=== PATIENT | female | born 1975 | race Caucasian/White ===

== ENCOUNTER 2024-03-14 10:39 | Outpatient (OUT) | payer OTHER, SELFPAY ==
--- NOTE | 2024-03-14 10:52 | XR_ITS ---
The [address] [address] Patient Name: GERTRUDE WATERS MRN: [id number] date: 1975 Sex: F Assigned Patient Location: [facility] Current Patient Location: Accession/Order Number: [id number] Exam Date: 03/14/2024 11:06 Report Date: 03/15/2024 06:16 At the request of: MARIS WELLS Procedure: XR foot RT 2V PROCEDURE: XR foot RT 2V HISTORY: Right Foot Pain ; lateral foot pain and swelling after kicking a door COMPARISON: None. FINDINGS: BONES:Nondisplaced transverse fracture through base of 5th metatarsal; no appreciable intra-articular extension. SOFT TISSUES:No visible soft tissue swelling. EFFUSION:None visible. OTHER: Negative. XR/XR foot RT 2V IMPRESSION: 1. Nondisplaced, acute base of 5th metatarsal fracture. Electronically authenticated by: RASHID MILLER Date: 03/15/2024 06:16
== END 2024-03-14 10:40 | disposition home or self-care (01) ==
LOC: RAD 10:45
PROVIDERS: PCP Family Medicine; Visit Provider Family Medicine
DX: M79.671 Pain in right foot (principal); S92.354A Nondisplaced fracture of fifth metatarsal bone, right foot, initial encounter for closed fracture
CPT/HCPCS: 73620

== ENCOUNTER 2024-07-21 15:45 | Emergency (ER) | payer SELFPAY ==
[2024-07-21 16:02] VITALS: BP 117/76; PULSE 75; TEMP 36.9; O2SAT 98; BMI 22.0
--- OUTSIDE RECORDS SUMMARY | 2024-07-21 16:08 | XMS_ITS | CCD ---
Author Organization [facility] Inform ion Partnership [facility] Care Team Providers Care [facility] Dining Room Attendant Name Role Phone Gareth Justin Santos Attending MARIS Tolbert Primary Care Unavailable MARIS OLIVAS Consulting Unavailable Maris Olivas Primary Care Physician Wolfgang MC Attending Unavailable Wolfgang MC Attending Unavailable PRISCILLA, DR POLLOCK Primary Care Unavailable JACOB, DR DOM Bishop Admitting Unavailable JACOB, DR DOM Bishop Attending Unavailable JACOB, DR DOM Bishop Consulting Unavailable MELODIE ORTIZ Consulting Unavailable PRISCILLA, DR POLLOCK Admitting Unavailable PRISCILLA, DR POLLOCK Attending Unavailable PRISCILLA, DR POLLOCK Primary Care Unavailable PRISCILLA, DR POLLOCK Consulting Unavailable PRISCILLA, DR POLLOCK Admitting Unavailable PRISCILLA, DR POLLOCK Attending Unavailable PRISCILLA, DR POLLOCK Primary Care Unavailable PRISCILLA, DR POLLOCK Primary Care Unavailable CANDELARIO, DR INDIRA Santos Admitting Unavailsabino PALOMINO, DR INDIRA Santos Attending Unavailabl valentine PALOMINO, DR INDIRA Santos Consulting UnavailPatel Givens Attending Patel Wright Admitting UnavailMaris Fernandez Primary Care Unavailable Allergies Allergy Classification Reported Allergen(s) Allergy Type Date of Onset Reaction(s) Facility Opioid Agonists (1 source) Codeine; Translations: [codeine] Drug Allergy [facility] Repository Sulfonamides (antibiotic) (1 source) Sulfonamides (Antibiotic); Translations: [sulfa drugs] Drug Allergy [facility] Repository (3 sources) Codeine; Translations: [codeine] Drug Allergy Weal (disorder) [facility] (3 sources) Contrast media; Translations: [Contrast Dye] Drug allergy Dyspnea (finding), Weal (disorder) [facility] (3 sources) Sulfonamides (Antibiotic); Translations: [sulfa drugs] Drug allergy Eruption of skin (disorder) General Surgery [facility] [place] (1 source) Codeine Drug Allergy 3 [facility] Repository (1 source) Sulfonamides (Antibiotic) Drug allergy (disorder) 3 [facility] Repository (1 source) Codeine Drug Allergy 1 [facility] Repository (1 source) Sulfonamides (Antibiotic) Drug allergy (disorder) 1 [facility] Repository Medications Current Medications Medication Drug Class(es) Dates Sig (Normalized) Sig (Original) aspirin 81 mg delayed release oral tablet (2 sources) Platelet Aggregation Inhibitor, Nonsteroidal Anti-inflammatory Drug Start: 06-19-2022 take 1 tablet by mouth once daily aspirin 81 mg Oral EC Tab 81 mg = 1 tab(s), Oral, Daily, Refills(s) 0 Start Date: 06/19/22 Status: Ordered carvedilol 3.125 mg oral tablet (2 sources) alpha-Adrenergic Petrona, beta-Adrenergic Petrona Start: 05-18-2022 take 1 tablet by mouth twice daily carvedilol 3.125 mg Tab 3.125 mg = 1 tab(s), Oral, BID, Refills(s) 0 Start Date: 05/18/22 Status: Ordered 24 hr desvenlafaxine succinate 100 mg extended release oral tablet (2 sources) Serotonin and Norepinephrine Reuptake Inhibitor Start: 03-08-2020 take 1 tablet by mouth once daily Pristiq 100 mg Tab-ER 100 mg = 1 tab(s), Oral, Daily Start Date: 03/08/20 Status: Ordered 24 hr mirabegron 25 mg extended release oral tablet (2 sources) beta3-Adrenergic Agonist Start: 05-18-2022 take 1 tablet by mouth once daily Myrbetriq 25 mg oral tablet, extended release 25 mg = 1 tab(s), Oral, Daily, Refills(s) 0 Start Date: 05/18/22 Status: Ordered valACYclovir 500 mg oral tablet (2 sources) Herpesvirus Nucleoside Analog DNA Polymerase Inhibitor, Herpes Simplex Virus Nucleoside Analog DNA Polymerase Inhibitor, Herpes Zoster Virus Nucleoside Analog DNA Polymerase Inhibitor Start: 03-15-2020 take 1 tablet by mouth once daily Valtrex 500 mg Tab 500 mg = 1 tab(s), Oral, Daily, Refills(s) 0 Start Date: 03/15/20 Status: Ordered Problems Active Problems Problem Classification Problem Date Documented Date Episodic/Chronic Anxiety disorders (3 sources) Anxiety; Translations: [Anxiety disorder, unspecified] Onset: 08-19-2021 03-08-2020 Chronic Cardiac dysrhythmias (4 sources) Paroxysmal atrial fibrillation; Translations: [Atrial premature depolarization] Onset: 08-19-2021 03-08-2020 Chronic E Codes: Struck by; against (1 source) Striking against or struck by other objects, initial encounter; Translations: [STRIKING AGNST/STRUCK OTH OBJ INIT] Onset: 08-03-2022 Episodic Immunizations and screening for infectious disease (1 source) Encounter for immunization; Translations: [ENCOUNTER FOR IMMUNIZATION] Onset: 08-03-2022 Episodic Mood disorders (1 source) Major depressive disorder, single episode, unspecified; Translations: [MARCY DEPRESS D/O SINGLE EPIS UNS] Onset: 08-19-2021 Chronic Neoplasms of unspecified nature or uncertain behavior (4 sources) Neoplasm of uncertain behavior of skin; Translations: [Neoplasm of uncertain behavior of skin] Onset: 06-19-2022 Episodic Open wounds of extremities (4 sources) Puncture wound with foreign body of right ring finger without damage to nail, initial encounter; Translations: [Puncture wound with foreign body of right index finger without damage to nail, initial encounter] Onset: 07-30-2022 Episodic Other aftercare (1 source) senior care (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 aspirin; Translations: [BARK SKINNER CURRENT USE OF ASPIRIN] Onset: 08-03-2022 Episodic Other aftercare (1 source) Other detention (current) drug therapy; Translations: [OTH NURSING HOME CURRENT DRUG THERAPY] Onset: 08-03-2022 Episodic Other and unspecified benign neoplasm (2 sources) Benign neoplasm of face 03-15-2020 Episodic Other diseases of bladder and urethra (2 sources) Overactive bladder 03-08-2020 Chronic Spondylosis; intervertebral disc disorders; other back problems (2 sources) Cervical radiculopathy 03-08-2020 Episodic Substance-related disorders (2 sources) History of drug abuse 03-08-2020 Chronic Unclassified (2 sources) Decreased body mass index 06-19-2022 Past or Other Problems Problem Classification Problem Date Documented Da te Episodic/Chronic Cardiac dysrhythmias (4 sources) Palpitations; Translations: [PALPITATIONS] Onset: 08-19-2021 Episodic Results Test Name Value Interpretation Reference Range Facility Facesheeton 06-23-2022 Facesheet [id number] D:127 Normal [facility] Physician Referralon 022 Physician Referral [id number] D:127 Normal [facility] CARDIAC DOM ADMITon 022 CK [Catalytic activity/Vol] 73 U/L Normal 30-135 [facility] Comment on above: Performed By: #### C MADM, CMP #### [facility] [address] [place] [address] Dr. Akil Aleman CK.MB [Mass/Vol] 0.61 ng/mL Normal <=2.37 [facility] Comment on above: Performed By: #### C MADM, CMP #### [facility] [address] [place] [address] Dr. Akil Aleman HSTROP 7.1 pg/mL Normal 4.0-35.5 [facility] Comment on above: Result Comment: CUT- OFF POINTS HAVE BEEN ESTABLISHED BASED ON THE FOURTH UNIVERSAL DEFINITIONS OF MYOCARDIAL INFARCTION. THE UPPER REFERENCE LIMIT (URL) OF TROPONIN, DEFINED THE 99TH PERCENTILE OF cTnI DISTRIBUTION IN A REFERENCE POPULATION, HAS BEEN CONFIRMED THE DECISION THRESHOLD FOR [place] DIAGNOSIS. Performed By: #### C MADM, CMP #### [facility] [address] [place] [address] Dr. Akil Aleman HUNTER 22.0 ng/mL Normal <=61.5 [facility] Comment on above: Performed By: #### C MADM, CMP #### [facility] [address] [place] [address] Dr. Akil Aleman CBC AUTO DIFFon 08-16-2021 BASO # 0.0 103/ul Normal 0.0-0.1 [facility] Comment on above: Performed By: #### C BC #### [facility] [address] [place] [address] Dr. Akil Aleman Basophils/100 WBC (Bld) 0.5 % Normal 0.2-2.0 [facility] Comment on above: Performed By: #### C BC #### [facility] [address] [place] [address] Dr. Akil Aleman EO # 0.2 103/ul Normal 0.0-0.7 [facility] Comment on above: Performed By: #### C BC #### [facility] [address] [place] [address] Dr. Akil Aleman Eosinophils/100 WBC (Bld) 2.8 % Normal 0.9-7.0 [facility] Comment on above: Performed By: #### C BC #### [facility] [address] [place] [address] Dr. Akil Aleman Erythrocyte distribution width (RBC) [Ratio] 12.6 % Normal 11.0-15.0 [facility] Comment on above: Performed By: #### C BC #### [facility] [address] [place] [address] Dr. Akil Aleman Hematocrit (Bld) [Volume fraction] 42.5 % Normal 36.0-48.0 [facility] Comment on above: Performed By: #### C BC #### [facility] [address] [place] [address] Dr. Akil Aleman Hemoglobin (Bld) [Mass/Vol] 14.8 g/dL Normal 12.0-16.0 [facility] Comment on above: Performed By: #### C BC #### [facility] [address] [place] [address] Dr. Akil Aleman IG # 0.02 10e3/ul Normal 0.00-0.03 [facility] Comment on above: Performed By: #### C BC #### [facility] [address] [place] [address] Dr. Akil Aleman IG % 0.3 % Normal 0.0-0.5 [facility] Comment on above: Performed By: #### C BC #### [facility] [address] [place] [address] Dr. Akil Aleman LYMPH # 2.0 103/ul Normal 1.2-3.8 [facility] Comment on above: Performed By: #### C BC #### [facility] [address] [place] [address] Dr. Akil Aleman Lymphocytes/100 WBC (Bld) 25.4 % Normal 20.5-60.0 [facility] Comment on above: Performed By: #### C BC #### [facility] [address] [place] [address] Dr. Akil Aleman MANUAL DIFF REQ NO Normal [facility] Comment on above: Performed By: #### C BC #### [facility] [address] [place] [address] Dr. Akil Aleman MCH (RBC) [Entitic mass] 36.5 pg Critically high 26.7-34.0 [facility] Comment on above: Performed By: #### C BC #### [facility] [address] [place] [address] Dr. Akil Aleman MCHC (RBC) [Mass/Vol] 34.8 g/dL Normal 29.9-35.2 [facility] Comment on above: Performed By: #### C BC #### [facility] [address] [place] [address] Dr. Akil Aleman MCV (RBC) [Entitic vol] 104.9 fL Critically high 81.0-99.0 [facility] Comment on above: Performed By: #### C BC #### [facility] [address] [place] [address] Dr. Akil Aleman MONO # 0.7 103/ul Normal 0.3-0.8 [facility] Comment on above: Performed By: #### C BC #### [facility] [address] [place] [address] Dr. Akil Aleman Monocytes/100 WBC (Bld) 8.9 % Normal 1.7-12.0 [facility] Comment on above: Performed By: #### C BC #### [facility] [address] [place] [address] Dr. Akil Aleman NEUT # 5.0 103/ul Normal 1.4-6.5 [facility] Comment on above: Performed By: #### C BC #### [facility] [address] [address] [address] Akil Aleman Neutrophils/100 WBC (Bld) 62.1 % Normal 43.0-75.0 [facility] Comment on above: Performed By: #### C BC #### [facility] [address] [address] [address] Akil Aleman Platelet mean volume (Bld) [Entitic vol] 12.1 fL Normal 9.5-13.5 [facility] Comment on above: Performed By: #### C BC #### [facility] [address] [address] [address] Akil Aleman PLT 187 103/ul Normal 150-450 [facility] Comment on above: Performed By: #### C BC #### [facility] [address] [address] [address] Akil Aleman RBC 4.05 106/ul Critically low 4.20-5.40 [facility] Comment on above: Performed By: #### C BC #### [facility] [address] [address] [address] Akil Aleman WBC 8.0 103/ul Normal 4.0-11.0 [facility] Comment on above: Performed By: #### C BC #### [facility] [address] [address] [address] Akil Aleman PROF 14(COMP METB)on 022 Albumin [Mass/Vol] 3.8 g/dL Normal 3.5-5.0 [facility] Comment on above: Performed By: #### C KIERRAM, CMP #### [facility] [address] [address] [address] Akil Aleman Albumin/Globulin [Mass ratio] 1.1 {ratio} Normal [facility] Comment on above: Performed By: #### C KIERRAM, CMP #### [facility] [address] [address] [address] Akil Aleman ALP [Catalytic activity/Vol] 132 U/L Critically high 38-126 [facility] Comment on above: Performed By: #### C MADM, CMP #### [facility] [address] [address] [address] Akil Aleman ALT [Catalytic activity/Vol] 19 U/L Normal 9-52 [facility] Comment on above: Performed By: #### C MADM, CMP #### [facility] [address] [address] [address] Akil Aleman Anion gap [Moles/Vol] 16.1 mmol/L Normal [facility] Comment on above: Performed By: #### C MADM, CMP #### [facility] [address] [address] [address] Akil Aleman AST [Catalytic activity/Vol] 13 U/L Critically low 14-36 [facility] Comment on above: Performed By: #### C MADM, CMP #### [facility] [address] [address] [address] Akil Aleman Bilirubin [Mass/Vol] 0.5 mg/dL Normal 0.2-1.3 [facility] Comment on above: Performed By: #### C MADM, CMP #### [facility] [address] [address] [address] Akil Aleman Calcium [Mass/Vol] 9.2 mg/dL Normal 8.4-10.2 [facility] Comment on above: Performed By: #### C KIERRAM, CMP #### [facility] [address] [address] [address] Akil Aleman Chloride [Moles/Vol] 101 mmol/L Normal 98-107 [facility] Comment on above: Performed By: #### C MADM, CMP #### [facility] [address] [address] [address] Akil Aleman CO2 [Moles/Vol] 25.5 mmol/L Normal 22.0-30.0 [facility] Comment on above: Performed By: #### C MADM, CMP #### [facility] [address] [address] [address] Akil Aleman Creatinine [Mass/Vol] 0.70 mg/dL Normal 0.52-1.04 [facility] Comment on above: Performed By: #### C MADM, CMP #### [facility] [address] [place] [address] Dr. Akil Aleman EGFR-AF GUAMANIAN >60 Normal >=60 [facility] Comment on above: Performed By: #### C MADM, CMP #### [facility] [address] [address] [address] Akil Aleman EGFR-NON AF GUAMANIAN >60 Normal >=60 [facility] Comment on above: Performed By: #### C MADM, CMP #### [facility] [address] [address] [address] Akil Aleman Globulin (S) [Mass/Vol] 3.5 g/dL Normal [facility] Comment on above: Performed By: #### C MADM, CMP #### [facility] [address] [place] [address] Dr. Akil Aleman Glucose [Mass/Vol] 88 mg/dL Normal 74-106 [facility] Comment on above: Performed By: #### C MADM, CMP #### [facility] [address] [place] [address] Dr. Akil Aleman Potassium [Moles/Vol] 3.6 mmol/L Normal 3.4-5.0 [facility] Comment on above: Performed By: #### C MADM, CMP #### [facility] [address] [place] [address] Dr. Akil Aleman Protein [Mass/Vol] 7.3 g/dL Normal 6.1-8.2 [facility] Comment on above: Performed By: #### C MADM, CMP #### [facility] [address] [place] [address] Dr. Akil Aleman Sodium [Moles/Vol] 139 mmol/L Normal 137-145 [facility] Comment on above: Performed By: #### C MADM, CMP #### [facility] [address] [place] [address] Dr. Akil Aleman Urea nitrogen [Mass/Vol] 11.0 mg/dL Normal 7.0-17.0 [facility] Comment on above: Performed By: #### C SANDI, CMP #### [facility] [address] [place], [place] [address] Dr. Akil Aleman Urea nitrogen/Creatinin e [Mass ratio] 15.7 mg/mg Normal [facility] Comment on above: Performed By: #### C SANDI, CMP #### [facility] [address] [place], [place] [address] Dr. Akil Aleman XR CHEST 1 Von 08-16-2021 XR CHEST 1 V EXAM: XR CHEST 1 V HISTORY: CHEST PAIN, UNSPECIFIED COMPARISON: None available. TECHNIQUE: Single AP view of the chest is obtained. FINDINGS: The cardiac mediastinal silhouette is nonenlarged. Pulmonary vascular markings are within normal limits. There is no focal airspace consolidation. The costophrenic angles are clear. No pneumothorax. The osseous structures are normally intact. IMPRESSION: Normal single view chest x-ray. Electronically authenticated by: MELODIE ORTIZ Date: 2021-08-16 02:38 Normal [facility] ED Clinical Summaryon 2020 ED Clinical Summary [address] [address] ED Clinical Summary Person Information Name: Martha Puckett [facility] Age: 45 Years : 1975 Sex: Female PCP: Maris Olivas MD Marital Status: Phone: Race: White Ethnicity: Not or Language: Samoan Visit Reason: Seizure; Seizure - febrile Acuity: 3 Enc Type: Emergency Med Service: Emergency Medicine Arrival: 11/02/2020 19:11:24 Discharge: 11/02/2020 22:24:00 LOS: 000 03:13 Checkin: 11/02/2020 19:11:24 Checkout: 11/02/2020 22:24:00 Dispo Type: Home or Self Care Address: [address] [place] [address] Provider Notes: Diagnosis: 1:First time seizure; 2:Anxiety disorder Problems No Problems Documented Smoking Status: Smoking Status 4 or less cigarettes(less than 1/4 pack)/day in last 30 days Functional Status: Sensory Deficits: History of Falls: Mobility Assistance Prior to Admission: ADLs: Current Level of Assistance for Self-Care/Mobility: Cognitive Status: Allergies codeine (Hives) sulfa drugs (Rash) Laboratory or Other Results This Visit (last charted value for your 11/02/2020 visit) Hematology 11/02/2020 8:34 PM WBC: 10.5 x10 RBC: 3.94 x10 Neutro Auto: 78.5 % -- Normal range between ( 47.2 and 70.8 ) Lymph Auto: 13.7 % -- Normal range between ( 27.2 and 40.8 ) [place] Auto: 5.5 % -- Normal range between ( 3.7 and 11.9 ) Eos Auto: 1.3 % -- Normal range between ( 0.0 and 5.4 ) Basophil Auto: 1.0 % -- Normal range between ( 0.0 and 1.5 ) Baso Absolute: 0.1 x10 MCV: 102.2 fL -- Normal range between ( 80.0 and 100.0 ) MCHC: 33.8 % -- Normal range between ( 31.0 and 37.0 ) Lymph Absolute: 1.4 x10 Hct: 40.2 % -- Normal range between ( 36.0 and 46.0 ) [place] Absolute: 0.6 x10 MCH: 34.5 pg -- Normal range between ( 27.0 and 35.0 ) Neutro Absolute: 8.3 x10 Hgb: 13.6 g/dL -- Normal range between ( 12.0 and 16.0 ) Mean Platelet Volume: 9.4 fL -- Normal range between ( 6.7 and 10.6 ) Platelet: 225 x10 Eos Absolute: 0.1 x10 RDW: 15.5 % -- Normal range between ( 11.6 and 14.8 ) Coagulation 11/02/2020 8:34 PM PT: 11.7 seconds -- Normal range between ( 9.4 and 12.1 ) INR: 1.1 ratio PTT: 21.7 seconds -- Normal range between ( 20.2 and 27.0 ) Urinalysis 11/02/2020 8:34 PM UA Color: Yellow UA Urobilinogen: 0.2 mg/dL UA Bili: Negative UA Ketones: Negative mg/dL UA Leukocyte Esterase: Negative UA Nitrite: Negative UA Glucose: Negative mg/dL UA Bacteria: Present /HPF UA Protein: 30 mg/dL UA Blood: Negative UA Spec Grav: 1.017 -- Normal range between ( 1.003 and 1.035 ) UA pH: 6.0 UA Clarity: Clear UA Source: Clean Catch UA Mucus: Present /LPF UA Hyline Cast Qual: 3-5 /LPF UA WBC Quant: 4 /HPF -- Normal range between ( 0 and 5 ) UA RBC Quant: 5 /HPF -- Normal range between ( 0 and 5 ) UA Squepi Cells Quant: 7 /HPF -- Normal range between ( 0 and 29 ) Chemistry 11/02/2020 8:34 PM Creatinine Lvl: 0.80 mg/dL -- Normal range between ( 0.44 and 1.03 ) BUN: 13 mg/dL -- Normal range between ( 8 and 26 ) Glucose Lvl: 107 mg/dL -- Normal range between ( 70 and 99 ) Potassium Lvl: 3.8 mmol/L -- Normal range between ( 3.4 and 4.8 ) AST: 16 IU/L -- Normal range between ( 15 and 41 ) ALT: 18 IU/L -- Normal range between ( 14 and 54 ) Troponin-I: <0.03 ng/mL -- Normal range between ( 0.00 and 0.03 ) Sodium Lvl: 140 mmol/L -- Normal range between ( 133 and 142 ) Calcium Lvl: 9.0 mg/dL -- Normal range between ( 8.5 and 10.3 ) Albumin Lvl: 3.9 g/dL -- Normal range between ( 3.2 and 4.9 ) Total Protein: 6.8 g/dL -- Normal range between ( 6.5 and 8.1 ) Bili Total: 0.2 mg/dL -- Normal range between ( 0.3 and 1.2 ) Alk Phos: 64 IU/L -- Normal range between ( 32 and 91 ) Myoglobin: 319.0 ng/dL -- Normal range between ( 14.3 and 65.8 ) Chloride: 105 mmol/L -- Normal range between ( 98 and 110 ) CO2: 25 mmol/L -- Normal range between ( 22 and 32 ) Anion Gap: 14 -- Normal range between ( 7 and 17 ) TSH: 3.23 mcIU/mL -- Normal range between ( 0.45 and 5.33 ) eGFR Non-AA: >60 mL/min/1.73m? eGFR AA: >60 mL/min/1.73m? BUN Crea Ratio: 16.2 -- Normal range between ( 10.0 and 20.0 ) Urine Preg: Negative AG Ratio: 1.3 -- Normal range between ( 1.1 and 2.2 ) Ur Creatinine Tox Scrn: 186.8 mg/dL Toxicology 11/02/2020 8:34 PM Ur PCP Scrn: Negative ng/mL Ur Opiate Scrn: Negative ng/mL Ur Methadone Scn: Negative ng/mL Ur Cannab Scrn: Positive ng/mL Ur Amph Scrn: Negative ng/mL Ur Benzodia Scrn: Negative ng/mL Ur Lulu Scrn: Positive ng/mL Ur Cocaine Scrn: Negative ng/mL Ur Oxy Screen: Negative ng/mL Ethanol, Plasma: <10 mg/dL Computed Tomography 11/02/2020 9:[address] Brain w/o Contrast: CT Brain w/o Contrast Diagnostic Radiology 11/02/2020 8:07 PM XR Chest 1 View: XR Chest 1 View Measurements: Height: Weight: 59.9 kg (more content not included)... Normal [facility] .UA Microscp Aon 11-02-2020 UA Bacteria Present Abnormal Absent [facility] Comment on above: Performed By: #### C [id number] #### [place] [address] UA Hyline Cast Qual 3-5 Normal Negative [facility] Comment on above: Performed By: #### C [id number] #### [place] [address] UA Mucus Present Abnormal Absent [facility] Comment on above: Performed By: #### C [id number] #### [place] [address] UA RBC Quant 5 /HPF Normal 0-5 [facility] Comment on above: Performed By: #### C [id number] #### [place] [address] UA Squepi Cells Quant 7 /HPF Normal 0-29 [facility] Comment on above: Performed By: #### C [id number] #### [address] [address] UA WBC Quant 4 /HPF Normal 0-5 [facility] Comment on above: Performed By: #### C [id number] #### [address] [address] .eGFRon 11-02-2020 eGFR AA >60 Normal >=60 [facility] Comment on above: Order Comment: Order added by Discern rule Result Comment: See comment. Performed By: #### E GFR #### [place] [address] eGFR Non-AA >60 Normal >=60 [facility] Comment on above: Order Comment: Order added by Discern rule Result Comment: Stag es of Chronic Kidney Disease GFR Stage 3a Mild to moderate loss of kidney function 59 to 45 Stage 3b Moderate to severe loss of kidney function 44 to 33 Stage 4 Severe loss of kidney function 29 to 15 Stage 5 Kidney failure Less than 15 GFR calculated using the CKD-EPI Creatinine Equation (2009): eGFR = 141 X min(SCr/?, 1)? X max(SCr /?, 1)-1.209 X 0.993Age X 1.018 [if female] X 1.159 [if Black] Abbreviations/Units: eGFR (estimated glomerular filtration rate) = mL/min/1.73 m2 SCr (standardized serum creatinine) = mg/dL ? = 0.7 (females) or 0.9 (males) ? = -0.329 (females) or -0.411 (males) min = indicates the minimum of SCr/? or 1 max = indicates the maximum of SCr/? or 1 age = years Performed By: #### E GFR #### [address] [address] CBC w/ Diffon 11-02-2020 Erythrocyte distribution width (RBC) [Ratio] 15.5 % High 11.6-14.8 [facility] [facility] Comment on above: Performed By: #### C BC #### [address] [address] Hematocrit (Bld) [Volume fraction] 40.2 % Normal 36.0-46.0 [facility] Comment on above: Performed By: #### C BC #### [address] [address] Hemoglobin (Bld) [Mass/Vol] 13.6 g/dL Normal 12.0-16.0 [facility] Comment on above: Performed By: #### C BC #### [address] [address] MCH (RBC) [Entitic mass] 34.5 pg Normal 27.0-35.0 [facility] Comment on above: Performed By: #### C BC #### [address] [address] MCHC 33.8 % Normal 31.0-37.0 [facility] Comment on above: Performed By: #### C BC #### [address] [address] MCV (RBC) [Entitic vol] 102.2 fL High 80.0-100.0 [facility] Comment on above: Performed By: #### C BC #### [address] [address] Platelet 225 x10*3/mcL Normal 150-350 [facility] Comment on above: Performed By: #### C BC #### [address] [address] Platelet mean volume (Bld) [Entitic vol] 9.4 fL Normal 6.7-10.6 [facility] Comment on above: Performed By: #### C BC #### [address] [address] RBC 3.94 x10*6/mcL Normal 3.80-5.20 [facility] Comment on above: Performed By: #### C BC #### [address] [address] WBC 10.5 x10*3/mcL Normal 4.5-11.0 [facility] Comment on above: Performed By: #### C BC #### [address] [address] CMPon 11-02-2020 Creatinine [Mass/Vol] 0.80 mg/dL Normal 0.44-1.03 [facility] Comment on above: Performed By: #### C OMP #### [address] [address] Urea nitrogen [Mass/Vol] 13 mg/dL Normal 8-26 [facility] Comment on above: Performed By: #### C OMP #### [address] [address] Urea nitrogen/Creatinin e [Mass ratio] 16.2 mg/mg Normal 10.0-20.0 [facility] Comment on above: Performed By: #### C OMP #### [address] [address] Albumin [Mass/Vol] 3.9 g/dL Normal 3.2-4.9 [facility] Comment on above: Performed By: #### C OMP #### [address] [address] Albumin/Globulin [Mass ratio] 1.3 {ratio} Normal 1.1-2.2 [facility] Comment on above: Performed By: #### C OMP #### [address] [address] Alk Phos 64 IU/L Normal 32-91 [facility] Comment on above: Performed By: #### C OMP #### [address] [address] ALT [Catalytic activity/Vol] 18 U/L Normal 14-54 [facility] Comment on above: Performed By: #### C OMP #### [address] [address] AST [Catalytic activity/Vol] 16 U/L Normal 15-41 [facility] Comment on above: Performed By: #### C OMP #### [address] [place] [address] Bili Total 0.2 mg/dL Low 0.3-1.2 [facility] Comment on above: Performed By: #### C OMP #### [address] [place] [address] Protein [Mass/Vol] 6.8 g/dL Normal 6.5-8.1 [facility] Comment on above: Performed By: #### C OMP #### [address] [place] [address] Anion gap [Moles/Vol] 14 mmol/L Normal 7-17 [facility] Comment on above: Performed By: #### C OMP #### [address] [address] Calcium [Mass/Vol] 9.0 mg/dL Normal 8.5-10.3 [facility] Comment on above: Performed By: #### C OMP #### [address] [place] [address] Chloride [Moles/Vol] 105 mmol/L Normal 98-110 [facility] Comment on above: Performed By: #### C OMP #### [address] [place] [address] CO2 [Moles/Vol] 25 mmol/L Normal 22-32 [facility] Comment on above: Performed By: #### C OMP #### [address] [place] [address] Glucose [Mass/Vol] 107 mg/dL High 70-99 [facility] Comment on above: Performed By: #### C OMP #### [address] [place] [address] Potassium [Moles/Vol] 3.8 mmol/L Normal 3.4-4.8 [facility] Comment on above: Performed By: #### C OMP #### [address] [place] [address] Sodium [Moles/Vol] 140 mmol/L Normal 133-142 [facility] Comment on above: Performed By: #### C OMP #### [address] [address] [address] Brain w/o Contraston 10-17 CT Brain w/o Contrast EXAM: CT Brain w/o Contrast COMPARISON: None available. CLINICAL INFORMATION: Seizure. TECHNIQUE: Axial noncontrast images were obtained through the brain and reconstructed using brain and bone algorithms. Dose reduction techniques were achieved by using automated exposure control and/or adjustment of mA and/or kV according to patient size and/or use of iterative reconstruction technique. FINDINGS: BRAIN: No intracranial hemorrhage. No extra-axial collection. No mass or mass effect. No midline shift. Funk-white matter differentiation is preserved. CSF: Ventricles and sulci appropriate for age. Basal cisterns are patent. ORBITS: Visualized orbital structures are unremarkable. SINUSES AND MASTOID AIR CELLS: Paranasal sinuses are clear. Mastoid air cells are clear. BONES: No acute osseous abnormality. SOFT TISSUES: Unremarkable. IMPRESSION: 1. No acute intracranial abnormality. 2. If this is a first-time seizure consider further evaluation with follow-up nonemergent MRI. Radiation Dose Estimate: CTDI(mGy):0.841779 / / / kVp:120.019890 / mAs:0.136788 / / / DLP(mGy-cm):4.183000Zdu y Part: Head CTDI(mGy):40.130549 / / / kVp:120.404957 / mAs:164.626449 / / / DLP(mGy-cm):605.470010N hailey Part: Head Final Dictated by: Sebastián Castañeda MD Dictated DT/TM: 11.02.2020 9:41 pm Signed by: Sebastián Castañeda MD Signed (Electronic Signature): 11.02.2020 9:43 pm (If Report Is Signed, Electronically Signed in Other Vendor System) Normal [facility] Diff Autoon 11-02-2020 Baso Absolute 0.1 x10*3/mcL Normal 0.0-0.2 [facility] Comment on above: Performed By: #### P TINR #### [address] [address] Basophils/100 WBC (Bld) 1.0 % Normal 0.0-1.5 [facility] Comment on above: Performed By: #### P TINR #### [address] [address] Eos Absolute 0.1 x10*3/mcL Normal 0.0-0.4 [facility] Comment on above: Performed By: #### P TINR #### [address] [address] Eosinophils/100 WBC (Bld) 1.3 % Normal 0.0-5.4 [facility] Comment on above: Performed By: #### P TINR #### [address] [address] Lymph Absolute 1.4 x10*3/mcL Normal 1.0-4.8 [facility] Comment on above: Performed By: #### P TINR #### [address] [address] Lymphocytes/100 WBC (Bld) 13.7 % Low 27.2-40.8 [facility] Comment on above: Performed By: #### P TINR #### [address] [address] [place] Absolute 0.6 x10*3/mcL Normal 0.1-1.1 [facility] Comment on above: Performed By: #### P TINR #### [address] [address] Monocytes/100 WBC (Bld) 5.5 % Normal 3.7-11.9 [facility] Comment on above: Performed By: #### P TINR #### [address] [address] Neutro Absolute 8.3 x10*3/mcL High 1.8-7.7 [facility] Comment on above: Performed By: #### P TINR #### [address] [address] Neutro Auto 78.5 % High 47.2-70.8 [facility] Comment on above: Performed By: #### P TINR #### [facility] [address] [place] [address] ED Note-Physicianon 11-03-19 ED Note-Physician Chief Complaint Patient coming from [facility] for new onset seizure like activity. 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 last use 12 days ago. History of Present Illness Patient presents the emergency department from [facility] for concern of new onset seizure. 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 The last time he used benzos was 12 days ago when he reported to the center. Today just prior to coming she said that she had right eye flashing light and soon after that she had tonic-clonic seizure estimated to have lasted about a minute witnessed by the nursing staff at the center. She has never had any seizures before and therefore this is the first seizure episode in her life. She denies alcohol use previously. She denies any recent trauma. She denies any symptoms to suggest infectious process. She denies any substance ingestion. She denies any associated headache or any other visual disturbance except the one that occurred prior to the seizure. She denies neck pain no meningismus she denies any fevers. She denies any associated cough or congestion no chest pain or shortness of breath and no cardiorespiratory symptoms. She denies nausea or vomiting or diarrhea or abdominal pain or any other GI or symptoms. During the seizure episode she did not sustain any injury. Clinically she looks well in no distress with an otherwise normal exam. Patient said that she is not immunocompromise as far as she can tell she does not believe she has HIV or any other immunocompromised state. Review of Systems As reviewed in the HPI. All other systems reviewed are negative or normal. Physical Exam CONSTITUTIONAL: [no apparent distress, well appearing] SKIN: [warm, dry, no jaundice, hives or petechiae] EYES: [pupils are equally round, extraocular movements intact without nystagmus, clear conjunctiva, non-icteric sclera] HENT: [normocephalic, atraumatic, moist mucus membranes, oropharynx clear without exudates] NECK: [Nontender and supple with no nuchal rigidity, no lymphadenopathy, full range of motion] PULMONARY: [clear to auscultation without wheezes, rhonchi, or rales, normal excursion, no accessory muscle use and no stridor] CARDIOVASCULAR: [regular rate, rhythm, normal S1 and S2. No appreciated murmurs. Strong radial pulses with intact distal perfusion] GASTROINTESTINAL: [soft, non-tender, non-distended, no palpable masses, no rebound or guarding] GENITOURINARY: [No costovertebral angle tenderness to palpation] LYMPHATICS: [no edema in lower extremities, no lymphadenopathy] MUSCULOSKELETAL: [Extremities are nontender to palpation and have no gross deformity, no edema, redness, or swelling] NEUROLOGIC: [alert and oriented x 3, GCS 15, normal mentation and speech. Moves all extremities x 4 without motor or sensory deficit . PSYCHIATRIC: [normal mood and affect, thought process is clear and linear] Vitals & Measurements HR: 87 (Peripheral) RR: 18 BP: 123/69 SpO2: 98% WT: 59.9 kg (Dosing) Additional Vitals No qualifying data available. Procedure No qualifying data available. ASA Documentation Medical Decision Making Patient presented to the emergency department with first time seizure. Her physical exam is normal and CBC is normal PT/INR is normal electrolytes are normal. Drug screen is negative for drugs except barbiturates and marijuana. Chest x-ray and CT scan of the brain is normal. MRI is advised and I recommended that they follow-up with her treating doctor in the recovery center and if needed the MRI can be organized. At this time she feels well here in the emergency department she has been asymptomatic. And she can be discharged to follow-up as an outpatient. I did recommend that she follow-up with neurologist Dr. Salgado. Patient's utilization review nurse is by the bedside who will take care of her and report to us if there are any issues. Patient is clinically stable for discharge at this time. This being the first decision no clinical indication to start her on antiepileptics. Assessment/Plan 1. First time seizure Ordered: Discharge Patient 2. Anxiety disorder Ordered: Discharge Patient Orders: EKG Refresh vitals and sections below: Problem List/Past Medical History Ongoing No qualifying data Historical No qualifying data Medications Inpatient NS Bolus, 1000 mL, IV Bolus, Once Toradol, 30 mg= 1 mL, IV Push, Once Home No active home medications Allergies codeine (Hives) sulfa drugs (Rash) Social History Tobacco 4 or less cigarettes(less than 1/4 pack)/day in last 30 days Use:. Lab Results Automated Hematology LATEST RESULTS WBC 11/02/20 20:34 10.5 RBC 11/02/20 20:34 3.94 Hgb 11/02/20 20:34 13.6 Hct 11/02/20 20:34 40.2 MCV 11/02/20 20:34 102.2 High MCH 11/02/20 20:34 34.5 MCHC 11/02/20 20:34 33.8 RDW 11/02/20 20:34 15.5 High Platelet 11/02/20 20:34 225 Me (more content not included)... Normal [facility] Ethanolon 11-02-2020 Ethanol, Plasma <10 Normal <=9 [facility] Comment on above: Result Comment: To c onvert mg/dL to g/dL, divide result by 1,000. Legal limit of intoxication is 80 mg/dL (0.08 g/dL). Performed By: #### P TINR #### [address] [address] Myoglobinon 11-02-2020 Myoglobin 319.0 ng/dL High 14.3-65.8 [facility] Comment on above: Performed By: #### M YO #### [address] [address] PTon 11-02-2020 INR Coag (PPP) [Relative time] 1.1 {INR} Normal <=3.5 [facility] Comment on above: Result Comment: INR has no normal range. INR Therapeutic range is: 2.0-3.0 (AF, CVA, TIAs, DVT prophylaxis, acute DVT) 2.5-3.5 ([facility] heart valves, recurrent thrombosis/emboli) Performed By: #### P TINR #### [address] [address] PT Coag (PPP) [Time] 11.7 s Normal 9.4-12.1 [facility] Comment on above: Performed By: #### P TINR #### [address] [address] PTTon 11-02-2020 aPTT Coag (Bld) [Time] 21.7 s Normal 20.2-27.0 [facility] Comment on above: Performed By: #### P TT #### [address] [address] TSHon 11-02-2020 TSH Qn 3.23 m[IU]/L Normal 0.45-5.33 [facility] Comment on above: Result Comment: Refe rence Ranges for individuals from to 18 years of age were obtained from The [employer] Handbook (20 ed) published by [facility]. Reference Ranges for Females: Females, 1st Trimester 0.05 ? 3.7 uIU/mL Females, 2nd Trimester 0.31 ? 4.35 uIU/mL Females, 3rd Trimester 0.41 ? 5.18 uIU/mL Performed By: #### P TINR #### [place] [id number] Troponin-Ion 11-02-2020 Troponin I.cardiac [Mass/Vol] ng/mL Normal 0.00-0.03 [facility] Comment on above: Result Comment: An i ncreased Troponin-I value, in the absence of myocardial ischemia, may indicate other etiologies of cardiac damage. Performed By: #### T ROP #### [address] [address] UA w Culture if Indon 2020 Color (U) Yellow Normal [facility] Comment on above: Performed By: #### U CI #### [address] [address] Glucose (U) [Mass/Vol] Negative Normal Negative [facility] Comment on above: Performed By: #### U CI #### [address] [address] Ketones Ql (U) Negative Normal Negative [facility] Comment on above: Performed By: #### U CI #### [address] [place] [address] UA Blood Negative Normal Negative [facility] Comment on above: Performed By: #### U CI #### [address] [place] [address] UA Clarity Clear Normal [facility] Comment on above: Performed By: #### U CI #### [address] [place] [address] UA Leukocyte Esterase Negative Normal Negative [facility] Comment on above: Performed By: #### U CI #### [address] [place] [address] UA Nitrite Negative Normal Negative [facility] Comment on above: Performed By: #### U CI #### [address] [place] [address] UA pH 6.0 Normal 4.5 - 7.8 [facility] Comment on above: Performed By: #### U CI #### [address] [address] UA Protein 30 mg/dL Abnormal Negative [facility] Comment on above: Performed By: #### U CI #### [address] [address] UA Source Clean Catch Normal [facility] Comment on above: Performed By: #### U CI #### [address] [address] UA Spec Grav 1.017 Normal 1.003-1.035 [facility] Comment on above: Performed By: #### U CI #### [address] [place] [address] UA Urobilinogen 0.2 mg/dL Normal 0.2 - 1.0 [facility] Comment on above: Performed By: #### U CI #### [address] [address] Urobilinogen (U) [Mass/Vol] Negative Normal Negative [facility] Comment on above: Performed By: #### U CI #### [address] [address] UDS Compon 11-02-2020 Creatinine [Mass/Vol] 186.8 mg/dL Normal [facility] Comment on above: Performed By: #### C [id number] #### [address] [address] Ur Amph Scrn Negative Normal NEG = <1000 [facility] Comment on above: Performed By: #### C [id number] #### [address] [address] Ur Lulu Scrn Positive Abnormal NEG = <200 [facility] Comment on above: Result Comment: This unconfirmed positive screening result is to be used for medical treatment purposes only. Unconfirmed screening results must not be used for non-medical purposes. (e.g. employment testing, legal testing). Performed By: #### C [id number] #### [address] [address] Ur Benzodia Scrn Negative Normal NEG = <200 [facility] Comment on above: Performed By: #### C [id number] #### [address] [address] Ur Cannab Scrn Positive Abnormal NEG = <50 [facility] Comment on above: Result Comment: This unconfirmed positive screening result is to be used for medical treatment purposes only. Unconfirmed screening results must not be used for non-medical purposes. (e.g. employment testing, legal testing). Performed By: #### C [id number] #### [address] [address] Ur Cocaine Scrn Negative Normal NEG = <300 [facility] Comment on above: Performed By: #### C [id number] #### [address] [address] Ur Methadone Scn Negative Normal NEG = <300 [facility] Comment on above: Performed By: #### C [id number] #### [address] [address] Ur Opiate Scrn Negative Normal NEG = <300 [facility] Comment on above: Performed By: #### C [id number] #### [address] [address] Ur Oxy Screen Negative Normal NEG = <100 [facility] Comment on above: Performed By: #### C [id number] #### [address] [address] Ur Oxy Scrn Qnt 0 ng/mL Normal <=99 [facility] Comment on above: Performed By: #### C [id number] #### [address] [address] Ur PCP Scrn Negative Normal NEG = <25 [facility] Comment on above: Performed By: #### C [id number] #### [address] [address] UA pH 6.0 Normal 4.5 - 7.8 [facility] Comment on above: Performed By: #### C [id number] #### [address] [address] UA Spec Grav 1.017 Normal 1.003-1.035 [facility] Comment on above: Performed By: #### C [id number] #### [address] [address] XR Chest 1 Viewon 11-02-2020 XR Chest 1 View EXAM: XR Chest 1 Vie w HISTORY: Seizure COMPARISON: None. TECHNIQUE: Single portable AP upright view of the chest is submitted for review. FINDINGS: The heart size is normal. No dense focal consolidation, pneumothorax or pleural effusion is seen. The visualized osseous structures appear unremarkable. IMPRESSION: No radiographic evidence for acute cardiopulmonary disease. Final Dictated by: aCt Lagunas MD Dictated DT/TM: 11/02/2020 8:28 pm Signed by: Cat Lagunas MD Signed (Electronic Signature): 11/02/2020 8:29 pm (If Report Is Signed, Electronically Signed in Other Vendor System) Normal [facility] Vital Signs Date Time Vital Sign Value Performing Clinician Lynn buckner 06-19-2022 14:50-0500 Blood Pressure Location [facility] N[facility] [place] 06-19-2022 14:50-0500 Diastolic blood pressure 66 mm[Hg] [facility] [place] 06-19-2022 14:50-0500 Heart rate 76 /min [facility] [place] 06-19-2022 14:50-0500 Respiratory rate 16 /min [facility] [place] 06-19-2022 14:50-0500 Systolic blood pressure 108 mm[Hg] [facility] N[facility] [place] Encounters Encounter Date Encounter Type Care Provider Facility Start: 05-19-2024 ambulatory Patel Cortez acility:[facility] Start: 07-30-2022 End: 07-30-[address] MARIS OLIVAS Facility:[facility] Start: 07-15-2022 End: 07-16-2022 ambulatory Wolfgang R NILL Facility: [place] Start: 07-15-2022 End: 07-15-2022 Patient encounter procedure Wolfgang R NILL [facility] N[facility] [place] Start: 06-19-2022 End: 06-20-2022 ambulatory Wolfgang R NILL Facility: [facility] Start: 06-19-2022 End: 06-19-2022 Patient encounter procedure Wolfgang R NILL [facility] N[facility] [place] Start: 08-22-2021 End: 08-22-[address] MARIS OLIVAS Facility:[facility] Start: 08-19-2021 End: 08-20-[address] MARIS OLIVAS Facility:[facility] Start: 08-16-2021 End: 08-16-[address] MARIS OLIVAS Facility:[facility] Start: 11-02-2020 End: 11-03-2020 Emergency department patient visit Justin Servin Facility:[facility] Procedures Date Procedure Procedure Detail Performing Clinician section Wolfgang Bennett section Wolfgang Bennett Comment on above: x 3 Cholecystectomy [facility] Excision of lesion of tongue [facility] Laser assisted in si tu keratomileusis [facility] Tonsillectomy [facility] Immunizations Immunization Date Immunization Notes Care Provider Fa cility NEGATED: Highlighted row has not occurred!06-19-2022 influenza virus vaccine, unspecified formulation [facility] Payers Date Payer Category Payer Self-pay 1975 Unknown [id number] [id number] 1975 Unknown [id number] 2.16.8 [id number] 1973 Unknown [id number] 2.16.8 [id number] 1973 Unknown [id number] 2.16.84 [id number] 1973 Unknown [id number] 2.16.84 [id number] 1973 Unknown [id number] 2.16.84 [id number] 1973 Unknown [id number] 2.16.84 [id number] 1959 Unknown [id number] 1961 Unknown [id number] Unknown [id number] 2.16.8 [id number] Social History Date Type Detail Facility Start: 06-19-2022 Tobacco smoking status Heavy t obacco smoker (finding) [facility] [place] Tobacco smoking status Never [facility] [place] Sex Assigned At Female [facility] Functional Status Date Assessment Result Facility 06-19-2022 Functional Status N/A [facility] Clinical Note 06-19-2022 Note Date & Type Note Facility 06-19-2022 Note Chief Complaint consultation for nevus HPI Staff 47 year old female presents on consultation from Dr. Olivas for nevus x 3. Reports nevus to left neck, left shoulder and left flank. All have been present for many years. She believes all have darkened over time. Denies change in size. Reports neck nevus has been becoming more raised. History of Present Illness 47 yo female referred by Dr Olivas for changing/irritated lesions left neck; gradually enlarge and changed pigmentation over last year; rub on clothing and seatbelt; no bleeding or ulceration; no personal or fmhx of skin cancers; on baby asa daily. Review of Systems PHQ Score Initial Depression Screen Score: 0 ROS - Provider Constitutional: no fever, no sweats, no weight loss. Eyes: no glasses, no blurred vision, no visual loss. ENMT: no dentures, no hoarseness, no swallowing difficulties, no hearing loss, no ear infection(s), no nose bleeds. Cardiovascular: normal blood pressure, no chest pain, regular heartbeat, no heart murmur. Respiratory: no shortness of breath, no cough, no asthma, no wheezing. Gastrointestinal: no nausea, no vomiting, no diarrhea, no constipation, no blood in stool, no change in bowel habits, no abdominal pain, no hepatitis. Genitourinary: no kidney stones, no urine infection, no dysuria. Musculoskeletal: no pain, no weakness. Skin: no changing moles, no rash, no skin lumps. Neurologic: no seizures, no epilepsy, no headache. Psychiatric: no emotional or psychiatric problem. Heme/Lymph: no bleeding problems, no anemia, no blood clots, no transfusions. Allergy/Immunologic: no swollen lymph nodes/glands, no IV drug abuse. Other: Additional ROS info: Except as noted in the above Review of Systems and in the History of Present Illness, all other systems have been reviewed and are negative or noncontributory. Physical Exam Vitals & Measurements HR: 76(Peripheral) RR: 16 BP: 108/66 HT: 64 in HT: 162.6 cm WT: 47.9 kg WT: 105.38 lb BMI: 18.12 HEENT: normal conjunctiva, sclera clear, no scleral icterus, EOM intact, PERRLA, oral mucosa moist without lesions. Neck: trachea midline, no mass, symmetric, no thyromegaly or nodules, no adenopathy Respiratory: lungs CTA, respirations non labored. Cardiovascular: regular rate and rhythm, no murmur, no pedal edema or varicosities. Gastrointestinal: soft, non distended, no tenderness, no masses, no palpable hernias, diastasis recti no, no hepatosplenomegaly; normal bs Lymphatic: no cervical adenopathy, no axillary adenopathy, no inguinal adenopathy. Musculoskeletal: normal gait, digits and nails without infection, nodes, cyanosis, clubbing. Skin: no rashes, left neck with 3 mm and 4 mm raised, pigmented lesions, no ulceration or bleeding no ulcers, no subcutaneous nodules, induration. Psychiatric/Neuro: oriented to time, place, person, judgement normal, affect appropriate for age, insight intact, no focal deficits. Tests: review of old records completed, Discussed surgical options, risks, and possible complications with patient. Assessment/Plan 1. 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 Medications aspirin 81 mg Oral EC Tab, 81 mg= 1 tab(s), Oral, Daily carvedilol 3.125 mg Tab, 3.125 mg= 1 tab(s), Oral, BID Myrbetriq 25 mg oral tablet, extended release, 25 mg= 1 tab(s), Oral, Daily Pristiq 100 mg Tab-ER, 100 mg= 1 tab(s), Oral, Daily Valtrex 500 mg Tab, 500 mg= 1 tab(s), Oral, Daily Allergies Contrast Dye (SOB - Shortness of breath, Hives) codeine (Hives) sulfa drugs (Rash) Social History Alcohol - Denies Alcohol Use, 03/15/2020 Substance Abuse - Denies Substance Abuse, 03/15/2020 Tobacco 10 or more cigarettes (1/2 pack or more)/day in last 30 days Tobacco Use:. Never Smokeless Tobacco Use:. Cigarettes, 0.5 per day. Yes, 06/19/2022 Family History Asthma: Mother. Cardiac arrhythmia: Mother and Father. Depression: Mother. Diabetes mellitus type 2: Mother. Hodgkin's disease: Father. Hypertension: Father. Hypothyroidism: Mother. Stroke: Father. Immunizations Vaccine Date Status Comments influenza virus vaccine, inactivated - Not Given Patient Refuses [facility] Comment on above: Result Comment: Elec tronically Signed By: JESUSITA POLANCO, Wolfgang Bishop\.br\Date and Time Signed: 06/19/22 15:29 EST Evaluation + Plan note Note Date & Type Note Facility Evaluation + Plan note Future Appointments Appointment Date:07/15/2022 03:00:00 PM Scheduled Provider:Wolfgang MC MD Location:[facility] Appointment Type: Procedure 30 [facility] course Narrative Note Date & Type Note Facility Hospital course Narrative No data available for this section General [facility] Discharge instructions Note Date & Type Note Facility Hospital Discharge instructions No data available for this section General Surgery [facility] note Note Date & Type Note Facility Progress note No data available for this section General Surgery [facility] Summary Purpose Family History No Family History Records FoundNo Family History Records FoundNo Family History Records FoundNo Family History Records Found Advance Directives No Advanced Directives Records FoundNo Advanced Directives Records FoundNo Advanced Directives Records FoundNo Advanced Directives Records Found Additional Source Comments INFORMATION SOURCE (unrecogn ized section and content) DATE CREATED AUTHOR 11/06/2020 [facility] DATE CREATED AUTHOR AUTHOR'S ORGANIZ ATION 07/16/2022 [facility] DATE CREATED AUTHOR AUTHOR'S ORGANIZ ATION 08/03/2022 [facility] DATE CREATED AUTHOR AUTHOR'S ORGANIZ ATION 06/30/2024 [facility] Patient Care team informatio n (unrecognized section and content) Personnel Name: Maris Olivas MD Address: Address: [address] [place] [address] Personnel Name: Maris Olivas MD Address: Address: [address] [place] [address] FOR RECORDS PERTAINING TO PATIENTS WHO ARE OR HAVE BEEN ENROLLED IN A CHEMICAL DEPENDENCY/SUBSTANCEABUSE PROGRAM, SOME INFORMATION MAY BE OMITTED. This clinical summary was aggregated from multiple sources. Caution should be exercised in using it in the provision of clinical care. This summary normalizes information from multiple sources, and as a consequence, information in this document may materially change the coding, format and clinical context of patient data. In addition, data may be omitted in some cases. CLINICAL DECISIONS SHOULD BE BASED ON THE PRIMARY CLINICAL RECORDS. [facility] [employer] provides no warranty or guarantee of the accuracy or completeness of information in this document.
[2024-07-21 16:36] LABS: Bilirubin Urine NEGATIVE (NEGATIVE); Blood Urine SMALL (NEGATIVE); Clarity Urine CLEAR (CLEAR); Color Urine LT. YELLOW (YELLOW); Glucose Urine UA NEGATIVE (NEGATIVE); Ketones Urine NEGATIVE (NEGATIVE); Leukocyte Esterase Urine NEGATIVE (NEGATIVE); Nitrite Urine NEGATIVE (NEGATIVE); Protein Urine NEGATIVE (NEG/TRACE); Specific Gravity Urine <=1.005 (1.005-1.025); Urobilinogen Urine 0.2 EU/dL (0.2-1.0)
[2024-07-21 16:51] LABS: Bacteria Urine TRACE #/HPF (NONE SEEN); Cast Seen? NONE SEEN #/LPF (NONE SEEN); Crystals Seen? None Seen #/HPF (None Seen); Mucus Urine NONE SEEN (NONE SEEN); Squamous Epithelial Cell Urine RARE #/LPF (NONE/RARE); WBC Urine NONE SEEN #/HPF (NONE SEEN)
== END 2024-07-21 18:09 | disposition left against medical advice (07) ==
PROVIDERS: Emergency Provider Emergency Medicine; PCP Family Medicine
DX: Z53.21 Procedure and treatment not carried out due to patient leaving prior to being seen by health care provider (principal)
CPT/HCPCS: 80053; 81001

== ENCOUNTER 2024-07-22 14:02 | Emergency (ER) | payer SELFPAY | END 2024-07-22 15:25 | disposition left against medical advice (07) | PROVIDERS: Emergency Provider Emergency Medicine; PCP Family Medicine | DX: Z53.21 Procedure and treatment not carried out due to patient leaving prior to being seen by health care provider (principal) ==

== ENCOUNTER 2024-10-03 22:24 | Emergency (ER) | payer BC, SELFPAY ==
[2024-10-03] VITALS (10 sets, daily range): BP systolic 98–143; BP diastolic 71–102; PULSE 78–109; TEMP 36.7; O2SAT 95–99; BMI 22.3
--- OUTSIDE RECORDS SUMMARY | 2024-10-03 22:28 | XMS_ITS | CCD ---
Author Organization [facility] Providers Care Conduit Installer Name Role Phone Justin Servin Attending Unavailable MARIS OLIVAS Primary Care Unavailable MARIS OLIVAS Consulting Unavailable Maris Olivas Primary Care Physician PRISCILLA, DR POLLOCK Primary Care Unavailable JACOB, [...] Admitting Unavailsabino PALOMINO, DR INDIRA Santos Attending Unavailsabino PALOMINO, DR INDIRA Santos Consulting UnavailPatel Givens Attending UnavailPatel Mccormick Admitting UnavailMaris Fernandez Primary Care Unavailable Justin Schulte Attending Unavailable KITTY Dunne Admitting UnavailKITTY Yeung Attending Unavailab KITTY Proctor Referring Unavailab Sancho Baeza Consulting Unavailable DO Sancho LINTON Consulting Unavailable Sancho LINTON Consulting Justin Quintero Attending Unavailable Allergies Allergy Classification Reported Allergen(s) Allergy Type Date of Onset Reaction(s) Facility Opioid Agonists (1 source) Codeine; Translations: [codeine] Drug Allergy [facility] Repository Sulfonamides (antibiotic) (1 source) Sulfonamides (Antibiotic); Translations: [sulfa drugs] Drug Allergy [facility] Repository (6 sources) Codeine; Translations: [codeine] Drug Allergy Weal (disorder) General Surgery [place] (6 sources) Contrast media; Translations: [Contrast Dye] Drug allergy Dyspnea (finding), Weal (disorder) General Surgery [place] (6 sources) Sulfonamides (Antibiotic); Translations: [sulfa drugs] Drug allergy Eruption of skin (disorder) General Surgery [place] (1 source) Codeine Drug Allergy 3 [facility] Repository (1 source) Sulfonamides (Antibiotic) Drug allergy (disorder) 3 [facility] Repository (1 source) Codeine Drug Allergy 1 [facility] Repository (1 source) Sulfonamides (Antibiotic) Drug allergy (disorder) 1 [facility] Repository Medications Current Medications Medication Drug Class(es) Dates Sig (Normalized) Sig (Original) aspirin 81 mg delayed release oral tablet (4 sources) Platelet Aggregation Inhibitor, Nonsteroidal Anti-inflammatory Drug Start: 06-19-2022 take 1 tablet by mouth once daily aspirin 81 mg Oral EC Tab 81 mg = 1 tab(s), Oral, Daily, Refills(s) 0 Start Date: 06/19/22 Status: Ordered carvedilol 3.125 mg oral tablet (4 sources) alpha-Adrenergic Petrona, beta-Adrenergic [place]a Start: 05-18-2022 take 1 tablet by mouth twice daily carvedilol 3.125 mg Tab 3.125 mg = 1 tab(s), Oral, BID, Refills(s) 0 Start Date: 05/18/22 Status: Ordered Start: 05-18-2022 take 1 tablet by [facility] twice daily carvedilol 3.125 mg Tab 3.125 mg = 1 tab(s), Oral, BID, Refills(s) 0 Start Date: 05/18/22 Status: Ordered 24 hr desvenlafaxine succinate 100 mg extended release oral tablet (4 sources) Serotonin and Norepinephrine Reuptake Inhibitor Start: 03-08-2020 take 1 tablet by mouth once daily Pristiq 100 mg Tab-ER 100 mg = 1 tab(s), Oral, Daily Start Date: 03/08/20 Status: Ordered 24 hr mirabegron 25 mg extended release oral tablet (4 sources) beta3-Adrenergic Agonist Start: 05-18-2022 take 1 tablet by mouth once daily Myrbetriq 25 mg oral tablet, extended release 25 mg = 1 tab(s), Oral, Daily, Refills(s) 0 Start Date: 05/18/22 Status: Ordered naproxen 500 mg oral tablet (2 sources) Nonsteroidal Anti-inflammatory Drug Start: 07-22-2024 End: 08-01-2024 take 1 tablet by mouth twice daily naproxen 500 mg Tab 500 mg = 1 tab(s), Oral, BID, X 10 day(s), # 20 tab(s), Refills(s) 0, Pharmacy: [facility]/pharmacy #[id number], 172, cm, 07/22/24 15:53:00 EST, Height/Length Dosing, 55.8, kg, 07/22/24 15:53:00 EST, Weight Dosing Start Date: 07/22/24 Stop Date: 08/01/24 Status: Ordered valACYclovir 500 mg oral tablet (4 sources) Herpesvirus Nucleoside Analog DNA Polymerase Inhibitor, Herpes Simplex Virus Nucleoside Analog DNA Polymerase Inhibitor, Herpes Zoster Virus Nucleoside Analog DNA Polymerase Inhibitor Start: 03-15-2020 take 1 tablet by mouth once daily Valtrex 500 mg Tab 500 mg = 1 tab(s), Oral, Daily, Refills(s) 0 Start Date: 03/15/20 Status: Ordered Problems Active Problems Problem Classification Problem Date Documented Date Episodic/Chronic Abdominal pain (1 source) Abdominal pain; Translations: [Unspecified abdominal pain] Onset: 07-22-2024 Episodic Anxiety disorders (5 sources) Anxiety; Translations: [Anxiety disorder, unspecified] Onset: 08-19-2021 03-08-2020 Chronic Cardiac dysrhythmias (6 sources) Paroxysmal atrial fibrillation; Translations: [Atrial premature depolarization] Onset: 08-19-2021 03-08-2020 Chronic E Codes: Struck by; against (1 source) Striking against or struck by other objects, initial encounter; Translations: [STRIKING AGNST/STRUCK OTH OBJ INIT] Onset: 08-03-2022 Episodic Immunizations and screening for infectious disease (1 source) Encounter for immunization; Translations: [ENCOUNTER FOR IMMUNIZATION] Onset: 08-03-2022 Episodic Menopausal disorders (1 source) Postmenopausal bleeding; Translations: [Postmenopausal bleeding] Onset: 07-22-2024 Chronic Mood disorders (1 source) Major depressive disorder, single episode, unspecified; Translations: [MARCY DEPRESS D/O SINGLE EPIS UNS] Onset: 08-19-2021 Chronic Neoplasms of unspecified nature or uncertain behavior (6 sources) Neoplasm of uncertain behavior of skin; Translations: [Neoplasm of uncertain behavior of skin] Onset: 06-19-2022 Episodic Open wounds of extremities (4 sources) Puncture wound with foreign body of right ring finger without damage to nail, initial encounter; Translations: [Puncture wound with foreign body of right index finger without damage to nail, initial encounter] Onset: 07-30-2022 Episodic Other aftercare (1 source) 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 control servicer (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 aspirin; Translations: [SENIOR LIVING CURRENT USE OF ASPIRIN] Onset: 08-03-2022 Episodic Other aftercare (1 source) Other bed bug exterminator (current) drug therapy; Translations: [OTH LINE UP MACHINE OPERATOR CURRENT DRUG THERAPY] Onset: 08-03-2022 Episodic Other and unspecified benign neoplasm (4 sources) Benign neoplasm of face 03-15-2020 Episodic Other diseases of bladder and urethra (4 sources) Overactive bladder 03-08-2020 Chronic Spondylosis; intervertebral disc disorders; other back problems (5 sources) Cervical radiculopathy; Translations: [Backache] Onset: 07-22-2024 03-08-2020 Episodic Substance-related disorders (4 sources) History of drug abuse 03-08-2020 Chronic Unclassified (4 sources) Decreased body mass index 06-19-2022 Past or Other Problems Problem Classification Problem Date Documented Da te Episodic/Chronic Cardiac dysrhythmias (4 sources) Palpitations; Translations: [PALPITATIONS] Onset: 08-19-2021 Episodic Results Test Name Value Interpretation Reference Range Facility US Pelvis Non-OB Completeon 07-27-2024 Pelvis Non-OB Complete Exam Date/Time: 07/27/2024 17:36 EST Reason for Exam: N95.0 M54.9 R10.9 Report IMPRESSION: NEGATIVE ULTRASOUND OF THE PELVIS. CLINICAL HISTORY: N95.0 M54.9 R10.9. Postmenopausal bleeding COMPARISON: CT abdomen pelvis 07/22/2024 COMMENT: Transabdominal and transvaginal images were obtained. The uterus measurements and an estimated volume are: Uterus Length: 8.4 cm Uterus Width: 3.9 cm Uterus Height: 3.3 cm Uterus Volume: 57.3 cm3 Endometrium Thickness: 0.6 cm Normal appearance of the uterus. The right ovary measurements and an estimated volume are: Right Ovary Length: 2.1 cm Right Ovary Width: 1.6 cm Right Ovary Height: 0.9 cm Right Ovary Volume: 1.5 cm3 The left ovary measurements and an estimated volume are: Left Ovary Length: 1.7 cm The left ovary is suboptimally visualized but demonstrates no overt abnormality. Normal appearance of the right ovary. Blood flow is identified to both ovaries. No adnexal mass or free fluid within the pelvis. Ordering Provider: Sebastián Dunne FINAL REPORT Dictated: 07/27/2024 5:54 pm Blaise Alcantara DO Signed (Electronic Signature): 07/27/2024 5:54 pm Signed by: Blaise Alcantara DO Transcribed by: SONY Technologist: PILO Technical Comments Transabdominal Ultrasound Performed Technical Comments Transvaginal Ultrasound Performed Normal [facility] US Transvaginal Non-OBon US Transvaginal Non-OB Exam Date/Time: 07/27/2024 17:30 EST Reason for Exam: N95.0 M54.9 R10.9 Report Please see ultrasound pelvis non-OB complete. Ordering Provider: Sebastián Dunne FINAL REPORT Dictated: 07/27/2024 5:54 pm Blaise Alcantara DO Signed (Electronic Signature): 07/27/2024 5:54 pm Signed by: Blaise Alcantara DO Transcribed by: SONY Technologist: PILO Normal [facility] ED Note-Physicianon 07-24-19 ED Note-Physician ED Note-Physician Basic Information Time Seen: Sebastián Dunne PA-C 07/22/2024 15:55 Chief Complaint back pain and abd. vaginal bleeding. no period in 3 years. started spotting but now heavy. 1 pad every two hours History of Present Illness Patient is a 49-year-old female who presents today for evaluation of her abnormal vaginal bleeding with associated abdominal and back pain. Patient states that she had menopause about 3 years ago and has not had any period since. About 1 to 2 weeks ago she started to have some mild spotting but did not think much of it and all of a sudden over the last 24 to 48 hours she started to have heavier flow where she is going through 1 pad every 2-3 hours. She denies any fevers, bodies, chills. She denies any nausea, vomiting, diarrhea. She does have associated abdominal and back pain with it. Denies any unintentional weight loss or loss of appetite. Review of Systems No other aggravating or relieving factors no other associated symptoms no other prior treatments or complaints. Family: Reviewed and noncontributory Social: lives at home Review of systems negative unless otherwise specified in the HPI. Physical Exam Vitals & Measurements T: 36.8 ???C(Oral) HR: 71(Monitored) RR: 17 BP: 120/76 SpO2: 98% HT: 172 cm WT: 55.8 kg BMI: 18.86 General: The patient appears well and in no apparent distress. Patient is resting comfortably on cart. Skin: Warm, dry, no pallor noted. Head: Normocephalic, atraumatic Neck: No JVD Eye: PERRLA, EOMI ENT: Moist mucus membranes Cardiovascular: Regular rate and rhythm. Normal peripheral perfusion Respiratory: CTA bilaterally. No respiratory distress no accessory muscle use no obvious audible wheezing Chest Wall: no deformity Musculoskeletal: normal ROM, no deformity, no swelling GI: Soft no obvious distention. No rebound or rigidity. No guarding. Diffuse mild to moderate lower abdominal tenderness. Neurological: A&O moves all extremities equal strength and symmetry Psychiatric: Cooperative and appropriate Medical Decision Making Patient is a 49-year-old female presents today for evaluation of her abnormal vaginal bleeding with associated abdominal and back pain. She has had menopause 3 years ago and has not had a period since. About 1 to 2 weeks ago she had mild spotting but is progressed to heavy flow soaking about 1 pad every 2-3 hours over the last 24 to 48 hours. Denies any other systemic signs or symptoms. On exam the patient is afebrile nontoxic-appearing. She does have diffuse mild to moderate lower abdominal tenderness. The remainder of the abdomen is soft and nontender with no evidence of guarding or distention. Labs are WNL including hemoglobin and hematocrit. UA negative for UTI. CT of the abdomen and pelvis interpreted by radiology is negative for any acute intra-abdominal process. Patient was given a dose of IM Toradol with improvement of her pain. I discussed with the patient I am unsure of the exact etiology of her postmenopausal vaginal bleeding at this time. We will further investigate with an outpatient pelvic ultrasound which I provided her an order form for and she will be discharged home with close follow-up with Dr. Linton her FUNCTIONAL TESTER TYPEWRITERS. We discussed if she has new or worsening symptoms she should promptly return to the ED for reevaluation. Return to ED precautions were reviewed with the patient at length. Assessment/Plan Abdominal pain (R10.9: Unspecified abdominal pain) Back pain (M54.9: Dorsalgia, unspecified) Postmenopausal vaginal bleeding (N95.0: Postmenopausal bleeding) Orders: ketorolac, 30 mg = 1 mL, Injection, IntraMuscular, Once, Stop date 07/22/24 17:26:00 EST, STAT, Start date 07/22/24 17:26:00 EST, 07/22/24 17:26:00 EST naproxen, 500 mg = 1 tab(s), Oral, BID, X 10 day(s), # 20 tab(s), Refills(s) 0, Pharmacy: [facility]/pharmacy #[id number], 172, cm, 07/22/24 15:53:00 EST, Height/Length Dosing, 55.8, kg, 07/22/24 15:53:00 EST, Weight Dosing Basic Metabolic Panel CBC w/ Auto Diff CT Abdomen/Pelvis w/o Contrast eGFR Extra Blue Tube Extra SST Tube Hepatic Function Panel Lipase Level UA with Cult Rflx Medications Administered Given ketorolac 30 mg/mL Inj 1 mL, 30 mg, IntraMuscular Disposition Plan Patient Discharge Condition Stable, improved Discharge Disposition Home Discharge Prescription List Prescriptions naproxen 500 mg Tab, 500 mg= 1 tab(s), Oral, BID Follow-up With When Contact Information Sancho LINTON In 3 days 07/25/[address] [place] [address]- Business (1) Additional Instructions: Maris Olivas In 3 days [address] [facility] [place] [address]- Business (1) Additional Instructions: Patient Education Menorrhagia Attestation Patient seen and evaluated by the physician syrup mixer assistant. Attending physician was present in the emergency department and supervised care. This visit was performed by both the physician a (more content not included)... Normal [facility] Comment on above: Result Comment: Elec tronically Signed By: Sebastián Dunne PA-C\.br\Date and Time Signed: 07/22/24 20:51 EST\.br\Electronically Co-Signed By: Justin Schulte DO\.br\Date and Time Co-Signed: 07/24/24 08:[address] Abdomen/Pelvis w/o Contra ston 07-23-2024 CT Abdomen/Pelvis w/o Contrast Exam Date/Time: 07/22/2024 16:22 EST Reason for Exam: ABDOMINAL PAIN, ACUTE, NONLOCALIZED;Other (please specify) Report IMPRESSION: No acute process in the unenhanced abdomen/pelvis. HISTORY: Vaginal bleeding. History of C-sections and cholecystectomy. TECHNIQUE: Non-IV contrast imaging of the abdomen and pelvis was performed. Unenhanced imaging is limited for the evaluation of some intra-abdominal and pelvic pathology. Unless otherwise stated, incidental findings in this report do not require further routine follow-up imaging. All CT scans at this facility use dose modulation, iterative reconstruction, and/or weight based dosing when appropriate to reduce radiation dose to as low as reasonably achievable. COMPARISON: None. RESULT: Liver: Unremarkable. Biliary: Cholecystectomy. No abnormal bile duct dilation. Pancreas: Unremarkable. Spleen: No splenomegaly. Adrenals: No mass. Kidneys and urinary tract: No urinary tract calculus or hydronephrosis. No suspicious lesions in the unenhanced kidneys. Bladder decompressed. GI Tract: No bowel dilation. Appendix unremarkable. No evidence for diverticulitis. Lymph Nodes: No lymphadenopathy. Mesentery/peritoneum/ retroperitoneum: No ascites or mass. Vasculature: Mild arterial atherosclerotic disease without aneurysm. Pelvis: No significant free fluid. Uterus grossly unremarkable but not well evaluated on this study. Incidental tampon. Bones/Soft Tissues: No acute osseous findings. Lower thorax: Unremarkable. Report Ordering Provider: Sebastián Dunne FINAL REPORT Dictated: 07/23/2024 8:49 am Derik Pack MD Signed (Electronic Signature): 07/23/2024 8:49 am Signed by: Derik Pack MD Transcribed by: SONY Technologist: AYAZ Technical Comments Rectal Contrast Given? No Oral contrast amount in ml's: [address] [facility] BMPon 07-22-2024 Anion gap [Moles/Vol] 10 mmol/L Normal 6-16 [facility] Comment on above: Performed By: #### 2 [id number] #### [facility] [address] [place] [address] Calcium [Mass/Vol] 9.6 mg/dL Normal 8.9-11.1 [facility] Comment on above: Performed By: #### 2 [id number] #### [facility] [address] [place] [address] Chloride [Moles/Vol] 105 mmol/L Normal 101-111 [facility] Comment on above: Performed By: #### 2 [id number] #### [facility] [address] [place] [address] CO2 [Moles/Vol] 28 mmol/L Normal 21-31 [facility] Comment on above: Performed By: #### 2 [id number] #### [facility] [address] [place] [address] Creatinine [Mass/Vol] 0.8 mg/dL Normal 0.5-1.3 [facility] Comment on above: Performed By: #### 2 [id number] #### [facility] [address] [place] [address] Glucose [Mass/Vol] 92 mg/dL Normal 55-199 [facility] Comment on above: Performed By: #### 2 [id number] #### [facility] [address] [place] [address] Potassium [Moles/Vol] 3.9 mmol/L Normal 3.5-5.3 [facility] Comment on above: Performed By: #### 2 [id number] #### [facility] [address] [place] [address] Sodium [Moles/Vol] 139 mmol/L Normal 135-145 [facility] Comment on above: Performed By: #### 2 [id number] #### [facility] [address] [place] [address] Urea nitrogen [Mass/Vol] 8 mg/dL Normal 5-21 [facility] Comment on above: Performed By: #### 2 [id number] #### [facility] [address] [place] [address] Urea nitrogen/Creatinine [Mass ratio] 10 No Units Normal 10-20 [facility] Comment on above: Performed By: #### 2 [id number] #### [facility] [address] [place] [address] CBC w/ Auto Diffon 5 Basophils/100 WBC (Bld) 1.1 % Normal 0.0-2.0 [facility] Comment on above: Performed By: #### 2 [id number] #### [facility] [address] [place] [address] Basophils/Leukocytes Auto (Bld) [Pure # fraction] 0.1 E9/L Normal 0.0-0.2 [facility] Comment on above: Performed By: #### 2 [id number] #### [facility] [address] [place] [address] Eosinophils (Bld) [#/Vol] 0.1 E9/L Normal 0.0-0.5 [facility] Comment on above: Performed By: #### 2 [id number] #### [facility] [address] [place] [address] Eosinophils/100 WBC (Bld) 1.7 % Normal 0.0-8.0 [facility] Comment on above: Performed By: #### 2 [id number] #### [facility] [address] [place] [address] Erythrocyte distribution width (RBC) [Ratio] 13.7 % Normal 10.9-14.2 [facility] Comment on above: Performed By: #### 2 [id number] #### [facility] [address] [place] [address] Hematocrit (Bld) [Volume fraction] 45.3 % Normal 34.0-46.0 [facility] Comment on above: Performed By: #### 2 [id number] #### [facility] [address] [place] [address] Hemoglobin (Bld) [Mass/Vol] 15.4 g/dL Normal 12.0-16.0 [facility] Comment on above: Performed By: #### 2 [id number] #### [facility] [address] [place] [address] Lymphocytes (Bld) [#/Vol] 2.2 E9/L Normal 1.0-4.0 [facility] Comment on above: Performed By: #### 2 [id number] #### [facility] [address] [place] [address] Lymphocytes/100 WBC (Bld) 38.2 % Normal 14.0-50.0 [facility] Comment on above: Performed By: #### 2 [id number] #### [facility] [address] [place] [address] MCH (RBC) [Entitic mass] 34.7 pg High 27.0-34.0 [facility] Comment on above: Performed By: #### 2 [id number] #### [facility] [address] [place] [address] MCHC (RBC) [Mass/Vol] 34.0 g/dL Normal 31.4-36.0 [facility] Comment on above: Performed By: #### 2 [id number] #### [facility] [address] [place] [address] MCV (RBC) [Entitic vol] 101.9 fL High 80.0-100.0 [facility] Comment on above: Performed By: #### 2 [id number] #### [facility] [address] [place] [address] Monocytes (Bld) [#/Vol] 0.6 E9/L Normal 0.2-1.0 [facility] Comment on above: Performed By: #### 2 [id number] #### [facility] [address] [place] [address] Neutrophils (Bld) [#/Vol] 2.8 E9/L Normal 2.0-7.5 [facility] Comment on above: Performed By: #### 2 [id number] #### [facility] [address] [place] [address] Neutrophils/100 WBC (Bld) 48.9 % Normal 36.0-75.0 [facility] Comment on above: Performed By: #### 2 [id number] #### [facility] [address] [place] [address] Platelet mean volume (Bld) [Entitic vol] 8.9 fL Normal 6.4-10.8 [facility] Comment on above: Performed By: #### 2 [id number] #### [facility] [address] [place] [address] Platelets (Bld) [#/Vol] 307.0 E9/L Normal 150.0-500.0 [facility] Comment on above: Performed By: #### 2 [id number] #### [facility] [address] [place] [address] RBC (Bld) [#/Vol] 4.4 E12/L Normal 4.3-5.9 [facility] Comment on above: Performed By: #### 2 [id number] #### [facility] [address] [place] [address] WBC corrected for nucl RBC Auto (Bld) [#/Vol] 5.8 E9/L Normal 4.0-11.0 [facility] Comment on above: Performed By: #### 2 [id number] #### [facility] [address] [place] [address] CHEMISTRYOrdered By: SYSTEM SYSTEM on 07-22-2024 Albumin [Mass/Vol] 4.7 g/dL Normal 3.3 - 5.0 gm/dL Rem[facility] Chem Albumin/Globulin [Mass ratio] 1.7 {ratio} Normal 1.1 - 2.2 [facility] ALP [Catalytic activity/Vol] 89 [iU]/d Normal 21 - 98 Int._Unit/L [facility] Chem ALT No additional P-5'-P [Catalytic activity/Vol] 11 [iU]/d Normal 6 - 46 Int._Unit/L [facility] Anion gap [Moles/Vol] 10 mmol/L Normal 6 - 16 mEq/L R emisol Chem AST [Catalytic activity/Vol] 15 [iU]/d Normal 5 - 43 Int._Unit/L [facility] Bilirubin [Mass/Vol] 0.6 mg/dL Normal 0.0 - 1 .1 mg/dL [facility] Bilirubin.direct [Mass/Vol] 0.1 mg/dL Normal 0.0 - 0.4 mg/dL [facility] Bilirubin.indirect [Mass or moles/Vol] 0.5 mg/dL Normal 0.1 - 0.9 mg/dL [facility] Calcium [Mass/Vol] 9.6 mg/dL Normal 8.9 - 11. 1 mg/dL [facility] Chloride [Moles/Vol] 105 mmol/L Normal 101 - 1 11 mmol/L [facility] CO2 [Moles/Vol] 28 mmol/L Normal 21 - 31 mmol/L [facility] Creatinine [Mass/Vol] 0.8 mg/dL Normal 0.5 - 1.3 mg/dL [facility] eGFR 89 mL/min/1.73 m2 Normal >=59mL/min /1. 73 m2 [facility] Globulin (S) [Mass/Vol] 2.8 g/dL Normal 1.4 - 4.0 gm/dL [facility] Glucose [Mass/Vol] 92 mg/dL Normal 55 - 199 mg/dL [facility] Lipase [Catalytic activity/Vol] 22 U/L Normal 13 - 58 unit/L [facility] Potassium [Moles/Vol] 3.9 mmol/L Normal 3.5 - 5.3 mmol/L [facility] Protein [Mass/Vol] 7.5 g/dL Normal 6.0 - 7.8 gm/dL [facility] Sodium [Moles/Vol] 139 mmol/L Normal 135 - 145 mmol/L [facility] Urea nitrogen [Mass/Vol] 8 mg/dL Normal 5 - 21 mg/dL [facility] Urea nitrogen/Creatinine [Mass ratio] 10 mg/mg Normal 10 - 20 [facility] ED Clinical Summaryon 2024 ED Clinical Summary ED Clinical Summary [address] [address] ED Clinical Summary Person Information Name: MARTHA WATERS [facility] Age: 49 Years : 1975 Sex: Female Language: Spanish PCP: Maris Olivas MD Marital Status: Visit Id: Visit Reason: Back pain; Abdominal pain; Vaginal bleeding postmenopausal; ABN VAGINAL BLEEDING, BACK PAIN, ABD PAIN Speciality: Acuity: 3 Enc Type: Emergency Med Service: Emergency Arrival: 07/22/2024 15:40:19 Discharge: 07/22/2024 20:14:09 LOS: 000 04:34 Checkin: 07/22/2024 15:40:19 Checkout: 07/22/2024 20:14:09 Dispo Type: Home (Routine DC) EVENTS: Event Name Event Status Request Date/Time Start Date/Time Complete Date/Time Arrive Complete 07/22/2024 15:40:19 07/22/2024 15:40:19 07/22/2024 15:40:19 Document Home Meds Request 07/22/2024 15:40:19 Triage Complete 07/22/2024 15:40:19 07/22/2024 15:53:23 07/22/2024 15:53:23 Bed Assign Complete 07/22/2024 15:46:43 07/22/2024 15:46:43 07/22/2024 15:46:43 Dr Exam Complete 07/22/2024 15:46:43 07/22/2024 15:55:50 07/22/2024 15:55:50 RN Exam Complete 07/22/2024 15:46:43 07/22/2024 17:11:08 07/22/2024 17:11:08 Registration Complete 07/22/2024 15:55:50 07/22/2024 16:00:15 07/22/2024 16:00:15 Dr Exam Complete 07/22/2024 15:56:15 07/22/2024 15:56:15 07/22/2024 15:56:15 Reg Complete Request 07/22/2024 16:00:15 Reg Bed Request Complete 07/22/2024 16:00:15 07/22/2024 16:00:15 07/22/2024 16:00:15 CT Complete 07/22/2024 16:10:16 07/22/2024 16:13:28 07/22/2024 16:22:06 Pending Labs Complete 07/22/2024 16:10:16 07/22/2024 16:53:00 Lab Complete 07/22/2024 16:10:16 07/22/2024 16:53:00 Pending Labs Complete 07/22/2024 16:26:28 07/22/2024 16:26:28 07/22/2024 16:53:00 Lab Complete 07/22/2024 16:26:28 07/22/2024 16:26:28 07/22/2024 16:53:00 Meds Admin Complete 07/22/2024 17:26:37 07/22/2024 18:15:49 Pending Labs Complete 07/22/2024 17:36:22 07/22/2024 17:36:22 07/22/2024 17:36:23 Discharge Complete 07/22/2024 19:57:34 07/22/2024 20:14:13 07/22/2024 20:14:13 Transfer Complete 07/22/2024 20:14:13 07/22/2024 20:14:13 07/22/2024 20:14:13 ADDRESS: [address] [place] [phone] PHYS DOC NOTES: MEDICAL INFORMATION: Prescriptions Given: New Medications [id number], [address] [place], [place] [id number], [phone] naproxen (naproxen 500 mg Tab) 1 Tablets By Mouth 2 times a day for 10 Days. Refills: 0. Medications to Continue with No Changes Other Medications aspirin (aspirin 81 mg Oral EC Tab) 1 Tablets By Mouth every day. carvedilol (carvedilol 3.125 mg Tab) 1 Tablets By Mouth 2 times a day. desvenlafaxine (Pristiq 100 mg Tab-ER) 1 Tablets By Mouth every day. mirabegron (Myrbetriq 25 mg oral tablet, extended release) 1 Tablets By Mouth every day. valacyclovir (Valtrex 500 mg Tab) 1 Tablets By Mouth every day. PATIENT EDUCATION INFORMATION: Instructions: Menorrhagia Follow up: With: Address: When: Sancho [facility], [address] [place] [address] [place] [address] Business (1) In 3 days 07/25/2024 With: Address: When: Maris Olivas [address] [place] [id number] Business (1) In 3 days DIAGNOSIS: Abdominal pain; Back pain; Postmenopausal vaginal bleeding Normal [facility] ED Patient Summaryon 025 ED Patient Summary ED Patient Summary [address] [address] Patient Discharge Instructions Person Information Name: MARTHA WATERS Age: 49 Years Arrival Date: 07/22/2024 15:40:19 Discharge Diagnosis: Abdominal pain; Back pain; Postmenopausal vaginal bleeding Primary Care Physician: Maris Olivas MD Provider Information Primary Provider: Justin Schulte DO Advanced Certified Professional Controller:Sebastián Dunne PA-C. The exam and treatment you received in the Emergency Department were for an urgent problem and are not intended as complete care. It is important that you follow up with a doctor, nurse practitioner, or physician???s syrup mixer assistant for ongoing care. If your symptoms become worse or you do not improve as expected and you are unable to reach your usual health care provider, you should return to the Emergency Department. We are available 24 hours a day. MARTHA WATERS has been given the following list of patient education materials, prescriptions and follow-up instructions: Follow-up Instructions: With: Address: When: Sancho [address] [place] [address] [facility] (1) In 3 days 07/25/2024 With: Address: When: Maris Olivas [address] [place] [id number] Business (1) In 3 days In the event that this physician does not participate in your insurance network, please consult with your insurance company to find a nearby participating provider. Patient Education Materials: Menorrhagia A MESSAGE TO ALL PATIENTS REGARDING OPIOIDS PRESCRIPTION OPIOIDS: WHAT YOU NEED TO KNOW Prescription opioids can be used to help relieve uvwrkixl-qe-jsecoy pain and are often prescribed following a surgery or injury, or for certain health conditions. These medications can be an important part of the treatment but also come with serious risks. It is important to work with your healthcare provider to make sure you are getting the safest, most effective care. WHAT ARE THE RISKS AND SIDE EFFECTS OF OPIOID USE? Prescription opioids carry serious risks of addiction and overdose, especially with prolonged use. An opioid overdose, often marked by slowed breathing, can cause sudden . The use of prescription opioids can have a number of side effects as well, even when taken as directed: ??? Tolerance???meaning you might need to take more of the medication for the same pain relief ??? Physical dependence???meaning you have symptoms of withdrawal when a medication is stopped ??? Increased sensitivity to pain ??? Constipation ??? Nausea, vomiting, and dry mouth ??? Sleepiness and dizziness ??? Confusion ??? Depression ??? Low levels of testosterone that can result in lower sex drive, energy, and strength ??? Itching and sweating RISKS ARE GREATER WITH: ??? History of drug misuse, substance use disorder, or overdose ??? Mental health conditions (such as depression or anxiety) ??? Sleep apnea ??? Older age (65 years and older) ??? Avoid alcohol while taking prescription opioids. Also, unless specifically advised by your health care provider, medications to avoid include: ??? Benzodiazepines (such as Xanax or Valium) ??? Muscle relaxants (such as Soma or Flexeril) ??? Hypnotics (such as Ambien or Lunesta) ??? Other prescription opioids KNOW YOUR OPTIONS Talk to your health care provider about ways to manage your pain that don???t involve prescription opioids. Some of these options may actually work better and have fewer risks and side effects. Options may include: ??? Pain relievers such as acetaminophen, ibuprofen, and naproxen ??? Some medication that are also used for depression or seizures ??? Physical therapy and exercise ??? Cognitive behavioral therapy, a psychological, goal-directed approach, in which patients learn how to modify physical, behavioral, and emotional triggers of pain and stress. IF YOU ARE PRESCRIBED OPIOIDS FOR PAIN: ??? Never take opioids in greater amounts or more often than prescribed. ??? Follow up with your primary health care provider. o Work together to create a plan on how to manage your pain. o Talk about ways to help manage your pain that don???t involve prescription opioids. o Talk about any and all concerns and side effects. ??? Help prevent misuse and abuse o Never sell or share prescription opioids. o Never use another person???s prescription opioids. ??? Store prescription opioids in a secure place and out of reach of others (this may include visitors, children, friends, and family). ??? Safely dispose of unused prescription opioids: Find your community drug take-back program or your pharmacy mail-back program, or flush them down the toilet, following guidance from the Food and Drug Administration (www.fda.gov/Drugs/Re sourcesForYou). ??? (more content not included)... Normal [facility] Extra Blueon 07-22-2024 Tube Collected Plasma Yes Invalid Interpretation Code [facility] Comment on above: Performed By: #### 1 [id number] #### [facility] [address] [place] [address] HEMATOLOGYOrdered By: SYSTEM SYSTEM on 07-22-2024 Basophils/100 WBC (Bld) 1.1 % Normal 0.0 - 2.0 % Remisol Heme Basophils/Leukocytes Auto (Bld) [Pure # fraction] 0.1 E9/L Normal 0.0 - 0.2 E9/L Remisol Heme Eosinophils (Bld) [#/Vol] 0.1 E9/L Normal 0.0 - 0.5 E9/L Rem[facility]e Eosinophils/100 WBC (Bld) 1.7 % Normal 0.0 - 8.0 % Remisol Heme Erythrocyte distribution width (RBC) [Ratio] 13.7 % Normal 10.9 - 14.2 % Remisol Heme Hematocrit (Bld) [Volume fraction] 45.3 % Normal 34.0 - 46.0 % Rem[facility]e Hemoglobin (Bld) [Mass/Vol] 15.4 g/dL Normal 12.0 - 16.0 gm/dL [facility]e Lymphocytes (Bld) [#/Vol] 2.2 E9/L Normal 1.0 - 4.0 E9/L [facility]e Lymphocytes/100 WBC (Bld) 38.2 % Normal 14.0 - 50.0 % Remisol Heme MCH (RBC) [Entitic mass] 34.7 pg High 27.0 - 34.0 pg Remisol Heme MCHC (RBC) [Mass/Vol] 34.0 g/dL Normal 31.4 - 36.0 gm/dL [facility] MCV (RBC) [Entitic vol] 101.9 fL High 80.0 - 100.0 fL [facility]e Monocytes (Bld) [#/Vol] 0.6 E9/L Normal 0.2 - 1.0 E9/L Remisol Heme Monocytes/100 WBC (Bld) 10.1 % Normal 4.0 - 14.0 % Remisol Heme Neutrophils (Bld) [#/Vol] 2.8 E9/L Normal 2.0 - 7.5 E9/L [facility]e Neutrophils/100 WBC (Bld) 48.9 % Normal 36.0 - 75.0 % [facility] Platelet mean volume (Bld) [Entitic vol] 8.9 fL Normal 6.4 - 10.8 fL [facility] Platelets (Bld) [#/Vol] 307.0 E9/L Normal 150.0 - 500.0 E9/L [facility] RBC (Bld) [#/Vol] 4.4 E12/L Normal 4.3 - 5.9 E12/L [facility] WBC corrected for nucl RBC Auto (Bld) [#/Vol] 5.8 E9/L Normal 4.0 - 11.0 E9/L [facility] Hep Func Panelon 07-22-2024 Albumin [Mass/Vol] 4.7 g/dL Normal 3.3-5.0 [facility] Comment on above: Performed By: #### 2 [id number] #### [facility] [address] [place] [address] Albumin/Globulin (S) [Mass conc ratio] 1.7 Normal 1.1-2.2 [facility] Comment on above: Performed By: #### 2 [id number] #### [facility] [address] [place] [address] ALP [Catalytic activity/Vol] 89 Int._Unit/L Normal 21-98 [facility] Comment on above: Performed By: #### 2 [id number] #### [facility] [address] [place] [address] ALT No additional P-5'-P [Catalytic activity/Vol] 11 Int._Unit/L Normal 6-46 [facility] Comment on above: Performed By: #### 2 [id number] #### [facility] [address] [place] [address] AST [Catalytic activity/Vol] 15 Int._Unit/L Normal 5-43 [facility] Comment on above: Performed By: #### 2 [id number] #### [facility] [address] [place] [address] Bilirubin [Mass/Vol] 0.6 mg/dL Normal 0.0-1.1 [facility] Comment on above: Performed By: #### 2 [id number] #### [facility] [address] [place] [address] Bilirubin.direct [Mass/Vol] 0.1 mg/dL Normal 0.0-0.4 [facility] Comment on above: Performed By: #### 2 [id number] #### [facility] [address] [place] [address] Bilirubin.indirect [Mass or moles/Vol] 0.5 mg/dL Normal 0.1-0.9 [facility] Comment on above: Performed By: #### 2 [id number] #### [facility] [address] [place] [address] Globulin (S) [Mass/Vol] 2.8 g/dL Normal 1.4-4.0 [facility] Comment on above: Performed By: #### 2 [id number] #### [facility] [address] [place] [address] Protein [Mass/Vol] 7.5 g/dL Normal 6.0-7.8 [facility] Comment on above: Performed By: #### 2 [id number] #### [facility] [address] [place] [address] Lipase Levelon 07-22-2024 Lipase [Catalytic activity/Vol] 22 U/L Normal 13-58 [facility] Comment on above: Performed By: #### 2 [id number] #### [facility] [address] [place] [address] UA with Cult Rflxon 07-22-19 25 Bilirubin Ql (U) Negative Normal Negative [facility] Comment on above: Performed By: #### 4 [id number] #### [facility] [address] [place] [address] Clarity (U) Clear Normal Clear [facility] Comment on above: Performed By: #### 4 [id number] #### [facility] [address] [place] [address] Color (U) Yellow Normal Yellow [facility] Comment on above: Result Comment: Micr oscopic readings are only performed on those samples that meet specific criteria set forth by [facility]. Performed By: #### 4 [id number] #### [facility] [address] [place] [address] Epithelial cells.squamous Auto (Urine sed) [#/Area] 5-[address] [facility] Comment on above: Performed By: #### 4 [id number] #### [facility] [address] [place] [address] Glucose Ql (U) Negative Normal Negative [facility] Comment on above: Performed By: #### 4 [id number] #### [facility] [address] [place] [address] Hemoglobin Auto test strip (U) [Mass/Vol] 1+ mg/dL Abnormal Negative [facility] Comment on above: Performed By: #### 4 [id number] #### [facility] [address] [place] [address] Ketones Auto test strip Ql (U) Negative Normal Negative [facility] Comment on above: Performed By: #### 4 [id number] #### [facility] [address] [place] [address] Leukocyte esterase Auto test strip Ql (U) Negative Normal Negative [facility] Comment on above: Performed By: #### 4 [id number] #### [facility] [address] [place] [address] Mucus Auto Ql (U) 1+ CD:[id number] Abnormal Negative [facility] Comment on above: Performed By: #### 4 [id number] #### [facility] [address] [place] [address] Nitrite Auto test strip Ql (U) Negative Normal Negative [facility] Comment on above: Performed By: #### 4 [id number] #### [facility] [address] [place] [address] pH (U) 6.0 [pH] Invalid Interpretation Code 5.0-9.0 [facility] Comment on above: Performed By: #### 4 [id number] #### [facility] [address] [place] [address] Protein Ql (U) Trace Abnormal Negative [facility] Comment on above: Performed By: #### 4 [id number] #### [facility] [address] [place] [address] RBC Ql (U) 0-3 Normal 0-3 [facility] Comment on above: Performed By: #### 4 [id number] #### [facility] [address] [place] [address] Specific gravity (U) [Rel density] 1.024 Invalid Interpretation Code 1.005-1.030 [facility] Comment on above: Performed By: #### 4 [id number] #### [facility] [address] [place] [address] Urobilinogen (U) [Mass/Vol] 2 mg/dL Abnormal Negative [facility] Comment on above: Performed By: #### 4 [id number] #### [facility] [address] [place] [address] WBC Auto (Urine sed) [#/Area] 0-5 Normal 0-5 [facility] Comment on above: Performed By: #### 4 [id number] #### [facility] [address] [place] [address] Type of Urine collection method Clean Catch Normal [facility] Comment on above: Performed By: #### 4 [id number] #### [facility] [address] [place] [address] URINALYSISOrdered By: SYSTEM SYSTEM on 07-22-2024 Bilirubin Ql (U) Negative Normal Negativemg/dL [facility] UA Auto SS Clarity (U) Clear (07/22/24 4:23 PM) Normal Clear [facility] UA Auto SS Color (U) Yellow 1 (07/22/24 4:23 PM) Normal Yellow [facility] UA Auto SS Comment on above: Interpretive Data: M icroscopic readings are only performed on those samples that meet specific criteria set forth by [facility]. Epithelial cells.squamous Auto (Urine sed) [#/Area] 5-8 graded/HPF Invalid Interpretation Code [facility] UA Auto SS Glucose Ql (U) Negative Normal Negativemg/dL [facility] UA Auto SS Hemoglobin Auto test strip (U) [Mass/Vol] 1+ mg/dL Invalid Interpretation Code Negativemg/dL [facility] UA Auto SS Ketones Auto test strip Ql (U) Negative Normal Negativemg/dL [facility] UA Auto SS Leukocyte esterase Auto test strip Ql (U) Negative Normal NegativeLeu/u L [facility] UA Auto SS Mucus Auto Ql (U) 1+ graded/LPF Invalid Interpretation Code Negativegrade d/LPF [facility] UA Auto SS Nitrite Auto test strip Ql (U) Negative Normal Negativemg/dL [facility] UA Auto SS pH (U) 6.0 *NA* (07/22/24 4:23 PM) Invalid Interpretation Code 5.0 - 9.0 [facility] UA Auto SS Protein Ql (U) Trace mg/dL Invalid Interpretation Code Negativemg/dL [facility] UA Auto SS RBC Ql (U) 0-3 graded/HPF Normal 0-3graded/HPF [facility] UA Auto SS Specific gravity (U) [Rel density] 1.024 *NA* (07/22/24 4:23 PM) Invalid Interpretation Code 1.005 - 1.030 [facility] UA Auto SS Urobilinogen (U) [Mass/Vol] 2 mg/dL Invalid Interpretation Code Negativemg/dL [facility] UA Auto SS WBC Auto (Urine sed) [#/Area] 0-5 graded/HPF Normal 0-5graded/HPF [facility] UA Auto SS URINALYSISOrdered By: Sebastián Dunne on 07-22-2024 UA Spec Desc Clean Catch (07/22/24 4:23 PM) Normal [facility] UA Auto SS eGFRon 07-22-2024 eGFR 89 mL/min/1.73 m2 Normal >=59 [facility] Comment on above: Performed By: #### 1 [id number] #### [facility] [address] [place] [address] CARDIAC DOM ADMITon 022 CK [Catalytic activity/Vol] 73 U/L Normal 30-[address] [facility] Comment on above: Performed By: #### C SANDI, CMP #### [facility] [address] [place] [address] Dr. Akil Aleman CK.MB [Mass/Vol] 0.61 ng/mL Normal <=2.37 [facility] Comment on above: Performed By: #### C SANDI, CMP #### [facility] [address] [place] [address] Dr. Akil Aleman HSTROP 7.1 pg/mL Normal 4.0-35.[address] [facility] Comment on above: Result Comment: CUT- OFF POINTS HAVE BEEN ESTABLISHED BASED ON THE FOURTH UNIVERSAL DEFINITIONS OF MYOCARDIAL INFARCTION. THE UPPER REFERENCE LIMIT (URL) OF TROPONIN, DEFINED THE 99TH PERCENTILE OF cTnI DISTRIBUTION IN A REFERENCE POPULATION, HAS BEEN CONFIRMED THE DECISION THRESHOLD FOR NE DIAGNOSIS. Performed By: #### C SANDI, CMP #### [facility] [address] [place] [address] Dr. Akil Aleman HUNTER 22.0 ng/mL Normal <=61.5 [facility] Comment on above: Performed By: #### C SANDI, CMP #### [facility] [address] [place] [address] Dr. Akil Aleman CBC AUTO DIFFon 08-16-2021 BASO # 0.0 103/ul Normal 0.0-0.[address] [facility] Comment on above: Performed By: #### C BC #### [facility] [address] [address] [address] Akil Aleman Basophils/100 WBC (Bld) 0.5 % Normal 0.2-2.[address] [facility] Comment on above: Performed By: #### C BC #### [facility] [address] [address] [address] Akil Aleman EO # 0.2 103/ul Normal 0.0-0.7 [facility] Comment on above: Performed By: #### C BC #### [facility] [address] [place] [address] Dr. Akil Aleman Eosinophils/100 WBC (Bld) 2.8 % Normal 0.9-7.[address] [facility] Comment on above: Performed By: #### C BC #### [facility] [address] [place] [address] Dr. Akil Aleman Erythrocyte distribution width (RBC) [Ratio] 12.6 % Normal 11.0-15.[address] [facility] Comment on above: Performed By: #### C BC #### [facility] [address] [place] [address] Dr. Akil Aleman Hematocrit (Bld) [Volume fraction] 42.5 % Normal 36.0-48.[address] [facility] Comment on above: Performed By: #### C BC #### [facility] [address] [place] [address] Dr. Akil Aleman Hemoglobin (Bld) [Mass/Vol] 14.8 g/dL Normal 12.0-16.[address] [facility] Comment on above: Performed By: #### C BC #### [facility] [address] [place] [address] Dr. Akil Aleman IG # 0.02 10e3/ul Normal 0.00-0.03 [facility] Comment on above: Performed By: #### C BC #### [facility] [address] [place] [address] Dr. Akil Aleman IG % 0.3 % Normal 0.0-0.5 [facility] Comment on above: Performed By: #### C BC #### [facility] [address] [address] [address] Akil Aleman LYMPH # 2.0 103/ul Normal 1.2-3.[address] [facility] Comment on above: Performed By: #### C BC #### [facility] [address] [place] [address] Dr. Akil Aleman Lymphocytes/100 WBC (Bld) 25.4 % Normal 20.5-60.[address] [facility] Comment on above: Performed By: #### C BC #### [facility] [address] [place] [address] Dr. Akil Aleman MANUAL DIFF REQ NO Normal [facility] Comment on above: Performed By: #### C BC #### [facility] [address] [place] [address] Dr. Akil Aleman MCH (RBC) [Entitic mass] 36.5 pg Critically high 26.7-34.[address] [facility] Comment on above: Performed By: #### C BC #### [facility] [address] [place] [address] Dr. Akil Aleman MCHC (RBC) [Mass/Vol] 34.8 g/dL Normal 29.9-35.[address] [facility] Comment on above: Performed By: #### C BC #### [facility] [address] [place] [address] Dr. Akil Aleman MCV (RBC) [Entitic vol] 104.9 fL Critically high 81.0-99.[address] [facility] Comment on above: Performed By: #### C BC #### [facility] [address] [place] [address] Dr. Akil Aleman MONO # 0.7 103/ul Normal 0.3-0.8 [facility] Comment on above: Performed By: #### C BC #### [facility] [address] [place] [address] Dr. Akil Aleman Monocytes/100 WBC (Bld) 8.9 % Normal 1.7-12.[address] [facility] Comment on above: Performed By: #### C BC #### [facility] [address] [address] [address] Akil Aleman NEUT # 5.0 103/ul Normal 1.4-6.[address] [facility] Comment on above: Performed By: #### C BC #### [facility] [address] [address] [address] Akil Aleman Neutrophils/100 WBC (Bld) 62.1 % Normal 43.0-75.[address] [facility] Comment on above: Performed By: #### C BC #### [facility] [address] [address] [address] Akil Aleman Platelet mean volume (Bld) [Entitic vol] 12.1 fL Normal 9.5-13.[address] [facility] Comment on above: Performed By: #### C BC #### [facility] [address] [place] [address] Dr. Akil Aleman PLT 187 103/ul Normal 150-[address] [facility] Comment on above: Performed By: #### C BC #### [facility] [address] [place] [address] Dr. Akil Aleman RBC 4.05 106/ul Critically low 4.20-5.40 [facility] Comment on above: Performed By: #### C BC #### [facility] [address] [place] [address] Dr. Akil Aleman WBC 8.0 103/ul Normal 4.0-11.[address] [facility] Comment on above: Performed By: #### C BC #### [facility] [address] [place] [address] Dr. Akil Aleman PROF 14(COMP METB)on 022 Albumin [Mass/Vol] 3.8 g/dL Normal 3.5-5.0 [facility] Comment on above: Performed By: #### C SANDI, CMP #### [facility] [address] [place] [address] Dr. Akil Aleman Albumin/Globulin [Mass ratio] 1.1 {ratio} Normal [facility] Comment on above: Performed By: #### C MADM, CMP #### [facility] [address] [address] [address] Aikl Aleman ALP [Catalytic activity/Vol] 132 U/L Critically high 38-[address] [facility] Comment on above: Performed By: #### C MADM, CMP #### [facility] [address] [address] [address] Akil Aleman ALT [Catalytic activity/Vol] 19 U/L Normal 9-[address] [facility] Comment on above: Performed By: #### C MADM, CMP #### [facility] [address] [address] [address] Akil Aleman Anion gap [Moles/Vol] 16.1 mmol/L Normal [facility] Comment on above: Performed By: #### C KIERRAM, CMP #### [facility] [address] [address] [address] Akil Aleman AST [Catalytic activity/Vol] 13 U/L Critically low 14-[address] [facility] Comment on above: Performed By: #### C KIERRAM, CMP #### [facility] [address] [address] [address] Akil Aleman Bilirubin [Mass/Vol] 0.5 mg/dL Normal 0.2-1.[address] [facility] Comment on above: Performed By: #### C KIERRAM, CMP #### [facility] [address] [address] [address] Akil Aleman Calcium [Mass/Vol] 9.2 mg/dL Normal 8.4-10.2 [facility] Comment on above: Performed By: #### C KIERRAM, CMP #### [facility] [address] [address] [address] Akil Aleman Chloride [Moles/Vol] 101 mmol/L Normal 98-[address] [facility] Comment on above: Performed By: #### C KIERRAM, CMP #### [facility] [address] [address] [address] Akil Aleman CO2 [Moles/Vol] 25.5 mmol/L Normal 22.0-30.0 [facility] Comment on above: Performed By: #### C MADM, CMP #### [facility] [address] [address] [address] Akil Aleman Creatinine [Mass/Vol] 0.70 mg/dL Normal 0.52-1.[address] [facility] Comment on above: Performed By: #### C MADM, CMP #### [facility] [address] [address] [address] Akil Aleman EGFR-AF GIBRALTARIAN >60 Normal >=60 [facility] Comment on above: Performed By: #### C MADM, CMP #### [facility] [address] [address] [address] Akil Aleman EGFR-NON AF GIBRALTARIAN >60 Normal >=[address] [facility] Comment on above: Performed By: #### C MADM, CMP #### [facility] [address] [address] [address] Akil Aleman Globulin (S) [Mass/Vol] 3.5 g/dL Normal [facility] Comment on above: Performed By: #### C MADM, CMP #### [facility] [address] [address] [address] Akil Aleman Glucose [Mass/Vol] 88 mg/dL Normal 74-106 [facility] Comment on above: Performed By: #### C MADM, CMP #### [facility] [address] [address] [address] Akil Aleman Potassium [Moles/Vol] 3.6 mmol/L Normal 3.4-5.[address] [facility] Comment on above: Performed By: #### C MADM, CMP #### [facility] [address] [address] [address] Akil Aleman Protein [Mass/Vol] 7.3 g/dL Normal 6.1-8.[address] [facility] Comment on above: Performed By: #### C MADM, CMP #### [facility] [address] [address] [address] Akil Aleman Sodium [Moles/Vol] 139 mmol/L Normal 137-[address] [facility] Comment on above: Performed By: #### C MADM, CMP #### [facility] [address] [place], [place] [address] Dr. Akil Aleman Urea nitrogen [Mass/Vol] 11.0 mg/dL Normal 7.0-17.[address] [facility] Comment on above: Performed By: #### C KIERRAM, CMP #### [facility] [address] [place], [place] [address] Dr. Akil Aleman Urea nitrogen/Creatinine [Mass ratio] 15.7 mg/mg Normal [facility] Comment on above: Performed By: #### C KIERRAM, CMP #### [facility] [address] [place], [place] [address] Dr. Akil Aleman XR CHEST 1 Von [...] by: MELODIE ORTIZ Date: 2021-08-16 02:38 Normal [facility] ED Clinical Summaryon 2020 ED Clinical Summary [address] [address] ED Clinical Summary Person Information Name: Martha Waters [facility] Age: 45 Years : 1975 Sex: Female PCP: Maris Olivas MD Marital Status: Phone: Race: White Ethnicity: Not or Language: Spanish Visit Reason: Seizure; Seizure - febrile Acuity: 3 Enc Type: Emergency Med Service: Emergency Medicine Arrival: 11/02/2020 19:11:24 Discharge: 11/02/2020 22:24:00 LOS: 000 03:13 Checkin: 11/02/2020 19:11:24 Checkout: 11/02/2020 22:24:00 Dispo Type: Home or Self Care Address: [address] [place] [address] Provider Notes: Diagnosis: 1:First time seizure; 2:Anxiety [...] range between ( 27.2 and 40.8 ) Posey Auto: 5.5 % -- Normal range between [...] range between ( 36.0 and 46.0 ) Posey Absolute: 0.6 x10 MCH: 34.5 pg -- [...] 59.9 kg (more content not included)... Normal [facility] .UA Microscp Aon 11-02-2020 UA Bacteria Present Abnormal Absent [facility] Comment on above: Performed By: #### C [id number] #### [place] [address] UA Hyline Cast Qual 3-5 Normal Negative [facility] Comment on above: Performed By: #### C [id number] #### [place] [address] UA Mucus Present Abnormal Absent [facility] Comment on above: Performed By: #### C [id number] #### [place] [address] UA RBC Quant 5 /HPF Normal 0-5 [facility] Comment on above: Performed By: #### C [id number] #### [address] [address] UA Squepi Cells Quant 7 /HPF Normal 0-29 [facility] Comment on above: Performed By: #### C D:[id number] #### [address] [address] UA WBC Quant 4 /HPF Normal 0-5 [facility] Comment on above: Performed By: #### C [id number] #### [address] [address] .eGFRon 11-02-2020 eGFR AA >60 Normal >=60 [facility] Comment on above: Order Comment: Order added by Discern rule Result Comment: See comment. Performed By: #### E GFR #### [address] [address] eGFR Non-AA >60 Normal >=60 [facility] Comment on above: Order Comment: Order [...] years Performed By: #### E GFR #### [address] [address] CBC w/ Diffon 11-02-2020 Erythrocyte distribution width (RBC) [Ratio] 15.5 % High 11.6-14.8 [facility] Comment on above: Performed By: #### C BC #### [place] [id number] Hematocrit (Bld) [Volume fraction] 40.2 % Normal 36.0-46.0 [facility] Comment on above: Performed By: #### C BC #### [place] [id number] Hemoglobin (Bld) [Mass/Vol] 13.6 g/dL Normal 12.0-16.0 [facility] Comment on above: Performed By: #### C BC #### [place] [id number] MCH (RBC) [Entitic mass] 34.5 pg Normal 27.0-35.0 [facility] Comment on above: Performed By: #### C BC #### [place] [id number] MCHC 33.8 % Normal 31.0-37.0 [facility] Comment on above: Performed By: #### C BC #### [place] [id number] MCV (RBC) [Entitic vol] 102.2 fL High 80.0-100.0 [facility] Comment on above: Performed By: #### C BC #### [place] [id number] Platelet 225 x10*3/mcL Normal 150-350 [facility] Comment on above: Performed By: #### C BC #### [address] [address] Platelet mean volume (Bld) [Entitic vol] 9.4 fL Normal 6.7-10.6 [facility] Comment on above: Performed By: #### C BC #### [place] [id number] RBC 3.94 x10*6/mcL Normal 3.80-5.20 [facility] Comment on above: Performed By: #### C BC #### [address] [address] WBC 10.5 x10*3/mcL Normal 4.5-11.0 [facility] Comment on above: Performed By: #### C BC #### [address] [address] CMPon 11-02-2020 Creatinine [Mass/Vol] 0.80 mg/dL Normal 0.44-1.03 [facility] Comment on above: Performed By: #### C OMP #### [address] [address] Urea nitrogen [Mass/Vol] 13 mg/dL Normal 8-26 [facility] Comment on above: Performed By: #### C OMP #### [address] [address] Urea nitrogen/Creatinine [Mass ratio] 16.2 mg/mg Normal 10.0-20.0 [facility] Comment on above: Performed By: #### C OMP #### [address] [address] Albumin [Mass/Vol] 3.9 g/dL Normal 3.2-4.9 [facility] Comment on above: Performed By: #### C OMP #### [address] [address] Albumin/Globulin [Mass ratio] 1.3 {ratio} Normal 1.1-2.2 [facility] Comment on above: Performed By: #### C OMP #### [address] [address] Alk Phos 64 IU/L Normal 32-91 [facility] Comment on above: Performed By: #### C OMP #### [address] [address] ALT [Catalytic activity/Vol] 18 U/L Normal 14-54 [facility] Comment on above: Performed By: #### C OMP #### [address] [address] AST [Catalytic activity/Vol] 16 U/L Normal 15-41 [facility] Comment on above: Performed By: #### C OMP #### [address] [address] Bili Total 0.2 mg/dL Low 0.3-1.2 [facility] Comment on above: Performed By: #### C OMP #### [address] [address] Protein [Mass/Vol] 6.8 g/dL Normal 6.5-8.1 [facility] Comment on above: Performed By: #### C OMP #### [address] [address] Anion gap [Moles/Vol] 14 mmol/L Normal 7-17 [facility] Comment on above: Performed By: #### C OMP #### [address] [address] Calcium [Mass/Vol] 9.0 mg/dL Normal 8.5-10.3 [facility] Comment on above: Performed By: #### C OMP #### [address] [address] Chloride [Moles/Vol] 105 mmol/L Normal 98-110 [facility] Comment on above: Performed By: #### C OMP #### [address] [address] CO2 [Moles/Vol] 25 mmol/L Normal 22-32 [facility] Comment on above: Performed By: #### C OMP #### [address] [address] Glucose [Mass/Vol] 107 mg/dL High 70-99 [facility] Comment on above: Performed By: #### C OMP #### [address] [address] Potassium [Moles/Vol] 3.8 mmol/L Normal 3.4-4.8 [facility] Comment on above: Performed By: #### C OMP #### [facility] [address] [place] [address] Sodium [Moles/Vol] 140 mmol/L Normal 133-142 [facility] Comment on above: Performed By: #### C OMP #### [facility] [address] [place] [address] CT Brain w/o Contraston 10-17 CT Brain [...] with follow-up nonemergent MRI. Radiation Dose Estimate: CTDI(mGy):0.737056 / / / kVp:120.963739 / mAs:0.449779 / / / DLP(mGy-cm):4.638496A hailey Part: Head CTDI(mGy):40.317629 / / / kVp:120.935031 / mAs:164.422530 / / / DLP(mGy-cm):605.83505 5Body Part: Head Final Dictated by: Sebastián Castañeda MD Dictated DT/TM: 11.02.2020 9:41 pm Signed by: Sebastián Castañeda MD Signed (Electronic Signature): 11.02.2020 9:43 pm (If Report Is Signed, Electronically Signed in Other Vendor System) Normal [facility] Diff Autoon 11-02-2020 Baso Absolute 0.1 x10*3/mcL Normal 0.0-0.2 [facility] Comment on above: Performed By: #### P TINR #### [address] [address] Basophils/100 WBC (Bld) 1.0 % Normal 0.0-1.5 [facility] Comment on above: Performed By: #### P TINR #### [address] [address] Eos Absolute 0.1 x10*3/mcL Normal 0.0-0.4 [facility] Comment on above: Performed By: #### P TINR #### [address] [address] Eosinophils/100 WBC (Bld) 1.3 % Normal 0.0-5.4 [facility] Comment on above: Performed By: #### P TINR #### [address] [address] Lymph Absolute 1.4 x10*3/mcL Normal 1.0-4.8 [facility] Comment on above: Performed By: #### P TINR #### [address] [address] Lymphocytes/100 WBC (Bld) 13.7 % Low 27.2-40.8 [facility] Comment on above: Performed By: #### P TINR #### [address] [address] Posey Absolute 0.6 x10*3/mcL Normal 0.1-1.1 [facility] Comment on above: Performed By: #### P TINR #### [address] [address] Monocytes/100 WBC (Bld) 5.5 % Normal 3.7-11.9 [facility] Comment on above: Performed By: #### P TINR #### [address] [address] Neutro Absolute 8.3 x10*3/mcL High 1.8-7.7 [facility] Comment on above: Performed By: #### P TINR #### [facility] [address] [place] [address] Neutro Auto 78.5 % High 47.2-70.8 [facility] Comment on above: Performed By: #### P TINR #### [facility] [address] [place] [address] ED Note-Physicianon 11-03-19 ED Note-Physician Chief Complaint Patient coming from [facility] for new onset seizure like activity. 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 last use 12 days ago. History of Present Illness Patient presents the emergency department from [facility] for concern of new onset seizure. 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 [...] she follow-up with neurologist Dr. Salgado. 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 Normal [facility] Ethanolon 11-02-2020 Ethanol, Plasma <10 Normal <=9 [facility] Comment on above: Result Comment: To c onvert mg/dL to g/dL, divide result by 1,000. Legal limit of intoxication is 80 mg/dL (0.08 g/dL). Performed By: #### P TINR #### [address] [address] Myoglobinon 11-02-2020 Myoglobin 319.0 ng/dL High 14.3-65.8 [facility] Comment on above: Performed By: #### M YO #### [address] [address] PTon 11-02-2020 INR Coag (PPP) [Relative time] 1.1 {INR} Normal <=3.5 [facility] Comment on above: Result Comment: INR has no normal range. INR Therapeutic range is: 2.0-3.0 (AF, CVA, TIAs, DVT prophylaxis, acute DVT) 2.5-3.5 ([facility] heart valves, recurrent thrombosis/emboli) Performed By: #### P TINR #### [address] [address] PT Coag (PPP) [Time] 11.7 s Normal 9.4-12.1 [facility] Comment on above: Performed By: #### P TINR #### [address] [address] PTTon 11-02-2020 aPTT Coag (Bld) [Time] 21.7 s Normal 20.2-27.0 [facility] Comment on above: Performed By: #### P TT #### [address] [address] TSHon 11-02-2020 TSH Qn 3.23 m[IU]/L Normal 0.45-5.33 [facility] Comment on above: Result Comment: Refe rence Ranges for individuals from to 18 years of age were obtained from The [employer] Handbook (20 ed) published by [facility]. Reference Ranges for Females: Females, 1st Trimester 0.05 ? 3.7 uIU/mL Females, 2nd Trimester 0.31 ? 4.35 uIU/mL Females, 3rd Trimester 0.41 ? 5.18 uIU/mL Performed By: #### P TINR #### [address] [address] Troponin-Ion 11-02-2020 Troponin I.cardiac [Mass/Vol] ng/mL Normal 0.00-0.03 [facility] Comment on above: Result Comment: An i ncreased Troponin-I value, in the absence of myocardial ischemia, may indicate other etiologies of cardiac damage. Performed By: #### T ROP #### [address] [address] UA w Culture if Indon 2020 Color (U) Yellow Normal [facility] Comment on above: Performed By: #### U CI #### [address] [address] Glucose (U) [Mass/Vol] Negative Normal Negative [facility] Comment on above: Performed By: #### U CI #### [address] [address] Ketones Ql (U) Negative Normal Negative [facility] Comment on above: Performed By: #### U CI #### [address] [place] [address] UA Blood Negative Normal Negative [facility] Comment on above: Performed By: #### U CI #### [facility] [address] [place] [address], [place] [address] UA Clarity Clear Normal [facility] Comment on above: Performed By: #### U CI #### [address] [place] [address] UA Leukocyte Esterase Negative Normal Negative [facility] Comment on above: Performed By: #### U CI #### [address] [address] UA Nitrite Negative Normal Negative [facility] Comment on above: Performed By: #### U CI #### [address] [address] UA pH 6.0 Normal 4.5 - 7.8 [facility] Comment on above: Performed By: #### U CI #### [address] [address] UA Protein 30 mg/dL Abnormal Negative [facility] Comment on above: Performed By: #### U CI #### [address] [address] UA Source Clean Catch Normal [facility] Comment on above: Performed By: #### U CI #### [address] [place] [address] UA Spec Grav 1.017 Normal 1.003-1.035 [facility] Comment on above: Performed By: #### U CI #### [address] [address] UA Urobilinogen 0.2 mg/dL Normal 0.2 - 1.0 [facility] Comment on above: Performed By: #### U CI #### [address] [address] Urobilinogen (U) [Mass/Vol] Negative Normal Negative [facility] Comment on above: Performed By: #### U CI #### [address] [address] UDS Compon 11-02-2020 Creatinine [Mass/Vol] 186.8 mg/dL Normal Bl [facility] Comment on above: Performed By: #### C D:[id number] #### [address] [address] Ur Amph Scrn Negative Normal NEG = <1000 [facility] Comment on above: Performed By: #### C [id number] #### [address] [address] Ur Lulu Scrn Positive Abnormal NEG = <200 [facility] Comment on above: Result Comment: This unconfirmed positive screening result is to be used for medical treatment purposes only. Unconfirmed screening results must not be used for non-medical purposes. (e.g. employment testing, legal testing). Performed By: #### C D:[id number] #### [address] [address] Ur Benzodia Scrn Negative Normal NEG = <200 [facility] Comment on above: Performed By: #### C D:[id number] #### [address] [address] Ur Cannab Scrn Positive Abnormal NEG = <50 [facility] Comment on above: Result Comment: This unconfirmed positive screening result is to be used for medical treatment purposes only. Unconfirmed screening results must not be used for non-medical purposes. (e.g. employment testing, legal testing). Performed By: #### C D:[id number] #### [address] [address] Ur Cocaine Scrn Negative Normal NEG = <300 [facility] Comment on above: Performed By: #### C D:[id number] #### [address] [address] Ur Methadone Scn Negative Normal NEG = <300 [facility] Comment on above: Performed By: #### C D:[id number] #### [address] [address] Ur Opiate Scrn Negative Normal NEG = <300 [facility] Comment on above: Performed By: #### C D:[id number] #### [address] [address] Ur Oxy Screen Negative Normal NEG = <100 [facility] Comment on above: Performed By: #### C [id number] #### [address] [address] Ur Oxy Scrn Qnt 0 ng/mL Normal <=99 [facility] Comment on above: Performed By: #### C D:[id number] #### [address] [address] Ur PCP Scrn Negative Normal NEG = <25 [facility] Comment on above: Performed By: #### C D:[id number] #### [address] [address] UA pH 6.0 Normal 4.5 - 7.8 [facility] Comment on above: Performed By: #### C [id number] #### [address] [address] UA Spec Grav 1.017 Normal 1.003-1.035 [facility] Comment on above: Performed By: #### C D:[id number] #### [address] [address] XR Chest 1 Viewon 11-02-2020 XR Chest [...] for acute cardiopulmonary disease. Final Dictated by: Cat Lagunas MD Dictated DT/TM: 11/02/2020 8:28 pm Signed by: Cat Lagunas MD Signed (Electronic Signature): 11/02/2020 8:29 pm (If Report Is Signed, Electronically Signed in Other Vendor System) Normal [facility] Vital Signs Date Time Vital Sign Value Performing Clinician Lynn buckner 07-22-2024 19:46-0500 Diastolic blood pressure 76 mm[Hg] Justin Rosse [facility] 07-22-2024 19:46-0500 Heart rate 71 /min Justin Eris [facility] 07-22-2024 19:46-0500 Mean blood pressure 91 mm[Hg] Justin Eris [facility] 07-22-2024 19:46-0500 Respiratory rate 17 /min Justin Eris [facility] 07-22-2024 19:46-0500 SaO2% (BldA) [Mass fraction] 98 % Justin Eris [facility] 07-22-2024 19:46-0500 Systolic blood pressure 120 mm[Hg] Justin Eris [facility] 07-22-2024 17:15-0500 Diastolic blood pressure 46 mm[Hg] Justin Eris [facility] 07-22-2024 17:15-0500 Heart rate 67 /min Justin Eris [facility] 07-22-2024 17:15-0500 Mean blood pressure 69 mm[Hg] Justin Eris [facility] 07-22-2024 17:15-0500 Respiratory rate 16 /min Justin Eris [facility] 07-22-2024 17:15-0500 SaO2% (BldA) [Mass fraction] 100 % Justin Eris [facility] 07-22-2024 17:15-0500 Systolic blood pressure 114 mm[Hg] Justin Schulte [facility] 07-22-2024 15:47-0500 Body temperature 98.24 [degF] Justin Schulte [facility] 07-22-2024 15:47-0500 Diastolic blood pressure 92 mm[Hg] Justin Schulte [facility] 07-22-2024 15:47-0500 Heart rate 90 /min Justin Schulte [facility] 07-22-2024 15:47-0500 Respiratory rate 18 /min Justin Schulte [facility] 07-22-2024 15:47-0500 SaO2% (BldA) [Mass fraction] 100 % Justin Schulte [facility] 07-22-2024 15:47-0500 Systolic blood pressure 132 mm[Hg] Justin Schulte [facility] 06-19-2022 14:50-0500 Blood Pressure Location Wolfgang R[facility] [place] 06-19-2022 14:50-0500 Diastolic blood pressure 66 mm[Hg] Wolfgang RENEEL [facility] [place] 06-19-2022 14:50-0500 Heart rate 76 /min Wolfgang RENE[facility] [place] 06-19-2022 14:50-0500 Respiratory rate 16 /min Wolfgang RENE[facility] [place] 06-19-2022 14:50-0500 Systolic blood pressure 108 mm[Hg] Wolfgang RENE[facility] [place] Encounters Encounter Date Encounter Type Care Provider Facility Start: 07-27-2024 End: 07-27-2024 ambulatory KITTY Dunne Facility:[facility] Start: 07-27-2024 End: 07-27-2024 Patient encounter procedure Sebastián Dunne [facility] Start: 07-22-2024 End: 07-22-2024 Emergency department patient visit Justin Schulte [facility] Start: 05-19-2024 ambulatory Patel Cortez acility:[facility] Start: 07-30-2022 End: 07-30-[address] MARIS OLIVAS Facility:[facility] Start: 07-15-2022 End: 07-15-2022 Patient encounter procedure [facility] Start: 06-19-2022 End: 06-19-2022 Patient encounter procedure Wolfgang [facility] Start: 08-22-2021 End: 08-22-[address] MARIS OLIVAS Facility:[facility] Start: 08-19-2021 End: 08-20-[address] MARIS OLIVAS Facility:[facility] Start: 08-16-2021 End: 08-16-[address] MARIS OLIVAS Facility:[facility] Start: 11-02-2020 End: 11-03-2020 Emergency department patient visit Justin Servin Facility:[facility] Procedures Date Procedure Procedure Detail Performing Clinician section Wolfgang NIL L section Wolfgang NIL L Comment on above: x 3 Cholecystectomy Wolfgang RENEEL Excision of lesion of tongue [facility] Laser assisted in si tu keratomileusis Wolfgang RENEEL Tonsillectomy Wolfgang RENEEL Immunizations Immunization Date Immunization Notes Care Provider Fa ciliruth NEGATED: Highlighted row has not occurred!06-19-2022 influenza virus vaccine, unspecified formulation Wolfgang MC [facility] Payers Date Payer Category Payer Self-pay 1975 Unknown [id number] [id number]. [id number] 1975 Unknown [id number] 2.16.84 [id number] 1975 Unknown [id number] 2.16.84 [id number] 1975 Unknown [id number] 2.16.84 [id number] 1975 Unknown [id number] 2.16.84 [id number] 1975 Unknown [id number] 2.16.8 [id number] 1975 Unknown [id number] 2.16.8 [id number] 1975 Unknown [id number] 2.16.8 [id number] 1961 Unknown [id number] 1961 Unknown [id number] Unknown [id number] 2.16.8 [id number] Social History Date Type Detail Facility Start: 06-19-2022 Tobacco smoking status Heavy t obacco smoker (finding) [facility] Tobacco smoking status Never [facility] [place] Sex Assigned At Female [facility] Tobacco Current vaping o r e-cigarette use Smokeless Tobacco Use:. Vaping [facility] Tobacco smoking status No Smokin g Status Entered [facility] Functional Status Date Assessment Result Facility 07-22-2024 Functional Status N/A [facility] 06-19-2022 Functional Status N/A [facility] Discharge instructions 07-22-2024 Note Date & Type Note Facility 07-22-2024 Hospital Discharg e instructions Patient Education 07/22/2024 20:14:14 Menorrhagia Menorrhagia Menorrhagia is a form of abnormal uterine bleeding in which menstrual periods are heavy or last longer than normal. With menorrhagia, the periods may cause enough blood loss and cramping that a woman becomes unable to take part in her usual activities. What are the causes? Common causes of this condition include: Polyps or fibroids. These are noncancerous growths in the uterus. An imbalance of the hormones estrogen and progesterone. Anovulation, which occurs when one of the ovaries does not release an egg during one or more months. A problem with the thyroid gland (hypothyroidism). Side effects of having an intrauterine device (IUD). Side effects of some medicines, such as NSAIDs or blood thinners. A bleeding disorder that stops the blood from clotting normally. In some cases, the cause of this condition is not known. What increases the risk? You are more likely to develop this condition if you have cancer of the uterus. What are the signs or symptoms? Symptoms of this condition include: Routinely having to change your pad or tampon every 1 2 hours because it is soaked. Needing to use pads and tampons at the same time because of heavy bleeding. Needing to wake up to change your pads or tampons during the night. Passing blood clots larger than 1 inch (2.5 cm) in size. Having bleeding that lasts for more than 7 days. Having symptoms of low iron levels (anemia), such as tiredness (fatigue) or shortness of breath. How is this diagnosed? This condition may be diagnosed based on: A physical exam. Your symptoms and menstrual history. Tests, such as: ?Blood tests to check if you are or if you have hormonal changes, a bleeding or thyroid disorder, anemia, or other problems. ?Pap test to check for cancerous changes, infections, or inflammation. ?Endometrial biopsy. This test involves removing a tissue sample from the lining of the uterus (endometrium) to be examined under a microscope. ?Pelvic ultrasound. This test uses sound waves to create images of your uterus, ovaries, and vagina. The images can show if you have fibroids or other growths. ?Hysteroscopy. For this test, a thin, flexible tube with a light on the end (hysteroscope) is used to look inside your uterus. How is this treated? Treatment may not be needed for this condition. If it is needed, the best treatment for you will depend on: Whether you need to prevent . Your desire to have children in the future. The cause and severity of your bleeding. Your personal preference. Medicine Medicines are the first step in treatment. You may be treated with: Hormonal control methods. These treatments reduce bleeding during your menstrual period. They include: ? control pills. ?Skin patch. ?Vaginal ring. ?Shots (injections) that you get every 3 months. ?Hormonal IUD. ?Implants that go under the skin. Medicines that thicken the blood and slow bleeding. Medicines that reduce swelling, such as ibuprofen. Medicines that contain an artificial (synthetic) hormone called progestin. Medicines that make the ovaries stop working for a short time. Iron supplements to treat anemia. Surgery If medicines do not work, surgery may be done. Surgical options may include: Dilation and curettage (D&C). In this procedure, your health care provider opens the lowest part of the uterus (cervix) and then scrapes or suctions tissue from the endometrium. This reduces menstrual bleeding. Operative hysteroscopy. In this procedure, a hysteroscope is used to view your uterus and help remove polyps that may be causing heavy periods. Endometrial ablation. This is when various techniques are used to permanently destroy your entire endometrium. After endometrial ablation, most women have little or no menstrual flow. This procedure reduces your ability to become . Endometrial resection. In this procedure, an electrosurgical wire loop is used to remove the endometrium. This procedure reduces your ability to become . Hysterectomy. This is surgical removal of your uterus. This is a permanent procedure that stops menstrual periods. is not possible after a hysterectomy. Follow these instructions at home: Medicines Take yhvb-bvo-gqtinho and prescription medicines only as told by your health care provider. This includes iron pills. Do not change or switch medicines without asking your health care provider. Do not take aspirin or medicines that contain aspirin 1 week before or during your menstrual period. Aspirin may make bleeding worse. Managing constipation Your iron pills may cause constipation. If you are taking prescription iron supplements, you may need to take these actions to prevent or treat constipation: Drink enough fluid to keep your urine pale yellow. Take ddrj-dgf-fxictwq or prescription medicines. Eat foods that are high in fiber, such as beans, whole grains, and fresh fruits and vegetables. Limit foods that are high in fat and processed sugars, such as fried or sweet foods. General instructions If you need to change your sanitary pad or tampon more than once every 2 hours, limit your activity until the bleeding stops. Eat well-balanced meals, including foods that are high in iron. Foods that have a lot of iron include leafy green vegetables, meat, liver, eggs, and whole-grain breads and cereals. Do not try to lose weight until the abnormal bleeding has stopped and your blood iron level is back to normal. If you need to lose weight, work with your health care provider to lose weight safely. Keep all follow-up visits. This is important. Contact a health care provider if: You soak through a pad or tampon every 1 or 2 hours, and this happens every time you have a period. You need to use pads and tampons at the same time because you are bleeding so much. You have nausea, vomiting, diarrhea, or other problems related to medicines you are taking. Get help right away if: You soak through more than a pad or tampon in 1 hour. You pass clots bigger than 1 inch (2.5 cm) wide. You feel short of breath. You feel like your heart is beating too fast. You feel dizzy or you faint. You feel very weak or tired. Summary Menorrhagia is a form of abnormal uterine bleeding in which menstrual periods are heavy or last longer than normal. Treatment may not be needed for this condition. If it is needed, it may include medicines or procedures. Take xlzz-upd-lfennrd and prescription medicines only as told by your health care provider. This includes iron pills. Get help right away if you have heavy bleeding that soaks through more than a pad or tampon in 1 hour, you pass large clots, or you feel dizzy, short of breath, or very weak or tired. This information is not intended to replace advice given to you by your health care provider. Make sure you discuss any questions you have with your health care provider. Document Revised: 03/18/2021 Document Reviewed: 03/18/2021 [employer] Patient Education 2023 [employer]. Follow Up Care 07/22/2024 15:41:50 With:Sancho LINTON Address: [address] , [place] [address]- Business (1) When:07/25/2024 19:57:29 With:Maris Olivas Address: [address] [place] [address] [place] [place] [address]- Business (1) When:Within 3 Day(s) [facility] Clinical Note 07-22-2024 Note Date & Type Note Facility 07-22-2024 Note ED Patient Education Note Obstetrics and Gynecology Menorrhagia Menorrhagia is a form of abnormal uterine bleeding in which menstrual periods are heavy or last longer than normal. With menorrhagia, the periods may cause enough blood loss and cramping that a woman becomes unable to take part in her usual activities. What are the causes? Common causes of this condition include: ??? Polyps or fibroids. These are noncancerous growths in the uterus. ??? An imbalance of the hormones estrogen and progesterone. ??? Anovulation, which occurs when one of the ovaries does not release an egg during one or more months. ??? A problem with the thyroid gland (hypothyroidism). ??? Side effects of having an intrauterine device (IUD). ??? Side effects of some medicines, such as NSAIDs or blood thinners. ??? A bleeding disorder that stops the blood from clotting normally. In some cases, the cause of this condition is not known. What increases the risk? You are more likely to develop this condition if you have cancer of the uterus. What are the signs or symptoms? Symptoms of this condition include: ??? Routinely having to change your pad or tampon every 1?2 hours because it is soaked. ??? Needing to use pads and tampons at the same time because of heavy bleeding. ??? Needing to wake up to change your pads or tampons during the night. ??? Passing blood clots larger than 1 inch (2.5 cm) in size. ??? Having bleeding that lasts for more than 7 days. ??? Having symptoms of low iron levels (anemia), such as tiredness (fatigue) or shortness of breath. How is this diagnosed? This condition may be diagnosed based on: ??? A physical exam. ??? Your symptoms and menstrual history. ??? Tests, such as: ? Blood tests to check if you are or if you have hormonal changes, a bleeding or thyroid disorder, anemia, or other problems. ? Pap test to check for cancerous changes, infections, or inflammation. ? Endometrial biopsy. This test involves removing a tissue sample from the lining of the uterus (endometrium) to be examined under a microscope. ? Pelvic ultrasound. This test uses sound waves to create images of your uterus, ovaries, and vagina. The images can show if you have fibroids or other growths. ? Hysteroscopy. For this test, a thin, flexible tube with a light on the end (hysteroscope) is used to look inside your uterus. How is this treated? Treatment may not be needed for this condition. If it is needed, the best treatment for you will depend on: ??? Whether you need to prevent . ??? Your desire to have children in the future. ??? The cause and severity of your bleeding. ??? Your personal preference. Medicine Medicines are the first step in treatment. You may be treated with: ??? Hormonal control methods. These treatments reduce bleeding during your menstrual period. They include: ? control pills. ? Skin patch. ? Vaginal ring. ? Shots (injections) that you get every 3 months. ? Hormonal IUD. ? Implants that go under the skin. ??? Medicines that thicken the blood and slow bleeding. ??? Medicines that reduce swelling, such as ibuprofen. ??? Medicines that contain an artificial (synthetic) hormone called progestin. ??? Medicines that make the ovaries stop working for a short time. ??? Iron supplements to treat anemia. Surgery If medicines do not work, surgery may be done. Surgical options may include: ??? Dilation and curettage (D&C). In this procedure, your health care provider opens the lowest part of the uterus (cervix) and then scrapes or suctions tissue from the endometrium. This reduces menstrual bleeding. ??? Operative hysteroscopy. In this procedure, a hysteroscope is used to view your uterus and help remove polyps that may be causing heavy periods. ??? Endometrial ablation. This is when various techniques are used to permanently destroy your entire endometrium. After endometrial ablation, most women have little or no menstrual flow. This procedure reduces your ability to become . ??? Endometrial resection. In this procedure, an electrosurgical wire loop is used to remove the endometrium. This procedure reduces your ability to become . ??? Hysterectomy. This is surgical removal of your uterus. This is a permanent procedure that stops menstrual periods. is not possible after a hysterectomy. Follow these instructions at home: Medicines ??? Take qece-dqq-knqgfxz and prescription medicines only as told by your health care provider. This includes iron pills. ??? Do not change or switch medicines without asking your health care provider. ??? Do not take aspirin or medicines that contain aspirin 1 week before or during your menstrual period. Aspirin may make bleeding worse. Managing constipation Your iron pills may cause constipation. If you are taking prescription iron supplements, you may need to take these actions (more content not included)... [facility] Evaluation + Plan note Note Date & Type Note Facility Evaluation + Plan note Future Appointments Appointment Date:07/15/2022 03:00:00 PM Scheduled Provider:Wolfgang MC MD Location:[facility] Appointment Type: Procedure 30 General Surgery [facility] course Narrative Note Date & Type Note Facility Hospital course Narrative No data available for this section General [facility] Discharge instructions Note Date & Type Note Facility Hospital Discharge instructions No data available for this section General Surgery [facility] note Note Date & Type Note Facility Progress note No data available for this section General Surgery [place] Summary Purpose Family History No Family History Records FoundNo Family History Records FoundNo Family History Records Found No data available for this section No data available for this section No Family History Records FoundNo Family History [...] section and content) DATE CREATED AUTHOR 11/06/2020 [facility] DATE CREATED AUTHOR AUTHOR'S ORGANIZ ATION 08/03/2022 [facility] DATE CREATED AUTHOR AUTHOR'S ORGANIZ ATION 06/30/2024 [facility] DATE CREATED AUTHOR AUTHOR'S ORGANIZ ATION 07/29/2024 [facility] DATE CREATED AUTHOR AUTHOR'S ORGANIZ ATION 08/06/2024 [facility] Patient Care team informatio n (unrecognized section and content) Personnel Name: Maris Olivas MD Address: Address: [address] [place] [address] Personnel Name: Maris Olivas MD Address: Address: [address] [place] [address] Personnel Name: Maris Olivas MD Address: Address: [address] [place] [address] Personnel Name: Maris Olivas MD Address: Address: [address] [place] [address] FOR RECORDS PERTAINING TO PATIENTS WHO ARE [...] BE BASED ON THE PRIMARY CLINICAL RECORDS. [facility]. provides no warranty or guarantee of the accuracy or completeness of information in this document.
--- NOTE | 2024-10-03 22:30 | ECG_ITS ---
[facility] Test Date: 2024-10-03 Pat Name: GERTRUDE WATERS Department: Room: - Gender: Female [employer]ner: : 1975 Requested By: [id number] Order Number: [id number] Reading MD: TONIA SAUCEDA M.D. Measurements Intervals [place] Rate: 89 P: 64 FL: 134 QRS: 75 QRSD: 80 T: -73 QT: 344 QTc: 391 Interpretive Statements 1100 Sinus rhythm [address] depression 4364 Twave abnormality, possible anterolateral ischemia 4664 Twave abnormality, possible inferior ischemia 9150 abnormal ECG Compared to ECG 08/16/2021 01:35:58 No significant changes Electronically Signed On 10-04-2024 19:08:28 EDT by TONIA SAUCEDA M.D.
--- NOTE | 2024-10-03 22:31 | ED.GENADUL1 ---
HPI HPI - General Adult General Chief complaint: Anxiety Stated complaint: rapid heartrate Time Seen by Provider: 10/03/24 22:24 History of Present Illness HPI narrative: 49-year-old female presents to the emergency department for anxiety. She states that she took 6 Vicodin pills over the course of the day and then was worried she might have overdosed and thought she might . Her heart was racing and she was brought here by paramedics. She was not trying to hurt herself and the Vicodin are not prescribed for her. No trauma or fever or vomiting. Related Data Home Medications ?Medication ?Instructions ?Recorded ?Confirmed desvenlafaxine succinate 100 mg mg PO 10/03/24 tablet,extended release 24 hr metoprolol tartrate 25 mg tablet mg 10/03/24 quetiapine 200 mg tablet mg 10/03/24 valacyclovir 500 mg tablet mg 10/03/24 Allergies Allergy/AdvReac Type Severity Reaction Status Date / Time codeine AdvReac Mild Hives Verified 10/03/24 22:32 Iodinated Contrast Media AdvReac Mild Hives Verified 10/03/24 22:32 Sulfa (Sulfonamide AdvReac Mild Hives Verified 10/03/24 22:32 Antibiotics) Opioid HPI Opioid Management Most Recent Opioid Data: No Data to Display Review of Systems ROS Narrative A ten point review of systems is negative except as noted above. PFSH PFSH Social History Little interest or pleasure in doing things: not at all Feeling down, depressed, or hopeless: not at all Exam Narrative Exam Narrative: Nurses note and vital signs reviewed and patient is not hypoxic. General: The patient appears well and in no apparent distress. Patient is resting comfortably on cart. Skin: Warm, dry, no pallor noted. There is no rash noted. Head: Normocephalic, atraumatic Eye: Normal conjunctiva, no drainage Ears, Nose, Mouth, and Throat: oral mucosa is moist. Nares patent. Cardiovascular: Regular Rate and Rhythm, tachycardic Respiratory: Patient is in no distress, no accessory muscle use, lungs are clear to auscultation, no wheezing, rales or rhonchi Back: non-tender GI: Soft and nontender Musculoskeletal: The patient has no evidence of calf tenderness, no pitting edema, symmetrical pulses noted bilaterally Neurological: A&O x4, normal speech Psychiatric: Cooperative, tearful Constitutional Vital Signs, click to edit/add: Last Vital Signs Temp 98.0 F 10/03/24 22:25 Pulse 109 H 10/03/24 22:30 Resp 18 10/03/24 22:25 BP 143/84 H 10/03/24 22:30 Pulse Ox 98 10/03/24 22:35 O2 Del Method Room Air 10/03/24 22:35 Course Vital Signs Vital signs: Vital Signs Temperature 98.0 F 10/03/24 22:25 Pulse Rate 93 H 10/03/24 22:25 Respiratory Rate 18 10/03/24 22:25 Blood Pressure 143/102 H 10/03/24 22:25 Pulse Oximetry 99 10/03/24 22:25 Oxygen Delivery Method Room Air 10/03/24 22:25 Temperature 98.0 F 10/03/24 22:25 Pulse Rate 109 H 10/03/24 22:30 Respiratory Rate 18 10/03/24 22:25 Blood Pressure 143/84 H 10/03/24 22:30 Pulse Oximetry 98 10/03/24 22:35 Oxygen Delivery Method Room Air 10/03/24 22:35 Medical Decision Making MDM Narrative Medical decision making narrative: Her heart rate has come down without intervention and she is feeling much better. She does not want to use narcotics any longer and is going to talk to her PCP about going to pain management. Treatment diagnosis and follow-up were discussed with the patient. Differential Diagnosis Differential Diagnosis: Anxiety, panic attack ECG Data Attestation: I personally reviewed and interpreted this ECG as follows: (EKG on my interpretation shows sinus rhythm with a rate of 89) Discharge Plan Discharge Chief Complaint: Anxiety Clinical Impression: Acute anxiety Patient Disposition: Home, Self-Care Time of Disposition Decision: 23:12 Condition: Good Mode of Transportation: Private Vehicle Prescriptions / Home Meds: No Action quetiapine 200 mg tablet valacyclovir 500 mg tablet metoprolol tartrate 25 mg tablet desvenlafaxine succinate 100 mg tablet extended release 24 hr PO Print Language: Ukrainian Instructions: Anxiety (ED) Referrals: Camilo Olivas MD [Primary Care Provider] - 1 week
== END 2024-10-03 23:27 | disposition home or self-care (01) ==
PROVIDERS: Emergency Provider Emergency Medicine; PCP Family Medicine
DX: F41.9 Anxiety disorder, unspecified (principal)
CPT/HCPCS: 93005; 99283

== ENCOUNTER 2024-10-18 07:39 | Outpatient (OUT) | payer BC, SELFPAY ==
--- OUTSIDE RECORDS SUMMARY | 2024-10-18 07:41 | XMS_ITS | CCD ---
Author Organization [facility] Providers Care Finishing Department Supervisor Name Role Phone Justin Servin Attending Unavailable [...] Unavailable CANDELARIO, DR INDIRA Santos Admitting Unavailsabino PAOLMINO, DR INDIRA Santos Attending Unavailsabino PALOMINO, DR [...] (1 source) Codeine; Translations: [codeine] Drug Allergy [facility] Sulfonamides (antibiotic) (1 source) Sulfonamides (Antibiotic); Translations: [sulfa drugs] Drug Allergy [facility] (6 sources) Codeine; Translations: [codeine] Drug Allergy Weal (disorder) General Surgery [facility] (6 sources) Contrast media; Translations: [Contrast Dye] Drug allergy Dyspnea (finding), Weal (disorder) General Surgery [facility] (6 sources) Sulfonamides (Antibiotic); Translations: [sulfa drugs] Drug allergy Eruption of skin (disorder) General Surgery [facility]red (1 source) Codeine Drug Allergy 3 [facility] (1 source) Sulfonamides (Antibiotic) Drug allergy (disorder) 3 [facility] (1 source) Codeine Drug Allergy 1 [facility] (1 source) Sulfonamides (Antibiotic) Drug allergy (disorder) 1 [facility] Medications Current Medications Medication Drug Class(es) [...] Ordered Start: 05-18-[address] [facility] twice daily carvedilol 3.125 mg Tab [...] day(s), # 20 tab(s), Refills(s) 0, Pharmacy: [facility]/pharmacy #[id number], 172, cm, 07/22/24 15:53:00 EST, Height/Length [...] 07-30-2022 Episodic Other aftercare (1 source) senior living (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 aspirin; Translations: [ALF CURRENT USE OF ASPIRIN] Onset: 08-03-2022 Episodic Other aftercare (1 source) Other correction (current) drug therapy; Translations: [OTH ALF CURRENT DRUG THERAPY] Onset: 08-03-2022 Episodic Other [...] Performed Technical Comments Transvaginal Ultrasound Performed Normal [facility] US Transvaginal Non-OBon US Transvaginal Non-OB Exam Date/Time: 07/27/2024 17:30 EST Reason for Exam: N95.0 M54.9 R10.9 Report Please see ultrasound pelvis non-OB complete. Ordering Provider: Sebastián Dunne FINAL REPORT Dictated: 07/27/2024 5:54 pm Blaise Alcantara DO Signed (Electronic Signature): 07/27/2024 5:54 pm Signed by: Blaise Alcantara DO Transcribed by: SONY Technologist: PILO Normal 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 We discussed if she has new or [...] day(s), # 20 tab(s), Refills(s) 0, Pharmacy: [facility]/pharmacy #[id number], 172, cm, 07/22/24 15:53:00 EST, Height/Length [...] Information Sancho LINTON In 3 days 07/25/[address] [place] [address]- Business (1) Additional Instructions: Maris Olivas In 3 days [address] [place] [address] [place] [address]- Business (1) Additional Instructions: Patient Education Menorrhagia Attestation Patient seen and evaluated by the physician commercial loan assistant. Attending physician was present in the emergency department and supervised care. This visit was performed by both the physician a (more content not included)... Normal [facility] Comment on above: Result Comment: Elec [...] Oral contrast amount in ml's: [address] [facility] BMPon 07-22-2024 Anion gap [Moles/Vol] 10 mmol/L Normal 6-16 [facility] Comment on above: Performed By: #### 2 [id number] #### [facility] [address] [place] [address] Calcium [Mass/Vol] 9.6 mg/dL Normal 8.9-11.[address] [facility] Comment on above: Performed By: #### 2 [id number] #### [facility] [address] [place] [address] Chloride [Moles/Vol] 105 mmol/L Normal 101-111 [facility] Comment on above: Performed By: #### 2 [id number] #### [facility] [address] [place] [address] CO2 [Moles/Vol] 28 mmol/L Normal 21-31 [facility] Comment on above: Performed By: #### 2 [id number] #### [facility] [address] [place] [address] Creatinine [Mass/Vol] 0.8 mg/dL Normal 0.5-1.3 [facility] Comment on above: Performed By: #### 2 [id number] #### [facility] [address] [place] [address] Glucose [Mass/Vol] 92 mg/dL Normal 55-[address] [facility] Comment on above: Performed By: #### 2 [id number] #### [facility] [address] [place] [address] Potassium [Moles/Vol] 3.9 mmol/L Normal 3.5-5.3 [facility] Comment on above: Performed By: #### 2 [id number] #### [facility] [address] [place] [address] Sodium [Moles/Vol] 139 mmol/L Normal 135-[address] [facility] Comment on above: Performed By: #### 2 [id number] #### [facility] [address] [place] [address] Urea nitrogen [Mass/Vol] 8 mg/dL Normal 5-[address] [facility] Comment on above: Performed By: #### 2 [id number] #### [facility] [address] [place] [address] Urea nitrogen/Creatinine [Mass ratio] 10 No Units Normal 10-[address] [facility] Comment on above: Performed By: #### 2 [id number] #### [facility] [address] [place] [address] CBC w/ Auto Diffon 5 Basophils/100 WBC (Bld) 1.1 % Normal 0.0-2.[address] [facility] Comment on above: Performed By: #### 2 [id number] #### [facility] [address] [place] [address] Basophils/Leukocytes Auto (Bld) [Pure # fraction] 0.1 E9/L Normal 0.0-0.[address] [facility] Comment on above: Performed By: #### 2 [id number] #### [facility] [address] [place] [address] Eosinophils (Bld) [#/Vol] 0.1 E9/L Normal 0.0-0.[address] [facility] Comment on above: Performed By: #### 2 [id number] #### [facility] [address] [place] [address] Eosinophils/100 WBC (Bld) 1.7 % Normal 0.0-8.[address] [facility] Comment on above: Performed By: #### 2 768809 #### [facility] [address] [place] [address] Erythrocyte distribution width (RBC) [Ratio] 13.7 % Normal 10.9-14.[address] [facility] Comment on above: Performed By: #### 2 [id number] #### [facility] [address] [place] [address] Hematocrit (Bld) [Volume fraction] 45.3 % Normal 34.0-46.[address] [facility] Comment on above: Performed By: #### 2 [id number] #### [facility] [address] [place] [address] Hemoglobin (Bld) [Mass/Vol] 15.4 g/dL Normal 12.0-16.[address] [facility] Comment on above: Performed By: #### 2 [id number] #### [facility] [address] [place] [address] Lymphocytes (Bld) [#/Vol] 2.2 E9/L Normal 1.0-4.[address] [facility] Comment on above: Performed By: #### 2 465061 #### [facility] [address] [place] [address] Lymphocytes/100 WBC (Bld) 38.2 % Normal 14.0-50.[address] [facility] Comment on above: Performed By: #### 2 [id number] #### [facility] [address] [place] [address] MCH (RBC) [Entitic mass] 34.7 pg High 27.0-34.[address] [facility] Comment on above: Performed By: #### 2 [id number] #### [facility] [address] [place] [address] MCHC (RBC) [Mass/Vol] 34.0 g/dL Normal 31.4-36.0 [facility] Comment on above: Performed By: #### 2 401453 #### [facility] [address] [place] [address] MCV (RBC) [Entitic vol] 101.9 fL High 80.0-100.[address] [facility] Comment on above: Performed By: #### 2 334225 #### [facility] [address] [place] [address] Monocytes (Bld) [#/Vol] 0.6 E9/L Normal 0.2-1.[address] [facility] Comment on above: Performed By: #### 2 369010 #### [facility] [address] [place] [address] Neutrophils (Bld) [#/Vol] 2.8 E9/L Normal 2.0-7.[address] [facility] Comment on above: Performed By: #### 2 419307 #### [facility] [address] [place] [address] Neutrophils/100 WBC (Bld) 48.9 % Normal 36.0-75.[address] [facility] Comment on above: Performed By: #### 2 976049 #### [facility] [address] [place] [address] Platelet mean volume (Bld) [Entitic vol] 8.9 fL Normal 6.4-10.[address] [facility] Comment on above: Performed By: #### 2 573468 #### [facility] [address] [place] [address] Platelets (Bld) [#/Vol] 307.0 E9/L Normal 150.0-500.[address] [facility] Comment on above: Performed By: #### 2 874134 #### [facility] [address] [place] [address] RBC (Bld) [#/Vol] 4.4 E12/L Normal 4.3-5.[address] [facility] Comment on above: Performed By: #### 2 245940 #### [facility] [address] [place] [address] WBC corrected for nucl RBC Auto (Bld) [#/Vol] 5.8 E9/L Normal 4.0-11.[address] [facility] Comment on above: Performed By: #### 2 325198 #### [facility] [address] [place] [address] CHEMISTRYOrdered By: SYSTEM SYSTEM on 07-22-2024 Albumin [...] 2024 ED Clinical Summary ED Clinical Summary [address] [address] ED Clinical Summary Person Information Name: MARTHA WATERS [facility] Age: 49 Years : 1975 Sex: Female Language: Kittitian PCP: Maris Olivas MD Marital Status: Visit [...] 07/22/2024 20:14:13 07/22/2024 20:14:13 07/22/2024 20:14:13 ADDRESS: [address] [place] [id number] PHYS DOC NOTES: MEDICAL INFORMATION: Prescriptions Given: New Medications [id number], [address] [place], [place] [id number], [phone] naproxen (naproxen 500 mg Tab) 1 Tablets [...] Menorrhagia Follow up: With: Address: When: [facility], [address] [place] [address] [place] [address] Business (1) In 3 days 07/25/2024 With: Address: When: Maris Olivas [address] [place] [address] Business (1) In 3 days DIAGNOSIS: Abdominal pain; Back pain; Postmenopausal vaginal bleeding Normal [facility] ED Patient Summaryon 025 ED Patient Summary ED Patient Summary [address] [address] Patient Discharge Instructions Person Information Name: MARTHA WATERS Age: 49 Years Arrival Date: 07/22/2024 15:40:19 Discharge Diagnosis: Abdominal pain; Back pain; Postmenopausal vaginal bleeding Primary Care Physician: Maris Olivas MD Provider Information Primary Provider: Justin Schulte DO [employer] Clerk:Sebastián Dunne PA-C. The exam and treatment you received in the Emergency Department were for an urgent problem and are not intended as complete care. It is important that you follow up with a doctor, nurse practitioner, or physician???s commercial loan assistant for ongoing care. If your symptoms become worse or you do not improve as expected and you are unable to reach your usual health care provider, you should return to the Emergency Department. We are available 24 hours a day. MARTHA WATERS has been given the following list of patient education materials, prescriptions and follow-up instructions: Follow-up Instructions: With: Address: When: Sancho [address] [place] [address] [facility] (1) In 3 days 07/25/2024 With: Address: When: Maris Olivas [address] [place] [address] Business (1) In 3 days In the event that this physician does not participate in your insurance network, please consult with your insurance company to find a nearby participating provider. Patient Education Materials: Menorrhagia A MESSAGE TO ALL PATIENTS REGARDING OPIOIDS PRESCRIPTION OPIOIDS: WHAT YOU NEED TO KNOW Prescription opioids can be used to help relieve emcgpjlq-lb-duumob pain and are often prescribed following a [...] sourcesForYou). ??? (more content not included)... Normal [facility] Extra Blueon 07-22-2024 Tube Collected Plasma Yes Invalid Interpretation Code [facility] Comment on above: Performed By: #### 1 [id number] #### [facility] [address] [place] [address] HEMATOLOGYOrdered By: SYSTEM SYSTEM on 07-22-2024 Basophils/100 [...] 07-22-2024 Albumin [Mass/Vol] 4.7 g/dL Normal 3.3-5.[address] [facility] Comment on above: Performed By: #### 2 [id number] #### [facility] [address] [place] [address] Albumin/Globulin (S) [Mass conc ratio] 1.7 Normal 1.1-2.[address] [facility] Comment on above: Performed By: #### 2 [id number] #### [facility] [address] [place] [address] ALP [Catalytic activity/Vol] 89 Int._Unit/L Normal 21-[address] [facility] Comment on above: Performed By: #### 2 147119 #### [facility] [address] [place] [address] ALT No additional P-5'-P [Catalytic activity/Vol] 11 Int._Unit/L Normal 6-[address] [facility] Comment on above: Performed By: #### 2 [id number] #### [facility] [address] [place] [address] AST [Catalytic activity/Vol] 15 Int._Unit/L Normal 5-[address] [facility] Comment on above: Performed By: #### 2 [id number] #### [facility] [address] [place] [address] Bilirubin [Mass/Vol] 0.6 mg/dL Normal 0.0-1.1 [facility] Comment on above: Performed By: #### 2 906341 #### [facility] [address] [place] [address] Bilirubin.direct [Mass/Vol] 0.1 mg/dL Normal 0.0-0.[address] [facility] Comment on above: Performed By: #### 2 749103 #### [facility] [address] [place] [address] Bilirubin.indirect [Mass or moles/Vol] 0.5 mg/dL Normal 0.1-0.[address] [facility] Comment on above: Performed By: #### 2 [id number] #### [facility] [address] [place] [address] Globulin (S) [Mass/Vol] 2.8 g/dL Normal 1.4-4.[address] [facility] Comment on above: Performed By: #### 2 [id number] #### [facility] [address] [place] [address] Protein [Mass/Vol] 7.5 g/dL Normal 6.0-7.[address] [facility] Comment on above: Performed By: #### 2 325703 #### [facility] [address] [place] [address] Lipase Levelon 07-22-2024 Lipase [Catalytic activity/Vol] 22 U/L Normal 13-[address] [facility] Comment on above: Performed By: #### 2 765666 #### [facility] [address] [place] [address] UA with Cult Rflxon 07-22-19 25 Bilirubin Ql (U) Negative Normal Negative [facility] Comment on above: Performed By: #### 4 [id number] #### [facility] [address] [place] [address] Clarity (U) Clear Normal Clear [facility] Comment on above: Performed By: #### 4 [id number] #### [facility] [address] [place] [address] Color (U) Yellow Normal Yellow [facility] Comment on above: Result Comment: Micr oscopic readings are only performed on those samples that meet specific criteria set forth by [facility]. Performed By: #### 4 [id number] #### [facility] [address] [place] [address] Epithelial cells.squamous Auto (Urine sed) [#/Area] 5-8 Invalid Interpretation Code [facility] Comment on above: Performed By: #### 4 [id number] #### [facility] [address] [place] [address] Glucose Ql (U) Negative Normal Negative [facility] Comment on above: Performed By: #### 4 [id number] #### [facility] [address] [place] [address] Hemoglobin Auto test strip (U) [Mass/Vol] 1+ mg/dL Abnormal Negative [facility] Comment on above: Performed By: #### 4 [id number] #### [facility] [address] [place] [address] Ketones Auto test strip Ql (U) Negative Normal Negative [facility] Comment on above: Performed By: #### 4 [id number] #### [facility] [address] [place] [address] Leukocyte esterase Auto test strip Ql (U) Negative Normal Negative [facility] Comment on above: Performed By: #### 4 [id number] #### [facility] [address] [place] [address] Mucus Auto Ql (U) 1+ [id number] Abnormal Negative [facility] Comment on above: Performed By: #### 4 [id number] #### [facility] [address] [place] [address] Nitrite Auto test strip Ql (U) Negative Normal Negative [facility] Comment on above: Performed By: #### 4 [id number] #### [facility] [address] [place] [address] pH (U) 6.0 [pH] Invalid Interpretation Code 5.0-9.[address] [facility] Comment on above: Performed By: #### 4 [id number] #### [facility] [address] [place] [address] Protein Ql (U) Trace Abnormal Negative [facility] Comment on above: Performed By: #### 4 [id number] #### [facility] [address] [place] [address] RBC Ql (U) 0-3 Normal 0-[address] [facility] Comment on above: Performed By: #### 4 [id number] #### [facility] [address] [place] [address] Specific gravity (U) [Rel density] 1.024 Invalid Interpretation Code 1.005-1.[address] [facility] Comment on above: Performed By: #### 4 [id number] #### [facility] [address] [place] [address] Urobilinogen (U) [Mass/Vol] 2 mg/dL Abnormal Negative [facility] Comment on above: Performed By: #### 4 [id number] #### [facility] [address] [place] [address] WBC Auto (Urine sed) [#/Area] 0-5 Normal 0-[address] [facility] Comment on above: Performed By: #### 4 [id number] #### [facility] [address] [place] [address] Type of Urine collection method Clean Catch Normal [facility] Comment on above: Performed By: #### 4 [id number] #### [facility] [address] [place] [address] URINALYSISOrdered By: SYSTEM SYSTEM on 07-22-2024 Bilirubin Ql (U) Negative Normal Negativemg/dL [facility] UA Auto SS Clarity (U) Clear (07/22/24 4:23 PM) Normal Clear [facility] UA Auto SS Color (U) Yellow 1 (07/22/24 4:23 PM) Normal Yellow [facility] UA Auto SS Comment on above: Interpretive Data: M icroscopic readings are only performed on those samples that meet specific criteria set forth by [facility]. Epithelial cells.squamous Auto (Urine sed) [...] [Mass/Vol] 2 mg/dL Invalid Interpretation Code Negativemg/dL [facility] UA Auto SS WBC Auto (Urine sed) [#/Area] 0-5 graded/HPF Normal 0-5graded/HPF [facility] UA Auto SS URINALYSISOrdered By: Sebastián Dunne on 07-22-2024 UA Spec Desc Clean Catch (07/22/24 4:23 PM) Normal [facility] UA Auto SS eGFRon 07-22-2024 eGFR 89 mL/min/1.73 m2 Normal >=[address] [facility] Comment on above: Performed By: #### 1 [id number] #### [facility] [address] [place] [address] CARDIAC DOM ADMITon 022 CK [Catalytic activity/Vol] 73 U/L Normal 30-135 [facility] Comment on above: Performed By: #### C SANDI, CMP #### [facility] [address] [place] [address] Dr. Akil Aleman CK.MB [Mass/Vol] 0.61 ng/mL Normal <=2.37 [facility] Comment on above: Performed By: #### C SANDI, CMP #### [facility] [address] [place] [address] Dr. Akil Aleman HSTROP 7.1 pg/mL Normal 4.0-35.5 [facility] Comment on above: Result Comment: CUT- OFF POINTS HAVE BEEN ESTABLISHED BASED ON THE FOURTH UNIVERSAL DEFINITIONS OF MYOCARDIAL INFARCTION. THE UPPER REFERENCE LIMIT (URL) OF TROPONIN, DEFINED THE 99TH PERCENTILE OF cTnI DISTRIBUTION IN A REFERENCE POPULATION, HAS BEEN CONFIRMED THE DECISION THRESHOLD FOR AL DIAGNOSIS. Performed By: #### C SANDI, CMP #### [facility] [address] [place] [address] Dr. Akil Aleman HUNTER 22.0 ng/mL Normal <=61.5 [facility] Comment on above: Performed By: #### C SANDI, CMP #### [facility] [address] [place] [address] Dr. Akil Aleman CBC AUTO DIFFon 08-16-2021 BASO # 0.0 103/ul Normal 0.0-0.1 [facility] Comment on above: Performed By: #### C BC #### [facility] [address] [address] [address] Akil Aleman Basophils/100 WBC (Bld) 0.5 % Normal 0.2-2.0 [facility] Comment on above: Performed By: #### C BC #### [facility] [address] [address] [address] Akil Aleman EO # 0.2 103/ul Normal 0.0-0.7 [facility] Comment on above: Performed By: #### C BC #### [facility] [address] [place] [address] Dr. Akil Aleman Eosinophils/100 WBC (Bld) 2.8 % Normal 0.9-7.0 [facility] Comment on above: Performed By: #### C BC #### [facility] [address] [place] [address] Dr. Akil Aleman Erythrocyte distribution width (RBC) [Ratio] 12.6 % Normal 11.0-15.0 [facility] Comment on above: Performed By: #### C BC #### [facility] [address] [place] [address] Dr. Akil Aleman Hematocrit (Bld) [Volume fraction] 42.5 % Normal 36.0-48.0 [facility] Comment on above: Performed By: #### C BC #### [facility] [address] [place] [address] Dr. Akil Aleman Hemoglobin (Bld) [Mass/Vol] 14.8 g/dL Normal 12.0-16.0 [facility] Comment on above: Performed By: #### C BC #### [facility] [address] [place] [address] Dr. Akil Aleman IG # 0.02 10e3/ul Normal 0.00-0.03 [facility] Comment on above: Performed By: #### C BC #### [facility] [address] [place] [address] Dr. Akil Aleman IG % 0.3 % Normal 0.0-0.5 [facility] Comment on above: Performed By: #### C BC #### [facility] [address] [address] [address] Akil Aleman LYMPH # 2.0 103/ul Normal 1.2-3.8 [facility] Comment on above: Performed By: #### C BC #### [facility] [address] [place] [address] Dr. Akil Aleman Lymphocytes/100 WBC (Bld) 25.4 % Normal 20.5-60.0 [facility] Comment on above: Performed By: #### C BC #### [facility] [address] [place] [address] Dr. Akil Aleman MANUAL DIFF REQ NO Normal [facility] Comment on above: Performed By: #### C BC #### [facility] [address] [place] [address] Dr. Akil Aleman MCH (RBC) [Entitic mass] 36.5 pg Critically high 26.7-34.0 [facility] Comment on above: Performed By: #### C BC #### [facility] [address] [place] [address] Dr. Akil Aleman MCHC (RBC) [Mass/Vol] 34.8 g/dL Normal 29.9-35.2 [facility] Comment on above: Performed By: #### C BC #### [facility] [address] [place] [address] Dr. Akil Aleman MCV (RBC) [Entitic vol] 104.9 fL Critically high 81.0-99.0 [facility] Comment on above: Performed By: #### C BC #### [facility] [address] [place] [address] Dr. Akil Aleman MONO # 0.7 103/ul Normal 0.3-0.8 [facility] Comment on above: Performed By: #### C BC #### [facility] [address] [place] [address] Dr. Akil Aleman Monocytes/100 WBC (Bld) 8.9 % Normal 1.7-12.0 [facility] Comment on above: Performed By: #### C BC #### [facility] [address] [address] [address] Akil Aleman NEUT # 5.0 103/ul Normal 1.4-6.5 [facility] Comment on above: Performed By: #### C BC #### [facility] [address] [address] [address] Akil Aleman Neutrophils/100 WBC (Bld) 62.1 % Normal 43.0-75.0 [facility] Comment on above: Performed By: #### C BC #### [facility] [address] [address] [address] Akil Aleman Platelet mean volume (Bld) [Entitic vol] 12.1 fL Normal 9.5-13.5 [facility] Comment on above: Performed By: #### C BC #### [facility] [address] [place] [address] Dr. Akil Aleman PLT 187 103/ul Normal 150-450 [facility] Comment on above: Performed By: #### C BC #### [facility] [address] [place] [address] Dr. Akil Aleman RBC 4.05 106/ul Critically low 4.20-5.40 [facility] Comment on above: Performed By: #### C BC #### [facility] [address] [place] [address] Dr. Akil Aleman WBC 8.0 103/ul Normal 4.0-11.0 [facility] Comment on above: Performed By: #### C BC #### [facility] [address] [place] [address] Dr. Akil Aleman PROF 14(COMP METB)on 022 Albumin [Mass/Vol] 3.8 g/dL Normal 3.5-5.0 [facility] Comment on above: Performed By: #### C SANDI, CMP #### [facility] [address] [place] [address] Dr. Akil Aleman Albumin/Globulin [Mass ratio] 1.1 {ratio} Normal [facility] Comment on above: Performed By: #### C MADM, CMP #### [facility] [address] [address] [address] Akil Aleman ALP [Catalytic activity/Vol] 132 U/L Critically high 38-126 [facility] Comment on above: Performed By: #### C MADM, CMP #### [facility] [address] [address] [address] Akil Aleman ALT [Catalytic activity/Vol] 19 U/L Normal 9-52 [facility] Comment on above: Performed By: #### C MADM, CMP #### [facility] [address] [address] [address] Akil Aleman Anion gap [Moles/Vol] 16.1 mmol/L Normal [facility] Comment on above: Performed By: #### C KIERRAM, CMP #### [facility] [address] [address] [address] Akil Aleman AST [Catalytic activity/Vol] 13 U/L Critically low 14-36 [facility] Comment on above: Performed By: #### C KIERRAM, CMP #### [facility] [address] [address] [address] Akil Aleman Bilirubin [Mass/Vol] 0.5 mg/dL Normal 0.2-1.3 [facility] Comment on above: Performed By: #### C KIERRAM, CMP #### [facility] [address] [address] [address] Akil Aleman Calcium [Mass/Vol] 9.2 mg/dL Normal 8.4-10.2 [facility] Comment on above: Performed By: #### C KIERRAM, CMP #### [facility] [address] [address] [address] Akil Aleman Chloride [Moles/Vol] 101 mmol/L Normal 98-107 [facility] Comment on above: Performed By: #### C KIERRAM, CMP #### [facility] [address] [address] [address] Akil Aleman CO2 [Moles/Vol] 25.5 mmol/L Normal 22.0-30.0 [facility] Comment on above: Performed By: #### C MADM, CMP #### [facility] [address] [address] [address] Akil Aleman Creatinine [Mass/Vol] 0.70 mg/dL Normal 0.52-1.04 [facility] Comment on above: Performed By: #### C MADM, CMP #### [facility] [address] [address] [address] Akil Aleman EGFR-AF CITIZEN OF [place] >60 Normal >=60 [facility] Comment on above: Performed By: #### C MADM, CMP #### [facility] [address] [address] [address] Akil Aleman EGFR-NON AF CITIZEN OF [place] >60 Normal >=60 [facility] Comment on above: Performed By: #### C MADM, CMP #### [facility] [address] [address] [address] Akil lAeman Globulin (S) [Mass/Vol] 3.5 g/dL Normal [facility] Comment on above: Performed By: #### C MADM, CMP #### [facility] [address] [address] [address] Akil Aleman Glucose [Mass/Vol] 88 mg/dL Normal 74-106 [facility] Comment on above: Performed By: #### C MADM, CMP #### [facility] [address] [address] [address] Akil Aleman Potassium [Moles/Vol] 3.6 mmol/L Normal 3.4-5.0 [facility] Comment on above: Performed By: #### C MADM, CMP #### [facility] [address] [address] [address] Akil Aleman Protein [Mass/Vol] 7.3 g/dL Normal 6.1-8.2 [facility] Comment on above: Performed By: #### C MADM, CMP #### [facility] [address] [address] [address] Akil Aleman Sodium [Moles/Vol] 139 mmol/L Normal 137-145 [facility] Comment on above: Performed By: #### C MADM, CMP #### [facility] [address] [place], [place] [address] Dr. Akil Aleman Urea nitrogen [Mass/Vol] 11.0 mg/dL Normal 7.0-17.0 [facility] Comment on above: Performed By: #### C KIERRAM, CMP #### [facility] [address] [place], [place] [address] Dr. Akil Aleman Urea nitrogen/Creatinine [Mass ratio] 15.7 mg/mg Normal [facility] Comment on above: Performed By: #### C KIERRAM, CMP #### [facility] [address] [place], [place] [address] Dr. Akil Aleman XR CHEST 1 Von [...] MELODIE ORTIZ Date: 2021-08-16 02:38 Normal [facility] ED Clinical Summaryon 2020 ED Clinical Summary [address] [address] ED Clinical Summary Person Information Name: Martha Waters [facility] Age: 45 Years : 1975 Sex: Female PCP: Maris Olivas MD Marital Status: Phone: Race: White Ethnicity: Not or Language: Kitt[place] Visit Reason: Seizure; Seizure - febrile Acuity: 3 Enc Type: Emergency Med Service: Emergency Medicine Arrival: 11/02/2020 19:11:24 Discharge: 11/02/2020 22:24:00 LOS: 000 03:13 Checkin: 11/02/2020 19:11:24 Checkout: 11/02/2020 22:24:00 Dispo Type: Home or Self Care Address: [address] [place] [id number] Provider Notes: Diagnosis: 1:First time seizure; 2:Anxiety [...] range between ( 27.2 and 40.8 ) [place] Auto: 5.5 % -- Normal range between [...] range between ( 36.0 and 46.0 ) [place] Absolute: 0.6 x10 MCH: 34.5 pg -- [...] 59.9 kg (more content not included)... Normal [facility] .UA Microscp Aon 11-02-2020 UA Bacteria Present Abnormal Absent [facility] Comment on above: Performed By: #### C [id number] #### [place] [address] UA Hyline Cast Qual 3-5 Normal Negative [facility] Comment on above: Performed By: #### C [id number] #### [place] [address] UA Mucus Present Abnormal Absent [facility] Comment on above: Performed By: #### C [id number] #### [place] [address] UA RBC Quant 5 /HPF Normal 0-5 [facility] Comment on above: Performed By: #### C [id number] #### [address] [address] UA Squepi Cells Quant 7 /HPF Normal 0-29 [facility] Comment on above: Performed By: #### C [id number] #### [address] [address] UA WBC Quant 4 /HPF Normal 0-5 [facility] Comment on above: Performed By: #### C [id number] #### [address] [address] .eGFRon 11-02-2020 eGFR AA >60 Normal >=60 [facility] Comment on above: Order Comment: Order added by Discern rule Result Comment: See comment. Performed By: #### E GFR #### [address] [address] eGFR Non-AA >60 Normal >=60 [facility] Comment on above: Order Comment: Order added [...] years Performed By: #### E GFR #### [address] [address] CBC w/ Diffon 11-02-2020 Erythrocyte distribution width (RBC) [Ratio] 15.5 % High 11.6-14.8 [facility] Comment on above: Performed By: #### C BC #### [place] [id number] Hematocrit (Bld) [Volume fraction] 40.2 % Normal 36.0-46.0 [facility] Comment on above: Performed By: #### C BC #### [place] [id number] Hemoglobin (Bld) [Mass/Vol] 13.6 g/dL Normal 12.0-16.0 [facility] Comment on above: Performed By: #### C BC #### [place] [id number] MCH (RBC) [Entitic mass] 34.5 pg Normal 27.0-35.0 [facility] Comment on above: Performed By: #### C BC #### [place] [id number] MCHC 33.8 % Normal 31.0-37.0 [facility] Comment on above: Performed By: #### C BC #### [place] [id number] MCV (RBC) [Entitic vol] 102.2 fL High 80.0-100.0 [facility] Comment on above: Performed By: #### C BC #### [place] [id number] Platelet 225 x10*3/mcL Normal 150-350 [facility] Comment on above: Performed By: #### C BC #### [address] [address] Platelet mean volume (Bld) [Entitic vol] 9.4 fL Normal 6.7-10.6 [facility] Comment on above: Performed By: #### C BC #### [place] [id number] RBC 3.94 x10*6/mcL Normal 3.80-5.20 [facility] Comment on above: Performed By: #### C BC #### [address] [address] WBC 10.5 x10*3/mcL Normal 4.5-11.0 [facility] Comment on above: Performed By: #### C BC #### [address] [address] CMPon 11-02-2020 Creatinine [Mass/Vol] 0.80 mg/dL Normal 0.44-1.03 [facility] Comment on above: Performed By: #### C OMP #### [address] [address] Urea nitrogen [Mass/Vol] 13 mg/dL Normal 8-26 [facility] Comment on above: Performed By: #### C OMP #### [address] [address] Urea nitrogen/Creatinine [Mass ratio] 16.2 mg/mg Normal 10.0-20.0 [facility] Comment on above: Performed By: #### C OMP #### [address] [address] Albumin [Mass/Vol] 3.9 g/dL Normal 3.2-4.9 [facility] Comment on above: Performed By: #### C OMP #### [address] [address] Albumin/Globulin [Mass ratio] 1.3 {ratio} Normal 1.1-2.2 [facility] Comment on above: Performed By: #### C OMP #### [address] [address] Alk Phos 64 IU/L Normal 32-91 [facility] Comment on above: Performed By: #### C OMP #### [address] [address] ALT [Catalytic activity/Vol] 18 U/L Normal 14-54 [facility] Comment on above: Performed By: #### C OMP #### [address] [address] AST [Catalytic activity/Vol] 16 U/L Normal 15-41 [facility] Comment on above: Performed By: #### C OMP #### [address] [address] Bili Total 0.2 mg/dL Low 0.3-1.2 [facility] Comment on above: Performed By: #### C OMP #### [address] [address] Protein [Mass/Vol] 6.8 g/dL Normal 6.5-8.1 [facility] Comment on above: Performed By: #### C OMP #### [address] [address] Anion gap [Moles/Vol] 14 mmol/L Normal 7-17 [facility] Comment on above: Performed By: #### C OMP #### [address] [address] Calcium [Mass/Vol] 9.0 mg/dL Normal 8.5-10.3 [facility] Comment on above: Performed By: #### C OMP #### [address] [address] Chloride [Moles/Vol] 105 mmol/L Normal 98-110 [facility] Comment on above: Performed By: #### C OMP #### [address] [address] CO2 [Moles/Vol] 25 mmol/L Normal 22-32 [facility] Comment on above: Performed By: #### C OMP #### [address] [address] Glucose [Mass/Vol] 107 mg/dL High 70-99 [facility] Comment on above: Performed By: #### C OMP #### [address] [address] Potassium [Moles/Vol] 3.8 mmol/L Normal 3.4-4.8 [facility] Comment on above: Performed By: #### C OMP #### [facility] [address] [place] [address] Sodium [Moles/Vol] 140 mmol/L Normal 133-142 [facility] Comment on above: Performed By: #### C OMP #### [facility] [address] [place] [address] CT Brain w/o Contraston 10-17 CT Brain [...] with follow-up nonemergent MRI. Radiation Dose Estimate: CTDI(mGy):0.291678 / / / kVp:120.828293 / mAs:0.793187 / / / DLP(mGy-cm):4.642156S hailey Part: Head CTDI(mGy):40.935733 / / / kVp:120.906115 / mAs:164.050891 / / / DLP(mGy-cm):605.81442 5Body Part: Head Final Dictated by: Sebastián Castañeda MD Dictated DT/TM: 11.02.2020 9:41 pm Signed by: Sebastián Castañeda MD Signed (Electronic Signature): 11.02.2020 9:43 pm (If Report Is Signed, Electronically Signed in Other Vendor System) Normal [facility] Diff Autoon 11-02-2020 Baso Absolute 0.1 x10*3/mcL Normal 0.0-0.[address] [facility] Comment on above: Performed By: #### P TINR #### [address] [address] Basophils/100 WBC (Bld) 1.0 % Normal 0.0-1.5 [facility] Comment on above: Performed By: #### P TINR #### [address] [address] Eos Absolute 0.1 x10*3/mcL Normal 0.0-0.4 [facility] Comment on above: Performed By: #### P TINR #### [address] [address] Eosinophils/100 WBC (Bld) 1.3 % Normal 0.0-5.4 [facility] Comment on above: Performed By: #### P TINR #### [address] [address] Lymph Absolute 1.4 x10*3/mcL Normal 1.0-4.8 [facility] Comment on above: Performed By: #### P TINR #### [address] [address] Lymphocytes/100 WBC (Bld) 13.7 % Low 27.2-40.8 [facility] Comment on above: Performed By: #### P TINR #### [address] [address] [place] Absolute 0.6 x10*3/mcL Normal 0.1-1.[address] [facility] Comment on above: Performed By: #### P TINR #### [address] [address] Monocytes/100 WBC (Bld) 5.5 % Normal 3.7-11.9 [facility] Comment on above: Performed By: #### P TINR #### [address] [address] Neutro Absolute 8.3 x10*3/mcL High 1.8-7.7 [facility] Comment on above: Performed By: #### P TINR #### [facility] [address] [place] [address] Neutro Auto 78.5 % High 47.2-70.8 [facility] Comment on above: Performed By: #### P TINR #### [facility] [address] [place] [address] ED Note-Physicianon 11-03-19 ED Note-Physician Chief Complaint Patient coming from [facility] for new onset seizure like activity. 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 last use 12 days ago. History of Present Illness Patient presents the emergency department from [facility] for concern of new onset seizure. Patient [...] she follow-up with neurologist Dr. Salgado. 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 Normal [facility] Ethanolon 11-02-2020 Ethanol, Plasma <10 Normal <=9 [facility] Comment on above: Result Comment: To c onvert mg/dL to g/dL, divide result by 1,000. Legal limit of intoxication is 80 mg/dL (0.08 g/dL). Performed By: #### P TINR #### [address] [address] Myoglobinon 11-02-2020 Myoglobin 319.0 ng/dL High 14.3-65.8 [facility] Comment on above: Performed By: #### M YO #### [address] [address] PTon 11-02-2020 INR Coag (PPP) [Relative time] 1.1 {INR} Normal <=3.5 [facility] Comment on above: Result Comment: INR has no normal range. INR Therapeutic range is: 2.0-3.0 (AF, CVA, TIAs, DVT prophylaxis, acute DVT) 2.5-3.5 ([facility] heart valves, recurrent thrombosis/emboli) Performed By: #### P TINR #### [address] [address] PT Coag (PPP) [Time] 11.7 s Normal 9.4-12.1 [facility] Comment on above: Performed By: #### P TINR #### [address] [address] PTTon 11-02-2020 aPTT Coag (Bld) [Time] 21.7 s Normal 20.2-27.0 [facility] Comment on above: Performed By: #### P TT #### [address] [address] TSHon 11-02-2020 TSH Qn 3.23 m[IU]/L Normal 0.45-5.33 [facility] Comment on above: Result Comment: Refe rence Ranges for individuals from to 18 years of age were obtained from The [employer] Handbook (20 ed) published by [facility]. Reference Ranges for Females: Females, 1st Trimester 0.05 ? 3.7 uIU/mL Females, 2nd Trimester 0.31 ? 4.35 uIU/mL Females, 3rd Trimester 0.41 ? 5.18 uIU/mL Performed By: #### P TINR #### [address] [address] Troponin-Ion 11-02-2020 Troponin I.cardiac [Mass/Vol] ng/mL Normal 0.00-0.03 [facility] Comment on above: Result Comment: An i ncreased Troponin-I value, in the absence of myocardial ischemia, may indicate other etiologies of cardiac damage. Performed By: #### T ROP #### [address] [address] UA w Culture if Indon 2020 Color (U) Yellow Normal [facility] Comment on above: Performed By: #### U CI #### [address] [address] Glucose (U) [Mass/Vol] Negative Normal Negative [facility] Comment on above: Performed By: #### U CI #### [address] [address] Ketones Ql (U) Negative Normal Negative [facility] Comment on above: Performed By: #### U CI #### [address] [place] [address] UA Blood Negative Normal Negative [facility] Comment on above: Performed By: #### U CI #### [facility] [address] [place] [address], [place] [address] UA Clarity Clear Normal [facility] Comment on above: Performed By: #### U CI #### [address] [place] [address] UA Leukocyte Esterase Negative Normal Negative [facility] Comment on above: Performed By: #### U CI #### [address] [address] UA Nitrite Negative Normal Negative [facility] Comment on above: Performed By: #### U CI #### [address] [address] UA pH 6.0 Normal 4.5 - 7.8 [facility] Comment on above: Performed By: #### U CI #### [address] [address] UA Protein 30 mg/dL Abnormal Negative [facility] Comment on above: Performed By: #### U CI #### [address] [address] UA Source Clean Catch Normal [facility] Comment on above: Performed By: #### U CI #### [address] [place] [address] UA Spec Grav 1.017 Normal 1.003-1.035 [facility] Comment on above: Performed By: #### U CI #### [address] [address] UA Urobilinogen 0.2 mg/dL Normal 0.2 - 1.0 [facility] Comment on above: Performed By: #### U CI #### [address] [address] Urobilinogen (U) [Mass/Vol] Negative Normal Negative [facility] Comment on above: Performed By: #### U CI #### [address] [address] UDS Compon 11-02-2020 Creatinine [Mass/Vol] 186.8 mg/dL Normal Bl [facility] Comment on above: Performed By: #### C [id number] #### [address] [address] Ur Amph Scrn Negative Normal NEG = <1000 [facility] Comment on above: Performed By: #### C [id number] #### [address] [address] Ur Lulu Scrn Positive Abnormal NEG = <200 [facility] Comment on above: Result Comment: This unconfirmed positive screening result is to be used for medical treatment purposes only. Unconfirmed screening results must not be used for non-medical purposes. (e.g. employment testing, legal testing). Performed By: #### C [id number] #### [address] [address] Ur Benzodia Scrn Negative Normal NEG = <[address] [facility] Comment on above: Performed By: #### C [id number] #### [address] [address] Ur Cannab Scrn Positive Abnormal NEG = <50 [facility] Comment on above: Result Comment: This unconfirmed positive screening result is to be used for medical treatment purposes only. Unconfirmed screening results must not be used for non-medical purposes. (e.g. employment testing, legal testing). Performed By: #### C [id number] #### [address] [address] Ur Cocaine Scrn Negative Normal NEG = <300 [facility] Comment on above: Performed By: #### C [id number] #### [address] [address] Ur Methadone Scn Negative Normal NEG = <[address] [facility] Comment on above: Performed By: #### C [id number] #### [address] [address] Ur Opiate Scrn Negative Normal NEG = <300 [facility] Comment on above: Performed By: #### C [id number] #### [address] [address] Ur Oxy Screen Negative Normal NEG = <100 [facility] Comment on above: Performed By: #### C [id number] #### [address] [address] Ur Oxy Scrn Qnt 0 ng/mL Normal <=99 [facility] Comment on above: Performed By: #### C [id number] #### [address] [address] Ur PCP Scrn Negative Normal NEG = <25 [facility] Comment on above: Performed By: #### C [id number] #### [address] [address] UA pH 6.0 Normal 4.5 - 7.8 [facility] Comment on above: Performed By: #### C [id number] #### [address] [address] UA Spec Grav 1.017 Normal 1.003-1.035 [facility] Comment on above: Performed By: #### C [id number] #### [address] [address] XR Chest 1 Viewon 11-02-2020 XR Chest [...] Electronically Signed in Other Vendor System) Normal [facility] Vital Signs Date Time Vital Sign Value Performing Clinician Lynn buckner 07-22-2024 19:46-0500 Diastolic blood pressure 76 mm[Hg] Justin Rosse [facility] 07-22-2024 19:46-0500 Heart rate 71 /min Justin Eris [facility] 07-22-2024 19:46-0500 Mean blood pressure 91 mm[Hg] Justin Eris [facility] 07-22-2024 19:46-0500 Respiratory rate 17 /min Justin Eris [facility] 07-22-2024 19:46-0500 SaO2% (BldA) [Mass fraction] 98 % Justin Eris [facility] 07-22-2024 19:46-0500 Systolic blood pressure 120 mm[Hg] Justin Eris [facility] 07-22-2024 17:15-0500 Diastolic blood pressure 46 mm[Hg] Justin Eris [facility] 07-22-2024 17:15-0500 Heart rate 67 /min Justin Eris [facility] 07-22-2024 17:15-0500 Mean blood pressure 69 mm[Hg] Justin Eris [facility] 07-22-2024 17:15-0500 Respiratory rate 16 /min Justin Eris [facility] 07-22-2024 17:15-0500 SaO2% (BldA) [Mass fraction] 100 % Justin Eris [facility] 07-22-2024 17:15-0500 Systolic blood pressure 114 mm[Hg] Justin Schulte [facility] 07-22-2024 15:47-0500 Body temperature 98.24 [degF] Justin Schulte [facility] 07-22-2024 15:47-0500 Diastolic blood pressure 92 mm[Hg] Justin Schulte [facility] 07-22-2024 15:47-0500 Heart rate 90 /min Justin Schulte [facility] 07-22-2024 15:47-0500 Respiratory rate 18 /min Justin Schulte [facility] 07-22-2024 15:47-0500 SaO2% (BldA) [Mass fraction] 100 % Justin Schulte [facility] 07-22-2024 15:47-0500 Systolic blood pressure 132 mm[Hg] Justin Schulte [facility] 06-19-2022 14:50-0500 Blood Pressure Location [facility] 06-19-2022 14:50-0500 Diastolic blood pressure 66 mm[Hg] [facility] 06-19-2022 14:50-0500 Heart rate 76 /min [facility] 06-19-2022 14:50-0500 Respiratory rate 16 /min [facility] 06-19-2022 14:50-0500 Systolic blood pressure 108 mm[Hg] [facility] Encounters Encounter Date Encounter Type Care Provider Facility Start: 07-27-2024 End: 07-27-2024 ambulatory KITTY Dunne Facility:[facility] Start: 07-27-2024 End: 07-27-2024 Patient encounter procedure Sebastián Dunne [facility] Start: 07-22-2024 End: 07-22-2024 Emergency department patient visit Justin Schulte [facility] Start: 05-19-2024 ambulatory Patel Cortez acility:[facility] Start: 07-30-2022 End: 07-30-[address] MARIS [...] 11-03-2020 Emergency department patient visit Justin Servin Facility:[facility] Procedures Date Procedure Procedure Detail Performing Clinician [...] virus vaccine, unspecified formulation [facility] Payers Date Payer Category Payer Self-pay 1975 Unknown [id number] [id number] 1975 Unknown [id number] 2.16.84 [id number] 1975 Unknown [id number] 2.16.84 [id number] 1975 Unknown [id number] 2.16.84 [id number] 1975 Unknown [id number] 2.16.84 [id number] 1975 Unknown [id number] 2.16.8 [id number] 1975 Unknown [id number] 2.16.8 [id number] 1975 Unknown [id number] 2.16.8 [id number] 1961 Unknown [id number] 1961 Unknown [id number] Unknown [id number] 2.16.8 [id number] Social History Date Type Detail Facility Start: 06-19-2022 Tobacco smoking status Heavy t obacco smoker (finding) [facility] Tobacco smoking status Never [facility] Sex Assigned At Female [facility] Tobacco Current vaping o r e-cigarette use Smokeless Tobacco Use:. Vaping [facility] Tobacco smoking status No Smokin g Status Entered [facility] Functional Status Date Assessment Result Facility 07-22-2024 Functional Status N/A [facility] 06-19-2022 Functional Status N/A [facility] Discharge instructions 07-22-2024 Note Date & Type [...] Follow these instructions at home: Medicines Take iuzc-jtu-hpgerbv and prescription medicines only as told by [...] to keep your urine pale yellow. Take alhw-smd-xfwbguq or prescription medicines. Eat foods that are [...] it may include medicines or procedures. Take vtzt-nil-dqjjtip and prescription medicines only as told by [...] provider. Document Revised: 03/18/2021 Document Reviewed: 03/18/2021 [employer] Patient Education 2023 [employer]. Follow Up Care 07/22/2024 15:41:50 With:Sancho LINTON Address: [address] , [place] [address]- Business (1) When:07/25/2024 19:57:29 With:Maris Olivas Address: [address] [place] [address] [place] [address]- Business (1) When:Within 3 Day(s) [facility] Clinical Note 07-22-2024 Note Date & [...] these instructions at home: Medicines ??? Take mnju-qgz-kmplzqd and prescription medicines only as told by [...] take these actions (more content not included)... [facility] Evaluation + Plan note Note Date & Type Note Facility Evaluation + Plan note Future Appointments Appointment Date:07/15/2022 03:00:00 PM Scheduled Provider:Wolfgang MC MD Location:[facility] Appointment Type: Procedure 30 General Surgery [facility] Hospital course Narrative Note Date & Type Note Facility Hospital course Narrative No data available for this section General [facility] Discharge instructions Note Date & Type Note Facility Hospital Discharge instructions No data available for this section General [facility] Progress note Note Date & Type Note Facility Progress note No data available for this section General Surgery [facility] Summary Purpose Family History No Family History [...] section and content) DATE CREATED AUTHOR 11/06/2020 [facility] DATE CREATED AUTHOR AUTHOR'S ORGANIZ ATION 08/03/2022 [facility] DATE CREATED AUTHOR AUTHOR'S ORGANIZ ATION 06/30/2024 [facility] DATE CREATED AUTHOR AUTHOR'S ORGANIZ ATION 07/29/2024 [facility] DATE CREATED AUTHOR AUTHOR'S ORGANIZ ATION 08/06/2024 [facility] Patient Care team informatio n (unrecognized section and content) Personnel Name: Maris Olivas MD Address: Address: [address] [place] [address] Personnel Name: Maris Olivas MD Address: Address: [address] [place] [address] Personnel Name: Maris Olivas MD Address: Address: [address] [place] [address] Personnel Name: Maris Olivas MD Address: Address: [address] [place] [address] FOR RECORDS PERTAINING TO PATIENTS WHO ARE [...] BE BASED ON THE PRIMARY CLINICAL RECORDS. [facility]. provides no warranty or guarantee of the accuracy or completeness of information in this document.
--- NOTE | 2024-10-18 07:50 | NM_ITS ---
Patient Name: GERTRUDE WATERS MR#: [id number] : 1975 Exam Date: 10/18/2024 Ordering Doctor: DR Camilo Olivas . RADIOLOGY REPORT PROCEDURE: NM HUNTER PERF SPECT REST STR COMPARISON: None. INDICATIONS: ABNORMAL EKG, PALPITATIONS TECHNIQUE: Exam Description: Rest/Stress one day protocol gated SPECT Rest Imagin.8 mCi Tc-99m Cardiolite IV on 10/18/2024 Stress Imaging 29.8 mCi Tc-99m Cardiolite IV on 10/18/2024 Exercise Protocol: Joseph Heart Rate (bpm): Rest: 85 Max: 146 PMHR: 86 Blood Pressure: Rest: 106/80 Max: 124/82 Exercise Time: Minutes: 5 Seconds: 48 Stage Reached: Stage: 2 Mets 7.0 Symptoms: Rest and peak stress ECG findings were pending and the exercise portion of the study was pending per attending physician [facility] . For more details please see separate cardiac stress test report. FINDINGS: QUALITY OF STUDY: Good PERFUSION DEFECT: None LOCATION: SIZE: SEVERITY: TYPE: WALL MOTION: Normal LV SIZE: 42 mL. TID / TCD: 0.7 LVEF: Calculated EF 80%. SUMMARY: Normal Myocardial perfusion imaging study CONCLUSION: Normal myocardial perfusion images without ischemia or infarction Normal LVEF 80% No TID, TID 0.7 EKG stress test is reported seperately Dictated by: Ben Taylor MD on 10/19/2024 at 14:20 Approved by: Ben Taylor MD on 10/19/2024 at 14:23
--- NOTE | 2024-10-18 09:55 | PC.NURSE ---
Nursing Note Cardiac Stress Test Reviewed: Medication, allergies and patient history reviewed. Stress Test: [ x] Patient tolerated stress test well. [ ] Patient unable to tolerate walking on treadmill. Switched to Lexiscan stress test. [ x] No chest pain noted per patient [ ] Chest pain that resolved prior to leaving stress lab. [x ] No dyspnea noted. [ ] Dyspnea that resolved prior to leaving stress lab. [x ] Patient left stress lab asymptomatic and hemodynamically stable. [ ] Patient taken to the Emergency Room due to non-resolving symptoms following stress test. [ x] Patient achieved target heart rate. [ ] Patient unable to achieve target heart rate. [ ] Aminophylline administered as reversal agent to Lexiscan (Regadenoson). [ ] Nitro administered. Nursing Comments:
--- NOTE | 2024-10-18 16:20 | PM.STRESS ---
Stress Test Stress Test Allergies Allergy/AdvReac Type Severity Reaction Status Date / Time codeine AdvReac Mild Hives Verified 10/03/24 22:32 Iodinated Contrast Media AdvReac Mild Hives Verified 10/03/24 22:32 Sulfa (Sulfonamide AdvReac Mild Hives Verified 10/03/24 22:32 Antibiotics) Requesting physician: Camilo Olivas Procedure: This was a Treadmill stress test with myocardial perfusion imaging performed at the [facility] on 10/18/2024. Intravenous line was secured. The patient was attached to electrocardiographic monitoring. Baseline vital signs and ECG were obtained. The patient exercised on the treadmill according to the Joseph protocol. Exercise time was 5 minutes and 48 seconds. The patient reached stage II of the Joseph protocol and achieved 7 METS. The test was stopped due to reaching target heart rate. Cardiolite was administered at peak exercise. The patient then went on to obtain myocardial perfusion imaging. Resting heart rate was 85 bpm and peak heart rate was 146 bpm representing 86% of maximum predicted heart rate. Resting blood pressure was 106/80 and peak blood pressure was 124/82. General Information: Reason for Stress Test: Chest pain, palpitations, abnormal ECG. Cardiac History and Risk Factors: Hypertension. Resting 12 - Lead Electrocardiogram: Rhythm, nonspecific ST segment abnormalities in the inferior lateral leads. Stress Test: Protocol: Joseph protocol. Exercise Capacity: Average. Blood Pressure Response: Normal resting blood pressure, appropriate blood pressure response to exercise. Rhythm: Sinus rhythm throughout the test. ST - Response: [address] segment depression seen in leads II, III, aVF, V4, V5, V6. Patient Response: No symptoms. Interpretation: 1. Positive treadmill exercise stress test for ischemic ECG changes. 2. Osorio treadmill score of +1 is associated with intermediate risk for long-term cardiac events. 3. Myocardial perfusion images will be reported separately.
== END 2024-10-18 07:40 | disposition home or self-care (01) ==
LOC: NM 07:39
PROVIDERS: PCP Family Medicine; Visit Provider Family Medicine
DX: R00.2 Palpitations (principal); R94.31 Abnormal electrocardiogram [ECG] [EKG]
CPT/HCPCS: 78452; 93017; A9500

== ENCOUNTER 2024-10-25 09:57 | Outpatient (OUT) | payer BC, SELFPAY ==
[2024-10-25 10:12] LABS: Basophils Percent Auto 0.8 % (0.2-2.0); Eosinophils Absolute Auto 0.3 10^3/uL (0.0-0.7); Eosinophils Percent Auto 5.4 % (0.9-7.0); Hematocrit 42.6 % (36.0-48.0); Hemoglobin 14.4 g/dL (12.0-16.0); Immature Granulocytes Abs Auto 0.01 10^3/uL (0.00-0.03); Immature Granulocytes Pct Auto 0.2 % (0.0-0.5); Lymphocytes Absolute Auto 1.9 10^3/uL (1.2-3.8); Lymphocytes Percent Auto 40.2 % (20.5-60.0); Mean Corpuscular HGB Conc 33.8 g/dL (29.9-35.2); Mean Corpuscular Hemoglobin 33.6 pg (26.7-34.0); Mean Corpuscular Volume 99.3 fL (81.0-99.0); Mean Platelet Volume 10.3 fL (9.5-13.5); Monocytes Absolute Auto 0.5 10^3/uL (0.3-0.8); Monocytes Percent Auto 10.9 % (1.7-12.0); Neutrophils Percent Auto 42.5 % (43.0-75.0); Platelet Count 263 10^3/uL (150-450); Red Blood Count 4.29 10^6/uL (4.20-5.40); White Blood Count 4.8 10^3/uL (4.0-11.0)
[2024-10-25 10:47] LABS: Alanine Aminotransferase 17 U/L (14-59); Albumin Globulin Ratio 1.2; Albumin Level 4.1 g/dL (3.4-5.0); Alkaline Phosphatase 110 U/L (46-116); Anion Gap 10.4; Aspartate Amino Transferase 15 U/L (15-37); BUN Creatinine Ratio 8.5; Bilirubin Total 0.3 mg/dL (0.2-1.0); Calcium 9.3 mg/dL (8.5-10.1); Carbon Dioxide 32.6 mmol/L (21.0-32.0); Chloride 102 mmol/L (98-107); Estimated GFR (African America >60 (>=60 mL/min/1.73m^2); Estimated GFR (Non-African Ame >60 (>=60 mL/min/1.73m^2); Globulin 3.3 g/dL; Glucose 74 mg/dL (74-106); Sodium 141 mmol/L (136-145); Thyroid Stimulating Hormone 3.763 uIU/mL (0.358-3.740); Total Protein 7.4 g/dL (6.4-8.2)
[2024-10-25 11:09] LABS: Free T4 0.72 ng/dL (0.76-1.46)
== END 2024-10-25 09:58 | disposition home or self-care (01) ==
LOC: LAB 09:59
PROVIDERS: PCP Family Medicine; Visit Provider Internal Medicine Interventional Cardiology
DX: R00.2 Palpitations (principal)
CPT/HCPCS: 36415; 80053; 84439; 84443; 85025

== ENCOUNTER 2025-01-11 13:54 | Outpatient (OUT) | payer BC, SELFPAY ==
--- OUTSIDE RECORDS SUMMARY | 2020-11-14 04:52 | XMS_ITS | Continuity of Care Document ---
Author Organization [facility] Address [address] [place] [address] Phone Care Team Providers Care [employer] Name Role Phone Cortés CONNIE Derik Unavailable Unavailable Allergies, Adverse Reactions, Alerts Substance Reaction Status Criticality Sulfa (Sulfonamide Antibiotics) Acne Active No Information codeine Nausea Active No Information Medications Medication Instructions Dosage Effective Dates (start - stop) Status Comments propranolol ER 60 mg capsule,24 hr,extended release take 1 capsule by oral route every day 60 MG - Active Aspirin Childrens 81 mg chewable tablet chew 1 tablet by oral route every day 81 MG - Active amoxicillin 250 mg capsule take 1 capsule by oral route every 8 hours 250 MG - Active Depakote 125 mg tablet,delayed release take 2 tablet by oral route 2 times every day 250 MG - Active hydroxyzine pamoate 25 mg capsule take 1 capsule by oral route 4 times every day 25 MG - Active carvedilol 3.125 mg tablet take 1 tablet by oral route 2 times every day with food 3.125 MG - Active buspirone 5 mg tablet take 1 tablet by oral route 2 times every day 5 MG - Active gabapentin 100 mg capsule take 1 capsule by oral route 3 times every day 100 MG - Active propranolol ER 60 mg capsule,24 hr,extended release take 1 capsule by oral route every day 60 MG - Active buspirone 5 mg tablet take 1 tablet by oral route 2 times every day 5 MG - Active ibuprofen 600 mg tablet take 1 tablet by oral route 3 times every day with food 600 MG - Active trazodone 50 mg tablet take 1 tablet by oral route every day at bedtime 50 MG - Active citalopram 10 mg/5 mL oral solution take 10 milliliter by oral route every day 20 MG - Active Gelnique 10 % (100 mg/gram) transdermal gel packet apply 1 sachet by topical route every day to dry intact skin on abdomen, upper arms/shoulders or thighs rotatingapplication sites - Active valacyclovir 1 gram tablet take 1 tablet by oral route every 12 hours 1000 MG - Active melatonin 3 mg capsule - Active Coreg 3.125 mg tablet take 1 tablet by oral route 2 times every day with food 3.125 MG - Active Aspirin Childrens 81 mg chewable tablet chew 2 tablet by oral route 2 times every day 162 MG - Active Procedures Procedure Date Nutrit Couns For Control Of [place] Dis Oct Comp Oral Eval New/estab Patient 2020 Panoramic Film Bitewings [employer] Films Advance Directives Directive Yes / No Effective Date File Name No Information Encounters Encounter Description Practice Location Reason(s) For Visit Diagnoses Date Provider Providers Copied on Encounter [facility], [address] [place] [address], [id number], tel:[phone] Dental Clinic No Information Moo More. [address], [place], [facility], [place]. tel:[phone] [facility], [address] [place] [address], [id number], tel:[phone] Dental Clinic DN (chief complaint) Encounter for screening for dental disorders Moo More. [address] [place] [address], [id number], . tel:[phone] Family History Family Member Type Diagnosis Age At Onset No Information Payers Payer name Insurance type Covered constitution party ID Authorrobina izaguirre(s) D Guardian 17 [id number] Social History Type Description Quantity Date Captured Comments Sex Female Smoking Status No Information Sexual Orientation Straight or heterosexual Gender Identity Female Chief Complaint And Reason For Visit No Information Reason For Referral Reason For Referral No Information History Of Present Illness Encounter Date Complaint History Of Prese nt Illness DN DN Functional Status Date Functional Assessmen t No Information Instructions Date Instruction Additional Infor mation No Information Assessments Type Assessment Date No Information Patient Care Teams Name Effective Dates (start - stop) Status Members No Information
--- OUTSIDE RECORDS SUMMARY | 2024-10-19 13:21 | XMS_ITS ---
Author Organization [facility] in [place] Address [address] [place] [address] Care Team Providers Care Rn Integrated Name Role Phone David Olivas Primary Care Provider [phone] REASON FOR VISIT stress test Encounters Encounter Location Date Provider Diagnosis [facility] [address] [place] [address] 10/19/2024 David Olivas Plan Of Treatment No Information Progress Notes * Martha WATERS HDOB:1974 (49 yo F)Acc No.[id number]:10/19/2024 Patient: Martha HUDDLESTON :1975 A ge:49 Y S ex:Female Address:[address] [place] [address], [phone] * true * Date: Generated for Jess osuna/Scott/eTransmitting on: 0 01/11/2025 01:58 PM EDT
--- OUTSIDE RECORDS SUMMARY | 2024-10-22 12:16 | XMS_ITS ---
Author Organization [facility] in [place] Address [address] [place] [address] Care Team Providers Care Petrography Teacher Name Role Phone David Olivas Primary Care Provider REASON FOR VISIT stress test- duplicate Encounters Encounter Location Date Provider Diagnosis [facility] [address] [place] [address] 10/22/2024 David Olivas Plan Of Treatment No Information Progress Notes * Martha WATERS HDOB:1974 (49 yo F)Acc No.[id number]:10/22/2024 Patient: Martha HUDDLESTON :1975 A ge:49 Y S ex:Female Address:[address] [place] [address], [phone] * true * Date: Generated for Jess osuna/Scott/eTransmitting on: 0 01/11/2025 01:58 PM EDT
--- OUTSIDE RECORDS SUMMARY | 2024-10-25 08:48 | XMS_ITS ---
Author Organization [facility] [place] Address [address] [place] [address] Care Team Providers Care Frame Stripper Name Role Phone David Olivas Primary Care Provider REASON FOR VISIT lab results Vital Signs Height 64 in 10/25/2024 Encounters Encounter Location Date Provider Diagnosis [facility] [address] [place] [address] 10/25/2024 David Olivas Palpitations R00.2 Assessments Encounter Date Diagnosis (ICD Code) Assessment Notes Treatment Notes Treatment Clinical Notes Section Notes 10/25/2024 Palpitations (ICD-10 - R00.2) Plan Of Treatment Pending Test Test Name Order Date THYROID PANEL (T4/TSH/FREE T3) Progress Notes * Martha WATERS HDOB:1974 (49 yo F)Acc No.[id number]:10/25/2024 Patient: Martha HUDDLESTON :1975 A ge:49 Y S ex:Female Address:[address] [place] [address], [phone] Subjective: * Chief Complaints: * L ab results * Medical History: * Surgical History: * Hospitalization/Major Diagno stic Procedure: * Medications: Objective: * Vitals: H t: 64 in, Ht-cm: 162.56 cm. * Physical Examination: Assessment: * Assessment: 1. P alpitations - R00.2 (Primary) Plan: * Treatment: * Procedure Codes: * true * Date: Generated for Jess osuna/Scott/Azucena on: 0 01/11/2025 01:58 PM EDT
--- OUTSIDE RECORDS SUMMARY | 2025-01-11 13:58 | XMS_ITS | Clinical Summary ---
Author Organization Intrinsity s tem Address [id number] [address] [place] [address] Care Team Providers Care Mash Filter Operator Name Role Phone Derik Rowan MD Primary Care Provider [phone] Allergies Active Allergy Reactions Criticality Noted Date Comments Codeine 09/17/2019 Sulfa (Sulfonamide Antibiotics) 07/2019 Medications naproxen (NAPROSYN) 500 mg tablet Take 1 tablet (500 mg total) by mouth 2 (two) times a day with meals. 30 tablet 09/17/2019 Active Social History Tobacco Use Types Packs/Day Years Used Date Smoking Tobacco: Every Day Cigarettes Smokeless Tobacco: Never Alcohol Use Standard Drinks/Week Comments Not Currently 0 (1 standard drink = 0.6 oz pur e alcohol) Childcare Answer Date Recorded Childcare Unknown 12/28/2018 Employment Answer Date Recorded Employment Unknown 12/28/2018 Purpose - Life Answer Date Recorded Purpose and direction in life Unknown Comments No Sex and Gender Information Value Date Recorded Sex Assigned at Not on file Legal Sex Female 11:48 AM EDT Gender Identity Not on file Sexual Orientation Not on file Last Filed Vital Signs Vital Sign Reading Time Taken Comments Blood Pressure 128/80 09/17/2019 1:31 PM EST Pulse 59 09/17/2019 1:31 PM EST Temperature 37.1 C (98.7 F) 09/17/2019 1:31 PM EST Respiratory Rate 18 09/17/2019 1:31 PM EST Oxygen Saturation 98% 09/17/2019 1:31 PM EST Inhaled Oxygen Concentration - - Weight 49.9 kg (110 lb) 09/17/2019 1:31 PM EST Height 162.6 cm (5' 4 ) 09/17/2019 1:31 PM EST Body Mass Index 18.88 09/17/2019 1:31 PM EST Plan of Treatment Not on file Medical Devices Not on file Insurance [employer] Care Teams Mash Filter Operator Relationship Specialty Start Date End Date Derik Rowan MD [address] [facility] [address] [place] [address] PCP - General Internal Medicine 09/17/19
--- OUTSIDE RECORDS SUMMARY | 2025-01-11 13:58 | XMS_ITS | Clinical Summary ---
Author Organization [facility] Address [address] [place] [address] Care Team Providers Care Industrial Rehabilitation Consultant Name Role Phone Unavailable Primary Care Provider Unavailabl e Social History Tobacco Use Types Packs/Day Years Used Date Smoking Tobacco: Never Assessed Comments Unknown Sex and Gender Information Value Date Recorded Sex Assigned at Not on file Legal Sex Female 7:09 PM EDT Gender Identity Not on file Sexual Orientation Not on file Plan of Treatment Not on file
--- OUTSIDE RECORDS SUMMARY | 2025-01-11 13:58 | XMS_ITS | Referral Summary ---
Author Organization [facility] Address [address] [place] [address] Care Team Providers Care Hypoid Gear Generator Name Role Phone Camilo Olivas MD Primary Care Provider [phone] Encounters Date Type Department Care Team Description 12/07/2024 Orders Only [facility] [address] [place] [address] ProviderKiran MD 10/26/2024 Telephone [facility] [address] [facility] [place] [address] Myla Stanley MA 10/25/2024 9:00 AM EDT Office Visit [facility] [address] [place] [address] Ministerio Moore MD Abnormal EKG (Primary Dx); Palpitations from Last 3 Months Allergies Active Allergy Reactions Criticality Noted Date Comments Codeine Hives 09/17/2019 Dye Other 10/25/2024 Sulfa (Sulfonamide Antibiotics) Other 07/2019 Medications metoprolol succinate XL (Toprol-XL) 50 mg 24 hr tablet Take 1 tablet by mouth in the morning. 10/06/2024 Active desvenlafaxine (Pristiq) 100 mg 24 hr tablet Take 100 mg by mouth in the morning. Active solifenacin (VESIcare) 10 mg tablet Take 1 tablet by mouth in the morning. 10/11/2024 Active valACYclovir (Valtrex) 500 mg tablet Take 500 mg by mouth in the morning. Active QUEtiapine (SEROquel) 200 mg tablet Take 200 mg by mouth at bedtime. 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 10/25/2024 Overactive bladder 10/25/2024 Paroxysmal A-fib 10/25/2024 Social History Tobacco Use Types Packs/Day Years Used Date Smoking Tobacco: Former Cigarettes Smokeless Tobacco: Current Tobacco Cessation:Ready to Q uit: Not Asked; Counseling Given: Not Answered Comments:VAPES Comments Unknown Sex and Gender Information Value Date Recorded Sex Assigned at Not on file Legal Sex Female 10:38 PM EDT Gender Identity Not on file Sexual Orientation Not on file Last Filed Vital Signs Vital Sign Reading Time Taken Comments Blood Pressure 118/76 10/25/2024 9:20 AM EDT Pulse 70 10/25/2024 9:20 AM EDT Temperature - - Respiratory Rate - - Oxygen Saturation 98% 10/25/2024 9:20 AM EDT Inhaled Oxygen Concentration - - Weight 60.3 kg (133 lb) 10/25/2024 9:20 AM EDT Height 162.6 cm (5' 4 ) 10/25/2024 9:20 AM EDT Body Mass Index 22.83 10/25/2024 9:20 AM EDT Plan of Treatment Upcoming Encounters Date Type Department Care Team (Late st Contact Info) Description 01/18/2025 1:15 PM EDT Office Visit [facility] [address] [place] [address] Ministerio Moore MD [address] [place] [address] [facility] [place] [address] Procedures Procedure Name Priority Date/Time Associated Diagnosis Comments CARDIAC EVENT MONITOR Routine 10/25/2024 3:45 PM EDT from Last 3 Months Results * Cardiac event monitor (10/25/2024 3:45 PM EDT) Anatomical Region Laterality Modality Other us Historical Provider [facility] JESSI ELLIS Final Result from Last 3 Months Insurance [facility] Care Teams Hypoid Gear Generator Relationship Specialty Start Date End Date Camilo Olivas MD [address] [facility] [address] [address] PCP - General 10/23/24
--- OUTSIDE RECORDS SUMMARY | 2025-01-11 13:58 | XMS_ITS | Clinical Summary ---
Author Organization [facility] Address [address] [place] [address] Care Team Providers Care Motor Carrier Inspector Name Role Phone Camilo Olivas MD Primary Care Provider [phone] Allergies Active Allergy Reactions Criticality Noted Date [...] 10/25/2024 Overactive bladder 10/25/2024 Paroxysmal A-fib 10/25/2024 Encounters Date Type Department Care Team Description 12/07/2024 Orders Only [facility] [address] [place] [address] ProviderKiran MD 10/26/2024 Telephone [facility] [address] [place] [address] Myla Stanley MA 10/25/2024 9:00 AM EDT Office Visit [facility] [address] [place] [address] Ministerio Moore MD Abnormal EKG (Primary Dx); Palpitations from Last 3 Months Family History Medical History Relation Name Comments Atrial fibrillation Father Stroke Father Heart attack Paternal Grandfather Relation Name Status Comments Father Paternal Grandfather Social History Tobacco Use Types Packs/Day Years [...] Description 01/18/2025 1:15 PM EDT Office Visit [facility] [address] [place] [address] Ministerio Moore MD [address] [facility] [place] [address] [facility] [place] [address] Health Maintenance Due Date Last Done Comments CT Colonography 1975 Colonoscopy 1975 Colorectal Cancer Screening 1975 FIT-DNA 1975 FIT 1975 FOBT 1975 Sigmoidoscopy 1975 Depression Screening 1985 Hepatitis B Vaccines (1 of 3 - 19+ 3-dose series) 1992 Pap Smear 1994 Adult Tetanus 1995 Cervical Cancer Screening 2003 HPV/Cotest 2003 Mammogram 2013 Zoster Vaccines (1 of 2) 2023 COVID-19 Vaccine (1 - 2023-2 5 season) 2024 Influenza Vaccine (Season Ended) 2025 04/11/20 18 HIB Vaccines Aged Out No longer eligi ble based on patient's age to complete this topic HPV Vaccines Aged Out No longer eligi ble based on patient's age to complete this topic IPV Vaccines Aged Out No longer eligi ble based on patient's age to complete this topic Meningococcal B Vaccine Aged Out No l onger eligible based on patient's age to complete this topic Meningococcal Vaccine Aged Out No pat dagmar eligible based on patient's age to complete this topic Pneumococcal Vaccine: Pediat rics (0 to 5 Years) and At-Risk Patients (6 to 64 Years) Aged Out No longer eligi ble based on patient's age to complete this topic Rotavirus Vaccines Aged Out No longer eligible based on patient's age to complete this topic Procedures Procedure Name Priority Date/Time Associated Diagnosis Comments CARDIAC EVENT MONITOR Routine 10/25/2024 3:45 PM EDT from Last 3 Months Results * Cardiac event monitor (10/25/2024 3:45 PM EDT) Anatomical Region Laterality Modality Other Historical Provider [facility] CARDI[facility] JESSI ELLIS Final Result from Last 3 Months Insurance [facility] Care Teams Motor Carrier Inspector Relationship Specialty Start Date End Date Camilo Olivas MD [address] [facility] [place] [address] PCP - General 10/23/24
--- OUTSIDE RECORDS SUMMARY | 2025-01-11 13:58 | XMS_ITS | Patient Health Record ---
Author Organization [facility] in [place] Address [address] [place] [address] Care Team Providers Care Risk Compliance Analyst Name Role Phone David Wells Primary Care Provider Neville Noonan Unavailable [phone] Idania Woodardberly Unavailable [phone] Allergies Allergen (clinical drug ingredient) Drug/Non Drug Allergy documented on EMR Reaction Allergy Type Onset Date Status contrast dye (uncoded) Unknown Allergy Active codeine Codeine Unknown Drug Allergy Active Substance with sulfonamide structure and antibacterial mechanism of action (substance) Sulfa Antibiotics Unknown Drug Allergy Active Results Component Value Reference Range Notes ECG 12 lead Reviewed date:10/05/2024 09:02:01 AM Interpretation: Performing Lab: Notes/Report: Source Facility: [place] [address] Electrocardiograph Report Signed Patient: MARTHA WATERS MR#: [id number] : 1975 Acct:[id number] Age/Sex: 49 / F ADM Date: 10/03/24 Loc: ER Attending Dr: Ordering Physician: Jesse Clements M.D. 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 Measurements Intervals [place] Rate: 89 P: 64 ND: 134 QRS: 75 QRSD: 80 T: -73 QT: 344 QTc: 391 Interpretive Statements 1100 Sinus rhythm [address] depression 4364 Twave abnormality, possible anterolateral ischemia 4664 Twave abnormality, possible inferior ischemia 9150 abnormal ECG Compared to ECG 08/16/2021 01:35:58 No significant changes Electronically Signed On 10-04-2024 19:08:28 EDT by TONIA CRUZ M.D. Dictated By: TONIA CRUZ Signed By: 10/04/241907 DD/ 31 TD/TT: Mid Level Clinician: [place] [address] Electrocardiograph Report Signed Patient: REMY WATERS MR#: [id number] : 1975 Acct:[id number] Age/Sex: 49 / F ADM Date: 10/03/24 Loc: ER Attending Dr: Ordering Physician: Jesse Clements M.D. 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 Measurements Intervals [place] Rate: 89 P: 64 ND: 134 QRS: 75 QRSD: 80 T: -73 QT: 344 QTc: 391 Interpretive Statements 1100 Sinus rhythm [address] depression 4364 Twave abnormali ty, possible anterolateral ischemia 4664 Twave abnormali ty, possible inferior ischemia 9150 abnormal ECG Compared to ECG 07/20 01:35:58 No significant changes Electronically Devorah d On 10-04-2024 19:08:28 EDT by TONIA CRUZ M.D. Dictated By: TONIA CRUZ Signed By: 10/04/241907 DD/ 31 TD/TT: Mid Level Clinician: CBC AUTO DIFF Reviewed date:10/25/2024 12:48:29 PM Interpretation: Performing Lab: Notes/Report: [facility] , White Blood Count 4.8 4.0-11.0 10 3/uL Red Blood Count 4.29 4.20-5.40 10 6/uL Hemoglobin 14.4 12.0-16.0 g/dL Hematocrit 42.6 36.0-48.0 % Mean Corpuscular Volume 99.3 81.0-99.0 fL Mean Corpuscular Hemoglobin 33.6 26.7-34.0 pg Mean Corpuscular HGB Conc 33.8 29.9-35.2 g/dL Red Cell Distribution Width 13.0 11.0-15.0 % Platelet Count 263 150-450 10 3/uL Mean Platelet Volume 10.3 9.5-13.5 fL Neutrophils Percent Auto 42.5 43.0-75.0 % Lymphocytes Percent Auto 40.2 20.5-60.0 % Monocytes Percent Auto 10.9 1.7-12.0 % Eosinophils Percent Auto 5.4 0.9-7.0 % Basophils Percent Auto 0.8 0.2-2.0 % Immature Granulocytes Pct Auto 0.2 0.0-0.5 % Neutrophils Absolute Auto 2.0 1.4-6.5 10 3/uL Lymphocytes Absolute Auto 1.9 1.2-3.8 10 3/uL Monocytes Absolute Auto 0.5 0.3-0.8 10 3/uL Eosinophils Absolute Auto 0.3 0.0-0.7 10 3/uL Basophils Absolute Auto 0.0 0.0-0.1 10 3/uL Immature Granulocytes Abs Auto 0.01 0.00-0.03 10 3/uL Performing Lab: see note ML - [facility] LB NM mona perf SPECT rest str Reviewed date:10/19/2024 05:21:58 PM Interpretation: Performing Lab: Notes/Report: Source Facility: [facility] [place] [address] [place] [address] Nuclear Medicine Report Signed Patient: MARTHA WATERS MR#: [id number] : 1975 Acct:[id number] Age/Sex: 49 / F ADM Date: 10/18/24 Loc: NM Attending Dr: Maris Wells M.D. Ordering Physician: Maris Wells M.D. Date of Service: 10/18/24 Procedure(s): NM mona perf SPECT rest str Accession Number(s): [id number] cc: Maris Wells M.D. Patient Name: MARTHA WATERS MR#: [id number] : 1975 Exam Date: 10/18/2024 Ordering Doctor: DR Maris Wells . RADIOLOGY REPORT PROCEDURE: NM MONA PERF SPECT REST STR COMPARISON: None. INDICATIONS: ABNORMAL EKG, PALPITATIONS TECHNIQUE: Exam Description: Rest/Stress one day protocol gated SPECT Rest Imagin.8 mCi Tc-99m Cardiolite IV on 10/18/2024 Stress Imaging 29.8 mCi Tc-99m Cardiolite IV on 10/18/2024 Exercise Protocol: Joseph Heart Rate (bpm): Rest: 85 Max: 146 PMHR: 86 Blood Pressure: Rest: 106/80 Max: 124/82 Exercise Time: Minutes: 5 Seconds: 48 Stage Reached: Stage: 2 Mets 7.0 Symptoms: Rest and peak stress ECG findings were pending and the exercise portion of the study was pending per attending physician [facility] . For more details please see separate cardiac stress test report. FINDINGS: QUALITY OF STUDY: Good PERFUSION DEFECT: None LOCATION: SIZE: SEVERITY: TYPE: WALL MOTION: Normal LV SIZE: 42 mL. TID / TCD: 0.7 LVEF: Calculated EF 80%. SUMMARY: Normal Myocardial perfusion imaging study CONCLUSION: Normal myocardial perfusion images without ischemia or infarction Normal LVEF 80% No TID, TID 0.7 EKG stress test is reported seperately Dictated by: Ben Taylor MD on 10/19/2024 at 14:20 Approved by: Ben Taylor MD on 10/19/2024 at 14:23 Dictated By: Ben Taylor M.D. Signed By: 10/19/24 1424 DD/ 1423 TD/TT: Mid Level Clinician: [place] [address] Nuclear Medicine Report Signed Patient: REMY WATERS MR#: [id number] : 1975 Acct:[id number] Age/Sex: 49 / F ADM Date: 10/18/24 Loc: NM Attending Dr: Nelson Wells M.D. Ordering Physician: Maris Wells M.D. Date of Service: 10/18/24 Procedure(s): NM mona perf SPECT rest str Accession Number(s): [id number] cc: Maris Wells M.D. Patient Name: MARTHA WATERS MR#: [id number] : 1975 Exam Date: 10/18/2024 Ordering Doctor: DR Maris Wells . RADIOLOGY REPORT PROCEDURE: NM MONA PE RF SPECT REST STR COMPARISON: None. INDICATIONS: ABNORMA L EKG, PALPITATIONS TECHNIQUE: Exam Description: Rest/Stress one day protocol gated SPECT Rest Imagin.8 mC i Tc-99m Cardiolite IV on 10/18/2024 Stress Imaging 29.8 mCi Tc-99m Cardiolite IV on 10/18/2024 Exercise Protocol: Joseph Heart Rate (bpm): Re st: 85 Max: 146 PMHR: 86 Blood Pressure: Rest : 106/80 Max: 124/82 Exercise Time: Minut es: 5 Seconds: 48 Stage Reached: Stage : 2 Mets 7.0 Symptoms: Rest and peak stress ECG findings were pending and the exercise portion of the study was pending pe r attending physician [facility] . For more details please see separate cardiac str ess test report. FINDINGS: QUALITY OF STUDY: Good PERFUSION DEFECT: None LOCATION: SIZE: SEVERITY: TYPE: WALL MOTION: Normal LV SIZE: 42 mL. TID / TCD: 0.7 LVEF: Calculated EF 80%. SUMMARY: Normal Myoc ardial perfusion imaging study CONCLUSION: Normal myocardial pe rfusion images without ischemia or infarction Normal LVEF 80% No TID, TID 0.7 EKG stress test is r eported seperately Dictated by: Ben coker MD on 10/19/2024 at 14:20 Approved by: Ben coker MD on 10/19/2024 at 14:23 Dictated By: Ben Taylor M.D. Signed By: 10/19/24 1424 DD/ 1423 TD/TT: Mid Level Clinician: [facility] RANDOM W or MICROSCOPIC Reviewed date:07/23/2024 05:36:12 PM Interpretation: Performing Lab: Notes/Report: [facility] , Color Urine LT. YELLOW YELLOW Clarity Urine CLEAR CLEAR Specific [place] Urine <=1.005 1.005-1.025 pH Urine 6.0 5.0-9.0 Protein Urine NEGATIVE NEG/TRACE mg/dL Glucose Urine UA NEGATIVE NEGATIVE mg/dL Bilirubin Urine NEGATIVE NEGATIVE Ketones Urine NEGATIVE NEGATIVE mg/dL Blood Urine SMALL NEGATIVE Nitrite Urine NEGATIVE NEGATIVE Urobilinogen Urine 0.2 0.2-1.0 EU/dL Leukocyte Esterase Urine NEGATIVE NEGATIVE WBC Urine NONE SEEN NONE SEEN #/HPF RBC Urine 2-5 0-2 #/HPF Bacteria Urine TRACE NONE SEEN #/HPF Mucus Urine NONE SEEN NONE SEEN Squamous Epithelial Cell Urine RARE NONE/RARE #/LPF Crystals Seen? None Seen None Seen #/HPF Cast Seen? NONE SEEN NONE SEEN #/LPF Performing Lab: see note ML - [facility] LB XR FOOT RT 2V Reviewed date:03/15/2024 09:21:25 AM Interpretation: Performing Lab: Notes/Report: Source Facility: [place] [address] XRay Report Signed Patient: MARTHA WATERS MR#: [id number] : 1975 Acct:[id number] Age/Sex: 48 / F ADM Date: 03/14/24 Loc: RAD Attending Dr: Maris Wells M.D. Ordering Physician: Maris Wells M.D. Date of Service: 03/14/24 Procedure(s): XR foot RT 2V Accession Number(s): [id number] cc: Maris Wells M.D. [place] [address] Patient Name: MARTHA WATERS MRN: [id number] date: 1975 Sex: F Assigned Patient Location: [facility] Current Patient Location: Accession/Order Number: [id number] Exam Date: 03/14/2024 11:06 Report Date: 03/15/2024 06:16 At the request of: MARIS WELLS Procedure: XR foot RT 2V PROCEDURE: XR foot RT 2V HISTORY: Right Foot Pain ; lateral foot pain and swelling after kicking a door COMPARISON: None. FINDINGS: BONES:Nondisplaced transverse fracture through base of 5th metatarsal; no appreciable intra-articular extension. SOFT TISSUES:No visible soft tissue swelling. EFFUSION:None visible. OTHER: Negative. XR/XR foot RT 2V IMPRESSION: 1. Nondisplaced, acute base of 5th metatarsal fracture. Electronically authenticated by: MATTHEW BAUTISTA Date: 03/15/2024 06:16 Dictated By: Matthew Bautista M.D. Signed By: 03/15/24617 DD/ 5 TD/TT: Mid Level Clinician: [place] [address] XRay Report Signed Patient: REMY WATERS MR#: [id number] : 1975 Acct:[id number] Age/Sex: 48 / F ADM Date: 03/14/24 Loc: [facility] Attending Dr: Nelson Wells M.D. Ordering Physician: Maris Wells M.D. Date of Service: 03/14/24 Procedure(s): XR foot RT 2V Accession Number(s): [id number] cc: Maris Wells M.D. [place] [address] Patient Name: MARTHA WATERS MRN: [id number] date: 1975 Sex: F Assigned Patient Loc ation: RAD Current Patient Location: Accession/Order Numb er: [id number] Exam Date: 03/14/2024 11:06 Report Date: 03/15/2024 06:16 At the request of: MARIS WELLS Procedure: XR foot RT 2V PROCEDURE: XR foot RT 2V HISTORY: Right Foot Pain ; lateral foot pain and swelling after kicking a door COMPARISON: None. FINDINGS: BONES:Nondisplaced transverse fracture through base of 5th metatarsal; no appreciable intra-ar ticular extension. SOFT TISSUES:No visi ble soft tissue swelling. EFFUSION:None visible. OTHER: Negative. X R/XR foot RT 2V IMPRESSION: 1. Nondisplaced, acu te base of 5th metatarsal fracture. Electronically authenticated by: MATTHEW BAUTISTA Date: 03/15/2024 06:16 Dictated By: Matthew Bautista M.D. Signed By: 03/15/24617 DD/ 5 TD/TT: Mid Level Clinician: TSH Reviewed date:10/25/2024 12:48:29 PM Interpretation: Performing Lab: Notes/Report: [facility] , Thyroid Stimulating Hormone 3.763 0.358-3.740 uIU/mL Performing Lab: see note - [facility] PROF 14(COMP METB) Reviewed date:10/25/2024 12:48:29 PM Interpretation: Performing Lab: Notes/Report: [facility] , Sodium 141 136-145 mmol/L Potassium 4.0 3.5-5.1 mmol/L Chloride 102 98-107 mmol/L Carbon Dioxide 32.6 21.0-32.0 mmol/L Anion Gap 10.4 Glucose 74 74-106 mg/dL Blood Urea Nitrogen 7.0 7.0-18.0 mg/dL Creatinine 0.82 0.55-1.02 mg/dL Estimated GFR ( Jada >60 >=60 mL/min/1.73m 2 Estimated GFR (Non- Hope >60 >=60 mL/min/1.73m 2 BUN Creatinine Ratio 8.5 Calcium 9.3 8.5-10.1 mg/dL Bilirubin Total 0.3 0.2-1.0 mg/dL Aspartate Amino Transferase 15 15-37 U/L Alanine Aminotransferase 17 14-59 U/L Alkaline Phosphatase 110 46-116 U/L Total Protein 7.4 6.4-8.2 g/dL Albumin Level 4.1 3.4-5.0 g/dL Globulin 3.3 Albumin Globulin Ratio 1.2 Performing Lab: see note ML - [facility] LB FREE T4 Reviewed date:10/25/2024 12:48:29 PM Interpretation: Performing Lab: Notes/Report: [facility] , Free T4 0.72 0.76-1.46 ng/dL Performing Lab: see note ML - [facility] LB Reason For Referral Diagnosis 1 Foot pain, right (M7 9.671) Referral Organization [facility] Referring Provider First Name David Referring Provider Last Name Brendon [facility] Referred Provider Neville Noonan Referred Provider Specialty Podiatry Referral Priority Routine Diagnosis 1 Abnormal stress ECG (R94.39) Referral Organization [facility] Referring Provider First Name David Referring Provider Last Name Brendon [facility]erring [facility] Referred Provider Tonia Cruz Referred Provider Specialty Cardiology Referral Priority Routine Medications Medication SIG (Take, Route, Frequency, Duration) Notes Start Date End Date Status Metoprolol Succinate ER 50 MG TAKE 1 TABLET BY MOUTH EVERY DAY FOR 30 DAYS for 90 days Active guanFACINE HCl ER 1 MG 1 tablet Orally q day 10/11 Active valACYclovir HCl 500 MG TAKE 1 TABLET BY MOUTH EVERY DAY for 90 Active Desvenlafaxine Succinate ER 100 MG TAKE 1 TABLET BY MOUTH EVERY DAY for 90 Active Solifenacin Succinate 10 MG TAKE 1 TABLE T BY MOUTH EVERY DAY FOR 30 DAYS for 90 Active SEROquel 200 MG 1 Orally bid for 30 days Active Metoprolol Tartrate 25 mg TAKE 1 TABLET BY MOUTH TWICE A DAY for 30 Active Social History Tobacco Use: Social History Observation Description Date Details (start date - stop date) Current Smoker 07/19/1987 - NA Tobacco Use/Smoking Question Answer Notes Patient is a current smoker When did you start smoking? 07/19/1987 How often do you smoke cigarettes? every day Alcohol Screen (Audit-C) Question Answer Notes Did you have a drink containing alcohol in the p ast year? No Points 0 Interpretation Negative AUDIT-C (Standard) Question Answer Notes Did you have a drink containing alcohol in the p ast year? No Points 0 Interpretation Negative Problems Problem Type SNOMED Code ICD Code Onset Dates Problem Status W/U Status Risk Notes Problem 30800517 Palpitations (R00.2) Active confirmed Problem Insomnia (885541982) Insomnia (G47.00) Active confirmed Problem Abnormal ECG (435229086) Abnormal ECG (R94.31) Active confirmed Problem Foot pain, right (M79.671) Active confirmed Vital Signs Heart Rate 83 /min 03/21/2024 Temperature 97.8 degrees Fahrenheit 03/21/2024 Oximetry 99 % 03/21/2024 Blood pressure diastolic 80 mm Hg 10/11/2024 Height 64 in 10/25/2024 Blood pressure systolic 128 mm Hg 10/11/2024 Weight 129 lbs 10/11/2024 BMI 22.14 kg/m2 10/11/2024 Encounters Encounter Location Date Provider Diagnosis [facility] [address] [place] [address] 10/19/2024 David Kaurjeaneth [facility] [address] [place] [address] 10/22/2024 David jeaneth [facility] [address] [place] [address] 10/25/2024 David Wells Palpitations R00.2 [facility] [address] [place] [place] [address] 03/16/2024 David Brendon [facility] [address] [place] [address] 04/04/2024 David Hoy Insomnia G47.00 [facility] [address] [place] [address] 05/10/2024 David Hoy Insomnia G47.00 [facility] [address] [place] [address] 10/05/2024 David Vincenty [facility] [address] [place] [address] 10/11/2024 David Wells [facility] [address] [place] [address] 10/18/2024 David Wells Abnormal stress ECG R94.39 [facility] [address] [place] [address] 03/15/2024 David Kaury Foot pain, right M79.671 [facility] [address] [place] [address] 03/15/2024 David Wells [facility] [address] [place] [address] [place] [address] 03/21/2024 Neville Noonan Displaced fracture of fifth metatarsal bone, right foot, initial encounter for closed fracture S92.351A [facility] [address] [place] [address] 10/11/2024 David Hoy Abnormal ECG R94.31 and Palpitations R00.2 [facility] [address] [place] [address] 03/14/2024 David Hoy Foot pain, right M79.671 ; Insomnia G47.00 and Palpitations R00.2 [facility] [address] [place] [address] 03/30/2024 David Hoy Insomnia G47.00 and Palpitations R00.[address] [address] 10/06/2024 David Hoy Palpitations R00.2 and Abnormal ECG R94.31 Assessments Encounter Date Diagnosis (ICD Code) Assessment Notes Treatment Notes Treatment Clinical Notes Section Notes 03/14/2024 Foot pain, right (ICD-10 - M79.671) 03/14/2024 Insomnia (ICD-10 - G47.00) 03/21/2024 Displaced fracture of fifth metatarsal bone, right foot, initial encounter for closed fracture (ICD-10 - S92.351A) Patient referred by her primary care physician Dr. Wells Patient seen and evaluated. Patient education provided. Patient sustained fifth metatarsal base fracture approximately 3 weeks ago. She has been walking on her heel with some pain. I recommended a cam boot which was fitted and dispensed today. Follow-up in 3 to 4 weeks with repeat weightbearing x-rays. No surgery indicated 03/30/2024 Insomnia (ICD-10 - G47.00) 03/30/2024 Palpitations (ICD-10 - R00.2) 10/06/2024 Palpitations (ICD-10 - R00.2) 10/06/2024 Abnormal ECG (ICD-10 - R94.31) 10/11/2024 Abnormal ECG (ICD-10 - R94.31) 03/15/2024 Foot pain, right (ICD-10 - M79.671) 04/04/2024 Insomnia (ICD-10 - G47.00) 05/10/2024 Insomnia (ICD-10 - G47.00) 10/18/2024 Abnormal stress ECG (ICD-10 - R94.39) 10/25/2024 Palpitations (ICD-10 - R00.2) 10/11/2024 Palpitations (ICD-10 - R00.2) 03/14/2024 Palpitations (ICD-10 - R00.2) Plan Of Treatment Pending Test Test Name Order Date CMP (COMPLETE METABOLIC PANEL) 4 HEMOGLOBIN A1C (GLYCO) 03/30/2024 IRON, TOTAL 03/30/2024 LIPID PANEL (CHOL/TRIG/HDL/LDL) 03/30/20 CBC WITH DIFF 03/30/2024 FECAL OCCULT BLOOD 09/29/2023 Insulin Level 03/30/2024 Treadmill Stress Test with Nuclear Imagi ng 10/06/2024 CBC AUTO DIFF 09/29/2023 GLYCOHEMOGLOBIN A1C 09/29/2023 LIPID PROFILE 09/29/2023 PROF 14(COMP METB) 09/29/2023 THYROID PROFILE WITH TSH 09/29/2023 THYROID PANEL (T4/TSH/FREE T3) THYROID PANEL (T4/TSH/FREE T3) 4 Holter Monitor - 3 days up to 14 days Insurance Providers Payer Name Payer Address Payer Phone Subscriber Number Group Number Insured Name Patient Relationship to Insured Coverage Start Date Coverage End Date DARIAN RAZA [address] [place] [address] [id number] Martha Waters Self - patient is the insured Medical (General) History Medical History History ICD Code Anxiety F41.9 Atrial fibrillation I48.91 Bipolar depression F31.9 Cervical radiculopathy M54.12 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
--- OUTSIDE RECORDS SUMMARY | 2025-01-11 13:58 | XMS_ITS | Encounter Summary ---
Author Organization [facility] Address [address] [place] [address] Care Team Providers Care Director Compensation Name Role Phone Unavailable Primary Care Provider Unavailabl e Encounter Details Date Type Department Care Team (Late st Contact Info) Description 07/28/2024 Abstract [facility] [address] [place] [id number] Sancho Linton, [address] [place] [address] Social History Tobacco Use Types Packs/Day Years Used Date Smoking Tobacco: Never Assessed Comments Unknown Sex and Gender Information Value Date Recorded Sex Assigned at Not on file Legal Sex Female 7:09 PM EDT Gender Identity Not on file Sexual Orientation Not on file documented as of this encounter Plan of Treatment Not on file documented as of this encounter Visit Diagnoses Not on filedocumented in this encounter
--- NOTE | 2025-01-11 14:00 | CA_ITS ---
Patient Name Site Name GERTRUDE WATERS [facility] Account No Medical Record Number Age Sex Date Time [id number] [facility]:[id number] F 01/11/2025 14:04 At the Request Of MARIE SHAH ECHOCARDIOGRAM REPORT PROCEDURE: CA ECHO DOPPLER COMPLETE INDICATIONS: Palpitations, smoker COMPARISON: None. DESCRIPTION: COMPLETE ECHOCARDIOGRAM Real-time transthoracic echocardiography with 2D, M-mode, spectral and color flow Doppler performed. QUALITY: Technical quality was good. LEFT VENTRICLE: Normal chamber size. Normal left ventricular wall thickness. Normal left ventricular systolic function without wall motion abnormalities, calculated left ventricular ejection fraction is 66%. LV EF: Normal left ventricular ejection fraction, (>55%). DIASTOLIC: Normal diastolic function. ATRIAL SEPTUM: Appears intact LEFT ATRIUM: Normal chamber size. RIGHT ATRIUM: Normal chamber size. RIGHT VENTRICLE: Normal chamber size. Normal right ventricular systolic function. TRICUSPID VALVE: Normal mobility and thickness. No stenosis with trace regurgitation. No evidence of pulmonary hypertension.RVSP 22 mmHg MITRAL VALVE: Normal mobility and thickness. No evidence of mitral valve stenosis. There is no mitral annular calcification. Trivial mitral regurgitation. AORTIC VALVE: Normal trileaflet appearance. No visible sclerosis. Normal leaflet mobility. No evidence of aortic valve stenosis. No aortic regurgitation. AORTIC ROOT: Normal diameter and appearance. Ascending aorta is normal in size PULMONIC VALVE: Normal thickness and mobility. No stenosis. Trivial regurgitation. PERICARDIUM: No evidence of pericardial effusion. IVC: Collapes with inspirations. IVC is normal in size. PLEURA: CONCLUSION: Normal left ventricle systolic function without wall motion abnormalities, ejection fraction 66% Normal left ventricular diastolic function Normal right ventricular size and systolic function Normal right-sided pressure, RVSP 22 mmHg Trivial mitral regurgitation and trivial tricuspid regurgitation Adult Echocardiography Procedure Report Left Ventricle LVEDD (3.7 - 5.6 cm): 4.08 cm LVESD (2.2 - 4.0 cm): 3.17 cm LVIVS thickness (0.6 - 1.2 cm): 0.69 cm LVPW thickness (0.5 - 1.0 cm): 0.59 cm e': 0.13 m/s E - e': 4.61 LVOT Max Gradient: 2.37 mm[Hg] LVOT Area (cm2): 0.77 m/s Peak Velocity (LVOT): 0.77 m/s Mean Velocity (LVOT): LVOT Diameter 2.06 cm Left Ventricular Ejection Fraction: 65.60 % Left Atrium LA Volume Index (2D A2C): 22.00 ml/m2 Left Atrium Systolic Dimension: 2.63 cm Mitral Valve MV E to A Ratio: 1.29 MV Max Gradient: MV Mean Gradient: Mitral Valve A-Wave Peak Velocity: 0.46 m/s Mitral Valve E-Wave Peak Velocity: 0.59 m/s Cardiovascular Orifice Area: Right Ventricle RV Internal Diastolic Dimension: Aorta AO Root Diam: 3.13 cm Ascending Ao Diam: 2.74 cm Aortic Valve AoV Area (Peak Adrian): 2.56 cm2, 2.56 cm2 AoV Area (VTI): Deceleration Norton: Pressure Half-Time: Peak Velocity(Antegrade Flow): 1.00 m/s Peak Gradient(Antegrade Flow): 4.02 mm[Hg] Mean Velocity(Antegrade Flow): Mean Gradient(Antegrade Flow): Velocity Time Integral: Tricuspid Valve Peak Velocity (Regurgitant Flow): 2.17 m/s Peak Velocity: Pulmonic Valve Mean Gradient: Mean Velocity: Peak Velocity: Peak Gradient: 1.34 mm[Hg], 1.67 mm[Hg] Right Atrium Right Atrium Systolic Pressure: 29.39 ml, 29.39 ml Dictated by: Ben Taylor MD on 01/11/2025 at 19:29 Approved by: Ben Taylor MD on 01/11/2025 at 19:34
--- OUTSIDE RECORDS SUMMARY | 2025-01-11 17:04 | XMS_ITS | CCD ---
Author Organization [facility] Inform ion Partnership [facility] Care Team Providers Care Video Presentation Operator Name Role Phone Justin Servin Attending Unavailable [...] DR INDIRA Santos Consulting UnavailPatel Givens Attending Unavailab Patel Boone Admitting Unavailab Maris Soliz Primary Care Unavailable Justin Schulte Attending Unavailable KITTY Dunen Admitting UnavailKITTY Yeung Attending UnavailKITTY Yeung Referring UnavailSancho Justin Consulting Unavailable DO Sancho LINTON Consulting Unavailable Sancho LINTON Consulting Justin Quintero Attending Unavailable MINISTERIO MOORE Attending Unavailable Allergies Allergy Classification Reported Allergen(s) Allergy Type Date of Onset Reaction(s) Facility Opioid Agonists (1 source) Codeine; Translations: [codeine] Drug Allergy [facility] Repository Sulfonamides (antibiotic) (1 source) Sulfonamides (Antibiotic); Translations: [sulfa drugs] Drug Allergy [facility] Repository (7 sources) Codeine; Translations: [codeine] Drug Allergy 0 Weal (disorder) General Surgery [place] (6 sources) Contrast media; Translations: [Contrast Dye] Drug allergy Dyspnea (finding), Weal (disorder) General Surgery [place] (6 sources) Sulfonamides (Antibiotic); Translations: [sulfa drugs] Drug allergy Eruption of skin (disorder) General Surgery [place] (1 source) Codeine Drug Allergy 3 [facility] Repository (1 source) Sulfonamides (Antibiotic) Drug allergy (disorder) 3 [facility] Repository (1 source) Codeine Drug Allergy 1 [facility] Repository (2 sources) Sulfonamides (Antibiotic); Translations: [SULFA (SULFONAMIDE ANTIBIOTICS)] Drug allergy (disorder) 0 [facility] Repository (1 source) Contrast media; Translations: [DYE] Propensity to adverse reactions to drug (disorder) 5 [facility] Repository Medications Current Medications Medication Drug Class(es) [...] Ordered Start: 05-18-2022 take 1 tablet by bonita th twice daily carvedilol 3.125 mg Tab 3.125 [...] day(s), # 20 tab(s), Refills(s) 0, Pharmacy: [facility]/pharmacy #[id number], 172, cm, 07/22/24 15:53:00 EST, [...] 0 Start Date: 03/15/20 Status: Ordered Problems Problem Classification Problem Date Documented Date Episodic/Chronic Abdominal pain (1 source) Abdominal pain; Translations: [Unspecified abdominal pain] Onset: 07-22-2024 Episodic Anxiety disorders (5 sources) Anxiety; Translations: [Anxiety disorder, unspecified] Onset: 08-19-2021 03-08-2020 Chronic Cardiac dysrhythmias (6 sources) Paroxysmal atrial fibrillation; Translations: [Atrial premature depolarization] Onset: 08-19-2021 03-08-2020 Chronic Cardiac dysrhythmias (6 sources) Palpitations; Translations: [PALPITATIONS] Onset: 08-19-2021 Episodic E Codes: Struck by; against (1 source) [...] Onset: 07-30-2022 Episodic Other aftercare (1 source) penitentiary (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 aspirin; Translations: [CHESTNUT TANNER CURRENT USE OF ASPIRIN] Onset: 08-03-2022 Episodic Other aftercare (1 source) Other longterm (current) drug therapy; Translations: [OTH CHESTNUT TANNER CURRENT DRUG THERAPY] Onset: 08-03-2022 Episodic Other and unspecified benign neoplasm (4 sources) Benign neoplasm of face 03-15-2020 Episodic Other diseases of bladder and urethra (4 sources) Overactive bladder 03-08-2020 Chronic Other screening for suspected conditions (not mental disorders or infectious disease) (2 sources) Abnormal electrocardiogram [ECG] [EKG]; Translations: [Abnormal electrocardiogram (ECG) (EKG)] Onset: 10-25-2024 Episodic Spondylosis; intervertebral disc disorders; other back problems (5 sources) Cervical radiculopathy; Translations: [Backache] Onset: 07-22-2024 03-08-2020 Episodic Substance-related disorders (4 sources) History of drug abuse 03-08-2020 Chronic Unclassified (4 sources) Decreased body mass index 06-19-2022 Results Test Name Value Interpretation Reference Range Facility Orders Onlyon 12-07-2024 Orders Only [id number] Martha Waters 1975 F Date Provider Department Center 12/07/2024 [id number], HISTORICAL ONEYDA Almaz Shaffer Family History Problem Relation Age of Onset Stroke Father Atrial fibrillation Father Heart attack Paternal Grandfather Family Status - Relation Status Age at Father Paternal Grandfather Normal [facility] 36on 10-26-2024 34 Regarding lab result s from 10/25/2024: MD Myla Teague MA Her TSH is high and her free T4 is low; she has a thyroid abnormality and should be seen by her PCP and/or endocrinology. This may be contributing to her symptoms of palpitations. Thanks. ABNER for patient on her VM. Lab results sent to Dr. Olivas's office. Normal [facility] Office Visiton 10-25-2024 Follow-up visit [id number] Martha Waters 1975 Date [facility] [place] 10/25/2024 271-MINISTERIO MOORE ONEYDA Shaffer Family History Problem Relation Age of Onset Stroke Father Atrial fibrillation Father Heart attack Paternal Grandfather Family Status - Relation Status Age at Father Paternal Grandfather Level of Service:54802 CA OFFICE/OUTPATIENT NEW MODERATE MDM 45 MINUTES Normal [facility] US Pelvis Non-OB Completeon 07-27-2024 US Pelvis Non-OB Complete Exam Date/Time: 07/27/2024 17:36 [...] Performed Technical Comments Transvaginal Ultrasound Performed Normal [facility] US Transvaginal Non-OBon US Transvaginal Non-OB Exam Date/Time: 07/27/2024 17:30 EST Reason for Exam: N95.0 M54.9 R10.9 Report Please see ultrasound pelvis non-OB complete. Ordering Provider: Sebastián Dunne FINAL REPORT Dictated: 07/27/2024 5:54 pm Blaise Alcantara DO Signed (Electronic Signature): 07/27/2024 5:54 pm Signed by: Blaise Alcantara DO Transcribed by: SONY Technologist: PILO Normal [facility] ED Note-Physicianon 07-24-19 ED Note-Physician ED [...] with close follow-up with Dr. 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 We discussed if she has new or [...] day(s), # 20 tab(s), Refills(s) 0, Pharmacy: [facility]/pharmacy #[id number], 172, cm, 07/22/24 15:53:00 EST, [...] Information Sancho LINTON In 3 days 07/25/[address] [place] [address]- Business (1) Additional Instructions: Maris Olivas In 3 days [address] [facility] [place] [place] [address]- Business (1) Additional Instructions: Patient Education Menorrhagia Attestation Patient seen and evaluated by the physician branch assistant. Attending physician was present in the emergency department and supervised care. This visit was performed by both the physician a (more content not included)... Normal [facility] Comment on above: Result Comment: Elec [...] Oral contrast amount in ml's: 0 Normal [facility] BMPon 07-22-2024 Anion gap [Moles/Vol] 10 mmol/L Normal 6-16 [facility] Comment on above: Performed By: #### 2 [id number] #### [facility] [address] [place] [address] Calcium [Mass/Vol] 9.6 mg/dL Normal 8.9-11.1 [facility] Comment on above: Performed By: #### 2 [id number] #### [facility] [address] [place] [address] Chloride [Moles/Vol] 105 mmol/L Normal 101-111 [facility] Comment on above: Performed By: #### 2 [id number] #### [facility] [address] [place] [address] CO2 [Moles/Vol] 28 mmol/L Normal 21-31 [facility] Comment on above: Performed By: #### 2 [id number] #### [facility] [address] [place] [address] Creatinine [Mass/Vol] 0.8 mg/dL Normal 0.5-1.3 [facility] Comment on above: Performed By: #### 2 [id number] #### [facility] [address] [place] [address] Glucose [Mass/Vol] 92 mg/dL Normal 55-199 [facility] Comment on above: Performed By: #### 2 [id number] #### [facility] [address] [place] [address] Potassium [Moles/Vol] 3.9 mmol/L Normal 3.5-5.3 [facility] Comment on above: Performed By: #### 2 [id number] #### [facility] [address] [place] [address] Sodium [Moles/Vol] 139 mmol/L Normal 135-145 [facility] Comment on above: Performed By: #### 2 [id number] #### [facility] [address] [place] [address] Urea nitrogen [Mass/Vol] 8 mg/dL Normal 5-21 [facility] Comment on above: Performed By: #### 2 [id number] #### [facility] [address] [place] [address] Urea nitrogen/Creatinine [Mass ratio] 10 No Units Normal 10-20 [facility] Comment on above: Performed By: #### 2 [id number] #### [facility] [address] [place] [address] CBC w/ Auto Diffon 5 Basophils/100 WBC (Bld) 1.1 % Normal 0.0-2.0 [facility] Comment on above: Performed By: #### 2 110051 #### [facility] [address] [place] [address] Basophils/Leukocytes Auto (Bld) [Pure # fraction] 0.1 E9/L Normal 0.0-0.2 [facility] Comment on above: Performed By: #### 2 [id number] #### [facility] [address] [place] [address] Eosinophils (Bld) [#/Vol] 0.1 E9/L Normal 0.0-0.5 [facility] Comment on above: Performed By: #### 2 991591 #### [facility] [address] [place] [address] Eosinophils/100 WBC (Bld) 1.7 % Normal 0.0-8.0 [facility] Comment on above: Performed By: #### 2 [id number] #### [facility] [address] [place] [address] Erythrocyte distribution width (RBC) [Ratio] 13.7 % Normal 10.9-14.2 [facility] Comment on above: Performed By: #### 2 [id number] #### [facility] [address] [place] [address] Hematocrit (Bld) [Volume fraction] 45.3 % Normal 34.0-46.0 [facility] Comment on above: Performed By: #### 2 355689 #### [facility] [address] [place] [address] Hemoglobin (Bld) [Mass/Vol] 15.4 g/dL Normal 12.0-16.0 [facility] Comment on above: Performed By: #### 2 929673 #### [facility] [address] [place] [address] Lymphocytes (Bld) [#/Vol] 2.2 E9/L Normal 1.0-4.0 [facility] Comment on above: Performed By: #### 2 568389 #### [facility] [address] [place] [address] Lymphocytes/100 WBC (Bld) 38.2 % Normal 14.0-50.0 [facility] Comment on above: Performed By: #### 2 444990 #### [facility] [address] [place] [address] MCH (RBC) [Entitic mass] 34.7 pg High 27.0-34.0 [facility] Comment on above: Performed By: #### 2 085511 #### [facility] [address] [place] [address] MCHC (RBC) [Mass/Vol] 34.0 g/dL Normal 31.4-36.0 [facility] Comment on above: Performed By: #### 2 119417 #### [facility] [address] [place] [address] MCV (RBC) [Entitic vol] 101.9 fL High 80.0-100.0 [facility] Comment on above: Performed By: #### 2 762776 #### [facility] [address] [place] [address] Monocytes (Bld) [#/Vol] 0.6 E9/L Normal 0.2-1.0 [facility] Comment on above: Performed By: #### 2 978886 #### [facility] [address] [place] [address] Neutrophils (Bld) [#/Vol] 2.8 E9/L Normal 2.0-7.5 [facility] Comment on above: Performed By: #### 2 360722 #### [facility] [address] [place] [address] Neutrophils/100 WBC (Bld) 48.9 % Normal 36.0-75.0 [facility] Comment on above: Performed By: #### 2 174697 #### [facility] [address] [place] [address] Platelet mean volume (Bld) [Entitic vol] 8.9 fL Normal 6.4-10.8 [facility] Comment on above: Performed By: #### 2 080516 #### [facility] [address] [place] [address] Platelets (Bld) [#/Vol] 307.0 E9/L Normal 150.0-500.0 [facility] Comment on above: Performed By: #### 2 323393 #### [facility] [address] [place] [address] RBC (Bld) [#/Vol] 4.4 E12/L Normal 4.3-5.9 [facility] Comment on above: Performed By: #### 2 225573 #### [facility] [address] [place] [address] WBC corrected for nucl RBC Auto (Bld) [#/Vol] 5.8 E9/L Normal 4.0-11.0 [facility] Comment on above: Performed By: #### 2 527876 #### [facility] [address] [place] [address] CHEMISTRYOrdered By: SYSTEM SYSTEM on 07-22-2024 Albumin [...] Chem eGFR 89 mL/min/1.73 m2 Normal >=59mL/min /1 .73 m2 Remisol Chem Globulin (S) [Mass/Vol] 2.8 [...] 2024 ED Clinical Summary ED Clinical Summary [place] [address] ED Clinical Summary Person Information Name: MARTHA WATERS [facility] Age: 49 Years : 1975 Sex: Female Language: Bengali PCP: Maris Olivas MD Marital Status: Visit [...] 07/22/2024 20:14:13 07/22/2024 20:14:13 07/22/2024 20:14:13 ADDRESS: [address] [place] [id number] PHYS DOC NOTES: MEDICAL INFORMATION: Prescriptions Given: New Medications [id number], [address], [place] [id number], [phone] naproxen (naproxen 500 mg Tab) 1 Tablets [...] Menorrhagia Follow up: With: Address: When: Sancho LINTON [facility], [address] [place] [address] , [place], [place] [id number] Business (1) In 3 days 07/25/2024 With: Address: When: Maris Olivas [facility] [facility] [place] [address] Business (1) In 3 days DIAGNOSIS: Abdominal pain; Back pain; Postmenopausal vaginal bleeding Normal [facility] ED Patient Summaryon 025 ED Patient Summary ED Patient Summary [address] [address] Patient Discharge Instructions Person Information Name: MARTHA WATERS Age: 49 Years Arrival Date: 07/22/2024 15:40:19 Discharge Diagnosis: Abdominal pain; Back pain; Postmenopausal vaginal bleeding Primary Care Physician: Maris Olivas MD Provider Information Primary Provider: uJstin Schulte DO Advanced Community Marketing Manager:Sebastián Dunne PA-C. The exam and treatment you received in the Emergency Department were for an urgent problem and are not intended as complete care. It is important that you follow up with a doctor, nurse practitioner, or physician???s branch assistant for ongoing care. If your symptoms become worse or you do not improve as expected and you are unable to reach your usual health care provider, you should return to the Emergency Department. We are available 24 hours a day. MARTHA WATERS has been given the following list of patient education materials, prescriptions and follow-up instructions: Follow-up Instructions: With: Address: When: Sancho LINTON [address] [place] [address] Business (1) In 3 days 07/25/2024 With: Address: When: Maris Olivas [address] [facility], [place] [address] Business (1) In 3 days In the event that this physician does not participate in your insurance network, please consult with your insurance company to find a nearby participating provider. Patient Education Materials: Menorrhagia A MESSAGE TO ALL PATIENTS REGARDING OPIOIDS PRESCRIPTION OPIOIDS: WHAT YOU NEED TO KNOW Prescription opioids can be used to help relieve epeauftp-ev-tspeux pain and are often prescribed following a [...] sourcesForYou). ??? (more content not included)... Normal [facility] Extra Blueon 07-22-2024 Tube Collected Plasma Yes Invalid Interpretation Code [facility] Comment on above: Performed By: #### 1 [id number] #### [facility] [address] [place] [address] HEMATOLOGYOrdered By: SYSTEM SYSTEM on 07-22-2024 Basophils/100 [...] 07-22-2024 Albumin [Mass/Vol] 4.7 g/dL Normal 3.3-5.0 [facility] Comment on above: Performed By: #### 2 757346 #### [facility] [address] [place] [address] Albumin/Globulin (S) [Mass conc ratio] 1.7 Normal 1.1-2.2 [facility] Comment on above: Performed By: #### 2 404216 #### [facility] [address] [place] [address] ALP [Catalytic activity/Vol] 89 Int._Unit/L Normal 21-98 [facility] Comment on above: Performed By: #### 2 [id number] #### [facility] [address] [place] [address] ALT No additional P-5'-P [Catalytic activity/Vol] 11 Int._Unit/L Normal 6-46 [facility] Comment on above: Performed By: #### 2 805224 #### [facility] [address] [place] [address] AST [Catalytic activity/Vol] 15 Int._Unit/L Normal 5-43 [facility] Comment on above: Performed By: #### 2 [id number] #### [facility] [address] [place] [address] Bilirubin [Mass/Vol] 0.6 mg/dL Normal 0.0-1.1 [facility] Comment on above: Performed By: #### 2 994972 #### [facility] [address] [place] [address] Bilirubin.direct [Mass/Vol] 0.1 mg/dL Normal 0.0-0.4 [facility] Comment on above: Performed By: #### 2 [id number] #### [facility] [address] [place] [address] Bilirubin.indirect [Mass or moles/Vol] 0.5 mg/dL Normal 0.1-0.9 [facility] Comment on above: Performed By: #### 2 [id number] #### [facility] [address] [place] [address] Globulin (S) [Mass/Vol] 2.8 g/dL Normal 1.4-4.0 [facility] Comment on above: Performed By: #### 2 [id number] #### [facility] [address] [place] [address] Protein [Mass/Vol] 7.5 g/dL Normal 6.0-7.8 [facility] Comment on above: Performed By: #### 2 [id number] #### [facility] [address] [place] [address] Lipase Levelon 07-22-2024 Lipase [Catalytic activity/Vol] 22 U/L Normal 13-58 [facility] Comment on above: Performed By: #### 2 [id number] #### [facility] [address] [place] [address] UA with Cult Rflxon 07-22-19 25 Bilirubin Ql (U) Negative Normal Negative [facility] Comment on above: Performed By: #### 4 [id number] #### [facility] [address] [place] [address] Clarity (U) Clear Normal Clear [facility] Comment on above: Performed By: #### 4 [id number] #### [facility] [address] [place] [address] Color (U) Yellow Normal Yellow [facility] Comment on above: Result Comment: Micr oscopic readings are only performed on those samples that meet specific criteria set forth by [facility]. Performed By: #### 4 [id number] #### [facility] [address] [place] [address] Epithelial cells.squamous Auto (Urine sed) [#/Area] 5-8 Invalid Interpretation Code [facility] Comment on above: Performed By: #### 4 [id number] #### [facility] [address] [place] [address] Glucose Ql (U) Negative Normal Negative [facility] Comment on above: Performed By: #### 4 [id number] #### [facility] [address] [place] [address] Hemoglobin Auto test strip (U) [Mass/Vol] 1+ mg/dL Abnormal Negative [facility] Comment on above: Performed By: #### 4 [id number] #### [facility] [address] [place] [address] Ketones Auto test strip Ql (U) Negative Normal Negative [facility] Comment on above: Performed By: #### 4 [id number] #### [facility] [address] [place] [address] Leukocyte esterase Auto test strip Ql (U) Negative Normal Negative [facility] Comment on above: Performed By: #### 4 [id number] #### [facility] [address] [place] [address] Mucus Auto Ql (U) 1+ CD:[id number] Abnormal Negative [facility] Comment on above: Performed By: #### 4 [id number] #### [facility] [address] [place] [address] Nitrite Auto test strip Ql (U) Negative Normal Negative [facility] Comment on above: Performed By: #### 4 [id number] #### [facility] [address] [place] [address] pH (U) 6.0 [pH] Invalid Interpretation Code 5.0-9.0 [facility] Comment on above: Performed By: #### 4 [id number] #### [facility] [address] [place] [address] Protein Ql (U) Trace Abnormal Negative [facility] Comment on above: Performed By: #### 4 [id number] #### [facility] [address] [place] [address] RBC Ql (U) 0-3 Normal 0-3 [facility] Comment on above: Performed By: #### 4 [id number] #### [facility] [address] [place] [address] Specific gravity (U) [Rel density] 1.024 Invalid Interpretation Code 1.005-1.030 [facility] Comment on above: Performed By: #### 4 [id number] #### [facility] [address] [place] [address] Urobilinogen (U) [Mass/Vol] 2 mg/dL Abnormal Negative [facility] Comment on above: Performed By: #### 4 [id number] #### [facility] [address] [place] [address] WBC Auto (Urine sed) [#/Area] 0-5 Normal 0-5 [facility] Comment on above: Performed By: #### 4 [id number] #### [facility] [address] [place] [address] Type of Urine collection method Clean Catch Normal [facility] Comment on above: Performed By: #### 4 [id number] #### [facility] [address] [facility] [place] [address] URINALYSISOrdered By: SYSTEM SYSTEM on 07-22-2024 Bilirubin Ql (U) Negative Normal Negativemg/ d L [facility] UA Auto SS Clarity (U) Clear (07/22/24 4:23 PM) Normal Clear [facility] UA Auto SS Color (U) Yellow 1 (07/22/24 4:23 PM) Normal Yellow [facility] UA Auto SS Comment on above: Interpretive Data: M icroscopic readings are only performed on those samples that meet specific criteria set forth by [facility]. Epithelial cells.squamous Auto (Urine sed) [#/Area] 5-8 graded/HPF Invalid Interpretation Code [facility] UA Auto SS Glucose Ql (U) Negative Normal Negativemg/d L [facility] UA Auto SS Hemoglobin Auto test strip (U) [Mass/Vol] 1+ mg/dL Invalid Interpretation Code Negativemg/d L [facility] UA Auto SS Ketones Auto test strip Ql (U) Negative Normal Negativemg/d L [facility] UA Auto SS Leukocyte esterase Auto test strip Ql (U) Negative Normal NegativeLeu/ uL [facility] UA Auto SS Mucus Auto Ql (U) 1+ graded/LPF Invalid Interpretation Code Negativegrad ed/LPF [facility] UA Auto SS Nitrite Auto test strip Ql (U) Negative Normal Negativemg/d L [facility] UA Auto SS pH (U) 6.0 *NA* (07/22/24 4:23 PM) Invalid Interpretation Code 5.0 - 9.0 [facility] UA Auto SS Protein Ql (U) Trace mg/dL Invalid Interpretation Code Negativemg/d L [facility] UA Auto SS RBC Ql (U) 0-3 graded/HPF Normal 0-3graded/HP F [facility] UA Auto SS Specific gravity (U) [Rel density] 1.024 *NA* (07/22/24 4:23 PM) Invalid Interpretation Code 1.005 - 1.030 [facility] UA Auto SS Urobilinogen (U) [Mass/Vol] 2 mg/dL Invalid Interpretation Code Negativemg/d L [facility] UA Auto SS WBC Auto (Urine sed) [#/Area] 0-5 graded/HPF Normal 0-5graded/HP F [facility] UA Auto SS URINALYSISOrdered By: Sebastián Dunne on 07-22-2024 UA Spec Desc Clean Catch (07/22/24 4:23 PM) Normal [facility] [place]A Auto SS eGFRon 07-22-2024 eGFR 89 mL/min/1.73 m2 Normal >=59 [facility] Comment on above: Performed By: #### 1 [id number] #### [facility] [address] [place] [address] CARDIAC DOM ADMITon 022 CK [Catalytic activity/Vol] 73 U/L Normal 30-135 [facility] Comment on above: Performed By: #### C SANDI, CMP #### [facility] [address] [place] [address] [address] Akil Aleman CK.MB [Mass/Vol] 0.61 ng/mL Normal <=2.37 [facility] Comment on above: Performed By: #### C SANDI, CMP #### [facility] [address] [place] [address] Dr. Akil Aleman HSTROP 7.1 pg/mL Normal 4.0-35.5 [facility] Comment on above: Result Comment: CUT- OFF POINTS HAVE BEEN ESTABLISHED BASED ON THE FOURTH UNIVERSAL DEFINITIONS OF MYOCARDIAL INFARCTION. THE UPPER REFERENCE LIMIT (URL) OF TROPONIN, DEFINED THE 99TH PERCENTILE OF cTnI DISTRIBUTION IN A REFERENCE POPULATION, HAS BEEN CONFIRMED THE DECISION THRESHOLD FOR [place] DIAGNOSIS. Performed By: #### C SANDI, CMP #### [facility] [address] [place] [address] Dr. Akil Aleman HUNTER 22.0 ng/mL Normal <=61.5 [facility] Comment on above: Performed By: #### C SANDI, CMP #### [facility] [address] [place] [address] [address] Akil Aleman CBC AUTO DIFFon 08-16-2021 BASO # 0.0 103/ul Normal 0.0-0.1 [facility] Comment on above: Performed By: #### C BC #### [facility] [address] [place] [address] Dr. Akil Aleman Basophils/100 WBC (Bld) 0.5 % Normal 0.2-2.0 [facility] Comment on above: Performed By: #### C BC #### [facility] [address] [place] [address] Dr. Akil Aleman EO # 0.2 103/ul Normal 0.0-0.7 [facility] Comment on above: Performed By: #### C BC #### [facility] [address] [place] [address] Dr. Akil Aleman Eosinophils/100 WBC (Bld) 2.8 % Normal 0.9-7.0 [facility] Comment on above: Performed By: #### C BC #### [facility] [address] [place] [address] Dr. Akil Aleman Erythrocyte distribution width (RBC) [Ratio] 12.6 % Normal 11.0-15.0 [facility] Comment on above: Performed By: #### C BC #### [facility] [address] [place] [address] Dr. Akil Aleman Hematocrit (Bld) [Volume fraction] 42.5 % Normal 36.0-48.0 [facility] Comment on above: Performed By: #### C BC #### [facility] [address] [place] [address] Dr. Akil Aleman Hemoglobin (Bld) [Mass/Vol] 14.8 g/dL Normal 12.0-16.0 [facility] Comment on above: Performed By: #### C BC #### [facility] [address] [place] [address] Dr. Akil Aleman IG # 0.02 10e3/ul Normal 0.00-0.03 [facility] Comment on above: Performed By: #### C BC #### [facility] [address] [place] [address] Dr. Akil Aleman IG % 0.3 % Normal 0.0-0.5 [facility] Comment on above: Performed By: #### C BC #### [facility] [address] [place] [address] Dr. Akil Aleman LYMPH # 2.0 103/ul Normal 1.2-3.8 [facility] Comment on above: Performed By: #### C BC #### [facility] [address] [place] [address] Dr. Akil Aleman Lymphocytes/100 WBC (Bld) 25.4 % Normal 20.5-60.0 [facility] Comment on above: Performed By: #### C BC #### [facility] [address] [place] [address] Dr. Akil Aleman MANUAL DIFF REQ NO Normal [facility] Comment on above: Performed By: #### C BC #### [facility] [address] [place] [address] Dr. Akil Aleman MCH (RBC) [Entitic mass] 36.5 pg Critically high 26.7-34.0 [facility] Comment on above: Performed By: #### C BC #### [facility] [address] [place] [address] Dr. Akil Aleman MCHC (RBC) [Mass/Vol] 34.8 g/dL Normal 29.9-35.2 [facility] Comment on above: Performed By: #### C BC #### [facility] [address] [place] [address] Dr. Akil Aleman MCV (RBC) [Entitic vol] 104.9 fL Critically high 81.0-99.0 [facility] Comment on above: Performed By: #### C BC #### [facility] [address] [place] [address] Dr. Akil Aleman MONO # 0.7 103/ul Normal 0.3-0.8 [facility] Comment on above: Performed By: #### C BC #### [facility] [address] [place] [address] Dr. Akil Aleman Monocytes/100 WBC (Bld) 8.9 % Normal 1.7-12.0 [facility] Comment on above: Performed By: #### C BC #### [facility] [address] [place] [address] Dr. Akil Aleman NEUT # 5.0 103/ul Normal 1.4-6.5 [facility] Comment on above: Performed By: #### C BC #### [facility] [address] [place] [address] Dr. Akil Aleman Neutrophils/100 WBC (Bld) 62.1 % Normal 43.0-75.0 [facility] Comment on above: Performed By: #### C BC #### [facility] [address] [place] [address] Dr. Akil Aleman Platelet mean volume (Bld) [Entitic vol] 12.1 fL Normal 9.5-13.5 [facility] Comment on above: Performed By: #### C BC #### [facility] [address] [place] [address] Dr. Akil Aleman PLT 187 103/ul Normal 150-450 [facility] Comment on above: Performed By: #### C BC #### [facility] [address] [place] [address] Dr. Akil Aleman RBC 4.05 106/ul Critically low 4.20-5.40 [facility] Comment on above: Performed By: #### C BC #### [facility] [address] [place] [address] Dr. Akil Aleman WBC 8.0 103/ul Normal 4.0-11.0 [facility] Comment on above: Performed By: #### C BC #### [facility] [address] [place] [address] Dr. Akil Aleman PROF 14(COMP METB)on 022 Albumin [Mass/Vol] 3.8 g/dL Normal 3.5-5.0 [facility] Comment on above: Performed By: #### C SANDI, CMP #### [facility] [address] [place] [address] Dr. Akil Aleman Albumin/Globulin [Mass ratio] 1.1 {ratio} Normal [facility] Comment on above: Performed By: #### C SANDI, CMP #### [facility] [address] [place] [address] Dr. Akil Aleman ALP [Catalytic activity/Vol] 132 U/L Critically high 38-126 [facility] Comment on above: Performed By: #### C SANDI, CMP #### [facility] [address] [place] [address] Dr. Akil Aleman ALT [Catalytic activity/Vol] 19 U/L Normal 9-52 [facility] Comment on above: Performed By: #### C SANDI, CMP #### [facility] [address] [address] [address] Akil Aleman Anion gap [Moles/Vol] 16.1 mmol/L Normal [facility] Comment on above: Performed By: #### C SANDI, CMP #### [facility] [address] [address] [address] Akil Aleman AST [Catalytic activity/Vol] 13 U/L Critically low 14-36 [facility] Comment on above: Performed By: #### C SANDI, CMP #### [facility] [address] [address] [address] Akil Aleman Bilirubin [Mass/Vol] 0.5 mg/dL Normal 0.2-1.3 [facility] Comment on above: Performed By: #### C SANDI, CMP #### [facility] [address] [address] [address] Akil Aleman Calcium [Mass/Vol] 9.2 mg/dL Normal 8.4-10.2 [facility] Comment on above: Performed By: #### C SANDI, CMP #### [facility] [address] [address] [address] Akil Aleman Chloride [Moles/Vol] 101 mmol/L Normal 98-107 [facility] Comment on above: Performed By: #### C SANDI, CMP #### [facility] [address] [address] [address] Akil Aleman CO2 [Moles/Vol] 25.5 mmol/L Normal 22.0-30.0 [facility] Comment on above: Performed By: #### C SANDI, CMP #### [facility] [address] [place] [address] Dr. Akil Aleman Creatinine [Mass/Vol] 0.70 mg/dL Normal 0.52-1.04 [facility] Comment on above: Performed By: #### C SANDI, CMP #### [facility] [address] [address] [address] Akil Aleman EGFR-AF SLOVENIAN >60 Normal >=60 [facility] Comment on above: Performed By: #### C KIERRAM, CMP #### [facility] [address] [address] [address] Akil Aleman EGFR-NON AF SLOVENIAN >60 Normal >=60 [facility] Comment on above: Performed By: #### C KIERRAM, CMP #### [facility] [address] [address] [address] Akil Aleman Globulin (S) [Mass/Vol] 3.5 g/dL Normal [facility] Comment on above: Performed By: #### C KIERRAM, CMP #### [facility] [address] [address] [address] Akil Aleman Glucose [Mass/Vol] 88 mg/dL Normal 74-106 [facility] Comment on above: Performed By: #### C SANDI, CMP #### [facility] [address] [address] [address] Akil Aleman Potassium [Moles/Vol] 3.6 mmol/L Normal 3.4-5.0 [facility] Comment on above: Performed By: #### C SANDI, CMP #### [facility] [address] [address] [address] Akil Aleman Protein [Mass/Vol] 7.3 g/dL Normal 6.1-8.2 [facility] Comment on above: Performed By: #### C SANDI, CMP #### [facility] [address] [address] [address] Akil Aleman Sodium [Moles/Vol] 139 mmol/L Normal 137-145 [facility] Comment on above: Performed By: #### C SANDI, CMP #### [facility] [address] [address] [address] Akil Aleman Urea nitrogen [Mass/Vol] 11.0 mg/dL Normal 7.0-17.0 [facility] Comment on above: Performed By: #### C SANDI, CMP #### [facility] [address] [place], [place] [address] Dr. Akil Aleman Urea nitrogen/Creatinine [Mass ratio] 15.7 mg/mg Normal [facility] Comment on above: Performed By: #### C SANDI, CMP #### [facility] [address] [place], [place] [address] Dr. Akil Aleman XR CHEST 1 Von [...] by: MELODIE ORTIZ Date: 2021-08-16 02:38 Normal [facility] ED Clinical Summaryon 2020 ED Clinical Summary [address] [address] ED Clinical Summary Person Information Name: Martha Waters [facility] Age: 45 Years : 1975 Sex: Female PCP: Maris Olivas MD Marital Status: Phone: Race: White Ethnicity: Not or Language: Bengali Visit Reason: Seizure; Seizure - febrile Acuity: 3 Enc Type: Emergency Med Service: Emergency Medicine Arrival: 11/02/2020 19:11:24 Discharge: 11/02/2020 22:24:00 LOS: 000 03:13 Checkin: 11/02/2020 19:11:24 Checkout: 11/02/2020 22:24:00 Dispo Type: Home or Self Care Address: [address] [place] [address] Provider Notes: Diagnosis: 1:First time seizure; 2:Anxiety [...] range between ( 27.2 and 40.8 ) Mathews Auto: 5.5 % -- Normal range between [...] range between ( 36.0 and 46.0 ) Mathews Absolute: 0.6 x10 MCH: 34.5 pg -- [...] 59.9 kg (more content not included)... Normal [facility] .UA Microscp Aon 11-02-2020 UA Bacteria Present Abnormal Absent [facility] Comment on above: Performed By: #### C [id number] #### [place] [address] UA Hyline Cast Qual 3-5 Normal Negative [facility] Comment on above: Performed By: #### C [id number] #### [place] [address] UA Mucus Present Abnormal Absent [facility] Comment on above: Performed By: #### C [id number] #### [address] [address] UA RBC Quant 5 /HPF Normal 0-5 [facility] Comment on above: Performed By: #### C [id number] #### [address] [address] UA Squepi Cells Quant 7 /HPF Normal 0-29 [facility] Comment on above: Performed By: #### C [id number] #### [address] [place] [address] UA WBC Quant 4 /HPF Normal 0-5 [facility] Comment on above: Performed By: #### C [id number] #### [address] [address] .eGFRon 11-02-2020 eGFR AA >60 Normal >=60 [facility] Comment on above: Order Comment: Order added by Discern rule Result Comment: See comment. Performed By: #### E GFR #### [address] [address] eGFR Non-AA >60 Normal >=60 [facility] Comment on above: Order Comment: Order [...] years Performed By: #### E GFR #### [address] [address] CBC w/ Diffon 11-02-2020 Erythrocyte distribution width (RBC) [Ratio] 15.5 % High 11.6-14.8 [facility] Comment on above: Performed By: #### C BC #### [address] [address] Hematocrit (Bld) [Volume fraction] 40.2 % Normal 36.0-46.0 [facility] Comment on above: Performed By: #### C BC #### [address] [address] Hemoglobin (Bld) [Mass/Vol] 13.6 g/dL Normal 12.0-16.0 [facility] Comment on above: Performed By: #### C BC #### [address] [address] MCH (RBC) [Entitic mass] 34.5 pg Normal 27.0-35.0 [facility] Comment on above: Performed By: #### C BC #### [address] [address] MCHC 33.8 % Normal 31.0-37.0 [facility] Comment on above: Performed By: #### C BC #### [address] [address] MCV (RBC) [Entitic vol] 102.2 fL High 80.0-100.0 [facility] Comment on above: Performed By: #### C BC #### [address] [address] Platelet 225 x10*3/mcL Normal 150-350 [facility] Comment on above: Performed By: #### C BC #### [address] [address] Platelet mean volume (Bld) [Entitic vol] 9.4 fL Normal 6.7-10.6 [facility] Comment on above: Performed By: #### C BC #### [address] [address] RBC 3.94 x10*6/mcL Normal 3.80-5.20 [facility] Comment on above: Performed By: #### C BC #### [address] [address] WBC 10.5 x10*3/mcL Normal 4.5-11.0 [facility] Comment on above: Performed By: #### C BC #### [address] [place] [address] CMPon 11-02-2020 Creatinine [Mass/Vol] 0.80 mg/dL Normal 0.44-1.03 [facility] Comment on above: Performed By: #### C OMP #### [address] [address] Urea nitrogen [Mass/Vol] 13 mg/dL Normal 8-26 [facility] Comment on above: Performed By: #### C OMP #### [address] [address] Urea nitrogen/Creatinine [Mass ratio] 16.2 mg/mg Normal 10.0-20.0 [facility] Comment on above: Performed By: #### C OMP #### [address] [address] Albumin [Mass/Vol] 3.9 g/dL Normal 3.2-4.9 [facility] Comment on above: Performed By: #### C OMP #### [address] [address] Albumin/Globulin [Mass ratio] 1.3 {ratio} Normal 1.1-2.2 [facility] Comment on above: Performed By: #### C OMP #### [address] [address] Alk Phos 64 IU/L Normal 32-91 [facility] Comment on above: Performed By: #### C OMP #### [address] [address] ALT [Catalytic activity/Vol] 18 U/L Normal 14-54 [facility] Comment on above: Performed By: #### C OMP #### [address] [address] AST [Catalytic activity/Vol] 16 U/L Normal 15-41 [facility] Comment on above: Performed By: #### C OMP #### [address] [address] Bili Total 0.2 mg/dL Low 0.3-1.2 [facility] Comment on above: Performed By: #### C OMP #### [address] [address] Protein [Mass/Vol] 6.8 g/dL Normal 6.5-8.1 [facility] Comment on above: Performed By: #### C OMP #### [address] [address] Anion gap [Moles/Vol] 14 mmol/L Normal 7-17 [facility] Comment on above: Performed By: #### C OMP #### [address] [address] Calcium [Mass/Vol] 9.0 mg/dL Normal 8.5-10.3 [facility] Comment on above: Performed By: #### C OMP #### [address] [address] Chloride [Moles/Vol] 105 mmol/L Normal 98-110 [facility] Comment on above: Performed By: #### C OMP #### [address] [address] CO2 [Moles/Vol] 25 mmol/L Normal 22-32 [facility] Comment on above: Performed By: #### C OMP #### [address] [address] Glucose [Mass/Vol] 107 mg/dL High 70-99 [facility] Comment on above: Performed By: #### C OMP #### [address] [address] Potassium [Moles/Vol] 3.8 mmol/L Normal 3.4-4.8 [facility] Comment on above: Performed By: #### C OMP #### [address] [place] [address] Sodium [Moles/Vol] 140 mmol/L Normal 133-142 [facility] Comment on above: Performed By: #### C OMP #### [address] [address] [address] Brain w/o Contraston 10-17 CT Brain [...] with follow-up nonemergent MRI. Radiation Dose Estimate: CTDI(mGy):0.370731 / / / kVp:120.166556 / mAs:0.459277 / / / DLP(mGy-cm):4.090700W hailey Part: Head CTDI(mGy):40.386187 / / / kVp:120.316308 / mAs:164.406378 / / / DLP(mGy-cm):605.24134 5Body Part: Head Final Dictated by: Sebastián Castañeda MD Dictated DT/TM: 11.02.2020 9:41 pm Signed by: Sebastián Castañeda MD Signed (Electronic Signature): 11.02.2020 9:43 pm (If Report Is Signed, Electronically Signed in Other Vendor System) Normal [facility] Diff Autoon 11-02-2020 Baso Absolute 0.1 x10*3/mcL Normal 0.0-0.2 [facility] Comment on above: Performed By: #### P TINR #### [facility] [address] [place] [address] Basophils/100 WBC (Bld) 1.0 % Normal 0.0-1.5 [facility] Comment on above: Performed By: #### P TINR #### [address] [address] Eos Absolute 0.1 x10*3/mcL Normal 0.0-0.4 [facility] Comment on above: Performed By: #### P TINR #### [address] [address] Eosinophils/100 WBC (Bld) 1.3 % Normal 0.0-5.4 [facility] Comment on above: Performed By: #### P TINR #### [address] [address] Lymph Absolute 1.4 x10*3/mcL Normal 1.0-4.8 [facility] Comment on above: Performed By: #### P TINR #### [address] [address] Lymphocytes/100 WBC (Bld) 13.7 % Low 27.2-40.8 [facility] Comment on above: Performed By: #### P TINR #### [address] [address] Mathews Absolute 0.6 x10*3/mcL Normal 0.1-1.1 [facility] Comment on above: Performed By: #### P TINR #### [address] [address] Monocytes/100 WBC (Bld) 5.5 % Normal 3.7-11.9 [facility] Comment on above: Performed By: #### P TINR #### [address] [address] Neutro Absolute 8.3 x10*3/mcL High 1.8-7.7 [facility] Comment on above: Performed By: #### P TINR #### [address] [address] Neutro Auto 78.5 % High 47.2-70.8 [facility] Comment on above: Performed By: #### P TINR #### [address] [address] [place] [address] ED Note-Physicianon 11-03-19 ED Note-Physician Chief Complaint Patient coming from [facility] for new onset seizure like activity. 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 last use 12 days ago. History of Present Illness Patient presents the emergency department from [facility] for concern of new onset seizure. 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 Salgado. Patient's manager life sciences is by the bedside who will take [...] 225 Me (more content not included)... Normal [facility] Ethanolon 11-02-2020 Ethanol, Plasma <10 Normal <=9 [facility] Comment on above: Result Comment: To c onvert mg/dL to g/dL, divide result by 1,000. Legal limit of intoxication is 80 mg/dL (0.08 g/dL). Performed By: #### P TINR #### [address] [address] Myoglobinon 11-02-2020 Myoglobin 319.0 ng/dL High 14.3-65.8 [facility] Comment on above: Performed By: #### M YO #### [address] [address] PTon 11-02-2020 INR Coag (PPP) [Relative time] 1.1 {INR} Normal <=3.5 [facility] Comment on above: Result Comment: INR has no normal range. INR Therapeutic range is: 2.0-3.0 (AF, CVA, TIAs, DVT prophylaxis, acute DVT) 2.5-3.5 ([facility] heart valves, recurrent thrombosis/emboli) Performed By: #### P TINR #### [address] [address] PT Coag (PPP) [Time] 11.7 s Normal 9.4-12.1 [facility] Comment on above: Performed By: #### P TINR #### [address] [address] PTTon 11-02-2020 aPTT Coag (Bld) [Time] 21.7 s Normal 20.2-27.0 [facility] Comment on above: Performed By: #### P TT #### [address] [address] TSHon 11-02-2020 TSH Qn 3.23 m[IU]/L Normal 0.45-5.33 [facility] Comment on above: Result Comment: Refe rence Ranges for individuals from to 18 years of age were obtained from The [employer] Handbook (20 ed) published by [facility]. Reference Ranges for Females: Females, 1st Trimester 0.05 ? 3.7 uIU/mL Females, 2nd Trimester 0.31 ? 4.35 uIU/mL Females, 3rd Trimester 0.41 ? 5.18 uIU/mL Performed By: #### P TINR #### [id number] Troponin-Ion 11-02-2020 Troponin I.cardiac [Mass/Vol] ng/mL Normal 0.00-0.03 [facility] Comment on above: Result Comment: An i ncreased Troponin-I value, in the absence of myocardial ischemia, may indicate other etiologies of cardiac damage. Performed By: #### T ROP #### [address] [address] UA w Culture if Indon 2020 Color (U) Yellow Normal [facility] Comment on above: Performed By: #### U CI #### [address] [address] Glucose (U) [Mass/Vol] Negative Normal Negative [facility] Comment on above: Performed By: #### U CI #### [address] [address] Ketones Ql (U) Negative Normal Negative [facility] Comment on above: Performed By: #### U CI #### [address] [address] UA Blood Negative Normal Negative [facility] Comment on above: Performed By: #### U CI #### [address] [place] [address] UA Clarity Clear Normal [facility] Comment on above: Performed By: #### U CI #### [address] [place] [address] UA Leukocyte Esterase Negative Normal Negative [facility] Comment on above: Performed By: #### U CI #### [address] [place] [address] UA Nitrite Negative Normal Negative [facility] Comment on above: Performed By: #### U CI #### [address] [place] [address] UA pH 6.0 Normal 4.5 - 7.8 [facility] Comment on above: Performed By: #### U CI #### [address] [place] [address] UA Protein 30 mg/dL Abnormal Negative [facility] Comment on above: Performed By: #### U CI #### [address] [place] [address] UA Source Clean Catch Normal [facility] Comment on above: Performed By: #### U CI #### [address] [place] [address] UA Spec Grav 1.017 Normal 1.003-1.035 [facility] Comment on above: Performed By: #### U CI #### [address] [place] [address] UA Urobilinogen 0.2 mg/dL Normal 0.2 - 1.0 [facility] Comment on above: Performed By: #### U CI #### [address] [place] [address] Urobilinogen (U) [Mass/Vol] Negative Normal Negative [facility] Comment on above: Performed By: #### U CI #### [address] [address] UDS Compon 11-02-2020 Creatinine [Mass/Vol] 186.8 mg/dL Normal [facility] Comment on above: Performed By: #### C [id number] #### [address] [address] Ur Amph Scrn Negative Normal NEG = <1000 [facility] Comment on above: Performed By: #### C [id number] #### [address] [address] Ur Lulu Scrn Positive Abnormal NEG = <200 [facility] Comment on above: Result Comment: This unconfirmed positive screening result is to be used for medical treatment purposes only. Unconfirmed screening results must not be used for non-medical purposes. (e.g. employment testing, legal testing). Performed By: #### C [id number] #### [address] [address] Ur Benzodia Scrn Negative Normal NEG = <200 [facility] Comment on above: Performed By: #### C [id number] #### [address] [address] Ur Cannab Scrn Positive Abnormal NEG = <50 [facility] Comment on above: Result Comment: This unconfirmed positive screening result is to be used for medical treatment purposes only. Unconfirmed screening results must not be used for non-medical purposes. (e.g. employment testing, legal testing). Performed By: #### C [id number] #### [address] [address] Ur Cocaine Scrn Negative Normal NEG = <300 [facility] Comment on above: Performed By: #### C [id number] #### [address] [address] Ur Methadone Scn Negative Normal NEG = <300 [facility] Comment on above: Performed By: #### C [id number] #### [address] [address] Ur Opiate Scrn Negative Normal NEG = <300 [facility] Comment on above: Performed By: #### C [id number] #### [address] [address] Ur Oxy Screen Negative Normal NEG = <100 [facility] Comment on above: Performed By: #### C [id number] #### [address] [address] Ur Oxy Scrn Qnt 0 ng/mL Normal <=99 [facility] Comment on above: Performed By: #### C [id number] #### [address] [address] Ur PCP Scrn Negative Normal NEG = <25 [facility] Comment on above: Performed By: #### C [id number] #### [address] [address] UA pH 6.0 Normal 4.5 - 7.8 [facility] Comment on above: Performed By: #### C [id number] #### [address] [address] UA Spec Grav 1.017 Normal 1.003-1.035 [facility] Comment on above: Performed By: #### C [id number] #### [address] [address] XR Chest 1 Viewon 11-02-2020 XR Chest [...] Electronically Signed in Other Vendor System) Normal [facility] Vital Signs Date Time Vital Sign Value Performing Clinician Faci lity 07-22-2024 19:46-0500 Diastolic blood pressure 76 mm[Hg] Justin Eris [facility] 07-22-2024 19:46-0500 Heart rate 71 /min Justin Eris [facility] 07-22-2024 19:46-0500 Mean blood pressure 91 mm[Hg] Justin Rosse [facility] 07-22-2024 19:46-0500 Respiratory rate 17 /min Justin Rosse [facility] 07-22-2024 19:46-0500 SaO2% (BldA) [Mass fraction] 98 % Justin Eris [facility] 07-22-2024 19:46-0500 Systolic blood pressure 120 mm[Hg] Justin Rosse [facility] 07-22-2024 17:15-0500 Diastolic blood pressure 46 mm[Hg] Justin Rosse [facility] 07-22-2024 17:15-0500 Heart rate 67 /min Justin Rosse [facility] 07-22-2024 17:15-0500 Mean blood pressure 69 mm[Hg] Justin Rosse [facility] 07-22-2024 17:15-0500 Respiratory rate 16 /min Justin Rosse [facility] 07-22-2024 17:15-0500 SaO2% (BldA) [Mass fraction] 100 % Justin Eris [facility] 07-22-2024 17:15-0500 Systolic blood pressure 114 mm[Hg] Justin Eris [facility] 07-22-2024 15:47-0500 Body temperature 98.24 [degF] Justin Eris [facility] 07-22-2024 15:47-0500 Diastolic blood pressure 92 mm[Hg] Justin Schulte [facility] 07-22-2024 15:47-0500 Heart rate 90 /min Justin Schulte [facility] 07-22-2024 15:47-0500 Respiratory rate 18 /min Justin Schulte [facility] 07-22-2024 15:47-0500 SaO2% (BldA) [Mass fraction] 100 % Justin Schulte [facility] 07-22-2024 15:47-0500 Systolic blood pressure 132 mm[Hg] Justin Schulte [facility] 06-19-2022 14:50-0500 Blood Pressure Location Wolfgang RENEEL [facility] 06-19-2022 14:50-0500 Diastolic blood pressure 66 mm[Hg] Wolfgang RENEEL [facility] [place] 06-19-2022 14:50-0500 Heart rate 76 /min Wolfgang NILL [facility] [place] 06-19-2022 14:50-0500 Respiratory rate 16 /min Wolfgang RENEEL [facility] [place] 06-19-2022 14:50-0500 Systolic blood pressure 108 mm[Hg] Wolfgang NILL [facility] [place] Encounters Encounter Date Encounter Type Care Provider Facility Start: 10-25-2024 End: 10-25-2024 ambulatory E[facility] Start: 07-27-2024 End: 07-27-2024 ambulatory KITTY Dun[place] [place]: 07-27-2024 End: 07-27-2024 Patient encounter procedure Sebastián Dunne [facility] Start: 07-22-2024 End: 07-22-2024 Emergency department patient visit Justin Schulte [facility] Start: 05-19-2024 ambulatory Patel Cortez acility:[facility] Start: 07-30-2022 End: 07-30-[address] MARIS OLIVAS Facility:[facility] Start: 07-15-2022 End: 07-15-2022 Patient encounter procedure Wolfgang Edna RENEEL [facility] Start: 06-19-2022 End: 06-19-2022 Patient encounter procedure Wolfgang Edna JESUSITA [facility] Start: 08-22-2021 End: 08-22-[address] MARIS OLIVAS Facility:[facility] Start: 08-19-2021 End: 08-20-[address] MARIS OLIVAS Facility:[facility] Start: 08-16-2021 End: 08-16-[address] MARIS OLIVAS Facility:[facility] Start: 11-02-2020 End: 11-03-2020 Emergency department patient visit Justin Santos Gareth Facility:[facility] Procedures Date Procedure Procedure Detail Performing Clinician section Wolfgang Bennett section Wolfgang Bennett Comment on above: x 3 Cholecystectomy Wolfgang MC Excision of lesion of tongue Wolfgang RENEEL Laser assisted in si tu keratomileusis Wolfgang NILL Tonsillectomy Wolfgang MC Immunizations Immunization Date Immunization Notes Care Provider Jocelyn metcalf NEGATED: Highlighted row has not occurred!06-19-2022 influenza virus vaccine, unspecified formulation Wolfgang MC [facility] Payers Date Payer Category Payer Unknown [id number] 2020 Self-pay 1973 Unknown [id number] 2.16. [id number] 1973 Unknown [id number] 2.16.84 [id number] 1973 Unknown [id number] 2.16.84 [id number] 1973 Unknown [id number] 2.16.84 [id number] 1973 Unknown [id number] 2.16.84 [id number] 1973 Unknown [id number] 2.16.8 [id number] 1973 Unknown [id number] 2.16.8 [id number] 1973 Unknown [id number] 2.16.8 [id number] 1959 Unknown [id number] 1959 Unknown [id number] Unknown [id number] 2.16.8 [id number] Social History Date Type Detail Facility Start: 06-19-2022 Tobacco smoking status Heavy t obacco smoker (finding) [facility] Tobacco smoking status Never [facility] [place] Sex Assigned At Female [facility] Tobacco Current vaping o r e-cigarette use Smokeless Tobacco Use:. Vaping [facility] Tobacco smoking status No Smokin g Status Entered [facility] Functional Status Date Assessment Result Facility 07-22-2024 Functional Status N/A [facility] 06-19-2022 Functional Status N/A [facility] [place] Progress note 10-25-2024 Note Date & Type Note Facility 10-25-2024 Note [facility] Card[facility] Clinic Note Chief Complaint: New patient here to establish care. Ref from Dr. Olivas for abnormal stress test. Per Dr. Olivas's office note, she has a history of atrial fibrillation. She says stress test was ordered for abnormal EKG. Denies chest pain and SOB. Gets palpitations when she has anxiety attacks. She vapes daily, and used to smoke cigarettes. She had an anxiety attack recently with HR in the 180's. She did not have chest pain or SOB with this. HPI: Martha Waters is a 49 y.o. female With a history of anxiety who is here due to an abnormal stress test The patient has had anxiety for some time. She used to be treated with Ativan. She does not take that anymore. Apparently, in 2006, she was diagnosed with atrial fibrillation . She is treated with a beta-petrona. She has had Holter monitors on several times. She states that she has panic attacks and her heart rate can go up into the 160s to 180s. She has lightheadedness and dizziness but no syncope. She denies chest pain. Pertinently, she has no exertional chest pain or shortness of breath. There is no orthopnea, no paroxysmal external dyspnea, no lower extremity edema. Social history: She drinks 4 to 5 cups of coffee a day, denies alcohol. She vapes. She does not work. Family history: No premature coronary artery disease in any first-degree relatives. Cardiology ROS: Review of Systems Cardiovascular: Positive for palpitations (with anxiety attacks). All other systems reviewed and are negative. Past Medical History She has no past medical history on file. Surgical History She has no past surgical history on file. Social History She has no history on file for tobacco use, alcohol use, and drug use. Family History No family history on file. Allergies Patient has no allergy information on record. Medications No current outpatient medications on file. Last Recorded Vitals BP 118/76 (BP Location: Right arm, Patient Position: Sitting) Pulse 70 Ht 1.626 m (5' 4 ) Wt 60.3 kg (133 lb) SpO2 98% BMI 22.83 kg/m??? Physical Examination: GENERAL: alert and oriented x3, well developed, in no acute distress. HEAD: atraumatic, normocephalic. EYES: HUNTER, EOMI. NECK: trachea midline, no JVD present, no carotid bruits present. CARDIAC: S1, S2 present. RRR. No murmur, rubs, or gallops. RESPIRATORY: CTAB, no increased effort of breathing, no rales, rhonchi, or wheezing. ABDOMEN: soft, nontender, nondistended. EXTREMITIES: no lower extremity edema, peripheral pulses are 2+ bilaterally. No rash/skin discoloration present. NEURO: strength/sensation equal and symmetric in bilateral upper and lower extremities. PSYCH: appropriate mood, affect, and judgement. Investigations: EKG/01/2025: Sinus rhythm, inferolateral ST depressions Exercise treadmill stress test/01/2025: Treadmill exercise EKG showed inferolateral ST depressions with an intermediate Osorio score Nuclear portion was normal with no evidence of ischemia, normal EF, no evidence of transient ischemic dilatation Assessment: Abnormal EKG Palpitations History of atrial fibrillation in the past Excessive caffeinated beverage intake Abnormal EKG portion of stress test with normal perfusion imaging Anxiety disorder Plan: Routine labs; CBC, CMP, TSH and free T4 A complete echocardiogram Reassurance; the EKG portion is likely false positive particular given the abnormal resting EKG. A nuclear imaging shows no evidence of perfusion defects and no transient ischemic dilatation. This does not warrant further investigations at this time. Depending on the results of her event monitor and echo she may need further testing. I would strongly recommend that she see a psychiatrist for severe anxiety disorder; this may be the primary precipitating factor for her palpitations. Return to clinic in 2 to 3 months Ministerio Moore MD, MPH, [facility], [facility] Interventional Cardiology Pager Email: [email or web address] Discharge instructions 07-22-2024 Note Date & [...] Follow these instructions at home: Medicines Take utgs-wia-hsfrifd and prescription medicines only as told by [...] to keep your urine pale yellow. Take eiat-qcy-taqgzmp or prescription medicines. Eat foods that are [...] it may include medicines or procedures. Take xkwt-gte-uvlnhvy and prescription medicines only as told by [...] provider. Document Revised: 03/18/2021 Document Reviewed: 03/18/2021 [employer] Patient Education 2023 [employer]. Follow Up Care 07/22/2024 15:41:50 With:Sancho LINTON Address: [address] [place] [address]- Business (1) When:07/25/2024 19:57:29 With:Maris Olivas Address: [address] [place] [address] [place] [address]- Business (1) When:Within 3 Day(s) [facility] Clinical Note 07-22-2024 Note Date & [...] these instructions at home: Medicines ??? Take kmjb-xwo-hxwjsvr and prescription medicines only as told by [...] take these actions (more content not included)... [facility] Evaluation + Plan note Note Date & Type Note Facility Evaluation + Plan note Future Appointments Appointment Date:07/15/2022 03:00:00 PM Scheduled Provider:Wolfgang MC MD Location:[facility] Appointment Type: Procedure 30 [facility] Hospital course Narrative Note Date & Type Note Facility Hospital course Narrative No data available for this section [facility] Discharge instructions Note Date & Type Note Facility Hospital Discharge instructions No data available for this section [facility] [place] Progress note Note Date & Type Note [...] section and content) DATE CREATED AUTHOR 11/06/2020 [facility] DATE CREATED AUTHOR AUTHOR'S ORGANIZ ATION 08/03/2022 [facility] DATE CREATED AUTHOR AUTHOR'S ORGANIZ ATION 06/30/2024 [facility] DATE CREATED AUTHOR AUTHOR'S ORGANIZ ATION 07/29/2024 [facility] DATE CREATED AUTHOR AUTHOR'S ORGANIZ ATION 08/06/2024 [facility] DATE CREATED AUTHOR AUTHOR'S ORGANIZ ATION 12/15/2024 [facility] Patient Care team informatio n (unrecognized section and content) Personnel Name: Maris Olivas MD Address: Address: [address] [place] [address] Personnel Name: Maris Olivas MD Address: Address: [address] [place] [address] Personnel Name: Maris Olivas MD Address: Address: [address] [place] [address] Personnel Name: Maris Olivas MD Address: Address: [address] [place] [address] FOR RECORDS PERTAINING TO PATIENTS WHO ARE [...] BE BASED ON THE PRIMARY CLINICAL RECORDS. [facility] [employer] [facility]. provides no warranty or guarantee of the accuracy or completeness of information in this document.
== END 2025-01-11 13:55 | disposition home or self-care (01) ==
LOC: CARD 13:54
PROVIDERS: PCP Family Medicine; Visit Provider Internal Medicine Interventional Cardiology
DX: R00.2 Palpitations (principal); I08.1 Rheumatic disorders of both mitral and tricuspid valves
CPT/HCPCS: 36415; 84436; 84443; 84481; 93306

== ENCOUNTER 2025-01-11 13:56 | Outpatient (OUT) | payer BC, SELFPAY ==
[2025-01-11 15:42] LABS: Free T3 2.52 pg/mL (2.18-3.98); Thyroid Stimulating Hormone 4.087 uIU/mL (0.358-3.740)
== END 2025-01-11 13:57 | disposition home or self-care (01) ==
LOC: LAB 13:56
PROVIDERS: PCP Family Medicine; Visit Provider Family Medicine
DX: R00.2 Palpitations (principal)
CPT/HCPCS: 36415; 84436; 84443; 84481

== ENCOUNTER 2025-04-15 21:13 | Emergency (ER) | payer BC, SELFPAY ==
--- OUTSIDE RECORDS SUMMARY | 2025-01-30 14:27 | XMS_ITS ---
Author Name Auto Generated Organization OHIP Care Team Providers Care Master Glazier Name Role Phone Patel Aguilar Admitting UnavailPatel Mccormick Attending Camilo Cano Primary Care Unavailable KITTY Dunne Admitting KITTY Cobb Attending KITTY Cobb Referring Asmitaab Sancho Baeza Consulting DO Sancho Bunn Consulting Sancho Bunn Consulting Justin Quintero Attending Justin Quintero Attending Unavailable MINISTERIO MOORE Attending Unavailable MINISTERIO MOORE Attending Unavailable PROBLEMS DATE TYPE CONDITION / CODE [facility]ING [facility] Admitting Diagnosis Abnormal electrocardiogram (ECG) (EKG) / R94.31(ICD-10) MINISTERIO MOORE Active [facility] 10/25/2024 Admitting Diagnosis Palpitations / R00.2(ICD-10) MINISTERIO MOORE Active [facility] PROCEDURES No Procedure Records Found RESULTS PROGRESS Observed: 01/30/2025 2:30 PM Status: COMPLETED Source: [facility] Cardiology Clinic Note Chief Complaint: Patient is here today for a follow up appointment. Patient states she had her ECHO, Labs and 30 day Holter done. Patient states she had gained 40 pound in the the last 6 months. Patient states she was recently put on Levothyroxine within the 2 weeks. Patient states she still has a lot of palpitations and occasional JARAMILLO. Patient states she has a lot of anxiety and panic attacks. Patient denies chest pain, leg swelling, HPI: Martha Waters is a 49 y.o. female With a history of anxiety who is here due to an abnormal stress test The patient has had anxiety for some time. She used to be treated with Ativan. She does not take that anymore. Apparently, in 2006, she was diagnosed with atrial fibrillation . She is treated with a beta-jaleel. She has had Holter monitors on several [...] coronary artery disease in any first-degree relatives. Update 01/30/2025: The patient was diagnosed with hypothyroidism and started on thyroid replacement Testing has been essentially unremarkable She still has palpitations, anxiety, and panic Cardiology ROS: Review of Systems Cardiovascular: Positive for palpitations (with anxiety attacks). Psychiatric/Behavioral: The patient is nervous/anxious. All other systems reviewed and are negative. Past Medical History She has a past medical history of Abnormal ECG. Surgical History She has a past surgical history that includes Tonsillectomy; Cholecystectomy; section, classic; Sacrococcygeal ulcer removal; and Tongue surgery. Social History She reports that she has quit smoking. Her smoking use included cigarettes. She uses smokeless tobacco. No history on file for alcohol use and drug use. Family History Family History Problem Relation Name Age of Onset Stroke Father Atrial fibrillation Father Heart attack Paternal Grandfather Allergies Codeine, Dye, and Sulfa (sulfonamide antibiotics) Medications Current Outpatient Medications: desvenlafaxine (Pristiq) 100 mg 24 hr tablet, Take 100 mg by mouth in the morning., Disp: , Rfl: metoprolol succinate XL (Toprol-XL) 50 mg 24 hr tablet, Take 1 tablet by mouth in the morning., Disp: , Rfl: QUEtiapine (SEROquel) 200 mg tablet, Take 200 mg by mouth at bedtime., Disp: , Rfl: solifenacin (VESIcare) 10 mg tablet, Take 1 tablet by mouth in the morning., Disp: , Rfl: valACYclovir (Valtrex) 500 mg tablet, Take 500 mg by mouth in the morning., Disp: , Rfl: Last Recorded Vitals BP 122/80 (BP Location: Right arm, Patient Position: Sitting) Pulse 81 Ht 1.626 m (5' 4 ) Wt 64.9 kg (143 lb) SpO2 97% BMI 24.55 kg/m??? Physical Examination: GENERAL: alert and oriented [...] EF, no evidence of transient ischemic dilatation Labs reviewed; Free T4 was low at 0.72, TSH high at 3.763 30-day event monitor; sinus rhythm, infrequent ectopy, symptoms coinciding with sinus rhythm and ectopic beats. No significant arrhythmias Echocardiogram 01/11/2025: Conclusion: Normal left ventricular systolic function is normal without wall motion abnormalities ejection fraction 66% Normal right ventricular size and systolic function Normal left ventricular diastolic function Normal right-sided pressures Trivial mitral regurgitation and tricuspid regurgitation Assessment: Abnormal EKG Palpitations; Supraventricular ectopy History of atrial fibrillation in the past Excessive caffeinated beverage intake Abnormal EKG portion of stress test with normal perfusion imaging Anxiety disorder Plan: Reassurance; the EKG portion is likely false positive particular given the abnormal resting EKG. A nuclear imaging shows no evidence of perfusion defects and no transient ischemic dilatation. This does not warrant further investigations at this time. Her symptoms are likely the combination of anxiety disorder, excessive caffeinated beverages, and an undiagnosed thyroid disorder I would strongly recommend that she see a psychiatrist for severe anxiety disorder; this may be the primary precipitating factor for her palpitations. Would suggest increasing her Toprol-XL to 75 mg daily and uptitrating as needed for symptomatic relief She is to follow-up with her non cardiac specialists - strongly urged her to see a psychiatrist; provided info on a local resource Return to clinic on an as-needed basis; if her palpitations worsen, she needs to see one of our area mechanic Ministerio Moore MD, MPH, [facility], [facility], [facility] Interventional Cardiology Pager Email: [email or web address] OFFICE VISIT Observed: 01/30/2025 2:30 PM Status: COMPLETED Source: [facility] [id number] Martha Waters 1975 Provider Department Center 01/30/2025 271-MINISTERIO MOORE Family History Problem Relation Age of Onset Stroke Father Atrial fibrillation Father Heart attack Paternal Grandfather Family Status - Relation Status Age at Mother Alive Father Alive Paternal Grandfather Level of Service:02161 [place] OFFICE/OUTPATIENT ESTABLISHED LOW MDM 20 MIN ORDERS ONLY Observed: 01/12/2025 12:00 AM Status: COMPLETED Source: [facility] [id number] Martha Waters 1975 Provider Department Center 01/12/2025 [id number], HISTORICAL ONEYDA [facility] Family History Problem Relation Age of Onset Stroke Father Atrial fibrillation Father Heart attack Paternal Grandfather Family Status - Relation Status Age at Father Paternal Grandfather ORDERS ONLY Observed: 12/07/2024 12:00 AM Status: COMPLETED Source: [facility] [id number] Martha Waters 0 1975 Provider Department Center 12/07/2024 [id number], HISTORICAL BRANDI [facility] Family History Problem Relation Age of Onset Stroke Father Atrial fibrillation Father Heart attack Paternal Grandfather Family Status - Relation Status Age at Father Paternal Grandfather 36 Observed: 10/26/2024 10:26 AM Status: COMPLETED Source: [facility] Regarding lab results from : MD Myla Teague MA Her TSH is high and her free T4 is low; she has a thyroid abnormality and should be seen by her PCP and/or endocrinology. This may be contributing to her symptoms of palpitations. Thanks. for patient on her VM. Lab results sent to Dr. Olivas's office. OFFICE VISIT Observed: 10/25/2024 9:00 AM Status: COMPLETED Source: [facility] [id number] Martha Waters 0 1975 F Date Provider Department Center 10/25/2024 271-MINISTERIO MOORE [facility] [place] [facility] Family History Problem Relation Age of Onset Stroke Father Atrial fibrillation Father Heart attack Paternal Grandfather Family Status - Relation Status Age at Father Paternal Grandfather Level of Service:28664 [place] OFFICE/OUTPATIENT NEW MODERATE MDM 45 MINUTES PROGRESS Observed: 10/25/2024 9:00 AM Status: COMPLETED Source: [facility] Cardiology Clinic Note Chief Complaint: New patient [...] fibrillation . She is treated with a beta-jaleel. She has had Holter monitors on several [...] to 3 months Ministerio Moore MD, MPH, [facility], [facility], [facility] Interventional Cardiology Pager Email: [email or web address]-OB Observed: 025 5:29 PM Status: F Source: [facility] Exam Date/Time: 07/27/2024 17:30 EST Reason for Exam: N95.0 M54.9 R10.9 Report Please see ultrasound pelvis non-OB complete. Ordering Provider: Sebastián Dunne FINAL REPORT Dictated: 07/27/2024 5:54 pm Blaise Alcantara DO Signed (Electronic Signature): 07/27/2024 5:54 pm Signed by: Blaise Alcantara DO Transcribed by: SONY Technologist: PILO QUEVEDO PELVIS NON-OB COMPLETE Observed: 03/2025 4:21 PM Status: F Source: [facility] Exam Date/Time: 07/27/2024 17:36 EST Reason for [...] Ultrasound Performed Technical Comments Transvaginal Ultrasound Performed ED NOTE-PHYSICIAN Observed: 07/22/2024 8:17 PM Status: F Source: [facility] ED Note-Physician Basic Information Time Seen: Sebastián [...] with close follow-up with Dr. Linton her [employer]. We discussed if she has new or [...] day(s), # 20 tab(s), Refills(s) 0, Pharmacy: [facility]/pharmacy #[id number], 172, cm, 07/22/24 15:53:00 EST, [...] Information Sancho LINTON In 3 days 07/25/[address] [place] [address]- Business (1) Additional Instructions: Camilo Olivas In 3 days [address] [facility] [place] [address] [place] [address]- Business (1) Additional Instructions: Patient Education Menorrhagia Attestation Patient seen and evaluated by the physician psychological assistant. Attending physician was present in the emergency department and supervised care. This visit was performed by both the physician and an APC. I performed all aspects of the MDM as documented. This report was transcribed using voice recognition software. Every effort was made to ensure accuracy, however, inadvertently computerized pickling drum operator mistakes may be present. Appropriate healthcare PPE was used in evaluating this patient. The patient was placed in a mask. The healthcare provider was wearing mask, gloves, and utilizing proper hand hygiene. All equipment was properly cleansed. I performed a substantive part of the MDM during the patient???s E/M visit. I personally made or approved the documented management plan and acknowledge its risk of complications. (Independent Interpretation) My (EKG/X-Ray/US/CT as applicable) interpretation as above. (Discussion) Management/test interpretation discussed with APC. 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 Medications Inpatient No active inpatient medications Home aspirin 81 mg Oral EC Tab, 81 mg= 1 tab(s), Oral, Daily carvedilol 3.125 mg Tab, 3.125 mg= 1 tab(s), Oral, BID Myrbetriq 25 mg oral tablet, extended release, 25 mg= 1 tab(s), Oral, Daily naproxen 500 mg Tab, 500 mg= 1 tab(s), Oral, BID Pristiq 100 mg Tab-ER, 100 mg= 1 tab(s), Oral, Daily Valtrex 500 mg Tab, 500 mg= 1 tab(s), Oral, Daily Allergies Contrast Dye (SOB - Shortness of breath, Hives) codeine (Hives) sulfa drugs (Rash) Social History Alcohol - Denies Alcohol Use, 03/15/2020 Substance Abuse - Denies Substance Abuse, 03/15/2020 Tobacco - High Risk, 07/22/2024 Current vaping or e-cigarette use Smokeless Tobacco Use:. Vaping, 07/22/2024 10 or more cigarettes (1/2 pack or more)/day in last 30 days Tobacco Use:. Never Smokeless Tobacco Use:. Cigarettes, 0.5 per day. Yes, 06/19/2022 Family History Asthma: Mother. Cardiac arrhythmia: Mother and Father. Depression: Mother. Diabetes mellitus type 2: Mother. Hodgkin's disease: Father. Hypertension: Father. Hypothyroidism: Mother. Stroke: Father. Lab Results WBC: 5.8 E9/L (07/22/24 16:14:00) RBC: 4.4 E12/L (07/22/24 16:14:00) HGB: 15.4 gm/dL (07/22/24 16:14:00) Hct: 45.3 % (07/22/24 16:14:00) MCV: 101.9 fL High (07/22/24 16:14:00) MCH: 34.7 pg High (07/22/24 16:14:00) MCHC: 34 gm/dL (07/22/24 16:14:00) RDW: 13.7 % (07/22/24 16:14:00) Platelet: 307 E9/L (07/22/24 16:14:00) MPV: 8.9 fL (07/22/24 16:14:00) Neutro Auto: 48.9 % (07/22/24 16:14:00) Lymph Auto: 38.2 % (07/22/24 16:14:00) [place] Auto: 10.1 % (07/22/24 16:14:00) Eos Auto: 1.7 % (07/22/24 16:14:00) Basophil Auto: 1.1 % (07/22/24 16:14:00) Neutro Absolute: 2.8 E9/L (07/22/24 16:14:00) Lymph Absolute: 2.2 E9/L (07/22/24 16:14:00) [place] Absolute: 0.6 E9/L (07/22/24 16:14:00) Eos Absolute: 0.1 E9/L (07/22/24 16:14:00) Basophil Absolute: 0.1 E9/L (07/22/24 16:14:00) Glucose Lvl: 92 mg/dL (07/22/24 16:14:00) BUN: 8 mg/dL (07/22/24 16:14:00) Creatinine: 0.8 mg/dL (07/22/24 16:14:00) eGFR: 89 mL/min/1.73 m2 (07/22/24 16:14:00) BUN/Creat Ratio: 10 (07/22/24 16:14:00) Sodium Lvl: 139 mmol/L (07/22/24 16:14:00) Potassium Lvl: 3.9 mmol/L (07/22/24 16:14:00) Chloride: 105 mmol/L (07/22/24 16:14:00) CO2: 28 mmol/L (07/22/24 16:14:00) AGAP: 10 mEq/L (07/22/24 16:14:00) Calcium Lvl: 9.6 mg/dL (07/22/24 16:14:00) Alk Phos: 89 Int._Unit/L (07/22/24 16:14:00) ALT: 11 Int._Unit/L (07/22/24 16:14:00) AST: 15 Int._Unit/L (07/22/24 16:14:00) Total Protein: 7.5 gm/dL (07/22/24 16:14:00) Albumin Lvl: 4.7 gm/dL (07/22/24 16:14:00) Globulin: 2.8 gm/dL (07/22/24 16:14:00) A/G Ratio: 1.7 (07/22/24 16:14:00) Bili Total: 0.6 mg/dL (07/22/24 16:14:00) Bili Direct: 0.1 mg/dL (07/22/24 16:14:00) Bili Indirect: 0.5 mg/dL (07/22/24 16:14:00) Lipase Lvl: 22 unit/L (07/22/24 16:14:00) UA Spec Desc: Clean Catch (07/22/24 16:23:00) UA Color: Yellow (07/22/24 16:23:00) UA Clarity: Clear (07/22/24 16:23:00) UA Spec Grav: 1.024 (07/22/24 16:23:00) UA pH: 6.0 (07/22/24 16:23:00) UA Protein: Trace Abnormal (07/22/24 16:23:00) UA Glucose: Negat (07/22/24 16:23:00) UA Ketones: Negat (07/22/24 16:23:00) UA Bili: Negat (07/22/24 16:23:00) UA Blood: 1+ Abnormal (07/22/24 16:23:00) UA Nitrite: Negat (07/22/24 16:23:00) UA Urobilinogen: 2 mg/dL Abnormal (07/22/24 16:23:00) UA Leuk Est: Negat (07/22/24 16:23:00) UA RBC: 0-3 (07/22/24 16:23:00) UA Squam Epithelial: 5-8 (07/22/24 16:23:00) UA WBC: 0-5 (07/22/24 16:23:00) UA Mucous: 1+ Abnormal (07/22/24 16:23:00) Diagnostic Results CT of the abdomen and pelvis interpreted by radiology is negative for any acute intra-abdominal process. Result Comment: Electronical ly Signed By: Sebastián Dunne PA-C\.br\Date and Time Signed: 07/22/24 20:51 EST\.br\Electronically Co-Signed By: Justin Schulte DO\.br\Date and Time Co-Signed: 07/24/24 08:46 EST ED PATIENT EDUCATION NOTE Observed: 10/2024 8:14 PM Status: F Source: [facility] ED Patient Education Note Obstetrics and Gynecology [...] these instructions at home: Medicines ??? Take ykpq-dfr-mltfojf and prescription medicines only as told by [...] these actions to prevent or treat constipation: ??? Drink enough fluid to keep your urine pale yellow. ??? Take dwmf-zfu-bknqipj or prescription medicines. ??? Eat foods that are high in fiber, such as beans, whole grains, and fresh fruits and vegetables. ??? Limit foods that are high in fat and processed sugars, such as fried or sweet foods. General instructions ??? If you need to change your sanitary pad or tampon more than once every 2 hours, limit your activity until the bleeding stops. ??? Eat well-balanced meals, including foods that are high in iron. Foods that have a lot of iron include leafy green vegetables, meat, liver, eggs, and whole-grain breads and cereals. ??? Do not try to lose weight until the abnormal bleeding has stopped and your blood iron level is back to normal. If you need to lose weight, work with your health care provider to lose weight safely. ??? Keep all follow-up visits. This is important. Contact a health care provider if: ??? You soak through a pad or tampon every 1 or 2 hours, and this happens every time you have a period. ??? You need to use pads and tampons at the same time because you are bleeding so much. ??? You have nausea, vomiting, diarrhea, or other problems related to medicines you are taking. Get help right away if: ??? You soak through more than a pad or tampon in 1 hour. ??? You pass clots bigger than 1 inch (2.5 cm) wide. ??? You feel short of breath. ??? You feel like your heart is beating too fast. ??? You feel dizzy or you faint. ??? You feel very weak or tired. Summary ??? Menorrhagia is a form of abnormal uterine bleeding in which menstrual periods are heavy or last longer than normal. ??? Treatment may not be needed for this condition. If it is needed, it may include medicines or procedures. ??? Take xzcf-cki-jrdslue and prescription medicines only as told by your health care provider. This includes iron pills. ??? Get help right away if you have [...] provider. Document Revised: 03/18/2021 Document Reviewed: 03/18/2021 [employer] Patient Education ? 2023 [employer]. ED PATIENT SUMMARY Observed: 07/22/2024 8:14 PM Status: F Source: [facility] ED Patient Summary [place] [id number] Patient Discharge Instructions Person Information Name: MARTHA WATERS Age: 49 Years Arrival Date: 07/22/2024 15:40:19 Discharge Diagnosis: Abdominal pain; Back pain; Postmenopausal vaginal bleeding Primary Care Physician: Camilo Olivsa MD Provider Information Primary Provider: Justin Schulte DO Advanced Chaperon:Sebastián Dunne PA-C The exam and treatment you received in the Emergency Department were for an urgent problem and are not intended as complete care. It is important that you follow up with a doctor, nurse practitioner, or physician???s psychological assistant for ongoing care. If your symptoms [...] Follow-up Instructions: With: Address: When: Sancho LINTON [facility], [address] [place] [address] [place] [address] Business (1) In 3 days 07/25/2024 With: Address: When: Camilo Olivas [address] [facility], [place] [address] Business (1) In 3 days In the event that this physician does not participate in your insurance network, please consult with your insurance company to find a nearby participating provider. Patient Education Materials: Wishpot[employer]ia A MESSAGE TO ALL PATIENTS REGARDING OPIOIDS PRESCRIPTION OPIOIDS: WHAT YOU NEED TO KNOW Prescription opioids can be used to help relieve oosavpnt-gl-lwzdxs pain and are often prescribed following a [...] guidance from the Food and Drug Administration (www.fda.gov/Drugs/ResourcesForYou). ??? Visit www.cdc.gov/drugoverdose to learn about the risks of opioids abuse and overdose. ??? If you believe you may be struggling with addiction, tell your health home care associate and ask for guidance or call [facility]???S National Helpline at 2-160-600-AZRB. v Source: US Department of Health and Human Services/Center for Disease Control & Prevention [facility] Medications Given: Medication Dose Route ketorolac 30.00 mg IntraMuscular Right Gluteus Medius Medication Information: New Medications [facility]/pharmacy #[id number], [address], [place] [id number], [phone] naproxen (naproxen 500 mg Tab) 1 Tablets [...] Tab) 1 Tablets By Mouth every day. Comment: Pharmacy Information: Patient Portal You may access all of your results and other medical record information on our secure patient portal. If you are not signed up for this yet, please contact [employer] at [phone] to get signed up today. RIGO Award Nomination The RIGO (Diseases Attacking the Immune SYstem) Award is an international recognition program that honors and celebrates the skillful, compassionate care nurses provide every day. Anyone who experiences or observes amazing care being provided by a nurse is encouraged to submit a nomination. To nominate your nurse, use your smart phone to scan the QR code below. You may receive a survey from Tarun Kim asking you to rate your care experience. Your feedback is important and will help us understand what we do well and how we can improve the quality of care we provide to you, your loved ones and our community. It???s an honor to serve you. Thank you for choosing [facility] Patient Education Materials: Menorrhagia Menorrhagia is a form of abnormal [...] these instructions at home: Medicines ??? Take oonz-qbu-leeouxq and prescription medicines only as told by [...] these actions to prevent or treat constipation: ??? Drink enough fluid to keep your urine pale yellow. ??? Take cgtf-ecz-zmhlwxg or prescription medicines. ??? Eat foods that are high in fiber, such as beans, whole grains, and fresh fruits and vegetables. ??? Limit foods that are high in fat and processed sugars, such as fried or sweet foods. General instructions ??? If you need to change your sanitary pad or tampon more than once every 2 hours, limit your activity until the bleeding stops. ??? Eat well-balanced meals, including foods that are high in iron. Foods that have a lot of iron include leafy green vegetables, meat, liver, eggs, and whole-grain breads and cereals. ??? Do not try to lose weight until the abnormal bleeding has stopped and your blood iron level is back to normal. If you need to lose weight, work with your health care provider to lose weight safely. ??? Keep all follow-up visits. This is important. Contact a health care provider if: ??? You soak through a pad or tampon every 1 or 2 hours, and this happens every time you have a period. ??? You need to use pads and tampons at the same time because you are bleeding so much. ??? You have nausea, vomiting, diarrhea, or other problems related to medicines you are taking. Get help right away if: ??? You soak through more than a pad or tampon in 1 hour. ??? You pass clots bigger than 1 inch (2.5 cm) wide. ??? You feel short of breath. ??? You feel like your heart is beating too fast. ??? You feel dizzy or you faint. ??? You feel very weak or tired. Summary ??? Menorrhagia is a form of abnormal uterine bleeding in which menstrual periods are heavy or last longer than normal. ??? Treatment may not be needed for this condition. If it is needed, it may include medicines or procedures. ??? Take jmfj-aiy-mcltsgg and prescription medicines only as told by your health care provider. This includes iron pills. ??? Get help right away if you have [...] provider. Document Revised: 03/18/2021 Document Reviewed: 03/18/2021 Elsevier Patient Education ? 2023 [employer]. I, MARTHA WATERS , have received the following patient education materials/instructions and have verbalized understanding: Patient Education Materials: Menorrhagia Follow-up Instructions: With: Address: When: Sancho LINTON [facility], [address] [place] [address] [address]ry, [place] [employer] [employer], [place] [id number] Business (1) In 3 days 07/25/2024 With: Address: When: Camilo Brendon [address] [place] [address], [address] [place], [place] [id number] Business (1) In 3 days Patient Signature Date Clinician/Nurse Signature Date 07/22/2024 20:14:15 ED CLINICAL SUMMARY Observed: 07/22/2024 8:14 PM Status: F Source: [facility] ED Clinical Summary [place] [id number] ED Clinical Summary Person Information Name: MARTHA WATERS [facility] Age: 49 Years : 1975 Sex: Female Language: Faroese PCP: Camilo Olivas MD Marital Status: Visit Id: Visit [...] 07/22/2024 20:14:13 07/22/2024 20:14:13 07/22/2024 20:14:13 ADDRESS: [address] [place] [phone] PHYS DOC NOTES: MEDICAL INFORMATION: Prescriptions Given: New Medications [id number], [address], [place] [phone], [phone] naproxen (naproxen 500 mg Tab) 1 Tablets [...] Follow up: With: Address: When: Sancho LINTON [facility], [address] [place] [address] [facility] [place], [place] [address] Business (1) In 3 days 07/25/2024 With: Address: When: Camilo Olivas [address] [facility] [facility] [place], [place] [id number] Business (1) In 3 days DIAGNOSIS: Abdominal pain; Back pain; Postmenopausal vaginal bleeding UA WITH CULT RFLX Collected: 5 4:23 PM Status: F Source: [facility] TYPE CODE TESTS RESULT OUT OF RANGE REFERENCE UNITS LAB 9194-2(LOINC) CLASS:TYPE:PT: URINE COLLECTION METHOD:NOM:* Clean Catch Normal LAB 13085-2([facility]) COLOR:TYPE:PT: URINE:NOM:AUTO Yellow Normal Yellow Result Comment: Microscopic readings are only performed on those samples that meet specific criteria set forth by [facility]. LAB 37966-2([facility]) CLARITY:TYPE:P T:URINE:NOM: Clear Normal Clear LAB 5811-5([facility]) SPECIFIC GRAVITY:RDEN:P T:URINE:SEMIQN :TEST STRIP 1.024 Unknown 1.005-1.030 LAB 5803-2([facility]) PH:LSCNC:PT:UR INE:SEMIQN:ADITI T STRIP 6.0 Unknown 5.0-9.0 LAB 73221-6([facility]) PROTEIN:PRTHR: PT:URINE:ORD:T EST STRIP Trace Abnormal Negative mg/dL LAB 49121-0([facility]) GLUCOSE:PRTHR: PT:URINE:ORD:T EST STRIP Negative Normal Negative mg/dL LAB 08647-3([facility]) KETONES:PRTHR: PT:URINE:ORD:T EST STRIP.AUTOMATE D Negative Normal Negative mg/dL LAB 25936-7([facility]) BILIRUBIN:PRTH R:PT:URINE:ORD :TEST STRIP.AUTOMATE D Negative Normal Negative mg/dL LAB 65538-1([facility]) HEMOGLOBIN:MCN C:PT:URINE:COLLETTE IQN:TEST STRIP.AUTOMATE D 1+ Abnormal Negative mg/dL LAB 62353-1([facility]) NITRITE:PRTHR: PT:URINE:ORD:T EST STRIP.AUTOMATE D Negative Normal Negative mg/dL LAB 37171-0([facility]) UROBILINOGEN:M CNC:PT:URINE:S EMIQN:TEST STRIP 2 mg/dL Abnormal Negative mg/dL LAB 91124-0([facility]) LEUKOCYTE ESTERASE:PRTHR :PT:URINE:ORD: TEST STRIP.AUTOMATE D Negative Normal Negative CD:00070 81553 LAB 34273-5([facility]) LEUKOCYTES:COLLETTE IC:PT:URINE SED:QN:AUTOMAT ED COUNT 0-5 Normal 0-5 CD:14408 87774 LAB 84721-0([facility]) ERYTHROCYTES:P RTHR:PT:URINE SED:ORD:MICROS COPY.LIGHT 0-3 Normal 0-3 CD:42127 85653 LAB 38700-3([facility]) EPITHELIAL CELLS.SQUAMOUS :NARIC:PT:URIN E SED:QN:AUTOMAT ED COUNT 5-8 Unknown CD:52217 71052 LAB 65620-1([facility]) MUCUS:PRTHR:PT :URINE:ORD:AUT OMATED 1+ Abnormal Negative CD:51453 81203 Performed By: #### [id number] #### [facility] [address] [place] [address] EXTRA BLUE Collected: 07/22/2024 4:14 PM Status: F Source: [facility] TYPE CODE TESTS RESULT OUT OF RANGE REFERENCE UNITS LAB CD:[id number](L OINC) Tube Collected Plasma Yes Unknown Performed By: #### [id number] #### [facility] [address] [place] [address] EGFR Collected: 4:14 PM Status: F Source: [facility] TYPE CODE TESTS RESULT OUT OF RANGE REFERENCE UNITS LAB 32487852([facility]) eGFR 89 Normal >=59 mL/min/1 .7 3 m2 Performed By: #### [id number] #### [facility] [address] [place] [address] BMP Collected: 4:14 PM Status: F Source: [facility] TYPE CODE TESTS RESULT OUT OF RANGE REFERENCE UNITS LAB 2345-7([facility]) GLUCOSE:MCNC :PT:SER/PLAS :QN: 92 Normal 55-199 mg/dL LAB 3094-0([facility]) UREA NITROGEN:MCN C:PT:SER/JUDITH S:QN: 8 Normal 5-21 mg/dL LAB 2160-0([facility]) CREATININE:M CNC:PT:SER/P LAS:QN: 0.8 Normal 0.5-1.3 mg/dL LAB 3097-3([facility]) UREA NITROGEN/CRE ATININE:MRTO :PT:SER/PLAS :QN: 10 Normal 10-20 No Units LAB 86814-7([facility]) CALCIUM:MCNC :PT:SER/PLAS :QN: 9.6 Normal 8.9-11.1 mg/dL LAB 2951-2([facility]) SODIUM:SCNC: PT:SER/PLAS: QN: 139 Normal 135-145 mmol/L LAB 2823-3([facility]) POTASSIUM:SC NC:PT:SER/PL :QN: 3.9 Normal 3.5-5.3 mmol/L LAB 2075-0([facility]) CHLORIDE:SCN C:PT:SER/JUDITH S:QN: 105 Normal 101-111 mmol/L LAB 2027-9([facility]) CARBON DIOXIDE:SCNC :PT:SER/PLAS :QN: 28 Normal 21-31 mmol/L LAB 15755-5([facility]) ANION GAP:SCNC:PT: SER/PLAS:QN: 10 Normal 6-16 mEq/L Performed By: #### [id number] # ### [facility] [address] [place] [address] HEP FUNC PANEL Collected: 07/22/2024 4:14 PM Status: F Source: [facility] TYPE CODE TESTS RESULT OUT OF RANGE REFERENCE UNITS LAB 1744-2([facility]) ALANINE AMINOTRANSFERA SE:CCNC:PT:SER /PLAS:QN:NO ADDITION OF P-5'-P 11 Normal 6-46 Int._Unit /L LAB 1920-8([facility]) ASPARTATE AMINOTRANSFERA SE:CCNC:PT:SER /PLAS:QN: 15 Normal 5-43 Int._Unit /L LAB 1751-7([facility]) ALBUMIN:MCNC:P T:SER/PLAS:QN: 4.7 Normal 3.3-5.0 gm/dL LAB 50009-6([facility]) GLOBULIN:MCNC: PT:SER:QN:CALC ULATED 2.8 Normal 1.4-4.0 gm/dL LAB 05568-8([facility]) ALBUMIN/GLOBUL IN:MCRTO:PT:SE R:QN: 1.7 Normal 1.1-2.2 LAB 6768-6([facility]) ALKALINE PHOSPHATASE:CC NC:PT:SER/PLAS :QN: 89 Normal 21-98 Int._Unit /L LAB 1967-7([facility]) BILIRUBIN.GLUC URONIDATED+CALLIE IRUBIN.ALBUMIN BOUND:MCNC:PT: SER/PLAS:QN: 0.1 Normal 0.0-0.4 mg/dL LAB 97885-6([facility]) BILIRUBIN.NON- GLUCURONIDATED :MSCNC:PT:SER/ PLAS:QN: 0.5 Normal 0.1-0.9 mg/dL LAB 1975-2([facility]) BILIRUBIN:MCNC :PT:SER/PLAS:Q N: 0.6 Normal 0.0-1.1 mg/dL LAB 2885-2([facility]) PROTEIN:MCNC:P T:SER/PLAS:QN: 7.5 Normal 6.0-7.8 gm/dL Performed By: #### [id number] # ### [facility] [address] [place] [address] CBC W/ AUTO DIFF Collected: 07/22/2024 4:14 PM Statu s: F Source: [facility] TYPE CODE TESTS RESULT OUT OF RANGE REFERENCE UNITS LAB 84228-2([facility]) LEUKOCYTES^^TJ ECTED FOR NUCLEATED ERYTHROCYTES:NCN C:PT:BLD:QN:AUTO MATED COUNT 5.8 Normal 4.0-11.0 E9/L LAB 789-8([facility]) ERYTHROCYTES:NCN C:PT:BLD:QN:AUTO MATED COUNT 4.4 Normal 4.3-5.9 E12/L LAB 718-7([facility]) HEMOGLOBIN:MCNC: PT:BLD:QN: 15.4 Normal 12.0-16.0 gm/dL LAB 4544-3([facility]) HEMATOCRIT:VFR:P T:BLD:QN:AUTOMAT ED COUNT 45.3 Normal 34.0-46.0 % LAB 788-0([facility]) ERYTHROCYTE DISTRIBUTION WIDTH:RATIO:PT:R BC:QN:AUTOMATED COUNT 13.7 Normal 10.9-14.2 % LAB 785-6([facility]) ERYTHROCYTE MEAN CORPUSCULAR HEMOGLOBIN:ENTMA SS:PT:RBC:QN:AUT OMATED COUNT 34.7 High 27.0-34.0 pg LAB 786-4([facility]) ERYTHROCYTE MEAN CORPUSCULAR HEMOGLOBIN CONCENTRATION:MC NC:PT:RBC:QN:AUT OMATED COUNT 34.0 Normal 31.4-36.0 gm/dL LAB 787-2([facility]) ERYTHROCYTE MEAN CORPUSCULAR VOLUME:ENTVOL:PT :RBC:QN:AUTOMATE D COUNT 101.9 High 80.0-100.0 fL LAB 12636-1([facility]) PLATELET MEAN VOLUME:ENTVOL:PT :BLD:QN:AUTOMATE D COUNT 8.9 Normal 6.4-10.8 fL LAB 777-3([facility]) PLATELETS:NCNC:P T:BLD:QN:AUTOMAT ED COUNT 307.0 Normal 150.0-500.0 E9/L LAB 13556-2([facility]) NEUTROPHILS/100 LEUKOCYTES:NFR:P T:BLD:QN: 48.9 Normal 36.0-75.0 % LAB 731-0([facility]) LYMPHOCYTES:NCNC :PT:BLD:QN:AUTOM ATED COUNT 38.2 Normal 14.0-50.0 % LAB 742-7([facility]) MONOCYTES:NCNC:P T:BLD:QN:AUTOMAT ED COUNT 0.6 Normal 0.2-1.0 E9/L LAB 713-8([facility]) EOSINOPHILS/100 LEUKOCYTES:NFR:P T:BLD:QN:AUTOMAT ED COUNT 1.7 Normal 0.0-8.0 % LAB 704-7([facility]) BASOPHILS:NCNC:P T:BLD:QN:AUTOMAT ED COUNT 1.1 Normal 0.0-2.0 % LAB 751-8([facility]) NEUTROPHILS:NCNC :PT:BLD:QN:AUTOM ATED COUNT 2.8 Normal 2.0-7.5 E9/L LAB 46700-5([facility]) LYMPHOCYTES:NCNC :PT:BLD:QN: 2.2 Normal 1.0-4.0 E9/L LAB 26272-8([facility]) EOSINOPHILS:NCNC :PT:BLD:QN: 0.1 Normal 0.0-0.5 E9/L LAB 53302-0([facility]) BASOPHILS/LEUKOC YTES:NFR.DF:PT:B LD:QN:AUTOMATED COUNT 0.1 Normal 0.0-0.2 E9/L Performed By: #### [id number] # ### [facility] [address] [place], [place] [id number] LIPASE LEVEL Collected: 07/22/2024 4:14 PM Status: F Source: [facility] TYPE CODE TESTS RESULT OUT OF RANGE REFERENCE UNITS LAB 3040-3([facility]) TRIACYLGLYCEROL LIPASE:CCNC:PT:SER/ PLAS:QN: 22 Normal 13-58 unit/L Performed By: #### [id number] # ### [facility] [address] [place] [address] CT ABDOMEN/PELVIS W/O CONTRAST Observed: 07/22/2024 4:13 PM Status: F Source: [facility] Exam Date/Time: 07/22/2024 16:22 EST Reason for [...] evidence for diverticulitis. Lymph Nodes: No lymphadenopathy. Mesentery/peritoneum/retroperitoneum: No ascites or mass. Vasculature: Mild arterial [...] No Oral contrast amount in ml's: 0 ALLERGIES DATE TYPE / CODE NAME / CODE REACTION SEVERITY SOURCE 10/25/2024 DRUG INGREDI/43988 1003(SNOMED CT) DYE Other [facility] 09/17/2019 DRUG INGREDI/91403 1003(SNOMED CT) CODEINE Hives [facility] 09/17/2019 Drug Class/2175981 03(SNOMED CT) SULFA (SULFONAMIDE ANTIBIOTICS) Other [facility] /199038616( SNOMED CT) codeine 160347938 [facility] /011293407( SNOMED CT) Contrast Dye 199511440~7499242 [address] [facility] [address]/517713696( SNOMED CT) sulfa drugs 170357949 [facility] ENCOUNTERS ADMIT/DISCHARGE ACCOUNT NUMBER ADMITTING ENCOUNTER CLASS LOCATION SOURCE 01/30/2025/01/31/20 [id number] Ambulatory Building:[facility] 10/25/2024/10/26/19 [id number] Ambulatory Building:[facility] 07/27/2024/07/27/19 [id number] KITTY Dunne Ambulatory FTBuilding :[facility] 07/22/2024 [id number] Emergency FTBuilding :EDRoom: ED-13Bed: CD:[id number] [facility] 07/22/2024/07/22/19 [id number] Emergency FTBuilding :EDRoom: ED-13Bed: CD:[id number] [facility] 05/19/2024 [id number] [facility] PAYERS ENCOUNTER GUARANTOR PAYER SUBSCRIBER SOURCE 01/30/2025 Primary [facility]: [id number] tive Date:2024-07-19 MARTHA JARRETTB: [id number] [place] [address] [facility] 10/25/2024 Primary Insurance:DARIAN VALADEZJAYANT OHIOPolicy Number: [id number] ve Date:2024-07-19 MARTHA SR: [id number] [place] [address] [facility] 07/27/2024 MARTHA SR: LAURENT STTel: ~~([phone] (HP) Primary Insurance:SELF PAYPolicy Number: Effective Date:2024-07-27 [facility] MARTHA SR: LAURENT STTel: ~~([phone] (HP) Primary Insurance:SELF PAYPolicy Number: Effective Date:2024-07-22 MARTHA IZQUIERDO [facility] 07/22/2024 MARTHA SR: LAURENT STTel: ~~([phone] (HP) Primary Insurance:SELF PAYPolicy Number: Effective Date:2024-07-22 [facility]2024 [place] [address]Lpa: (HP) Primary Insurance:Self PayPolicy Number: Effective Date:2024-05-19 [facility]
[2025-04-15 21:31] VITALS: BP 105/69; PULSE 71; TEMP 36.9; O2SAT 96; BMI 24.9
--- NOTE | 2025-04-15 21:36 | ED_ITS ---
HPI HPI - General Adult General Chief complaint: Wound/Laceration Stated complaint: Laceration Time Seen by Provider: 04/15/25 21:16 History of Present Illness HPI narrative: Patient is a 50-year-old female that presents to the emergency department with complaints of laceration to the left thigh. She states she was crawling through a window that caused the laceration. They tried to put some skin glue on it but she was worried about infection and presented here. There are other linear scars above and below this that she states are there because she used to cut herself. She is on Seroquel. She denies that this laceration was an attempt to harm herself and she denies any suicidal or homicidal ideations. Related Data Home Medications ?Medication ?Instructions ?Recorded ?Confirmed desvenlafaxine succinate 100 mg mg PO 10/03/24 tablet,extended release 24 hr metoprolol tartrate 25 mg tablet mg 10/03/24 quetiapine 200 mg tablet mg 10/03/24 valacyclovir 500 mg tablet mg 10/03/24 Previous Rx's ?Medication ?Instructions ?Recorded cephalexin 500 mg capsule 500 mg PO BID 7 days #14 cap s 04/15/25 Allergies Allergy/AdvReac Type Severity Reaction Status Date / Time codeine AdvReac Mild Hives Verified 10/03/24 22:32 Iodinated Contrast Media AdvReac Mild Hives Verified 10/03/24 22:32 Sulfa (Sulfonamide AdvReac Mild Hives Verified 10/03/24 22:32 Antibiotics) Opioid HPI Opioid Management Most Recent Opioid Data: Last Pain Scale 8 04/15/25, 21:31 Review of Systems ROS Status of ROS 10 or more systems reviewed and unremark able except as noted in history and below PFSH PFSH Social History Little interest or pleasure in doing things: not at all Feeling down, depressed, or hopeless: not at all Exam Narrative Exam Narrative: General: No distress, age-appropriate Skin: Warm, dry, no pallor. No rash. See extremity, 3.5 cm hemostatic la ceration to the left thigh. Head: Normocephalic, atraumatic. Neck: Supple, non-tender. Eye: Pupils are equal, round and EOMI. No scleral icterus. Cardiovascular: Regular Rate and Rhythm without murmur, gallop or rub. Respiratory: No accessory muscle use or respiratory distress. Lungs are clear to auscultation, no wheezing, rales or rhonchi Musculoskeletal: Full ROM of all extremities, no calf or popliteal tenderness. Left thigh 3.5 linear laceration, hemostatic. There are other linear superficial wounds above and below that are healing. No surrounding erythema from the other wounds. Neurological: A&O x4. No cranial nerve dysfunction observed. No truncal ataxia. Moves all extremities. Sensation intact. Psychiatric: Cooperative and interactive. Normal mood and affect. Constitutional Vital Signs, click to edit/add: Last Vital Signs Temp 98.5 F 04/15/25 21:31 Pulse 71 04/15/25 21:31 Resp 16 04/15/25 21:31 BP 105/69 04/15/25 21:31 Pulse Ox 96 04/15/25 21:31 O2 Del Method Room Air 04/15/25 21:31 Documenting provider has reviewed patient's vital signs: yes Course Vital Signs Vital signs: Vital Signs Temperature 98.5 F 04/15/25 21:31 Pulse Rate 71 04/15/25 21:31 Respiratory Rate 16 04/15/25 21:31 Blood Pressure 105/69 04/15/25 21:31 Pulse Oximetry 96 04/15/25 21:31 Oxygen Delivery Method Room Air 04/15/25 21:31 Temperature 98.5 F 04/15/25 21:31 Pulse Rate 71 04/15/25 21:31 Respiratory Rate 16 04/15/25 21:31 Blood Pressure 105/69 04/15/25 21:31 Pulse Oximetry 96 04/15/25 21:31 Oxygen Delivery Method Room Air 04/15/25 21:31 Medical Decision Making MDM Narrative Medical decision making narrative: This is a 50-year-old female that presented to the emergency department with complaints of laceration to the left thigh. She does not think that her tetanus is up-to-date. She states that she was climbing through a window and sustained a laceration to her left mid thigh. She does have healing linear wounds above and below this laceration that she states are from cutting. She states that she is getting help. She denies suicidal homicidal ideations. On arrival patient is in no distress, wound is approximately 3.5 cm and hemostatic. Pain is controlled. There are healing wounds that are linear above and below this from previous behavioral cutting. Vital signs are hemodynamically stable. Last tetanus was administered 07/30/2022 so is up-to-date. Lidocaine 1% 10 mL ordered for local anesthetic. Wound was repaired in a multilayered fashion. See procedure note below. Patient was educated on wound care and return precautions including fever, night sweats, chills, increasing erythema, purulent drainage. We did discuss avoiding squats/deep knee flexion to avoid wound dehiscence. She will be discharged on Keflex and plan will be to follow-up with Dr. Olivas, PCP, and 10-14 days for suture removal. Patient was discharged to home with her . Differential Diagnosis Differential Diagnosis: Laceration, infection Imaging Data Xray Left Femur: Attestation: I have reviewed the pertinent imaging results. My impression: 2 view x-rays of the left femur were reviewed and interpreted by myself and no radiopaque objects noted. No fracture or dislocation noted. Discharge Plan Discharge Chief Complaint: Wound/Laceration Clinical Impression: Laceration Patient Disposition: Home, Self-Care Time of Disposition Decision: 22:31 Condition: Good Mode of Transportation: Private Vehicle Prescriptions / Home Meds: New cephalexin 500 mg capsule 500 mg PO BID 7 Days Qty: 14 0RF No Action quetiapine 200 mg tablet valacyclovir 500 mg tablet metoprolol tartrate 25 mg tablet desvenlafaxine succinate 100 mg tablet extended release 24 hr PO Print Language: Somali Instructions: Care For Your Stitches (DC), Laceration (DC) Additional Instructions: Have you Primary physician remove stitches in 10-14 days. Gently cleanse the wound with soap and water daily. Check it daily for signs of infection such as increasing redness, swelling, foul-smelling drainage, thick [place]/brown drainage. Yellow/pink/red thin drainage is normal. Use a dressing if it is draining. Modify activities so stitches do not come loose. Return to the emergency department for any signs or symptoms of infection including wound symptoms above or fever, night sweats, or chills. Also return if you experience any new or worsening symptoms. Referrals: Camilo Olivas MD [Primary Care Provider, Family Practice] - 1 week Referral Note: Call for stitch removal in 10-14 days Discharge Date/Time: 04/15/25 22:45 Procedures ED Laceration Laceration Laceration 1: Site: lower extremity Side (if applicable): left Size (cm): 3.5 Description: linear Depth: simple, single layer (Complex into subcutaneous layer ) Anesthetic used: lidocaine 1% Anesthesia technique: local infiltration Amount (ml): 8 Pre-repair: wound explored and irrigated extensively Skin layer closed with: other (Prolene) Size (cm): 3-0 Number of sutures: 8 Technique: simple, interrupted Subcutaneous layer closed with: Vicryl Size: 3-0 Number of sutures: 2
--- NOTE | 2025-04-15 21:40 | XR_ITS ---
[facility] [place] [id number] Patient Name: GERTRUDE WATERS MRN: [id number] date: 1975 Sex: F Assigned Patient Location: ED.MAIN Current Patient Location: Accession/Order Number: [id number] Exam Date: 04/15/2025 21:48 Report Date: 04/16/2025 08:10 At the request of: MENG VALENTINO Procedure: XR femur LT 2V LEFT FEMUR - 2 views COMPARISON: None CLINICAL DATA: Laceration to left leg trying to climb out a window. AP and lateral views were obtained. There is no acute fracture, dislocation or bony destruction. No radiopaque foreign bodies or subcutaneous air are noted. XR/XR femur LT 2V IMPRESSION: NO ACUTE PLAIN FILM FINDINGS. Impression dictated by: Doreen Guevara M.D. 04/16/2025 8:10 AM Dictation Location: [place] [address] Electronically authenticated by: [id number] Y Date: 04/16/2025 08:10
[2025-04-15] MEDS: LIDOCAINE HCL 1% 100 MG/10 ML MDV INJ (21:59)
== END 2025-04-15 22:45 | disposition home or self-care (01) ==
PROVIDERS: Emergency Provider Emergency Medicine; PCP Family Medicine
DX: S71.112A Laceration without foreign body, left thigh, initial encounter (principal); W25.XXXA Contact with sharp glass, initial encounter; Z91.52 Personal history of nonsuicidal self-harm
CPT/HCPCS: 12002; 73552; 99283

== ENCOUNTER 2025-04-30 15:41 | Outpatient (OUT) | payer BC, SELFPAY ==
--- OUTSIDE RECORDS SUMMARY | 2025-04-30 15:46 | XMS_ITS | CCD ---
Author Organization [facility] Inform ion Partnership [facility] Care Team Providers Care Hat Cleaner Name Role Phone Justin Servin Attending Unavailable [...] Unavailable PRISCILLA, DR POLLOCK Primary Care Unavailable RPISCILLA, DR POLLOCK Primary Care Unavailable CANDELARIO, DR INDIRA Santos Admitting Unavailsabino PALOMINO, DR INDIRA Santos Attending Unavailsabino PALOMINO, DR INDIRA Santos Consulting UnavailPatel Givens Attending Unavailab Patel Boone Admitting Unavailab Maris Soliz Primary Care Unavailable Justin Schulte Attending Unavailable KITTY Dunne Admitting Unavailab KITTY Proctor Attending Unavailab KITTY Proctor Referring Unavailab Sancho Baeza Consulting Unavailable DO Sancho LINTON Consulting Unavailable Sancho LINTON Consulting Justin Quintero Attending Unavailable MINISTERIO MOORE Attending Unavailable MINISTERIO MOORE Attending Unavailable Allergies Allergy Classification Reported Allergen(s) Allergy Type Date of Onset Reaction(s) Facility Opioid Agonists (1 source) Codeine; Translations: [codeine] Drug Allergy [facility] Repository Sulfonamides (antibiotic) (1 source) Sulfonamides (Antibiotic); Translations: [sulfa drugs] Drug Allergy [facility] Repository (7 sources) Codeine; Translations: [codeine] Drug Allergy 0 Weal (disorder) [facility] [place] (6 sources) Contrast media; Translations: [Contrast Dye] Drug allergy Dyspnea (finding), Weal (disorder) [facility] [place] (6 sources) Sulfonamides (Antibiotic); Translations: [sulfa drugs] Drug allergy Eruption of skin (disorder) General [facility] [place] (1 source) Codeine Drug Allergy 3 [facility] Repository (1 source) Sulfonamides (Antibiotic) Drug allergy (disorder) 3 [facility] Repository (1 source) Codeine Drug Allergy 1 [facility] Repository (2 sources) Sulfonamides (Antibiotic); Translations: [SULFA (SULFONAMIDE ANTIBIOTICS)] Drug allergy (disorder) 0 [facility] Repository (1 source) Contrast media; Translations: [DYE] Propensity to adverse reactions to drug (disorder) 5 [facility] Repository Medications Current Medications Medication Drug [...] day(s), # 20 tab(s), Refills(s) 0, Pharmacy: [facility]/pharmacy #[id number], 172, cm, 07/22/24 15:53:00 EST, [...] Onset: 07-30-2022 Episodic Other aftercare (1 source) [facility] (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 aspirin; Translations: [BUSINESS REPORTING DEVELOPER CURRENT USE OF ASPIRIN] Onset: 08-03-2022 Episodic Other aftercare (1 source) Other buttermaker continuous churn (current) drug therapy; Translations: [OTH BUSINESS REPORTING DEVELOPER CURRENT DRUG THERAPY] Onset: 08-03-2022 Episodic Other and unspecified benign neoplasm (4 sources) Benign neoplasm of face 03-15-2020 Episodic Other diseases of bladder and urethra (4 sources) Overactive bladder 03-08-2020 Chronic Other screening for suspected conditions (not mental disorders or infectious disease) (2 sources) Abnormal electrocardiogram [ECG] [EKG]; Translations: [Abnormal electrocardiogram (ECG) (EKG)] Onset: 01-30-2025 Episodic Spondylosis; intervertebral disc disorders; other back problems (5 sources) Cervical radiculopathy; Translations: [Backache] Onset: 07-22-2024 03-08-2020 Episodic Substance-related disorders (4 sources) History of drug abuse 03-08-2020 Chronic Unclassified (4 sources) Decreased body mass index 06-19-2022 Results Test Name Value Interpretation Reference Range Facility Office Visiton 01-30-2025 Follow-up visit [id number] Martha Waters Lesa 1975 Date Provider Department Center 01/30/2025 MINISTERIO ADAMS Family History Problem Relation Age of Onset Stroke Father Atrial fibrillation Father Heart attack Paternal Grandfather Family Status - Relation Status Age at Mother Alive Father Alive Paternal Grandfather Level of Service:51761 DE OFFICE/OUTPATIENT ESTABLISHED LOW MDM 20 MIN Normal [facility] Orders Onlyon 01-12-2025 Orders Only [id number] Martha Waters Lesa 1975 Date Provider Department Center 01/12/2025 [id number], HISTORICAL [facility] Family History Problem Relation Age of Onset Stroke Father Atrial fibrillation Father Heart attack Paternal Grandfather Family Status - Relation Status Age at Father Paternal Grandfather Normal [facility] Orders Onlyon 12-07-2024 Orders Only [id number] Martha Waters 1975 Date Provider Department Center 12/07/2024 [id number], HISTORICAL BRAND[facility] Family History Problem Relation Age of Onset Stroke Father Atrial fibrillation Father Heart attack Paternal Grandfather Family Status - Relation Status Age at Father Paternal Grandfather Normal [facility] 36on 10-26-2024 36 Regarding lab result s from 10/25/2024: MD Myla Teague MA Her TSH is high and her free T4 is low; she has a thyroid abnormality and should be seen by her PCP and/or endocrinology. This may be contributing to her symptoms of palpitations. Thanks. for patient on her VM. Lab results sent to Dr. Olivas's office. Normal [facility] Office Visiton 10-25-2024 Follow-up visit [id number] [place] 1975 Date Provider Department Center 10/25/2024 MINISTERIO ADAMS Family History Problem Relation Age of Onset Stroke Father Atrial fibrillation Father Heart attack Paternal Grandfather Family Status - Relation Status Age at Father Paternal Grandfather Level of Service:99910 DE OFFICE/OUTPATIENT NEW MODERATE MDM 45 MINUTES Normal [facility] US Pelvis Non-OB Completeon 07-27-2024 US Pelvis [...] Blaise Alcantara DO Transcribed by: SONY Technologist: IPLO Technical Comments Transabdominal Ultrasound Performed Technical Comments [...] with close follow-up with Dr. 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 We discussed if she has new or [...] day(s), # 20 tab(s), Refills(s) 0, Pharmacy: [facility]/pharmacy #[id number], 172, cm, 07/22/24 15:53:00 EST, [...] Information Sancho LINTON In 3 days 07/25/2024 EST [facility] [address] [facility] [place] [address]- Business (1) Additional Instructions: Maris Olivas In 3 days [address] [facility] [place] [address]- Business (1) Additional Instructions: Patient Education Menorrhagia Attestation Patient seen and evaluated by the physician financial sales assistant. Attending physician was present in the [...] 07/24/24 08:[address] Abdomen/Pelvis w/o Contra brook 07-23-2024 CT Abdomen/Pelvis w/o Contrast Exam Date/Time: [...] Anion gap [Moles/Vol] 10 mmol/L Normal 6-16 [facility] Comment on above: Performed By: #### 2 [id number] #### [facility] [address] [place] [address] Calcium [Mass/Vol] 9.6 mg/dL Normal 8.9-11.[address] [facility] Comment on above: Performed By: #### 2 [id number] #### [facility] [address] [place] [address] Chloride [Moles/Vol] 105 mmol/L Normal 101-111 [facility] Comment on above: Performed By: #### 2 [id number] #### [facility] [address] [place] [address] CO2 [Moles/Vol] 28 mmol/L Normal 21-31 [facility] Comment on above: Performed By: #### 2 [id number] #### [facility] [address] [place] [address] Creatinine [Mass/Vol] 0.8 mg/dL Normal 0.5-1.3 [facility] Comment on above: Performed By: #### 2 [id number] #### [facility] [address] [place] [address] Glucose [Mass/Vol] 92 mg/dL Normal 55-[address] [facility] Comment on above: Performed By: #### 2 [id number] #### [facility] [address] [place] [address] Potassium [Moles/Vol] 3.9 mmol/L Normal 3.5-5.3 [facility] Comment on above: Performed By: #### 2 [id number] #### [facility] [address] [place] [address] Sodium [Moles/Vol] 139 mmol/L Normal 135-[address] [facility] Comment on above: Performed By: #### 2 [id number] #### [facility] [address] [place] [address] Urea nitrogen [Mass/Vol] 8 mg/dL Normal 5-[address] [facility] Comment on above: Performed By: #### 2 [id number] #### [facility] [address] [place] [address] Urea nitrogen/Creatinine [Mass ratio] 10 No Units Normal 10-[address] [facility] Comment on above: Performed By: #### 2 [id number] #### [facility] [address] [place] [address] CBC w/ Auto Diffon 5 Basophils/100 WBC (Bld) 1.1 % Normal 0.0-2.[address] [facility] Comment on above: Performed By: #### 2 [id number] #### [facility] [address] [place] [address] Basophils/Leukocytes Auto (Bld) [Pure # fraction] 0.1 E9/L Normal 0.0-0.[address] [facility] Comment on above: Performed By: #### 2 [id number] #### [facility] [address] [place] [address] Eosinophils (Bld) [#/Vol] 0.1 E9/L Normal 0.0-0.[address] [facility] Comment on above: Performed By: #### 2 061793 #### [facility] [address] [place] [address] Eosinophils/100 WBC (Bld) 1.7 % Normal 0.0-8.[address] [facility] Comment on above: Performed By: #### 2 438359 #### [facility] [address] [place] [address] Erythrocyte distribution width (RBC) [Ratio] 13.7 % Normal 10.9-14.[address] [facility] Comment on above: Performed By: #### 2 [id number] #### [facility] [address] [place] [address] Hematocrit (Bld) [Volume fraction] 45.3 % Normal 34.0-46.[address] [facility] Comment on above: Performed By: #### 2 931525 #### [facility] [address] [place] [address] Hemoglobin (Bld) [Mass/Vol] 15.4 g/dL Normal 12.0-16.[address] [facility] Comment on above: Performed By: #### 2 [id number] #### [facility] [address] [place] [address] Lymphocytes (Bld) [#/Vol] 2.2 E9/L Normal 1.0-4.[address] [facility] Comment on above: Performed By: #### 2 013657 #### [facility] [address] [place] [address] Lymphocytes/100 WBC (Bld) 38.2 % Normal 14.0-50.[address] [facility] Comment on above: Performed By: #### 2 641993 #### [facility] [address] [place] [address] MCH (RBC) [Entitic mass] 34.7 pg High 27.0-34.[address] [facility] Comment on above: Performed By: #### 2 585634 #### [facility] [address] [place] [address] MCHC (RBC) [Mass/Vol] 34.0 g/dL Normal 31.4-36.0 [facility] Comment on above: Performed By: #### 2 013764 #### [facility] [address] [place] [address] MCV (RBC) [Entitic vol] 101.9 fL High 80.0-100.[address] [facility] Comment on above: Performed By: #### 2 378343 #### [facility] [address] [place] [address] Monocytes (Bld) [#/Vol] 0.6 E9/L Normal 0.2-1.[address] [facility] Comment on above: Performed By: #### 2 008345 #### [facility] [address] [place] [address] Neutrophils (Bld) [#/Vol] 2.8 E9/L Normal 2.0-7.[address] [facility] Comment on above: Performed By: #### 2 272298 #### [facility] [address] [place] [address] Neutrophils/100 WBC (Bld) 48.9 % Normal 36.0-75.[address] [facility] Comment on above: Performed By: #### 2 695641 #### [facility] [address] [place] [address] Platelet mean volume (Bld) [Entitic vol] 8.9 fL Normal 6.4-10.[address] [facility] Comment on above: Performed By: #### 2 687083 #### [facility] [address] [place] [address] Platelets (Bld) [#/Vol] 307.0 E9/L Normal 150.0-500.[address] [facility] Comment on above: Performed By: #### 2 452467 #### [facility] [address] [place] [address] RBC (Bld) [#/Vol] 4.4 E12/L Normal 4.3-5.[address] [facility] Comment on above: Performed By: #### 2 177699 #### [facility] [address] [place] [address] WBC corrected for nucl RBC Auto (Bld) [#/Vol] 5.8 E9/L Normal 4.0-11.[address] [facility] Comment on above: Performed By: #### 2 671033 #### [facility] [address] [place] [address] CHEMISTRYOrdered By: [employer] SYSTEM on 07-22-2024 Albumin [Mass/Vol] 4.7 g/dL [...] 2024 ED Clinical Summary ED Clinical Summary [place] [id number] ED Clinical Summary Person Information Name: MARTHA WATERS Jada/[facility] Age: 49 Years : 1975 Sex: Female Language: Hungarian PCP: Maris Olivas MD Marital Status: Visit [...] 07/22/2024 20:14:13 07/22/2024 20:14:13 07/22/2024 20:14:13 ADDRESS: [address] [place] [id number] PHYS DOC NOTES: MEDICAL INFORMATION: Prescriptions Given: New Medications [id number], [address], [place] [id number], [phone] naproxen (naproxen 500 mg Tab) 1 Tablets [...] Instructions: Menorrhagia Follow up: With: [facility]: [facility] [address] [place] [address] , [place] [address] Business (1) In 3 days 07/25/2024 With: Address: When: Maris Olivas [address] [facility] [address] Business (1) In 3 days DIAGNOSIS: Abdominal pain; Back pain; Postmenopausal vaginal bleeding Normal [facility] ED Patient Summaryon 025 ED Patient Summary ED Patient Summary [place] [id number] Patient Discharge Instructions Person Information Name: MARTHA WATERS Age: 49 Years Arrival Date: 07/22/2024 15:40:19 Discharge Diagnosis: Abdominal pain; Back pain; Postmenopausal vaginal bleeding Primary Care Physician: Maris Olivas MD Provider Information Primary Provider: Justin Schulte DO [facility] Attorney:Sebastián Dunne PA-C The exam and treatment you received in the Emergency Department were for an urgent problem and are not intended as complete care. It is important that you follow up with a doctor, nurse practitioner, or physician???s financial sales assistant for ongoing care. If your symptoms become worse or you do not improve as expected and you are unable to reach your usual health care provider, you should return to the Emergency Department. We are available 24 hours a day. MARTHA WATERS Lesa has been given the following list of patient education materials, prescriptions and follow-up instructions: Follow-up Instructions: With: Address: When: Sancho LINTON [facility], [address] [facility] [address] [place], [place] [id number] Business (1) In 3 days 07/25/2024 With: Address: When: Maris Olivas [address] [facility] [place] [address] Business (1) In 3 days In the event that this physician does not participate in your insurance network, please consult with your insurance company to find a nearby participating provider. Patient Education Materials: Menorrhagia A MESSAGE TO ALL PATIENTS REGARDING OPIOIDS PRESCRIPTION OPIOIDS: WHAT YOU NEED TO KNOW Prescription opioids can be used to help relieve cnhjafwz-pn-uipull pain and are often prescribed following a [...] Comment on above: Performed By: #### 1 [id number] #### [facility] [address] [place] [address] HEMATOLOGYOrdered By: SYSTEM SYSTEM on 07-22-2024 Basophils/100 [...] 11.0 E9/L Remisol Heme Hep Func Panelon 01-04-2025 Albumin [Mass/Vol] 4.7 g/dL Normal 3.3-5.[address] [facility] Comment on above: Performed By: #### 2 [id number] #### [facility] [address] [place] [address] Albumin/Globulin (S) [Mass conc ratio] 1.7 Normal 1.1-2.[address] [facility] Comment on above: Performed By: #### 2 127481 #### [facility] [address] [place] [address] ALP [Catalytic activity/Vol] 89 Int._Unit/L Normal 21-[address] [facility] Comment on above: Performed By: #### 2 [id number] #### [facility] [address] [place] [address] ALT No additional P-5'-P [Catalytic activity/Vol] 11 Int._Unit/L Normal 6-[address] [facility] Comment on above: Performed By: #### 2 099041 #### [facility] [address] [place] [address] AST [Catalytic activity/Vol] 15 Int._Unit/L Normal 5-[address] [facility] Comment on above: Performed By: #### 2 675631 #### [facility] [address] [place] [address] Bilirubin [Mass/Vol] 0.6 mg/dL Normal 0.0-1.1 [facility] Comment on above: Performed By: #### 2 896671 #### [facility] [address] [place] [address] Bilirubin.direct [Mass/Vol] 0.1 mg/dL Normal 0.0-0.[address] [facility] Comment on above: Performed By: #### 2 261186 #### [facility] [address] [place] [address] Bilirubin.indirect [Mass or moles/Vol] 0.5 mg/dL Normal 0.1-0.[address] [facility] Comment on above: Performed By: #### 2 577543 #### [facility] [address] [place] [address] Globulin (S) [Mass/Vol] 2.8 g/dL Normal 1.4-4.[address] [facility] Comment on above: Performed By: #### 2 295621 #### [facility] [address] [place] [address] Protein [Mass/Vol] 7.5 g/dL Normal 6.0-7.[address] [facility] Comment on above: Performed By: #### 2 002919 #### [facility] [address] [place] [address] Lipase Levelon 07-22-2024 Lipase [Catalytic activity/Vol] 22 U/L Normal 13-[address] [facility] Comment on above: Performed By: #### 2 262453 #### [facility] [address] [place] [address] UA with Cult Rflxon 07-22-19 25 Bilirubin Ql (U) Negative Normal Negative [facility] Comment on above: Performed By: #### 4 [id number] #### [facility] [address] [place] [address] Clarity (U) Clear Normal Clear [facility] Comment on above: Performed By: #### 4 [id number] #### [facility] [address] [place] [address] Color (U) Yellow Normal Yellow [facility] Comment on above: Result Comment: Micr oscopic readings are only performed on those samples that meet specific criteria set forth by [facility]. Performed By: #### 4 [id number] #### [facility] [address] [place] [address] Epithelial cells.squamous Auto (Urine sed) [#/Area] 5-8 Invalid Interpretation Code [facility] Comment on above: Performed By: #### 4 [id number] #### [facility] [address] [place] [address] Glucose Ql (U) Negative Normal Negative [facility] Comment on above: Performed By: #### 4 [id number] #### [facility] [address] [place] [address] Hemoglobin Auto test strip (U) [Mass/Vol] 1+ mg/dL Abnormal Negative [facility] Comment on above: Performed By: #### 4 [id number] #### [facility] [address] [place] [address] Ketones Auto test strip Ql (U) Negative Normal Negative [facility] Comment on above: Performed By: #### 4 [id number] #### [facility] [address] [place] [address] Leukocyte esterase Auto test strip Ql (U) Negative Normal Negative [facility] Comment on above: Performed By: #### 4 [id number] #### [facility] [address] [place] [address] Mucus Auto Ql (U) 1+ [id number] Abnormal Negative F [facility] Comment on above: Performed By: #### 4 [id number] #### [facility] [address] [place] [address] Nitrite Auto test strip Ql (U) Negative Normal Negative [facility] Comment on above: Performed By: #### 4 [id number] #### [facility] [address] [place] [address] pH (U) 6.0 [pH] Invalid Interpretation Code 5.0-9.[address] [facility] Comment on above: Performed By: #### 4 [id number] #### [facility] [address] [place] [address] Protein Ql (U) Trace Abnormal Negative [facility] Comment on above: Performed By: #### 4 [id number] #### [facility] [address] [place] [address] RBC Ql (U) 0-3 Normal 0-[address] [facility] Comment on above: Performed By: #### 4 [id number] #### [facility] [address] [place] [address] Specific gravity (U) [Rel density] 1.024 Invalid Interpretation Code 1.005-1.[address] [facility] Comment on above: Performed By: #### 4 [id number] #### [facility] [address] [place] [address] Urobilinogen (U) [Mass/Vol] 2 mg/dL Abnormal Negative [facility] Comment on above: Performed By: #### 4 [id number] #### [facility] [address] [place] [address] WBC Auto (Urine sed) [#/Area] 0-5 Normal 0-[address] [facility] Comment on above: Performed By: #### 4 [id number] #### [facility] [address] [place] [address] Type of Urine collection method Clean Catch Normal [facility] Comment on above: Performed By: #### 4 [id number] #### [facility] [address] [place] [address] URINALYSISOrdered By: SYSTEM SYSTEM on 07-22-2024 Bilirubin Ql (U) Negative Normal Negativemg/ d L [facility] UA Auto SS Clarity (U) Clear (07/22/24 4:23 PM) Normal Clear [facility] UA Auto SS Color (U) Yellow 1 (07/22/24 4:23 PM) Normal Yellow [facility] UA Auto SS Comment on above: Interpretive Data: M icroscopic readings are only performed on those samples that meet specific criteria set forth by [facility]. Epithelial cells.squamous Auto (Urine sed) [#/Area] 5-8 graded/HPF Invalid Interpretation Code [facility] UA Auto SS Glucose Ql (U) Negative Normal Negativemg/d L [facility] UA Auto SS Hemoglobin Auto test strip (U) [Mass/Vol] 1+ mg/dL Invalid Interpretation Code Negativemg/d L [facility] UA Auto SS Ketones Auto test strip [...] PM) Invalid Interpretation Code 5.0 - 9.0 [facility] UA Auto SS Protein Ql (U) Trace mg/dL Invalid Interpretation Code Negativemg/d L [facility] UA Auto SS RBC Ql (U) 0-3 graded/HPF Normal 0-3graded/HP F [facility] UA Auto SS Specific gravity (U) [Rel density] 1.024 *NA* (07/22/24 4:23 PM) Invalid Interpretation Code 1.005 - 1.030 [facility] UA Auto SS Urobilinogen (U) [Mass/Vol] 2 mg/dL Invalid Interpretation Code Negativemg/d L [facility] UA Auto SS WBC Auto (Urine sed) [#/Area] 0-5 graded/HPF Normal 0-5graded/HP F [facility] UA Auto SS URINALYSISOrdered By: Sebastián Dunne on 07-22-2024 UA Spec Desc Clean Catch (07/22/24 4:23 PM) Normal [facility] UA Auto SS eGFRon 07-22-2024 eGFR 89 mL/min/1.73 m2 Normal >=[address] [facility] Comment on above: Performed By: #### 1 [id number] #### [facility] [address] [place] [address] CARDIAC DOM ADMITon 022 CK [Catalytic activity/Vol] 73 U/L Normal 30-135 [facility] Comment on above: Performed By: #### C MADM, CMP #### [facility] [address] [address] [address] Akil Aleman CK.MB [Mass/Vol] 0.61 ng/mL Normal <=2.37 [facility] Comment on above: Performed By: #### C MADM, CMP #### [facility] [address] [address] [address] Akil Aleman HSTROP 7.1 pg/mL Normal 4.0-35.5 [facility] Comment on above: Result Comment: CUT- OFF POINTS HAVE BEEN ESTABLISHED BASED ON THE FOURTH UNIVERSAL DEFINITIONS OF MYOCARDIAL INFARCTION. THE UPPER REFERENCE LIMIT (URL) OF TROPONIN, DEFINED THE 99TH PERCENTILE OF cTnI DISTRIBUTION IN A REFERENCE POPULATION, HAS BEEN CONFIRMED THE DECISION THRESHOLD FOR GA DIAGNOSIS. Performed By: #### C MADM, CMP #### [facility] [address] [address] [address] Akil Aleman HUNTER 22.0 ng/mL Normal <=61.5 [facility] Comment on above: Performed By: #### C MADM, CMP #### [facility] [address] [address] [address] Akil Aleman CBC AUTO DIFFon 08-16-2021 BASO # 0.0 103/ul Normal 0.0-0.1 [facility] Comment on above: Performed By: #### C BC #### [facility] [address] [place] [address] Dr. Akil Aleman Basophils/100 WBC (Bld) 0.5 % Normal 0.2-2.0 [facility] Comment on above: Performed By: #### C BC #### [facility] [address] [place] [address] Dr. Akil Aleman EO # 0.2 103/ul Normal 0.0-0.7 [facility] Comment on above: Performed By: #### C BC #### [facility] [address] [place] [address] Dr. Akil Aleman Eosinophils/100 WBC (Bld) 2.8 % Normal 0.9-7.0 [facility] Comment on above: Performed By: #### C BC #### [facility] [address] [place] [address] Dr. Akil Aleman Erythrocyte distribution width (RBC) [Ratio] 12.6 % Normal 11.0-15.0 [facility] Comment on above: Performed By: #### C BC #### [facility] [address] [place] [address] Dr. Akil Aleman Hematocrit (Bld) [Volume fraction] 42.5 % Normal 36.0-48.0 [facility] Comment on above: Performed By: #### C BC #### [facility] [address] [place] [address] Dr. Akil Aleman Hemoglobin (Bld) [Mass/Vol] 14.8 g/dL Normal 12.0-16.0 [facility] Comment on above: Performed By: #### C BC #### [facility] [address] [place] [address] Dr. Akil Aleman IG # 0.02 10e3/ul Normal 0.00-0.03 [facility] Comment on above: Performed By: #### C BC #### [facility] [address] [place] [address] Dr. Akil Aleman IG % 0.3 % Normal 0.0-0.5 [facility] Comment on above: Performed By: #### C BC #### [facility] [address] [place] [address] Dr. Akil Aleman LYMPH # 2.0 103/ul Normal 1.2-3.8 [facility] Comment on above: Performed By: #### C BC #### [facility] [address] [place] [address] Dr. Akil Aleman Lymphocytes/100 WBC (Bld) 25.4 % Normal 20.5-60.0 [facility] Comment on above: Performed By: #### C BC #### [facility] [address] [place] [address] Dr. Akil Aleman MANUAL DIFF REQ NO Normal [facility] Comment on above: Performed By: #### C BC #### [facility] [address] [place] [address] Dr. Akil Aleman MCH (RBC) [Entitic mass] 36.5 pg Critically high 26.7-34.0 [facility] Comment on above: Performed By: #### C BC #### [facility] [address] [place] [address] Dr. Akil Aleman MCHC (RBC) [Mass/Vol] 34.8 g/dL Normal 29.9-35.2 [facility] Comment on above: Performed By: #### C BC #### [facility] [address] [place] [address] Dr. Akil Aleman MCV (RBC) [Entitic vol] 104.9 fL Critically high 81.0-99.0 [facility] Comment on above: Performed By: #### C BC #### [facility] [address] [address] [address] Akil Aleman MONO # 0.7 103/ul Normal 0.3-0.8 [facility] Comment on above: Performed By: #### C BC #### [facility] [address] [address] [address] Akil Aleman Monocytes/100 WBC (Bld) 8.9 % Normal 1.7-12.0 [facility] Comment on above: Performed By: #### C BC #### [facility] [address] [address] [address] Akil Aleman NEUT # 5.0 103/ul Normal 1.4-6.5 [facility] Comment on above: Performed By: #### C BC #### [facility] [address] [address] [address] Akil Aleman Neutrophils/100 WBC (Bld) 62.1 % Normal 43.0-75.0 [facility] Comment on above: Performed By: #### C BC #### [facility] [address] [address] [address] Akil Aleman Platelet mean volume (Bld) [Entitic vol] 12.1 fL Normal 9.5-13.5 [facility] Comment on above: Performed By: #### C BC #### [facility] [address] [address] [address] Akil Aleman PLT 187 103/ul Normal 150-450 [facility] Comment on above: Performed By: #### C BC #### [facility] [address] [address] [address] Akil Aleman RBC 4.05 106/ul Critically low 4.20-5.40 [facility] Comment on above: Performed By: #### C BC #### [facility] [address] [address] [address] Akil Aleman WBC 8.0 103/ul Normal 4.0-11.0 [facility] Comment on above: Performed By: #### C BC #### [facility] [address] [address] [address] Akil Aleman PROF 14(COMP METB)on 022 Albumin [Mass/Vol] 3.8 g/dL Normal 3.5-5.0 [place] Comment on above: Performed By: #### C MADM, CMP #### [facility] [address] [address] [address] Akil Aleman Albumin/Globulin [Mass ratio] 1.1 {ratio} Normal [facility] Comment on above: Performed By: #### C MADM, CMP #### [facility] [address] [address] [address] Akil Aleman ALP [Catalytic activity/Vol] 132 U/L Critically high 38-126 [facility] Comment on above: Performed By: #### C KIERRAM, CMP #### [facility] [address] [address] [address] Akil Aleman ALT [Catalytic activity/Vol] 19 U/L Normal 9-52 [facility] Comment on above: Performed By: #### C KIERRAM, CMP #### [facility] [address] [address] [address] Akil Aleman Anion gap [Moles/Vol] 16.1 mmol/L Normal [facility] Comment on above: Performed By: #### C KIERRAM, CMP #### [facility] [address] [address] [address] Akil Aleman AST [Catalytic activity/Vol] 13 U/L Critically low 14-36 [facility] Comment on above: Performed By: #### C MADM, CMP #### [facility] [address] [address] [address] Akil Aleman Bilirubin [Mass/Vol] 0.5 mg/dL Normal 0.2-1.3 [facility] Comment on above: Performed By: #### C MADM, CMP #### [facility] [address] [address] [address] Akil Aleman Calcium [Mass/Vol] 9.2 mg/dL Normal 8.4-10.2 [place] Comment on above: Performed By: #### C MADM, CMP #### [facility] [address] [address] [address] Akil Aleman Chloride [Moles/Vol] 101 mmol/L Normal 98-107 [facility] Comment on above: Performed By: #### C MADM, CMP #### [facility] [address] [address] [address] Akil Aleman CO2 [Moles/Vol] 25.5 mmol/L Normal 22.0-30.0 [facility] Comment on above: Performed By: #### C MADM, CMP #### [facility] [address] [address] [address] Akil Aleman Creatinine [Mass/Vol] 0.70 mg/dL Normal 0.52-1.04 [facility] Comment on above: Performed By: #### C MADM, CMP #### [facility] [address] [address] [address] Akil Aleman EGFR-AF UZBEK >60 Normal >=60 [facility] Comment on above: Performed By: #### C MADM, CMP #### [facility] [address] [address] [address] Akil Aleman EGFR-NON AF UZBEK >60 Normal >=60 [facility] Comment on above: Performed By: #### C MADM, CMP #### [facility] [address] [address] [address] Akil Aleman Globulin (S) [Mass/Vol] 3.5 g/dL Normal [facility] Comment on above: Performed By: #### C MADM, CMP #### [facility] [address] [address] [address] Akil Aleman Glucose [Mass/Vol] 88 mg/dL Normal 74-106 [facility] Comment on above: Performed By: #### C MADM, CMP #### [facility] [address] [address] [address] Akil Aleman Potassium [Moles/Vol] 3.6 mmol/L Normal 3.4-5.0 [facility] Comment on above: Performed By: #### C MADM, CMP #### [facility] [address] [place], [place] [address] Dr. Akil Aleman Protein [Mass/Vol] 7.3 g/dL Normal 6.1-8.2 [place] Comment on above: Performed By: #### C MADM, CMP #### [facility] [address] [place], [place] [address] Dr. Akil Aleman Sodium [Moles/Vol] 139 mmol/L Normal 137-145 [place] Comment on above: Performed By: #### C MADM, CMP #### [facility] [address] [place], [place] [address] Dr. Akil Aleman Urea nitrogen [Mass/Vol] 11.0 mg/dL Normal 7.0-17.0 [facility] Comment on above: Performed By: #### C MADM, CMP #### [facility] [address] [address] [address] Akil Aleman Urea nitrogen/Creatinine [Mass ratio] 15.7 mg/mg Normal [facility] Comment on above: Performed By: #### C MADM, CMP #### [facility] [id number] Akil Aleman XR CHEST 1 Von [...] MELODIE ORTIZ Date: 2021-08-16 02:38 Normal [facility] ED Clinical Summaryon 2020 ED Clinical Summary [address] [address] ED Clinical Summary Person Information Name: Martha Waters Jada/[facility] Age: 45 Years : 1975 Sex: Female PCP: Maris Olivas MD Marital Status: Phone: Race: White Ethnicity: Not or Language: Hungarian Visit Reason: Seizure; Seizure - febrile Acuity: 3 Enc Type: Emergency Med Service: Emergency Medicine Arrival: 11/02/2020 19:11:24 Discharge: 11/02/2020 22:24:00 LOS: 000 03:13 Checkin: 11/02/2020 19:11:24 Checkout: 11/02/2020 22:24:00 Dispo Type: Home or Self Care Address: [address] [place] [address] Provider Notes: Diagnosis: 1:First time seizure; 2:Anxiety [...] range between ( 27.2 and 40.8 ) [place] Auto: 5.5 % -- Normal range between [...] range between ( 36.0 and 46.0 ) [place] Absolute: 0.6 x10 MCH: 34.5 pg -- [...] 59.9 kg (more content not included)... Normal [facility] .UA Microscp Aon 11-02-2020 UA Bacteria Present Abnormal Absent [facility] Comment on above: Performed By: #### C [id number] #### [address] [place] [address] UA Hyline Cast Qual 3-5 Normal Negative [facility] Comment on above: Performed By: #### C [id number] #### [address] [address] UA Mucus Present Abnormal Absent [facility] Comment on above: Performed By: #### C [id number] #### [address] [address] UA RBC Quant 5 /HPF Normal 0-5 [facility] Comment on above: Performed By: #### C [id number] #### [address] [address] UA Squepi Cells Quant 7 /HPF Normal 0-29 [facility] Comment on above: Performed By: #### C [id number] #### [address] [address] UA WBC Quant 4 /HPF Normal 0-5 [facility] Comment on above: Performed By: #### C [id number] #### [address] [address] .eGFRon 11-02-2020 eGFR AA >60 Normal >=60 [facility] Comment on above: Order Comment: Order added by Discern rule Result Comment: See comment. Performed By: #### E GFR #### [address] [address] eGFR Non-AA >60 Normal >=60 [facility] Comment on above: Order Comment: Order [...] years Performed By: #### E GFR #### [address] [id number] CBC w/ Diffon 11-02-2020 Erythrocyte distribution width (RBC) [Ratio] 15.5 % High 11.6-14.8 [facility] Comment on above: Performed By: #### C BC #### [address] [id number] Hematocrit (Bld) [Volume fraction] 40.2 % Normal 36.0-46.0 [facility] Comment on above: Performed By: #### C BC #### [address] [id number] Hemoglobin (Bld) [Mass/Vol] 13.6 g/dL Normal 12.0-16.0 [facility] Comment on above: Performed By: #### C BC #### [address] [id number] MCH (RBC) [Entitic mass] 34.5 pg Normal 27.0-35.0 [facility] Comment on above: Performed By: #### C BC #### [address] [id number] MCHC 33.8 % Normal 31.0-37.0 [facility] Comment on above: Performed By: #### C BC #### [address] [id number] MCV (RBC) [Entitic vol] 102.2 fL High 80.0-100.0 [facility] Comment on above: Performed By: #### C BC #### [address] [id number] Platelet 225 x10*3/mcL Normal 150-350 [facility] Comment on above: Performed By: #### C BC #### [address] [address] Platelet mean volume (Bld) [Entitic vol] 9.4 fL Normal 6.7-10.6 [facility] Comment on above: Performed By: #### C BC #### [address] [address] RBC 3.94 x10*6/mcL Normal 3.80-5.20 [facility] Comment on above: Performed By: #### C BC #### [address] [address] WBC 10.5 x10*3/mcL Normal 4.5-11.0 [facility] Comment on above: Performed By: #### C BC #### [address] [address] CMPon 11-02-2020 Creatinine [Mass/Vol] 0.80 mg/dL Normal 0.44-1.03 [facility] Comment on above: Performed By: #### C OMP #### [address] [address] Urea nitrogen [Mass/Vol] 13 mg/dL Normal 8-26 [facility] Comment on above: Performed By: #### C OMP #### [address] [address] Urea nitrogen/Creatinine [Mass ratio] 16.2 mg/mg Normal 10.0-20.0 [facility] Comment on above: Performed By: #### C OMP #### [address] [address] Albumin [Mass/Vol] 3.9 g/dL Normal 3.2-4.9 [facility] Comment on above: Performed By: #### C OMP #### [address] [address] Albumin/Globulin [Mass ratio] 1.3 {ratio} Normal 1.1-2.2 [facility] Comment on above: Performed By: #### C OMP #### [address] [place] [address] Alk Phos 64 IU/L Normal 32-91 [facility] Comment on above: Performed By: #### C OMP #### [address] [place] [address] ALT [Catalytic activity/Vol] 18 U/L Normal 14-54 [facility] Comment on above: Performed By: #### C OMP #### [address] [address] AST [Catalytic activity/Vol] 16 U/L Normal 15-41 [facility] Comment on above: Performed By: #### C OMP #### [address] [place] [address] Bili Total 0.2 mg/dL Low 0.3-1.2 [facility] Comment on above: Performed By: #### C OMP #### [address] [place] [address] Protein [Mass/Vol] 6.8 g/dL Normal 6.5-8.1 [facility] Comment on above: Performed By: #### C OMP #### [address] [place] [address] Anion gap [Moles/Vol] 14 mmol/L Normal 7-17 [facility] Comment on above: Performed By: #### C OMP #### [address] [address] Calcium [Mass/Vol] 9.0 mg/dL Normal 8.5-10.3 [facility] Comment on above: Performed By: #### C OMP #### [address] [address] Chloride [Moles/Vol] 105 mmol/L Normal 98-110 [facility] Comment on above: Performed By: #### C OMP #### [address] [address] CO2 [Moles/Vol] 25 mmol/L Normal 22-32 [facility] Comment on above: Performed By: #### C OMP #### [facility] [address] [place] [address] Glucose [Mass/Vol] 107 mg/dL High 70-99 [facility] Comment on above: Performed By: #### C OMP #### [facility] [address] [place] [address] Potassium [Moles/Vol] 3.8 mmol/L Normal 3.4-4.8 [facility] Comment on above: Performed By: #### C OMP #### [facility] [address] [place] [address] Sodium [Moles/Vol] 140 mmol/L Normal 133-142 [facility] Comment on above: Performed By: #### C OMP #### [address] [address] [address] Brain w/o Contraston - CT Brain w/o Contrast EXAM: CT Brain [...] with follow-up nonemergent MRI. Radiation Dose Estimate: CTDI(mGy):0.231832 / / / kVp:120.047811 / mAs:0.258105 / / / DLP(mGy-cm):4.888757K hailey Part: Head CTDI(mGy):40.426678 / / / kVp:120.223585 / mAs:164.328339 / / / DLP(mGy-cm):605.09647 5Body Part: Head Final Dictated by: Sebastián Castañeda MD Dictated DT/TM: 11.02.2020 9:41 pm Signed by: Sebastián Castañeda MD Signed (Electronic Signature): 11.02.2020 9:43 pm (If Report Is Signed, Electronically Signed in Other Vendor System) Normal [facility] Diff Autoon 11-02-2020 Baso Absolute 0.1 x10*3/mcL Normal 0.0-0.2 [facility] Comment on above: Performed By: #### P TINR #### [address] [address] Basophils/100 WBC (Bld) 1.0 % Normal 0.0-1.5 [facility] Comment on above: Performed By: #### P TINR #### [address] [address] Eos Absolute 0.1 x10*3/mcL Normal 0.0-0.4 [facility] Comment on above: Performed By: #### P TINR #### [address] [address] Eosinophils/100 WBC (Bld) 1.3 % Normal 0.0-5.4 [facility] Comment on above: Performed By: #### P TINR #### [address] [address] Lymph Absolute 1.4 x10*3/mcL Normal 1.0-4.8 [facility] Comment on above: Performed By: #### P TINR #### [address] [address] Lymphocytes/100 WBC (Bld) 13.7 % Low 27.2-40.8 [facility] Comment on above: Performed By: #### P TINR #### [address] [address] [place] Absolute 0.6 x10*3/mcL Normal 0.1-1.1 [facility] Comment on above: Performed By: #### P TINR #### [facility] [address] [place] [address] Monocytes/100 WBC (Bld) 5.5 % Normal 3.7-11.9 [facility] Comment on above: Performed By: #### P TINR #### [facility] [address] [place] [address] Neutro Absolute 8.3 x10*3/mcL High 1.8-7.7 [facility] Comment on above: Performed By: #### P TINR #### [facility] [address] [place] [address] Neutro Auto 78.5 % High 47.2-70.8 [facility] Comment on above: Performed By: #### P TINR #### [facility] [address] [place] [address] ED Note-Physicianon 11-03-19 21 ED Note-Physician Chief Complaint Patient coming from [facility] for new onset seizure like activity. 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 last use 12 days ago. History of Present Illness Patient presents the emergency department from [facility] for concern of new onset seizure. 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 Salgado. 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 Normal [facility] Ethanolon 11-02-2020 Ethanol, Plasma <10 Normal <=9 [facility] Comment on above: Result Comment: To c onvert mg/dL to g/dL, divide result by 1,000. Legal limit of intoxication is 80 mg/dL (0.08 g/dL). Performed By: #### P TINR #### [address] [address] Myoglobinon 11-02-2020 Myoglobin 319.0 ng/dL High 14.3-65.8 [facility] Comment on above: Performed By: #### M YO #### [address] [place] [address] PTon 11-02-2020 INR Coag (PPP) [Relative time] 1.1 {INR} Normal <=3.5 [facility] Comment on above: Result Comment: INR has no normal range. INR Therapeutic range is: 2.0-3.0 (AF, CVA, TIAs, DVT prophylaxis, acute DVT) 2.5-3.5 ([facility] heart valves, recurrent thrombosis/emboli) Performed By: #### P TINR #### [address] [address] PT Coag (PPP) [Time] 11.7 s Normal 9.4-12.1 [facility] Comment on above: Performed By: #### P TINR #### [address] [address] PTTon 11-02-2020 aPTT Coag (Bld) [Time] 21.7 s Normal 20.2-27.0 [facility] Comment on above: Performed By: #### P TT #### [address] [address] TSHon 11-02-2020 TSH Qn 3.23 m[IU]/L Normal 0.45-5.33 [facility] Comment on above: Result Comment: Refe rence Ranges for individuals from to 18 years of age were obtained from The [employer] Handbook (20 ed) published by [facility]. Reference Ranges for Females: Females, 1st Trimester 0.05 ? 3.7 uIU/mL Females, 2nd Trimester 0.31 ? 4.35 uIU/mL Females, 3rd Trimester 0.41 ? 5.18 uIU/mL Performed By: #### P TINR #### [address] [address] Troponin-Ion 11-02-2020 Troponin I.cardiac [Mass/Vol] ng/mL Normal 0.00-0.03 [facility] Comment on above: Result Comment: An i ncreased Troponin-I value, in the absence of myocardial ischemia, may indicate other etiologies of cardiac damage. Performed By: #### T ROP #### [facility] [address] [place] [address], [place] [address] UA w Culture if Indon 2020 Color (U) Yellow Normal [facility] Comment on above: Performed By: #### U CI #### [address] [place] [address] Glucose (U) [Mass/Vol] Negative Normal Negative [facility] Comment on above: Performed By: #### U CI #### [address] [place] [address] Ketones Ql (U) Negative Normal Negative [facility] Comment on above: Performed By: #### U CI #### [address] [place] [address] UA Blood Negative Normal Negative [facility] Comment on above: Performed By: #### U CI #### [address] [address] UA Clarity Clear Normal [facility] Comment on above: Performed By: #### U CI #### [address] [place] [address] UA Leukocyte Esterase Negative Normal Negative [facility] Comment on above: Performed By: #### U CI #### [address] [place] [address] UA Nitrite Negative Normal Negative [facility] Comment on above: Performed By: #### U CI #### [address] [place] [address] UA pH 6.0 Normal 4.5 - 7.8 [facility] Comment on above: Performed By: #### U CI #### [facility] [address] [place] [address], [place] [address] UA Protein 30 mg/dL Abnormal Negative [facility] Comment on above: Performed By: #### U CI #### [address] [place] [address] UA Source Clean Catch Normal [facility] Comment on above: Performed By: #### U CI #### [address] [place] [address] UA Spec Grav 1.017 Normal 1.003-1.035 [facility] Comment on above: Performed By: #### U CI #### [address] [address] UA Urobilinogen 0.2 mg/dL Normal 0.2 - 1.0 [facility] Comment on above: Performed By: #### U CI #### [address] [address] Urobilinogen (U) [Mass/Vol] Negative Normal Negative [facility] Comment on above: Performed By: #### U CI #### [address] [id number] UDS Compon 11-02-2020 Creatinine [Mass/Vol] 186.8 mg/dL Normal Bl [facility] Comment on above: Performed By: #### C [id number] #### [address] [address] Ur Amph Scrn Negative Normal NEG = <1000 [facility] Comment on above: Performed By: #### C [id number] #### [address] [address] Ur Lulu Scrn Positive Abnormal NEG = <200 [facility] Comment on above: Result Comment: This unconfirmed positive screening result is to be used for medical treatment purposes only. Unconfirmed screening results must not be used for non-medical purposes. (e.g. employment testing, legal testing). Performed By: #### C [id number] #### [address] [address] Ur Benzodia Scrn Negative Normal NEG = <200 [facility] Comment on above: Performed By: #### C [id number] #### [address] [address] Ur Cannab Scrn Positive Abnormal NEG = <50 [facility] Comment on above: Result Comment: This unconfirmed positive screening result is to be used for medical treatment purposes only. Unconfirmed screening results must not be used for non-medical purposes. (e.g. employment testing, legal testing). Performed By: #### C [id number] #### [address] [address] Ur Cocaine Scrn Negative Normal NEG = <300 [facility] Comment on above: Performed By: #### C [id number] #### [address] [address] Ur Methadone Scn Negative Normal NEG = <300 [facility] Comment on above: Performed By: #### C [id number] #### [address] [address] Ur Opiate Scrn Negative Normal NEG = <300 [facility] Comment on above: Performed By: #### C [id number] #### [address] [address] Ur Oxy Screen Negative Normal NEG = <100 [facility] Comment on above: Performed By: #### C [id number] #### [address] [address] Ur Oxy Scrn Qnt 0 ng/mL Normal <=99 [facility] Comment on above: Performed By: #### C [id number] #### [address] [address] Ur PCP Scrn Negative Normal NEG = <25 [facility] Comment on above: Performed By: #### C [id number] #### [address] [address] UA pH 6.0 Normal 4.5 - 7.8 [facility] Comment on above: Performed By: #### C [id number] #### [address] [address] UA Spec Grav 1.017 Normal 1.003-1.035 [facility] Comment on above: Performed By: #### C [id number] #### [address] [place] [address] XR Chest 1 Viewon 11-02-2020 XR Chest [...] Electronically Signed in Other Vendor System) Normal [facility] Vital Signs Date Time Vital Sign Value Performing Clinician Veronicai dudley 07-22-2024 19:46-0500 Diastolic blood pressure 76 mm[Hg] Justin Scuhlte [facility] 07-22-2024 19:46-0500 Heart rate 71 /min Justin Schulte [facility] 07-22-2024 19:46-0500 Mean blood pressure 91 mm[Hg] Justin Schulte [facility] 07-22-2024 19:46-0500 Respiratory rate 17 /min Justin Schulte [facility] 07-22-2024 19:46-0500 SaO2% (BldA) [Mass fraction] 98 % Justin Rosse [facility] 07-22-2024 19:46-0500 Systolic blood pressure 120 mm[Hg] Justin Rosse [facility] 07-22-2024 17:15-0500 Diastolic blood pressure 46 mm[Hg] Justin Rosse [facility] 07-22-2024 17:15-0500 Heart rate 67 /min Justin Schulte [facility] 07-22-2024 17:15-0500 Mean blood pressure 69 mm[Hg] Justin Rosse [facility] 07-22-2024 17:15-0500 Respiratory rate 16 /min Justin Rosse [facility] 07-22-2024 17:15-0500 SaO2% (BldA) [Mass fraction] 100 % Justin Rosse [facility] 07-22-2024 17:15-0500 Systolic blood pressure 114 mm[Hg] Justin Rosse [facility] 07-22-2024 15:47-0500 Body temperature 98.24 [degF] Justin Rosse [facility] 07-22-2024 15:47-0500 Diastolic blood pressure 92 mm[Hg] Justin Rosse [facility] 07-22-2024 15:47-0500 Heart rate 90 /min Justin Rosse [facility] 07-22-2024 15:47-0500 Respiratory rate 18 /min Justin Rosse [facility] 07-22-2024 15:47-0500 SaO2% (BldA) [Mass fraction] 100 % Justin Rosse [facility] 07-22-2024 15:47-0500 Systolic blood pressure 132 mm[Hg] Justin Rosse [facility] 06-19-2022 14:50-0500 Blood Pressure Location Wolfgang NILL [facility] 06-19-2022 14:50-0500 Diastolic blood pressure 66 mm[Hg] Wolfgang NILL [facility] 06-19-2022 14:50-0500 Heart rate 76 /min Wolfgang NILL [facility] 06-19-2022 14:50-0500 Respiratory rate 16 /min Wolfgang JESUSITA [facility] [place] 06-19-2022 14:50-0500 Systolic blood pressure 108 mm[Hg] Wolfgang MC [facility] [place] Encounters Encounter Date Encounter Type Care Provider Facility Start: 01-30-2025 End: 01-30-2025 ambulatory [facility] Start: 10-25-2024 End: 10-25-2024 ambulatory [facility] Start: 07-27-2024 End: 07-27-2024 ambulatory KITTY Dunne Facility:[facility] Start: 07-27-2024 End: 07-27-2024 Patient encounter procedure Sebastián Dunne [facility] Start: 07-22-2024 End: 07-22-2024 Emergency department patient visit Justin Schulte [facility] Start: 05-19-2024 ambulatory Patel Cortez acility:[facility] Start: 07-30-2022 End: 07-30-[address] MARIS OLIVAS Facility:[facility] Start: 07-15-2022 End: 07-15-2022 Patient encounter procedure Wolfgang Bishop NILL [facility] Start: 06-19-2022 End: 06-19-2022 Patient encounter procedure Wolfgang Bishop NILL [facility] [place] Start: 08-22-2021 End: 08-22-[address] MARIS OLIVAS Facility:[facility] Start: 08-19-2021 End: 08-20-[address] MARIS OLIVAS Facility:[facility] Start: 08-16-2021 End: 08-16-[address] MARIS OLIVAS Facility: Start: 11-02-2020 End: 11-03-2020 Emergency department patient visit Justin Servin Facility:[facility] Procedures Date Procedure Procedure Detail Performing [...] vaccine, unspecified formulation Wolfgang MC [facility] [place] Payers Date Payer Category Payer Unknown [id number] 2024 Unknown [id number] 2020 Self-pay 1973 Unknown [id number] 2.16. [id number] 1973 Unknown [id number] 2.16.84 [id number] 1973 Unknown [id number] 2.16.84 [id number] 1973 Unknown [id number] 2.16.84 [id number] 1973 Unknown [id number] 2.16.84 [id number] 1973 Unknown [id number] 2.16.8 [id number] 1973 Unknown [id number] 2.16.8 [id number] 1973 Unknown [id number] 2.16.8 [id number] 1959 Unknown [id number] 1959 Unknown [id number] Unknown [id number] .16.8 [id number] Social History Date Type Detail Facility Start: 06-19-2022 Tobacco smoking status Heavy t obacco smoker (finding) [facility] Tobacco smoking status Never [facility] Sex Assigned At Female [facility] Tobacco Current vaping o r e-cigarette use Smokeless Tobacco Use:. Vaping [facility] Tobacco smoking status No Smokin g Status Entered [facility] Functional Status Date Assessment Result Facility 07-22-2024 Functional Status N/A [facility] 06-19-2022 Functional Status N/A [facility] 01-30-2025 Note Date & Type Note Facility 01-30-2025 Note [facility] Card[facility] Clinic Note Chief Complaint: Patient is [...] Plan: Reassurance; the EKG portion is likely fal (more content not included)... [facility] Progress note 10-25-2024 Note Date & Type Note Facility 10-25-[address] [facility] Cardiology Clinic Note Chief Complaint: New [...] to 3 months Ministerio Moore MD, MPH, FACC, [facility], [facility] Interventional Cardiology Pager Email: [email or web address] Discharge instructions 07-22-2024 Note Date [...] Follow these instructions at home: Medicines Take xdld-evp-godtsxq and prescription medicines only as told by [...] to keep your urine pale yellow. Take oxyt-lnv-zzbounn or prescription medicines. Eat foods that are [...] it may include medicines or procedures. Take birc-evj-axltnrl and prescription medicines only as told by [...] provider. Document Revised: 03/18/2021 Document Reviewed: 03/18/2021 [employer] Patient Education 2023 [employer]. Follow Up Care 07/22/2024 15:41:50 With:Sancho LINTON Address: [address] [place] [address]- Business (1) When:07/25/2024 19:57:29 With:Maris Olivas Address: [address] [place] [address] [place] [address]- Business (1) When:Within 3 Day(s) [facility] Clinical Note 07-22-2024 Note Date & [...] these instructions at home: Medicines ??? Take egns-hzf-zznncbd and prescription medicines only as told by [...] Date:07/15/2022 03:00:00 PM Scheduled Provider:Wolfgang MC MD Location:[facility] [place] Appointment Type: Procedure 30 [facility] [place] Hospital course Narrative Note Date & Type Note Facility Hospital course Narrative No data available for this section [facility] Discharge instructions Note Date & Type [...] section and content) DATE CREATED AUTHOR 11/06/2020 [facility] DATE CREATED AUTHOR AUTHOR'S ORGANIZ ATION 08/03/2022 [facility] pital DATE CREATED AUTHOR AUTHOR'S ORGANIZ ATION 06/30/2024 [facility] DATE CREATED AUTHOR AUTHOR'S ORGANIZ ATION 07/29/2024 [facility] DATE CREATED AUTHOR AUTHOR'S ORGANIZ ATION 08/06/2024 [facility] DATE CREATED AUTHOR AUTHOR'S ORGANIZ ATION 02/03/2025 [facility] Patient Care team informatio n (unrecognized section and content) Personnel Name: Maris Olivas MD Address: Address: [address] [place] [address] Personnel Name: Maris Olivas MD Address: Address: [address] [place] [address] Personnel Name: Maris Olivas MD Address: Address: [address] [place] [address] Personnel Name: Maris Olivas MD Address: Address: [address] [place] [address] FOR RECORDS PERTAINING TO PATIENTS WHO ARE [...] BE BASED ON THE PRIMARY CLINICAL RECORDS. [facility] [employer] [facility]. provides no warranty or guarantee of the accuracy or completeness of information in this document.
[2025-04-30 16:39] LABS: Free T3 2.08 pg/mL (2.18-3.98); Thyroid Stimulating Hormone 0.574 uIU/mL (0.358-3.740)
== END 2025-04-30 15:42 | disposition home or self-care (01) ==
PROVIDERS: PCP Family Medicine; Visit Provider Family Medicine
DX: R94.6 Abnormal results of thyroid function studies (principal)
CPT/HCPCS: 36415; 84436; 84443; 84481

== ENCOUNTER 2025-06-19 15:27 | Outpatient (OUT) | payer BC, SELFPAY ==
--- OUTSIDE RECORDS SUMMARY | 2025-06-19 15:33 | XMS_ITS | Clinical Summary ---
Author Organization [facility] Address [address] [place] [address] Care Team Providers Care Hvac R Tech Name Role Phone Unavailable Primary Care Provider Unavailabl e Social History Tobacco UseTypesPacks/DayYears UsedDateSmoking Tobacco: Never Assessed CommentsUnknownSex and Gender InformationValueDate RecordedSex Assigned at Not on fileLegal MuhDheqnv03/15/2023 7:09 PM EDTGender IdentityNot on fileSexual OrientationNot on file Plan of Treatment Not on file
--- OUTSIDE RECORDS SUMMARY | 2025-06-19 15:33 | XMS_ITS | Clinical Summary ---
Author Organization [employer] s tem Address [id number] [address] [place] [address] Care Team Providers Care Stuffing Machine Operator Name Role Phone Derik Rowan MD Primary Care Provider [phone] Allergies Active AllergyReactionsCriticalityNoted MqcySxqgtwjfQoqjprl19/01/2020Sulfa (Sulfonamide Antibiotics)09/17/2019 Medications MedicationSigDispense QuantityRefillsLast FilledStart DateEnd DateStatus naproxen (NAPROSYN) 500 mg tablet Take 1 tablet (500 mg total) by mouth 2 (two) times a day with meals. 30 tablet 09/17/2019Active Social History Tobacco UseTypesPacks/DayYears UsedDateSmoking Tobacco: Every DayCigarettes Smokeless Tobacco: NeverAlcohol UseStandard Drinks/WeekCommentsNot Currently0 (1 standard drink = 0.6 oz pure alcohol)ChildcareAnswerDate RecordedChildcare Uvwbpwc7312/28/2018EmploymentAnswerDate QlvvfrorScgfivgdboLrtdojy83/12/2019Purpose - LifeAnswerDate RecordedPurpose and direction in ywzeTemaode06/11/2021 CommentsNoSex and Gender InformationValueDate RecordedSex Assigned at BirthNot on fileLegal AyrQynnjo85/06/2015 11:48 AM EDTGender IdentityNot on fileSexual OrientationNot on file Last Filed Vital Signs Vital SignReadingTime TakenCommentsBlood Vynrlbdr954/8003 1:31 PM EST Inbbh9730 1:31 PM IWMIftwoajmbha78.1 ??C (98.7 ??F)09/17/2019 1:31 PM ESTRespiratory Sjyi3349 1:31 PM ESTOxygen Zrxmbtmfqb07%09/17/2019 1:31 PM ESTInhaled Oxygen Concentration--Yajdrf40.9 kg (110 lb)09/17/2019 1:31 PM EST Kuekjd234.6 cm (5' 4 )09/17/2019 1:31 PM ESTBody Mass Index18.8803 1:31 PM EST Plan of Treatment Not on file Medical Devices Not on file Insurance Care Teams Team MemberRelationshipSpecialtyStart DateEnd Derik Rowan MD [address] [address] PCP - GeneralInternal Medicine09/17/19
--- OUTSIDE RECORDS SUMMARY | 2025-06-19 15:33 | XMS_ITS | Clinical Summary ---
Author Organization [facility] Address [address] [place] [address] Care Team Providers Care Religious Healer Name Role Phone Camilo Olivas MD Primary Care Provider [phone] Allergies Active AllergyReactionsCriticalityNoted EuqmLnpluydqQmlccrmNngun66/01/2020Dye Other10/25/2024Sulfa (Sulfonamide Antibiotics)Other09/17/2019 Medications MedicationSigDispense QuantityRefillsLast FilledStart DateEnd DateStatus desvenlafaxine (Pristiq) 100 mg 24 hr tablet Take 100 mg by mouth in the morning.Active solifenacin (VESIcare) 10 mg tablet Take 1 tablet by mouth in the morning.5Active valACYclovir (Valtrex) 500 mg tablet Take 500 mg by mouth in the morning.Active QUEtiapine (SEROquel) 200 mg tablet Take 200 mg by mouth at bedtime.5Active Synthroid 50 mcg tablet Take 50 mcg by mouth in the morning.5Active metoprolol succinate XL (Toprol-XL) 25 mg 24 hr tablet Indications:PalpitationsTake 1 tablet daily, in addition to 50mg tablets= 75mg daily 90 tablet 5Active metoprolol succinate XL (Toprol-XL) 50 mg 24 hr tablet Indications:PalpitationsTake 1 tablet daily, in addition to 25mg tablets= 75mg daily 90 tablet tive Active Problems ProblemNoted DateDiagnosed FgcfDtcpleu28/09/2025enign neoplasm of face 10/25/2024ervical nmmpimfiewvnh13/09/2025Neoplasm of uncertain behavior of skin of neck04/09/2025Overactive qfkhgcw3510/25/2024Paroxysmal A-fib10/25/2024 Family History Medical HistoryRelationNameCommentsAtrial fibrillationFatherStrokeFatherHeart attackPaternal GrandfatherRelationNameStatusCommentsFatherAliveMotherAlive Paternal Grandfather Social History Tobacco UseTypesPacks/DayYears UsedDateSmoking Tobacco: FormerCigarettes Smokeless Tobacco: Current Tobacco Cessation:Ready to Q uit: Not Asked; Counseling Given: Not Answered Comments:VAPES nicotine Alcohol UseStandard Drinks/WeekCommentsNever0 (1 standard drink = 0.6 oz pure alcohol)CommentsUnknownSex and Gender InformationValueDate RecordedSex Assigned at BirthNot on fileLegal ZwlWrjyhm17/29/2022 10:38 PM EDTGender IdentityNot on fileSexual OrientationNot on file Last Filed Vital Signs Vital SignReadingTime TakenCommentsBlood Rvoofdtj150/8007 2:40 PM EDT Gdznv661201/30/2025 2:40 PM EDTTemperature--Respiratory Rate--Oxygen Sgpilfpmby94% 01/30/2025 2:40 PM EDTInhaled Oxygen Concentration--Zyjhwm55.9 kg (143 lb) 01/30/2025 2:40 PM ZVWFoodqa346.6 cm (5' 4 )01/30/2025 2:40 PM EDTBody Mass Index24.5507 2:40 PM EDT Plan of Treatment Health MaintenanceDue DateLast DoneCommentsCT Srpfblwtfhum1973Colonoscopy 1973Colorectal Cancer Cchtpwjrr1973FIT-DNA1973FIT1973 FOBT1973 1665Wxyxgjezsqfiv1973Depression Lxkbxrngs49/30/1985Hepatitis B Vaccines (1 of 3 - 19+ 3-dose series)1992Pap Smear1994Adult Tetanus 1995Cervical Cancer Aboozshhu55/30/2003HPV/Ymnhcv0803/17/2003Mammogram 2013Zoster Vaccines (1 of 2)3COVID-19 Vaccine ( - 2024-26 season)2025Influenza Vaccine (#1)HIB VaccinesAged Out No longer eligible based on patient's age to complete this topicHPV VaccinesAged OutNo longer eligible based on patient's age to complete this topicIPV Vaccines Aged OutNo longer eligible based on patient's age to complete this topic Meningococcal B VaccineAged OutNo longer eligible based on patient's age to complete this topicMeningococcal VaccineAged OutNo longer eligible based on patient's age to complete this topicPneumococcal Vaccine: Pediatrics (0 to 5 Years) and At-Risk Patients (6 to 64 Years)Aged OutNo longer eligible based on patient's age to complete this topicRotavirus VaccinesAged OutNo longer eligible based on patient's age to complete this topic Insurance Care Teams Team MemberRelationshipSpecialtyStart DateEnd Camilo Olivas MD [address] [facility] [address] [address] [facility]10/23/24
--- OUTSIDE RECORDS SUMMARY | 2025-06-19 15:34 | XMS_ITS | CCD ---
Author Organization [facility] Informat ion Partnership [facility] Care Team Providers Care Disk Sander Name Role Phone Justin Servin Attending Unavailable MARIS OLIVAS Primary Care Unavailable MARIS OLIVAS Consulting Unavailable Maris Olivas Primary Care Physician [phone] BRENDON, DR POLLOCK Primary Care Unavailable JACOB, DR DOM Bishop Admitting Unavailable JACOB, DR DOM Bishop Attending Unavailable JACOB, DR DOM Bishop Consulting Unavailable MELODIE ORTIZ Consulting Unavailable BRENDON, DR POLLOCK Admitting Unavailable BRENDON, DR POLLOCK Attending Unavailable BRENDON, DR POLLOCK Primary Care Unavailable BRENDON, DR POLLOCK Consulting Unavailable BRENDON, DR POLLOCK Admitting Unavailable BRENDON, DR POLLOCK Attending Unavailable BRENDON, DR POLLOCK Primary Care Unavailable BRENDON, DR POLLOCK Primary Care Unavailable CANDELARIO, DR [...] Unavailable MINISTERIO MOORE Attending Unavailable Allergies Allergy ClassificationReported Allergen(s)Allergy TypeDate of OnsetReaction(s) FacilityOpioid Agonists (1 source)Codeine; Translations: [codeine]Drug All[facility]Bl[facility] RepositorySulfonamides (antibiotic) (1 source)Sulfonamides (Antibiotic); Translations: [sulfa drugs]Drug Allergy [facility] Repository (7 sources)Codeine; Translations: [codeine]Drug Mzaxqgn09-53-7806Call (disorder) [facility] (6 sources)Contrast media; Translations: [Contrast Dye]Drug allergyDyspnea (finding), Weal (disorder)[facility] (6 sources)Sulfonamides (Antibiotic); Translations: [sulfa drugs]Drug allergy Eruption of skin (disorder)[facility] (1 source)CodeineDrug Jzgrzch57-26-9955Dnr [facility] Repository (1 source)Sulfonamides (Antibiotic)Drug allergy (disorder)39-85-4128Vjq [facility] Repository (1 source)CodeineDrug Ouzoykt33-16-2606WhpnltesgSamaritan [facility] Repository (2 sources)Sulfonamides (Antibiotic); Translations: [SULFA (SULFONAMIDE ANTIBIOTICS)]Drug allergy (disorder)81-05-2524LeawlcgdgSamaritan North Health Center Repository (1 source)Contrast media; Translations: [DYE]Propensity to adverse reactions to drug (disorder)23-13-9352ZinsiyuvtwSouthern [facility] Repository Medications Current Medications MedicationDrug Class(es)DatesSig (Normalized)Sig (Original)aspirin 81 mg delayed release oral tablet (4 sources)Platelet Aggregation Inhibitor, Nonsteroidal Anti-inflammatory Drug Start: 16-11-4458nswf 1 tablet by mouth once dailyaspirin 81 mg Oral EC Tab 81 mg = 1 tab(s), Oral, Daily, Refills(s) 0 Start Date: 06/19/22 Status: Ordered carvedilol 3.125 mg oral tablet (4 sources)alpha-Adrenergic Petrona, beta-Adrenergic BlockerStart: 05-18-2022 take 1 tablet by mouth twice dailycarvedilol 3.125 mg Tab 3.125 mg = 1 tab(s), Oral, BID, Refills(s) 0 Start Date: 05/18/22 Status: OrderedStart: 05-18-2022 take 1 tablet by mouth twice dailycarvedilol 3.125 mg Tab 3.125 mg = 1 tab(s), Oral, BID, Refills(s) 0 Start Date: 05/18/22 Status: Uwtphfu73 hr desvenlafaxine succinate 100 mg extended release oral tablet (4 sources)Serotonin and Norepinephrine Reuptake InhibitorStart: 46-42-4096lhrk 1 tablet by mouth once dailyPristiq 100 mg Tab-ER 100 mg = 1 tab(s), Oral, Daily Start Date: 03/08/20 Status: Yqiltfi08 hr mirabegron 25 mg extended release oral tablet (4 sources)beta3-Adrenergic AgonistStart: 49-85-1620acic 1 tablet by mouth once dailyMyrbetriq 25 mg oral tablet, extended release 25 mg = 1 tab(s), Oral, Daily, Refills(s) 0 Start Date: 05/18/22 Status: Orderednaproxen 500 mg oral tablet (2 sources)Nonsteroidal Anti-inflammatory DrugStart: 07-22-2024 End: 06-81-0266sttn 1 tablet by mouth twice dailynaproxen 500 mg Tab 500 mg = 1 tab(s), Oral, BID, X 10 day(s), # 20 tab(s), Refills(s) 0, Pharmacy:[facility]/pharmacy #[id number], 172, cm, 07/22/24 15:53:00 EST, Height/Length Dosing, 55.8, kg, 07/22/24 15:53:00 EST, Weight Dosing Start Date: 07/22/24 Stop Date: 08/01/24 Status: OrderedvalACYclovir 500 mg oral tablet (4 sources)Herpesvirus Nucleoside Analog DNA Polymerase Inhibitor, Herpes Simplex Virus Nucleoside Analog DNA Polymerase Inhibitor, Herpes Zoster Virus Nucleoside Analog DNA Polymerase InhibitorStart: 85-17-9195vrpd 1 tablet by mouth once dailyValtrex 500 mg Tab 500 mg = 1 tab(s), Oral, Daily, Refills(s) 0 Start Date: 03/15/20 Status: Ordered Problems Problem ClassificationProblemDateDocumented DateEpisodic/ChronicAbdominal pain (1 source)Abdominal pain; Translations: [Unspecified abdominal pain]Onset: 46-30-7168BjekqcaoYzwsxst disorders (5 sources)Anxiety; Translations: [Anxiety disorder, unspecified]Onset: 813357-76-5573DwgairvPgjlmgk dysrhythmias (6 sources)Paroxysmal atrial fibrillation; Translations: [Atrial premature depolarization]Onset: 442409-52-5019KhewcpaBgmhtsf dysrhythmias (6 sources)Palpitations; Translations: [PALPITATIONS]Onset: 96-91-6416RjncbrubI Codes: Struck by; against (1 source)Striking against or struck by other objects, initial encounter; Translations: [STRIKING AGNST/STRUCK OTH OBJ INIT]Onset: 28-74-6142Rjeapgnw Immunizations and screening for infectious disease (1 source)Encounter for immunization; Translations: [ENCOUNTER FOR IMMUNIZATION] Onset: 02-60-1586DikxnnhtGgchtqknyo disorders (1 source)Postmenopausal bleeding; Translations: [Postmenopausal bleeding]Onset: 71-97-5777WoymfpwQvbu disorders (1 source)Major depressive disorder, single episode, unspecified; Translations: [MARCY DEPRESS D/O SINGLE EPIS UNS]Onset: 74-36-5396GjajxnlVeijdfemd of unspecified nature or uncertain behavior (6 sources)Neoplasm of uncertain behavior of skin; Translations: [Neoplasm of uncertain behavior of skin]Onset: 87-88-1159UaaematcWvup wounds of extremities (4 sources)Puncture wound with foreign body of right ring finger without damage to nail, initial encounter; Translations: [Puncture wound with foreign body of right index finger without damage to nail, initial encounter]Onset: 07-30-2022 EpisodicOther aftercare (1 source)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; Translations: [RIVETER PORTABLE MACHINE CURRENT USE OF ASPIRIN]Onset: 44-56-8448BvvhpyhvCvsam aftercare (1 source)Other rat exterminator (current) drug therapy; Translations: [OTH RIVETER PORTABLE MACHINE CURRENT DRUG THERAPY]Onset: 72-75-5430RacnfxjkRtbxh and unspecified benign neoplasm (4 sources)Benign neoplasm of gxtb65-03-2841JputfwedClgry diseases of bladder and urethra (4 sources)Overactive yyhldlh40-96-3093XsduuxaXpptp screening for suspected conditions (not mental disorders or infectious disease) (2 sources)Abnormal electrocardiogram [ECG] [EKG]; Translations: [Abnormal electrocardiogram (ECG) (EKG)]Onset: 42-60-1785FvmdchasMbwlqsnbegx; intervertebral disc disorders; other back problems (5 sources)Cervical radiculopathy; Translations: [Backache]Onset: 07-22-2024 74-01-8815XiilkefuOtxbyyipk-related disorders (4 sources)History of drug foouc29-86-5927LxmbhwbVyntuvoflfbi (4 sources)Decreased body mass cgahz30-38-1288 Results Test NameValueInterpretationReference RangeFacilityOffice Visiton 01-30-2025 Follow-up [id number] Martha Waters 1975 Provider Department Center 01/30/2025 MINISTERIO ADAMS [facility] Family History Problem Relation Age of Onset Stroke Father Atrial fibrillation Father Heart attack Paternal Grandfather Family Status - Relation Status Age at Mother Alive Father Alive Paternal Grandfather Level of Service:88495 [place] OFFICE/OUTPATIENT ESTABLISHED LOW [facility] HospitalOrders Onlyon 82-99-2807Qbztex [id number] Martha Waters 1975 Provider Department Center 01/12/2025 [id number], HISTORICAL CARD [place] [facility] Family History Problem Relation Age of Onset Stroke Father Atrial fibrillation Father Heart attack Paternal Grandfather Family Status - Relation Status Age at Father Paternal GrandfatherNCincinnati VA Medical CenterOrders Onlyon 27-76-3996Xawrxs [id number] Martha Waters 1975 Provider Department Center 12/07/2024 [id number], HISTORICAL CARD [place] [facility] Family History Problem Relation Age of Onset Stroke Father Atrial fibrillation Father Heart attack Paternal Grandfather Family Status - Relation Status Age at Father Paternal GrandfatherNCincinnati VA Medical Center36on Regarding lab results from 10/25/2024: MD Myla Teague MA Her TSH is high and her free T4 is low; she has a thyroid abnormality and should be seen by her PCP and/or endocrinology. This may be contributing to her symptoms of palpitations. Thanks. for patient on her VM. Lab results sent to Dr. Olivas's office.[facility] Medical CenterOffice Visiton 65-49-0516Bkqfdt-up [id number] Martha Waters 1975 Provider Department Center 10/25/2024 271-MINISTERIO MOORE CARD [facility] Family History Problem Relation Age of Onset Stroke Father Atrial fibrillation Father Heart attack Paternal Grandfather Family Status - Relation Status Age at Father Paternal Grandfather Level of Service:15723 [place] OFFICE/OUTPATIENT NEW MODERATE MDM 45 MINUTESNormal [facility] CenterUS Pelvis Non-OB Completeon 28-90-8509BZ Pelvis Non-OB CompleteExam Date/Time: 07/27/2024 17:36 EST Reason for Exam: [...] Transabdominal Ultrasound Performed Technical Comments Transvaginal Ultrasound PerformedUK HealthcareUS Transvaginal Non-OBon 53-94-6736EI Transvaginal Non-OBExam Date/Time: 07/27/2024 17:30 EST Reason for Exam: N95.0 M54.9 R10.9 Report Please see ultrasound pelvis non-OB complete. Ordering Provider: Sebastián Dunne FINAL REPORT Dictated: 07/27/2024 5:54 pm Blaise Alcantara DO Signed (Electronic Signature): 07/27/2024 5:54 pm Signed by: Blaise Alcantara DO Transcribed by: SONY Technologist: [facility] CenterED Note-Physicianon 24-16-4592VO Note-PhysicianED Note-Physician Basic Information Time Seen: Sebastián Dunne [...] she had menopause about 3 years ago andhas not had any period since. About 1 to 2 weeks ago she started to have some mild spotting but didnot think much of it and all of a sudden over the last 24 to 48 hours she started to have heavier flow where she is going through 1 pad every 2-3 hours. She denies any fevers, bodies, chills. She denies any nausea, vomiting, diarrhea. She does have associated abdominal and back pain with it. Deniesany unintentional weight loss or loss of appetite. Review of Systems No other aggravating or relieving factors no other associated symptoms no other prior treatments orcomplaints. Family: Reviewed and noncontributory Social: lives at [...] rigidity. No guarding. Diffuse mild to moderate lowerabdominal tenderness. Neurological: A&O moves all extremities equal strength and symmetry Psychiatric: Cooperative and appropriate Medical Decision Making Patient is a 49-year-old female presents today for evaluation of her abnormal vaginal bleeding withassociated abdominal and back pain. She has had [...] any acute intra-abdominal process. Patient was given adose of IM Toradol with improvement of her pain. I discussed with the patient I am unsure of the exact etiology of her postmenopausal vaginal bleeding at this time. We will further investigate with an outpatient pelvic ultrasound which I provided her an order form for and she will be discharged home with close follow-up with Dr. Linton her ASSOCIATE MEDICAL DIRECTOR. We discussed if she has new or [...] day(s), # 20 tab(s), Refills(s) 0, Pharmacy: [facility]/pharmacy #[id number], 172, cm, 07/22/24 15:53:00 EST, Height/Length [...] Sancho LINTON In 3 days 07/25/2024 EST [facility] [address] [facility] [place] [address]- Business (1) Additional Instructions: Maris Olivas In 3 days [address] [facility] [place] [address]- Business (1) Additional Instructions: Patient Education Menorrhagia Attestation Patient seen and evaluated by the physician assistant producer. Attending physician was present in the emergency department and supervised care. This visit was performed by both the physician a (more content not included)... UK HealthcareComment on above:Result Comment: Electronically Signed By: Sebastián Dunne PA-C\.br\Date and Time Signed: 07/22/2519:51 EST\.br\Electronically Co-Signed By: Justin Schulte DO\.br\Date and Time Co- Signed: 07/24/24 08:46 ESTCT Abdomen/Pelvis w/o Contraston 68-60-6647IP Abdomen/Pelvis w/o ContrastExam Date/Time: 07/22/2024 16:22 EST Reason for Exam: [...] Given? No Oral contrast amount in ml's: 0NoSelect Medical Specialty Hospital - Cincinnati NorthBMPon 07-22-2024 Anion gap [Moles/Vol]10 mmol/LNormal6-16[facility] CenterComment on above:Performed By: #### [id number] #### [facility] [address], [place] [address]Asxdnlv [Mass/Vol]9.6 mg/dLNormal8.9-11.1FTriHealth McCullough-Hyde Memorial HospitalComment on above:Performed By: #### [id number] #### [facility] [address], [place] [address]Ihvomdgp [Moles/Vol]105 mmol/WQrunge541-675IhjjkrDiley Ridge Medical CenterComment on above:Performed By: #### [id number] #### [facility] [address], [place] [address]ZF8 [Moles/Vol]28 mmol/RItmavs62-61ApstjqDiley Ridge Medical Center Comment on above:Performed By: #### [id number] #### [facility] [address], [place] [address]Wjjskcbflk [Mass/Vol]0.8 mg/dLNormal0.5-1.3FTriHealth McCullough-Hyde Memorial HospitalComment on above:Performed By: #### [id number] #### [facility] [address], [place] [address]Aqrduez [Mass/Vol]92 mg/xBItwltk31-513ZgmyciDiley Ridge Medical CenterComment on above:Performed By: #### [id number] #### [facility] [address], [place] [address]Nmdvhqdtb [Moles/Vol]3.9 mmol/LNormal3.5-5.3FTriHealth McCullough-Hyde Memorial HospitalComment on above:Performed By: #### [id number] #### [facility] [address] [place] [address]Sykyqf [Moles/Vol]139 mmol/QZqhkpk941-089OduidtDiley Ridge Medical CenterComment on above:Performed By: #### [id number] #### [facility] [address] [place] [address]Xzlx nitrogen [Mass/Vol]8 mg/dLNormal5-21[facility] Medical CenterComment on above:Performed By: #### [id number] #### [facility] [address] [place] [address]Zpvn nitrogen/Creatinine [Mass ratio]10 No GqhwkJgrcrj51-47 [facility] CenterComment on above:Performed By: #### [id number] #### [facility] [address] [place] [address]JMF w/ Auto Diffon 39-57-2484Thrrazodg/100 WBC (Bld)1.1 %Normal 0.0-2.0[facility] Medical CenterComment on above:Performed By: #### [id number] #### [facility] [address] [place] [address]Ogiryekvz/Leukocytes Auto (Bld) [Pure # fraction]0.1 E9/LNormal 0.0-0.2FTriHealth McCullough-Hyde Memorial HospitalComment on above:Performed By: #### [id number] #### [facility] [address] [place] [address]Kmzkemweqjg (Bld) [#/Vol]0.1 E9/LNormal0.0-0.5FTriHealth McCullough-Hyde Memorial HospitalComment on above:Performed By: #### [id number] #### [facility] [address] [place] [address]Haynbggbuzo/100 WBC (Bld)1.7 %Normal0.0-8.0[facility] Medical CenterComment on above:Performed By: #### [id number] #### [facility] [address] [place] [address]Wqluwitqjzs distribution width (RBC) [Ratio]13.7 %Normal 10.9-14.2FTriHealth McCullough-Hyde Memorial HospitalComment on above:Performed By: #### [id number] #### [facility] [address] [place] [address]Cewmgtzkzl (Bld) [Volume fraction]45.3 %Udypwa92.0-46.0[facility] Medical CenterComment on above:Performed By: #### [id number] #### [facility] [address] [place] [address]Cbjwtneawe (Bld) [Mass/Vol]15.4 g/qVWiznut23.0-16.0[facility] CenterComment on above:Performed By: #### [id number] #### [facility] [address] [place] [address]07[address]Zpugomvglip (Bld) [#/Vol]2.2 E9/LNormal1.0-4.0[facility] CenterComment on above:Performed By: #### [id number] #### [facility] [address] [place] [address]Vdmqwntcrfz/100 WBC (Bld)38.2 %Gnhyrp30.0-50.0[facility] CenterComment on above:Performed By: #### [id number] #### [facility] [address] [place] [address] 217[address]ORB (RBC) [Entitic mass]34.7 eyQqdb63.0-34.0[facility] CenterComment on above:Performed By: #### [id number] #### [facility] [address] [place] [address]YZSW (RBC) [Mass/Vol]34.0 g/bSPeocoz59.4-36.0[facility] CenterComment on above:Performed By: #### [id number] #### [facility] [address] [place] [address] 43761LNW (RBC) [Entitic vol]101.9 tQYqdf07.0-100.0[facility] CenterComment on above:Performed By: #### [id number] #### [facility] [address] [place] [address]Jtazskaop (Bld) [#/Vol]0.6 E9/LNormal0.2-1.0[facility] CenterComment on above:Performed By: #### [id number] #### [facility] [address] [place] [address] 56958Dyyznymqvpr (Bld) [#/Vol]2.8 E9/LNormal2.0-7.5FTriHealth McCullough-Hyde Memorial HospitalComment on above:Performed By: #### [id number] #### [facility] [address] [place] [address]Lioavzzuste/100 WBC (Bld)48.9 %Urtmbl25.0-75.0[facility] CenterComment on above:Performed By: #### [id number] #### [facility] [address] [place] [address]Hlinibgv mean volume (Bld) [Entitic vol]8.9 fLNormal6.4-10.8 [facility] CenterComment on above:Performed By: #### [id number] #### [facility] [address] [place] [address]Kxbugskgh (Bld) [#/Vol]307.0 E9/UQuoxzb020.0-500.0[facility] CenterComment on above:Performed By: #### [id number] #### [facility] [address], [place] [address]YXC (Bld) [#/Vol]4.4 E12/LNormal4.3-5.9[facility] Medical CenterComment on above:Performed By: #### [id number] #### [facility] [address], [place] [address]KOD corrected for nucl RBC Auto (Bld) [#/Vol]5.8 E9/LNormal 4.0-11.0[facility] CenterComment on above:Performed By: #### [id number] #### [facility] [address], [place] [address]GNVXBFUWDVdeonqa By: SYSTEM SYSTEM on 34-26-3714Qnkroxa [Mass/Vol]4.7 g/dLNormal3.3 - 5.0 gm/dLRemisol ChemAlbumin/Globulin [Mass ratio] 1.7 {ratio}Normal1.1 - 2.2Remisol ChemALP [Catalytic activity/Vol]89 [iU]/d Vnwlsl52 - 98 Int._Unit/LRemisol ChemALT No additional P-5'-P [Catalytic activity/Vol]11 [iU]/dNormal6 - 46 Int._Unit/LRemisol ChemAnion gap [Moles/Vol] 10 mmol/LNormal6 - 16 mEq/LRemisol ChemAST [Catalytic activity/Vol]15 [iU]/d Normal5 - 43 Int._Unit/LRemisol ChemBilirubin [Mass/Vol]0.6 mg/dLNormal0.0 - 1.1 mg/dLRemisol ChemBilirubin.direct [Mass/Vol]0.1 mg/dLNormal0.0 - 0.4 mg/dL Remisol ChemBilirubin.indirect [Mass or moles/Vol]0.5 mg/dLNormal0.1 - 0.9 mg/dL Remisol ChemCalcium [Mass/Vol]9.6 mg/dLNormal8.9 - 11.1 mg/dLRemisol Chem Chloride [Moles/Vol]105 mmol/MQzaxdx906 - 111 mmol/LRemisol ChemCO2 [Moles/Vol] 28 mmol/MXbjnyd40 - 31 mmol/LRemisol ChemCreatinine [Mass/Vol]0.8 mg/dLNormal0.5 - 1.3 mg/dLRemisol MvlfdLPY22 mL/min/1.73 m7Tpevtn>=59mL/min/1.73 m8Gwqyjga ChemGlobulin (S) [Mass/Vol]2.8 g/dLNormal1.4 - 4.0 gm/dLRemisol ChemGlucose [Mass/Vol]92 mg/jCIqtpql39 - 199 mg/dLRemisol ChemLipase [Catalytic activity/Vol]22 U/DLkhjkw13 - 58 unit/LRemisol ChemPotassium [Moles/Vol]3.9 mmol/LNormal3.5 - 5.3 mmol/LRemisol ChemProtein [Mass/Vol]7.5 g/dLNormal6.0 - 7.8 gm/dLRemisol ChemSodium [Moles/Vol]139 mmol/YFzaqjg485 - 145 mmol/LRemisol ChemUrea nitrogen [Mass/Vol]8 mg/dLNormal5 - 21 mg/dLRemisol ChemUrea nitrogen/Creatinine [Mass ratio]10 mg/fmNhdfiv59 - 20Remisol ChemED Clinical Summaryon [id number] Clinical SummaryED Clinical Summary [place] [id number] ED Clinical Summary Person Information Name: MARTHA WATERS Jada/[facility] Age: 49 Years : 1975 Sex: Female Language: Yoruba PCP: Maris Olivas MD Marital Status: Visit [...] 07/22/2024 20:14:13 07/22/2024 20:14:13 07/22/2024 20:14:13 ADDRESS: [address] [place] [id number] PHYS DOC NOTES: MEDICAL INFORMATION: Prescriptions Given: New Medications [id number], [address], [place] [id number], [phone] naproxen (naproxen 500 mg Tab) 1 Tablets [...] With: Address: When: Sancho LINTON [facility], [address] [place] [address] [place] [place] [address] Business (1) In 3 days 07/25/2024 With: Address: When: Maris Olivas [address] [facility] [place] [address] Business (1) In 3 days DIAGNOSIS: Abdominal pain; Back pain; Postmenopausal vaginal bleedingNormalMarietta Memorial Hospital Patient Summaryon [id number] Patient SummaryED Patient Summary [address] [address] Patient Discharge Instructions Person Information Name: WATERS, MARTHA H Age: 49 Years Arrival Date: 07/22/2024 15:40:19 Discharge Diagnosis: Abdominal pain; Back pain; Postmenopausal vaginal bleeding Primary Care Physician: Maris Olivas MD Provider Information Primary Provider: Justin Schulte DO Advanced Animal Caretaker:Sebastián Dunne PA-C The exam and treatment you received in the Emergency Department were for an urgent problem and are not intended as complete care. It is important that you follow up with a doctor, nurse practitioner,or physician???s assistant producer for ongoing care. If your symptoms become worse or you do not improve asexpected and you are unable to reach your usual health care provider, you should return to the Emergency Department. We are available 24 hours a day. MARTHA WATERS has been given the following list of patient education materials, prescriptions and follow-up instructions: Follow-up Instructions: With: Address: When: Sancho LINTON [facility], [address] [place] [address] [place] [address] Printed Piece (1) In 3 days 07/25/2024 With: Address: When: Maris Brendon [address] [facility], [place] [address] Business (1) In 3 days In the event that this physician does not participate in your insurance network, please consult with your insurance company to find a nearby participating provider. Patient Education Materials: Menorrhagia A MESSAGE TO ALL PATIENTS REGARDING OPIOIDS PRESCRIPTION OPIOIDS: WHAT YOU NEED TO KNOW Prescription opioids can be used to help relieve rxfbvwcv-jq-sichwk pain and are often prescribed following a [...] the Food and Drug Administration (www.fda.gov/Drugs/ResourcesForYou). ??? (more content not included)...NormalDiley Ridge Medical CenterExtra Blueon 30-94-5630Nodo Collected PlasmaYesInvalid Interpretation [facility] CenterComment on above:Performed By: #### [id number] #### [facility] [address], [place] [address]UOFTEDGHHMLhgeeof By: SYSTEM SYSTEM on 31-08-3395Filwjteuu/100 WBC (Bld)1.1 %Normal0.0 - 2.0 %Remisol HemeBasophils/Leukocytes Auto (Bld) [Pure # fraction]0.1 E9/LNormal0.0 - 0.2 E9/LRemisol HemeEosinophils (Bld) [#/Vol]0.1 E9/LNormal0.0 - 0.5 E9/LRemisol HemeEosinophils/100 WBC (Bld)1.7 %Normal0.0 - 8.0 %Remisol HemeErythrocyte distribution width (RBC) [Ratio]13.7 %Lhovvr07.9 - 14.2 %Remisol HemeHematocrit (Bld) [Volume fraction]45.3 %Tpalna66.0 - 46.0 % Remisol HemeHemoglobin (Bld) [Mass/Vol]15.4 g/fCHcmmtj68.0 - 16.0 gm/dLRemisol HemeLymphocytes (Bld) [#/Vol]2.2 E9/LNormal1.0 - 4.0 E9/LRemisol Heme Lymphocytes/100 WBC (Bld)38.2 %Tuwequ90.0 - 50.0 %Remisol HemeMCH (RBC) [Entitic mass]34.7 wnUpaa00.0 - 34.0 pgRemisol HemeMCHC (RBC) [Mass/Vol]34.0 g/dLNormal 31.4 - 36.0 gm/dLRemisol HemeMCV (RBC) [Entitic vol]101.9 vLObrq53.0 - 100.0 fL Remisol HemeMonocytes (Bld) [#/Vol]0.6 E9/LNormal0.2 - 1.0 E9/LRemisol Heme Monocytes/100 WBC (Bld)10.1 %Normal4.0 - 14.0 %Remisol HemeNeutrophils (Bld) [#/Vol]2.8 E9/LNormal2.0 - 7.5 E9/LRemisol HemeNeutrophils/100 WBC (Bld)48.9 % Szkwhr00.0 - 75.0 %Remisol HemePlatelet mean volume (Bld) [Entitic vol]8.9 fL Normal6.4 - 10.8 fLRemisol HemePlatelets (Bld) [#/Vol]307.0 E9/URqcmlu624.0 - 500.0 E9/LRemisol HemeRBC (Bld) [#/Vol]4.4 E12/LNormal4.3 - 5.9 E12/LRemisol HemeWBC corrected for nucl RBC Auto (Bld) [#/Vol]5.8 E9/LNormal4.0 - 11.0 E9/L Remisol HemeHep Func Panelon 72-64-2627Ihxdxlx [Mass/Vol]4.7 g/dLNormal3.3-5.0 [facility] CenterComment on above:Performed By: #### [id number] #### [facility] [address], [place] [address]Whtufeq/Globulin (S) [Mass conc ratio]1.1Pxhjpm0.1-2.2FTriHealth McCullough-Hyde Memorial HospitalComment on above:Performed By: #### [id number] #### [facility] [address], [place] [address]BJU [Catalytic activity/Vol]89 Int._Unit/JAhaxtp41-00UwblpyDiley Ridge Medical CenterComment on above:Performed By: #### [id number] #### [facility] [address], [place] [address]TFW No additional P-5'-P [Catalytic activity/Vol]11 Int._Unit/L Normal6-46[facility] CenterComment on above:Performed By: #### [id number] #### [facility] [address], [place] [address]PMX [Catalytic activity/Vol]15 Int._Unit/LNormal5-43[facility] CenterComment on above:Performed By: #### [id number] #### [facility] [address], [place] [address]Qtzhahgsj [Mass/Vol]0.6 mg/dLNormal0.0-1.1FTriHealth McCullough-Hyde Memorial HospitalComment on above:Performed By: #### [id number] #### [facility] [address], [place] [address]Ohmwxldky.direct [Mass/Vol]0.1 mg/dLNormal0.0-0.4FTriHealth McCullough-Hyde Memorial HospitalComment on above:Performed By: #### [id number] #### [facility] [address] [place] [address]Jjzrgdsxq.indirect [Mass or moles/Vol]0.5 mg/dLNormal0.1-0.9 [facility] CenterComment on above:Performed By: #### [id number] #### [facility] [address], [place] [address]Gkksnmlt (S) [Mass/Vol]2.8 g/dLNormal1.4-4.0[facility] CenterComment on above:Performed By: #### [id number] #### [facility] [address] [place] [address]Yvhtltn [Mass/Vol]7.5 g/dLNormal6.0-7.8[facility] CenterComment on above:Performed By: #### [id number] #### [facility] [address], [place] [address]Fpnqix Levelon 80-65-6370Wwqhbv [Catalytic activity/Vol]22 U/L Kryxvg01-89SrizogDiley Ridge Medical CenterComment on above:Performed By: #### [id number] #### [facility] [address], [place] [address]WW with Cult Rflxon 28-08-5713Upjpzslgb Ql (U)NegativeNormal NegativeDiley Ridge Medical CenterComment on above:Performed By: #### [id number] #### [facility] [address] [place] [address]Cyhouxt (U)ClearNormalClearDiley Ridge Medical CenterComment on above:Performed By: #### [id number] #### [facility] [address] [place] [address]Dzdwl (U)YellowNormalYellowDiley Ridge Medical CenterComment on above:Result Comment: Microscopic readings are only performed on those samples that meet specific criteria set forth by [facility].Performed By: #### [id number] #### [facility] [address] [place] [address]Mehrqoqjeo cells.squamous Auto (Urine sed) [#/Area]5-8Invalid Interpretation CodeDiley Ridge Medical CenterComment on above:Performed By: #### [id number] #### [facility] [address] [place] [address]Vpctxnv Ql (U)NegativeNormalNegativeDiley Ridge Medical Center Comment on above:Performed By: #### [id number] #### [facility] [address] [place] [address]Cpofzvlymi Auto test strip (U) [Mass/Vol]1+ mg/dLAbnormal NegativeDiley Ridge Medical CenterComment on above:Performed By: #### [id number] #### [facility] [address] [place] [address]Kshgjjo Auto test strip Ql (U)NegativeNormalNegativeDiley Ridge Medical CenterComment on above:Performed By: #### [id number] #### [facility] [address] [place] [address]Leviumhhf esterase Auto test strip Ql (U)NegativeNormalNegative [facility] CenterComment on above:Performed By: #### [id number] #### [facility] [address] [place] [address]Neevx Auto Ql (U)1+ CD:[id number] [facility] CenterComment on above:Performed By: #### [id number] #### [facility] [address] [place] [address]Sllklcs Auto test strip Ql (U)NegativeNormalNegativeDiley Ridge Medical CenterComment on above:Performed By: #### [id number] #### [facility] [address] [place] [address]eF (U)6.0 [pH]Invalid Interpretation Code5.0-9.0[facility] CenterComment on above:Performed By: #### [id number] #### [facility] [address] [place] [address]Hyxbfhi Ql (U)TraceAbnormalNegWexner Medical Center Comment on above:Performed By: #### [id number] #### [facility] [address] [place] [address]YVX Ql (U)3-8Eukgtx4-6HegxkvTriHealth McCullough-Hyde Memorial HospitalComment on above:Performed By: #### [id number] #### [facility] [address] [place] [address]Kdnzdwwq gravity (U) [Rel density]1.024Invalid Interpretation Code1.005-1.030[facility] CenterComment on above:Performed By: #### [id number] #### [facility] [address] [place] [address]Ecoanqebnnux (U) [Mass/Vol]2 mg/dLAbnormalNegWexner Medical CenterComment on above:Performed By: #### [id number] #### [facility] [address] [place] [address]WRM Auto (Urine sed) [#/Area]9-2Lmkgih9-0PuxnkwTriHealth McCullough-Hyde Memorial HospitalComment on above:Performed By: #### [id number] #### [facility] [address] [place] [address]Mlwd of Urine collection methodClean CatchNormalFisher [facility] Hospital CenterComment on above:Performed By: #### [id number] #### [facility] [address] [place], [place] [address]TVEDXOUEYTVowineu By: SYSTEM SYSTEM on 66-39-7197Dovqwmpnz Ql (U)NegativeNormalNegativemg/dLFT UA Auto SSClarity (U)Clear (07/22/24 4:23 PM)NormalClearFTMC UA Auto SSColor (U)Yellow 1 (07/22/24 4:23 PM)NormalYellowFT UA Auto SSComment on above:Interpretive Data: Microscopic readings are only performed on those samples that meet specific criteria set forth by [facility].Epithelial cells.squamous Auto (Urine sed) [#/Area]5-8 graded/HPFInvalid Interpretation CodeFT UA Auto SSGlucose Ql (U)NegativeNormalNegativemg/dLFT UA Auto SS Hemoglobin Auto test strip (U) [Mass/Vol]1+ mg/dLInvalid Interpretation Code Negativemg/dLFT UA Auto SSKetones Auto test strip Ql (U)NegativeNormal Negativemg/dLFT UA Auto SSLeukocyte esterase Auto test strip Ql (U)Negative NormalNegativeLeu/uLFT UA Auto SSMucus Auto Ql (U)1+ graded/LPFInvalid Interpretation CodeNegativegraded/LPFFTMC UA Auto SSNitrite Auto test strip Ql (U)NegativeNormalNegativemg/dLFTMC UA Auto SSpH (U)6.0 *NA* (07/22/24 4:23 PM)Invalid Interpretation Code5.0 - 9.0FT UA Auto SSProtein Ql (U)Trace mg/dLInvalid Interpretation CodeNegativemg/dLFT UA Auto SSRBC Ql (U) 0-3 graded/HPFNormal0-3graded/HPFFT UA Auto SSSpecific gravity (U) [Rel density]1.024 *NA* (07/22/24 4:23 PM)Invalid Interpretation Code1.005 - 1.030FT UA Auto SS Urobilinogen (U) [Mass/Vol]2 mg/dLInvalid Interpretation CodeNegativemg/dLFTMC UA Auto SSWBC Auto (Urine sed) [#/Area]0-5 graded/HPFNormal0-5graded/HPFHARPER [facility] [place] U[facility] Auto SSURINALYSISOrdered By: Sebastián Dunne on 12-02-5421CG Spec DescClean Catch (07/22/24 4:23 PM)NormalHARPER COUNTY COMM[facility] [place] UA Auto SSeGFRon 76-53-1927vRYL65 mL/min/1.73 m2 Normal>=59Fisher [facility] CenterComment on above:Performed By: #### [id number] #### [facility] [address] [place], [place] [address]TVOYJUB DOM ADMITon 30-54-4145ZG [Catalytic activity/Vol]73 U/JXqaxwp97-116Mzu [facility] HospitalComment on above:Performed By: #### STACEY, CMP #### [facility] [address] [address] [address] Akil Randolph.MB [Mass/Vol]0.61 ng/mLNormal<=2.37The [facility] Comment on above:Performed By: #### STACEY, CMP #### [facility] [address] [address] [address] Akil RdzTROP7.1 pg/mLNormal4.0-35.5The [facility] HospitalComment on above:Result Comment: CUT-OFF POINTS HAVE BEEN ESTABLISHED BASED ON THE FOURTH UNIVERSAL DEFINITIONS OF MYOCARDIAL INFARCTION. THE UPPER REFERENCE LIMIT (URL) OF TROPONIN, DEFINED THE 99TH PERCENTILE OF cTnI DISTRIBUTION IN A REFERENCE POPULATION, HAS BEEN CONFIRMED THE DECISION THRESHOLD FOR CT DIAGNOSIS.Performed By: #### STACEY, CMP #### [facility] [address] [address] [address] Akil SaucedoO22.0 ng/mLNormal<=61.5The [facility] HospitalComment on above: Performed By: #### STACEY, CMP #### [facility] [address] [address] [address] Akil Paige AUTO DIFFon 09-51-2427PKDQ #0.0 103/ulNormal0.0-0.1The [facility] HospitalComment on above:Performed By: #### CBC #### [facility] [address] [address] [address] Akil AlemanBasophils/100 WBC (Bld)0.5 %Normal0.2-2.0The [facility] Comment on above:Performed By: #### CBC #### [facility] [address] [place] [address] Dr. Akil Rivera #0.2 103/ulNormal0.0-0.7The [facility] HospitalComment on above: Performed By: #### CBC #### [facility] [address] [place] [address] Dr. Akil Patelosinophils/100 WBC (Bld)2.8 %Normal0.9-7.0The [facility] Comment on above:Performed By: #### CBC #### [facility] [address] [place] [address] Dr. Akil Patelrythrocyte distribution width (RBC) [Ratio]12.6 %Awwgrn96.0-15.0 The [facility] HospitalComment on above:Performed By: #### CBC #### [facility] [address] [place] [address] Dr. Akil AlemanHematocrit (Bld) [Volume fraction]42.5 %Meucja10.0-48.0The [facility] HospitalComment on above:Performed By: #### CBC #### [facility] [address] [place] [address] Dr. Akil AlemanHemoglobin (Bld) [Mass/Vol]14.8 g/uSSqnzgw07.0-16.0The [facility] HospitalComment on above:Performed By: #### CBC #### [facility] [address] [place] [address] Dr. Akil Anguiano #0.02 10e3/ulNormal0.00-0.03The [facility] HospitalComment on above:Performed By: #### CBC #### [facility] [address] [place] [address] Dr. Yilan ChangIG %0.3 %Normal0.0-0.5The [facility] HospitalComment on above: Performed By: #### CBC #### [facility] [address] [place] [address] Dr. Akil Grigsby #2.0 103/ulNormal1.2-3.8The [facility] HospitalComment on above:Performed By: #### CBC #### [facility] [address] [place] [address] Dr. Akil Welshhocytes/100 WBC (Bld)25.4 %Debwvd36.5-60.0The [facility] HospitalComment on above:Performed By: #### CBC #### [facility] [address] [place] [address] Dr. Akil Albarran DIFF REQNONormalThe [facility] HospitalComment on above: Performed By: #### CBC #### [facility] [address] [place] [address] Dr. Akil Hoffman (RBC) [Entitic mass]36.5 pgCritically high26.7-34.0The [facility] HospitalComment on above:Performed By: #### CBC #### [facility] [address] [place] [address] Dr. Akil Jarvis (RBC) [Mass/Vol]34.8 g/rZXdkjmo16.9-35.2The [facility] HospitalComment on above:Performed By: #### CBC #### [facility] [address] [place] [address] Dr. Akil Leone (RBC) [Entitic vol]104.9 fLCritically high81.0-99.0The [facility] HospitalComment on above:Performed By: #### CBC #### [facility] [address] [place] [address] Dr. Akil Crowell #0.7 103/ulNormal0.3-0.8The [facility] HospitalComment on above:Performed By: #### CBC #### [facility] [address] [place] [address] Dr. Yilan ChangMonocytes/100 WBC (Bld)8.9 %Normal1.7-12.0The [facility] Comment on above:Performed By: #### CBC #### [facility] [address] [place] [address] Dr. Akil Forrest #5.0 103/ulNormal1.4-6.5The [facility] HospitalComment on above:Performed By: #### CBC #### [facility] [address] [place] [address] Dr. Akil Moralesutrophils/100 WBC (Bld)62.1 %Fczwpd23.0-75.0The [facility] HospitalComment on above:Performed By: #### CBC #### [facility] [address] [place] [address] Dr. Akil Rangellet mean volume (Bld) [Entitic vol]12.1 fLNormal9.5-13.5The [facility] HospitalComment on above:Performed By: #### CBC #### [facility] [address] [place] [address] Dr. Akil AlemanPLT187 103/gmPkarsr149-414Qjw [facility] HospitalComment on above: Performed By: #### CBC #### [facility] [address] [place] [address] Dr. Akil AlemanRBC4.05 106/ulCritically low4.20-5.40The [facility] HospitalComment on above:Performed By: #### CBC #### [facility] [address] [place] [address] Dr. Akil AlemanWBC8.0 103/ulNormal4.0-11.0The [facility] HospitalComment on above: Performed By: #### CBC #### [facility] [address] [place] [address] Dr. Akil Cai 14(COMP METB)on 06-73-8818Lnkqdei [Mass/Vol]3.8 g/dLNormal 3.5-5.0The [facility] HospitalComment on above:Performed By: #### CMADM, CMP #### [facility] [address] [address] [address] Akil AlemanAlbumin/Globulin [Mass ratio]1.1 {ratio}NormalThe [facility] HospitalComment on above:Performed By: #### CMADM, CMP #### [facility] [address] [address] [address] Akil TaiP [Catalytic activity/Vol]132 U/LCritically aqpd80-998Gon [facility] HospitalComment on above:Performed By: #### CMADM, CMP #### [facility] [address] [address] [address] Akil TaiT [Catalytic activity/Vol]19 U/LNormal9-52[facility] Comment on above:Performed By: #### CMADM, CMP #### [facility] [address] [address] [address] Akil Mejiaon gap [Moles/Vol]16.1 mmol/LNormalThe [facility] Comment on above:Performed By: #### CMADM, CMP #### [facility] [address] [address] [address] Akil AlemanAST [Catalytic activity/Vol]13 U/LCritically syq45-62Wmn [facility] HospitalComment on above:Performed By: #### CMADM, CMP #### [facility] [address] [address] [address] Akil AlemanBilirubin [Mass/Vol]0.5 mg/dLNormal0.2-1.3The [facility] Comment on above:Performed By: #### CMADM, CMP #### [facility] [address] [address] [address] Akil AlemanCalcium [Mass/Vol]9.2 mg/dLNormal8.4-10.2The [facility] Comment on above:Performed By: #### CMADM, CMP #### [facility] [address] [address] [address] Akil AlemanChloride [Moles/Vol]101 mmol/SQnqcpt25-792Ayf [facility] Comment on above:Performed By: #### CMADM, CMP #### [facility] [address] [address] [address] Akil AlemanCO2 [Moles/Vol]25.5 mmol/OPcxdtw12.0-30.0The [facility] Comment on above:Performed By: #### CMADM, CMP #### [facility] [address] [address] [address] Akil AlemanCreatinine [Mass/Vol]0.70 mg/dLNormal0.52-1.04The [facility] HospitalComment on above:Performed By: #### CMADM, CMP #### [facility] [address] [address] [address] Akil PatelGFR-AF COMORAN>60Normal>=60The [facility] HospitalComment on above:Performed By: #### CMADM, CMP #### [facility] [address] [place] [address] Dr. Akil PatelGFR-NON AF COMORAN>60Normal>=60The [facility] HospitalComment on above:Performed By: #### CMADM, CMP #### [facility] [address] [address] [address] Akil AlemanGlobulin (S) [Mass/Vol]3.5 g/dLNormalThe [facility] HospitalComment on above:Performed By: #### CMADM, CMP #### [facility] [address] [address] [address] Akil AlemanGlucose [Mass/Vol]88 mg/pGIshymy16-648AmhBucyrus Community Hospital Comment on above:Performed By: #### CMADM, CMP #### [facility] [address] [address] [address] Akil AlemanPotassium [Moles/Vol]3.6 mmol/LNormal3.4-5.0The [facility] Comment on above:Performed By: #### CMADM, CMP #### [facility] [address] [address] [address] Akil AlemanProtein [Mass/Vol]7.3 g/dLNormal6.1-8.2The [facility] Comment on above:Performed By: #### CMADM, CMP #### [facility] [address] [place], [place] [address] Dr. Akil AlemanSodium [Moles/Vol]139 mmol/YCfvqxw985-071Dbe [facility] Comment on above:Performed By: #### CMADM, CMP #### [facility] [address] [address] [address] Akil AlemanUrea nitrogen [Mass/Vol]11.0 mg/dLNormal7.0-17.0The [facility] HospitalComment on above:Performed By: #### CMADM, CMP #### [facility] [address] [place], [place] [address] Dr[address] Akil AlemanUrea nitrogen/Creatinine [Mass ratio]15.7 mg/mgNormalThe [facility] HospitalComment on above:Performed By: #### CMADM, CMP #### [facility] [address] [place], [place] [address] Dr. Akil AlemanXR CHEST 1 Von 78-57-3540HL CHEST 1 VEXAM: XR CHEST 1 V HISTORY: CHEST PAIN, [...] Electronically authenticated by: MELODIE ORTIZ Date: 2021-08-16 02:38Normal The [facility] HospitalED Clinical Summaryon [id number] Clinical Summary [address] [address] ED Clinical Summary Person Information Name: Martha Waters Jada/[facility] Age: 45 Years : 1975 Sex: Female PCP: Maris Olivas MD Marital Status: Phone: Race: White Ethnicity: Not or Language: Yoruba Visit Reason: Seizure; Seizure - febrile Acuity: 3 Enc Type: Emergency Med Service: Emergency Medicine Arrival: 11/02/2020 19:11:24 Discharge: 11/02/2020 22:24:00 LOS: 000 03:13 Checkin: 11/02/2020 19:11:24 Checkout: 11/02/2020 22:24:00 Dispo Type: Home or Self Care Address: [address] [place] [address] Provider Notes: Diagnosis: 1:First time seizure; 2:Anxiety [...] range between ( 27.2 and 40.8 ) [place] Auto: 5.5 % -- Normal range between [...] range between ( 36.0 and 46.0 ) [place] Absolute: 0.6 x10 MCH: 34.5 pg -- [...] Height: Weight: 59.9 kg (more content not included)...NormalKettering Health Preble.UA Microscp A on 51-78-3344MF BacteriaPresentAbnormalAbsWadsworth-Rittman Hospital Comment on above:Performed By: #### [id number] #### [facility] [address] [place], [place] [address]PA Hyline Cast Qual3-5NormalNegativeKettering Health PrebleComment on above:Performed By: #### [id number] #### [address] [address]BP MucusPresentAbnormalAbsentKettering Health Preble Comment on above:Performed By: #### [id number] #### [address] [address]IJ RBC Quant5 /HPFNormal0-5BCleveland Clinic Union Hospital Comment on above:Performed By: #### [id number] #### [address] [address]QZ Squepi Cells Quant7 /HPFNormal0-29[facility] PrebleComment on above:Performed By: #### [id number] #### [address] [address]XD WBC Quant4 /HPFNormal0-5BCleveland Clinic Union Hospital Comment on above:Performed By: #### [id number] #### [address] [address].eGFRon 29-36-4271dSBT AA>60Normal>=60[facility] PrebleComment on above:Order Comment: Order added by Candelario Salmon Comment: See comment.Performed By: #### EGFR #### [address] [address]gJQM Non-AA>60Normal>=60[facility] PrebleComment on above:Order Comment: Order added by Candelario Salmon Comment: Stages of Chronic Kidney Disease GFR Stage 3a [...] maximum of SCr/? or 1 age = yearsPerformed By: #### EGFR #### [address] [address]XOT w/ Diffon 82-32-6021Dlacfwdwiqo distribution width (RBC) [Ratio]15.5 %High11.6-14.8BCleveland Clinic Union HospitalComment on above: Performed By: #### CBC #### [address] [address]Ssbspgsfuv (Bld) [Volume fraction]40.2 %Nwkoxo97.0-46.0 [facility] PrebleComment on above:Performed By: #### CBC #### [address] [address]Imlixfechk (Bld) [Mass/Vol]13.6 g/gLVpdmpy34.0-16.0[facility] PrebleComment on above:Performed By: #### CBC #### [address] [address]TZG (RBC) [Entitic mass]34.5 dmSdtgtx32.0-35.0[facility] PrebleComment on above:Performed By: #### CBC #### [address] [address]FXUK41.8 %Zoqxuk88.0-37.0[facility] PrebleComment on above:Performed By: #### CBC #### [address] [address]ZBZ (RBC) [Entitic vol]102.2 uYTosu12.0-100.0[facility] PrebleComment on above:Performed By: #### CBC #### [address] [address]Wdfhjxhe077 x10*3/geQDjrubz574-633KvpdpziknKettering Health PrebleComment on above:Performed By: #### CBC #### [address] [address]Kyiwfgam mean volume (Bld) [Entitic vol]9.4 fLNormal6.7-10.6 [facility] PrebleComment on above:Performed By: #### CBC #### [address] [address]DAT1.94 x10*6/mcLNormal3.80-5.20[facility] Comment on above:Performed By: #### CBC #### [address] [address]LIK24.5 x10*3/mcLNormal4.5-11.0[facility] Comment on above:Performed By: #### CBC #### [address] [address]SXOar 64-19-7713Mpradlskpy [Mass/Vol]0.80 mg/dLNormal0.44-1.03 [facility] PrebleComment on above:Performed By: #### COMP #### [address] [address]Gzia nitrogen [Mass/Vol]13 mg/dLNormal8-26[facility] PrebleComment on above:Performed By: #### COMP #### [address] [address]Lxde nitrogen/Creatinine [Mass ratio]16.2 mg/fjAybhdh05.0-20.0 [facility] PrebleComment on above:Performed By: #### COMP #### [address] [address]Kdvohlu [Mass/Vol]3.9 g/dLNormal3.2-4.9BCleveland Clinic Union HospitalComment on above:Performed By: #### COMP #### [address] [address]Nzyowtf/Globulin [Mass ratio]1.3 {ratio}Normal1.1-2.2BCleveland Clinic Union HospitalComment on above:Performed By: #### COMP #### [address], [place] [address]Tyf Phos64 IU/UDfxzvh82-21EfxflgmiiKettering Health PrebleComment on above:Performed By: #### COMP #### [address], [place] [address]QMY [Catalytic activity/Vol]18 U/XNhdadn27-63NhbphuxzwRiverside Methodist Hospital SystemComment on above:Performed By: #### COMP #### [address], [place] [address]NGB [Catalytic activity/Vol]16 U/AUnbgrm44-08MnszsuzhpKettering Health PrebleComment on above:Performed By: #### COMP #### [address], [place] [address]Ayoj Total0.2 mg/dLLow0.3-1.2BC[facility] Hospital Comment on above:Performed By: #### COMP #### [address], [place] [address]Nxsocps [Mass/Vol]6.8 g/dLNormal6.5-8.1BCleveland Clinic Union HospitalComment on above:Performed By: #### COMP #### [address], [place] [address]Qnvbb gap [Moles/Vol]14 mmol/LNormal7-17[facility] PrebleComment on above:Performed By: #### COMP #### [address], [place] [address]Vnewqku [Mass/Vol]9.0 mg/dLNormal8.5-10.3BCleveland Clinic Union HospitalComment on above:Performed By: #### COMP #### [address], [place] [address]Nbkfbizv [Moles/Vol]105 mmol/CEcxdik48-571VhhxdisleKettering Health PrebleComment on above:Performed By: #### COMP #### [address] [place] [address]ZH5 [Moles/Vol]25 mmol/HTznxrh89-18GnahzhrtmRiverside Methodist Hospital SystemComment on above:Performed By: #### COMP #### [facility] [address], [place] [address]Mvmsyfb [Mass/Vol]107 mg/mVXiot11-26FoyelayaeKettering Health PrebleComment on above:Performed By: #### COMP #### [address] [address]Kwnfcwagr [Moles/Vol]3.8 mmol/LNormal3.4-4.8BCleveland Clinic Union HospitalComment on above:Performed By: #### COMP #### [address] [address]Czxssw [Moles/Vol]140 mmol/SPfikeh723-200KcoevjqfoKettering Health PrebleComment on above:Performed By: #### COMP #### [address] [address]XU Brain w/o Contraston 22-12-4914EI Brain w/o ContrastEXAM: CT Brain w/o Contrast COMPARISON: None available. CLINICAL INFORMATION: Seizure. TECHNIQUE: Axial noncontrast images were obtained through the brain and reconstructed using brain and bone algorithms. Dose reduction techniques were achieved by using automated exposure control and/or adjustment of mAand/or kV according to patient size and/or use [...] with follow-up nonemergent MRI. Radiation Dose Estimate: CTDI(mGy):0.593414 / / / kVp:120.095037 / mAs:0.703020 / / / DLP(mGy- cm):4.680997Choj Part: Head CTDI(mGy):40.444434 / / / kVp:120.267101 / mAs:164.654323 / / / DLP(mGy- cm):605.194163Txey Part: Head Final Dictated by: Sebastián Castañeda MD Dictated DT/TM: 11.02.2020 9:41 pm Signed by: Sebastián Castañeda MD Signed (Electronic Signature): 11.02.2020 9:43 pm (If Report Is Signed, Electronically Signed in Other Vendor System)Normal [facility]bleDiff Autoon 08-78-6665Palw Absolute0.1 x10*3/mcL Normal0.0-0.2BCleveland Clinic Union HospitalComment on above:Performed By: #### PTINR #### [address] [address]Hxsplcmab/100 WBC (Bld)1.0 %Normal0.0-1.5BCleveland Clinic Union HospitalComment on above:Performed By: #### PTINR #### [address] [address]Rzn Absolute0.1 x10*3/mcLNormal0.0-0.4BCleveland Clinic Union HospitalComment on above:Performed By: #### PTINR #### [address] [address]Xlshdxkwprl/100 WBC (Bld)1.3 %Normal0.0-5.4BCleveland Clinic Union HospitalComment on above:Performed By: #### PTINR #### [address] [address]Oryit Absolute1.4 x10*3/mcLNormal1.0-4.8BCleveland Clinic Union HospitalComment on above:Performed By: #### PTINR #### [address] [address]Anmwrtgmgja/100 WBC (Bld)13.7 %Low27.2-40.8BCleveland Clinic Union HospitalComment on above:Performed By: #### PTINR #### [address] [address]Vcup Absolute0.6 x10*3/mcLNormal0.1-1.1BCleveland Clinic Union HospitalComment on above:Performed By: #### PTINR #### [address] [address]Npshmwaae/100 WBC (Bld)5.5 %Normal3.7-11.9BCleveland Clinic Union HospitalComment on above:Performed By: #### PTINR #### [address] [address]Hrhpaz Absolute8.3 x10*3/mcLHigh1.8-7.7BCleveland Clinic Union HospitalComment on above:Performed By: #### PTINR #### [address] [address]Jbtwkd Auto78.5 %High47.2-70.8BC[facility] Comment on above:Performed By: #### PTINR #### [address] [address]GS Note-Physicianon 78-83-3375TS Note-PhysicianChief Complaint Patient coming from [facility] for new onset seizure like activity. 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 last use 12 days ago. History of Present Illness Patient presents the emergency department from [facility] for concern of new onset seizure. 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 The last time he used benzos was 12 days ago when he reported to the center. Today just priorto coming she said that she had right eye flashing light and soon after that she had tonic-clonic seizure estimated to have lasted about a minute witnessed by the nursing staff at the center. She hasnever had any seizures before and therefore this [...] or congestion no chest pain or shortness ofbreath and no cardiorespiratory symptoms. She denies nausea [...] round, extraocular movements intact without nystagmus, clear conjunctiva,non-icteric sclera] HENT: [normocephalic, atraumatic, moist mucus membranes, [...] mentation and speech. Moves all extremities x 4without motor or sensory deficit . PSYCHIATRIC: [normal [...] normal. Drug screen is negative for drugs exceptbarbiturates and marijuana. Chest x-ray and CT scan [...] she follow-up with neurologist Dr. Salgado. 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 Legal limit of intoxication is 80mg/dL (0.08 g/dL).Performed By: #### PTINR #### [facility] [address] [place], [place] [address]Deidqnynqpl 12-50-4912Fmzzixieh255.0 ng/fFJafv69.3-65.8 [facility] PrebleComment on above:Performed By: #### HUNTER #### [address] [address]PWbi 13-45-2208YJG Coag (PPP) [Relative time]1.1 {INR}Normal <=3.5BCleveland Clinic Union HospitalComment on above:Result Comment: INR has no normal range. INR Therapeutic range is: 2.0-3.0 (AF, CVA, TIAs, DVT prophylaxis, acute DVT) 2.5-3.5 ([facility], recurrent thrombosis/emboli)Performed By: #### PTINR #### [address] [address]LW Coag (PPP) [Time]11.7 sNormal9.4-12.1BCleveland Clinic Union HospitalComment on above:Performed By: #### PTINR #### [address] [address]ESNot 67-98-4249qJDG Coag (Bld) [Time]21.7 eNimgqp39.2-27.0 [facility] PrebleComment on above:Performed By: #### PTT #### [address] [address]UTKmw 02-15-4457AKT Qn3.23 m[IU]/LNormal0.45-5.33[facility] PrebleComment on above:Result Comment: Reference Ranges for individuals from to 18 years of age were obtained from The [employer] Handbook (20 ed) published by [facility]. Reference Ranges for Females: Females, 1st Trimester 0.05 ? 3.7 uIU/mL Females, 2nd Trimester 0.31 ? 4.35 uIU/mL Females, 3rd Trimester 0.41 ? 5.18 uIU/mLPerformed By: #### PTINR #### [address] [address]Haovskbq-Icg 44-56-0375Kphzyggc I.cardiac [Mass/Vol]ng/mLNormal 0.00-0.03[facility] PrebleComment on above:Result Comment: An increased Troponin-I value, in the absence of myocardial ischemia, may indicate other etiologies of cardiac damage.Performed By: #### TROP #### [address], [place] [address]CD w Culture if Indon 49-20-3303Jczqk (U)YellowNormMemorial Health SystemComment on above:Performed By: #### UCI #### [address], [place] [address]Qomrkiw (U) [Mass/Vol]NegativeNormalNegativeKettering Health PrebleComment on above:Performed By: #### UCI #### [address], [place] [address]Jtyjljq Ql (U)NegativeNormalNegWhite HospitalComment on above:Performed By: #### UCI #### [address], [place] [address]JO BloodNegativeNormalNegWhite Hospital Comment on above:Performed By: #### UCI #### [address], [place] [address]NP ClarityClearNormMemorial Health SystemComment on above:Performed By: #### UCI #### [address], [place] [address]YY Leukocyte EsteraseNegativeNormalNegWhite HospitalComment on above:Performed By: #### UCI #### [address], [place] [address]QI NitriteNegativeNormalNegWhite Hospital Comment on above:Performed By: #### UCI #### [address], [place] [address]OQ pH6.1Khmpua7.5 - 7.8BlanPaulding County HospitalComment on above:Performed By: #### UCI #### [address], [place] [address]HF Kyunbfz23 mg/dLAbnormalNegWhite HospitalComment on above:Performed By: #### UCI #### [address] [address]UG SourceClean CatchNormalKettering Health PrebleComment on above:Performed By: #### UCI #### [address] [address]JE Spec Grav1.822Tjyjgm6.003-1.035[facility] PrebleComment on above:Performed By: #### UCI #### [address] [address]RS Urobilinogen0.2 mg/dLNormal0.2 - 1.0[facility] PrebleComment on above:Performed By: #### UCI #### [address] [address]Brotfivtezvo (U) [Mass/Vol]NegativeNormalNegativeKettering Health PrebleComment on above:Performed By: #### UCI #### [address] [address]ICX Compon 61-85-3215Grbghuvgnr [Mass/Vol]186.8 mg/dLNormal [facility] PrebleComment on above:Performed By: #### CD:[id number] #### [address] [address]Yl Amph ScrnNegativeNormalNEG = <1000[facility] PrebleComment on above:Performed By: #### CD:[id number] #### [address] [address]Dr Lulu ScrnPositiveAbnormalNEG = <200[facility] PrebleComment on above:Result Comment: This unconfirmed positive screening result is to be used for medical treatment purposes only. Unconfirmed screening results must not be used for non-medical purposes. (e.g. employment testing, legal testing).Performed By: #### CD:[id number] #### [address] [address]Qy Benzodia ScrnNegativeNormalNEG = <200[facility] PrebleComment on above:Performed By: #### CD:[id number] #### [address] [address]Rb Cannab ScrnPositiveAbnormalNEG = <50[facility] PrebleComment on above:Result Comment: This unconfirmed positive screening result is to be used for medical treatment purposes only. Unconfirmed screening results must not be used for non-medical purposes. (e.g. employment testing, legal testing).Performed By: #### CD:[id number] #### [address] [address]Mg Cocaine ScrnNegativeNormalNEG = <300[facility] PrebleComment on above:Performed By: #### CD:[id number] #### [address] [place] [address]Tg Methadone ScnNegativeNormalNEG = <300[facility] PrebleComment on above:Performed By: #### CD:[id number] #### [address], [place] [address]Ms Opiate ScrnNegativeNormalNEG = <300[facility] PrebleComment on above:Performed By: #### CD:[id number] #### [address] [place] [address]Ou Oxy ScreenNegativeNormalNEG = <100[facility] PrebleComment on above:Performed By: #### CD:[id number] #### [address] [place] [address]Ej Oxy Scrn Qnt0 ng/mLNormal<=99[facility] Comment on above:Performed By: #### CD:[id number] #### [address], [place] [address]Hf PCP ScrnNegativeNormalNEG = <25[facility] PrebleComment on above:Performed By: #### CD:[id number] #### [address], [place] [address]SJ pH6.9Mmacjc2.5 - 7.8BCleveland Clinic Union HospitalComment on above:Performed By: #### CD:[id number] #### [address] [address]OR Spec Grav1.096Afuysx9.003-1.035BlMercy Health [address] Elizabeth Youngstown HospitalComment on above:Performed By: #### CD:[id number] #### [address] [address]RM Chest 1 Viewon 75-39-9623ZN Chest 1 ViewEXAM: XR Chest 1 View HISTORY: Seizure COMPARISON: None. TECHNIQUE: Single portable [...] Is Signed, Electronically Signed in Other Vendor System)Normal [facility] Vital Signs Date TimeVital SignValuePerforming PxoaauxacSgzffvjt45-32-9502 19:46-0500 Diastolic blood vkzioqsk56 mm[Hg]Justin Schulte [facility]01-04-2025 19:46-0500Heart rate71 /Gwen Eris [facility]01-04-2025 19:46-0500Mean blood bfsizwvs27 mm[Hg]Justin Schulte [facility]01-04-2025 19:46-0500 Respiratory rate17 /minSunisheri Schulte [facility]01-04-2025 19:46-2046XuR3% (BldA) [Mass fraction]98 %Justin Schulte [facility]01-04-2025 19:46-0500 Systolic blood vyjdgyeg370 mm[Hg]Justin Schulte [address] [place], [place] [address]940101-04-2025 17:15-0500 Diastolic blood mm[Hg]Justin Schulte [address] [place], [place] [address]0101-04-2025 17:15-0500Heart rate67 /Gwen Schulte [address]01-04-2025 17:15-0500Mean blood mm[Hg]Justin Schulte [address]01-04-2025 17:15-0500 Respiratory rate16 /minJustin Schulte [address]01-04-2025 17:15-6806NlO9% (BldA) [Mass fraction]100 %Justin Schulte [address] [place], [place] [address]940101-04-2025 17:15-0500 Systolic blood rtvfmbfu512 mm[Hg]Justin Schulte [address] [place], [place] [address]0101-04-2025 15:47-0500Body rfifdrhlvol24.24 [degF]Justin Schulte [address] [place], [place] [address]0101-04-2025 15:47-0500 Diastolic blood elsczgva06 mm[Hg]Justin Schulte [address] [place], [place] [address]0101-04-2025 15:47-0500Heart rate90 /Gwen Schulte [address] [place], [place] [address]0101-04-2025 15:47-0500 Respiratory rate18 /minJustin Schulte [address] [place], [place] [address]0101-04-2025 15:47-3576HmC8% (BldA) [Mass fraction]100 %Justin Schulte [address] [place], [place] [address]0101-04-2025 15:47-0500 Systolic blood enomsaom478 mm[Hg]Justin Schulte [facility]12-02-2022 14:50-0500Blood Pressure LocationMichael NILL [facility] Surgery Kblmoxbn62-16-9321 14:50-0500Diastolic blood ptewsqck51 mm[Hg]Wolfgang NILL [facility] Surgery Ifkatngy34-40-6569 14:50-0500Heart rate 76 /minMichael NILL [facility] Surgery Hxpciwnl23-94-0280 14:50-0500 Respiratory rate16 /minMichael NILL [facility] Surgery Zhfkmesf56-29-2920 14:50-0500Systolic blood klygfbzg255 mm[Hg]Wolfgang NILL [facility] Surgery [place] Encounters Encounter DateEncounter TypeCare ProviderFacilityStart: 01-30-2025 End: 37-35-5120jdjcxwqirwPKLIPeoples Hospitaltart: 10-25-2024 End: 34-88-6413nnvfrdtoosIFUYPeoples Hospitaltart: 07-27-2024 End: 51-19-1488dbbwtojmwaZZ-C [facility] FerrellFacility:FTMER[facility]ENTERtart: 07-27-2024 End: 95-95-1498Jnnrpas encounter procedureSebastián DunnePromedica Flower Hospital Start: 07-22-2024 End: 50-58-2942Fwrtewvhv department patient visitJustin Schulte [facility] Start: 79-74-4914ookljerznbCppaponvqvl Abdelaziz [facility]: 07-30-2022 End: 67-25-3728gobyjmmpobSM MARIS HOYFacility:F1Jboqq: 07-15-2022 End: 62-97-6181Krlhbep encounter procedureMichael R NILL General Surgery Nill/Said [place] Start: 06-19-2022 End: 19-88-3131Ayvrwkl encounter procedureMichael R NILL General Surgery Nill/Said [place] Start: 08-22-2021 End: 38-53-7475rbtjuwvafmKU MARIS HOYFacility:B8Uaaqh: 08-19-2021 End: 19-69-7917udappaytsiJJ MARIS HOYFacility:A3Lqdyw: 08-16-2021 End: 87-24-2955jhtidolmyxDU MARIS HOYFacility:D6Slcia: 11-02-2020 End: 78-96-5130Ivnqnlpoj department patient [facility]Un[facility] Procedures DateProcedureProcedure DetailPerforming ClinicianCesarean sectionMichael NILL Cesarean sectionMichael NILL Comment on above:x 3CholecystectomyMichael NILL Excision of lesion of tongueMichael NILL Laser assisted in situ keratomileusisMichael NILL TonsillectomyMichael NILL Immunizations Immunization DateImmunizationNotesCare ProviderFacilityNEGATED: Highlighted row has not occurred!04-63-2905vouagtsat virus vaccine, unspecified formulation Wolfgang NILL General Surgery [place] Payers DatePayer CategoryPayerPolicy [id number] [id number] 2.16.840.1.690548.3.57[id number] 2.16.840.1.831589.3.57[id number] 2..840.1.416781.3.57[id number] 2.16.840.1.473818.3.57[id number] 2..840.1.723040.3.57[id number] 2..840.1.669346.3.57[id number] 2.840.1.195248.3.579.[id number] 2.16.840.1.222658.3.579.2.87781-05-6334CodkfroCAVC4948801267-28-5404Ikobpdb [id number] 2.16.840.1.000283.3.579.2.531 Social History DateTypeDetailFacilityStart: 53-24-8694Vaaaaxi smoking statusHeavy tobacco smoker (finding)[facility]vueTobacco smoking statusNeverGeneral Surgery BellevueSex Assigned At BirthFemalRiverview Health InstituteTobacco Current vaping or e-cigarette use Smokeless Tobacco Use:. VapingPromedica Flower Hospital Tobacco smoking statusNo Smoking Status EnteredPromedica Flower Hospital Functional Status VkgaVkcjaqzhhlVlzvjkKwkvgbci64-58-8660Jnrawfhfkq StatusN/AFAvita Health System [facility]12-02-2022Functional StatusN/AGeneral Surgery [place] Progress note 01-30-2025 Note Date & SkadJcfqTpsdmadn38-61-9696 [facility]GO[facility] Chief Complaint: Patient [...] is likely fal (more content not included)... [facility] Progress note 10-25-2024 Note Date & JbosVtkxHxtxluqq38-04-99[facility] Chief Complaint: New patient [...] 3 months Ministerio Moore MD, MPH, FACC, [facility], [facility] Interventional Cardiology Pager Email: [email or web address] Discharge instructions 07-22-2024 Note Date & DeqgCpfeGybhvtkb02-05-6741 Hospital Discharge instructions Patient Education 07/22/2024 20:14:14 Menorrhagia Menorrhagia Menorrhagia is a form of abnormal uterine bleeding in which menstrual periods are heavy or last longer than normal. With menorrhagia, the periods may cause enough blood loss and cramping that a womanbecomes unable to take part in her usual [...] treatments reduce bleeding during your menstrual period. Theyinclude: ? control pills. ?Skin patch. ?Vaginal ring. [...] Follow these instructions at home: Medicines Take duwm-huq-ybpanog and prescription medicines only as told by [...] to keep your urine pale yellow. Take xpcv-cyx-cacwekr or prescription medicines. Eat foods that are high in fiber, such as beans, whole grains, and fresh fruits and vegetables. Limit foods that are high in fat and processed sugars, such as fried or sweet foods. General instructions If you need to change your sanitary pad or tampon more than once every 2 hours, limit your activityuntil the bleeding stops. Eat well-balanced meals, including foods that are high in iron. Foods that have a lot of iron include leafy green vegetables, meat, liver, eggs, and whole-grain breads and cereals. Do not try to lose weight until the abnormal bleeding has stopped and your blood iron level is backto normal. If you need to lose weight, [...] it may include medicines or procedures. Take ocfn-dbl-obhznmp and prescription medicines only as told by [...] provider. Document Revised: 03/18/2021 Document Reviewed: 03/18/2021 [employer] Patient Education 2023 [employer]. Follow Up Care 07/22/2024 15:41:50 With:Sancho LINTON Address: [address] [place] [address]- Business (1) When:07/25/2024 19:57:29 With:Maris Kaurjeaneth Address: [facility] [place] [address]- Business (1) When:Within 3 Day(s) [facility] Clinical Note 07-22-2024 Note Date & YpmeYrslKaifrahs39-99-3064 NoteED Patient Education Note Obstetrics and Gynecology Menorrhagia Menorrhagia is a form of abnormal uterine bleeding in which menstrual periods are heavy or last longer than normal. With menorrhagia, the periods may cause enough blood loss and cramping that a womanbecomes unable to take part in her usual [...] a light on the end (hysteroscope) is usedto look inside your uterus. How is this [...] procedure, your health care provider opens the lowestpart of the uterus (cervix) and then scrapes [...] uterus. This is a permanent procedure that stopsmenstrual periods. is not possible after a hysterectomy. Follow these instructions at home: Medicines ??? Take jbsn-ukk-jnhhsrq and prescription medicines only as told by [...] take these actions (more content not included)... [facility] Evaluation + Plan note Note Date & TypeNoteFacilityEvaluation + Plan note Future Appointments Appointment Date:07/15/2022 03:00:00 PM Scheduled Provider:Wolfgang MC MD Location:[facility] Appointment Type: Procedure 30 General Surgery [place] Hospital course Narrative Note Date & TypeNoteFacilityHospital course Narrative No data available for this section General Surgery [place] Hospital Discharge instructions Note Date & TypeNoteFacilityHospital Discharge instructions No data available for this section General Surgery [place] Progress note Note Date & TypeNoteFacilityProgress note No data available for this section General Surgery [place] Summary Purpose Family History No Family History [...] section and content) DATE CREATED AUTHOR 11/06/2020 [facility] DATE CREATED AUTHOR AUTHOR'S ORGANIZ ATION 08/03/2022 [facility] DATE CREATED AUTHOR AUTHOR'S ORGANIZ ATION 06/30/2024 [facility] DATE CREATED AUTHOR AUTHOR'S ORGANIZ ATION 07/29/2024 [facility] DATE CREATED AUTHOR AUTHOR'S ORGANIZ ATION 08/06/2024 [facility] DATE CREATED AUTHOR AUTHOR'S ORGANIZ ATION 02/03/2025 [facility] Patient Care team informatio n (unrecognized section and content) Personnel Name: Maris Olivas MD Address: Address: [address] [place] [address] Personnel Name: Maris Olivas MD Address: Address: [address] [place] [address] Personnel Name: Maris Olivas MD Address: Address: [address] [place] [address] Personnel Name: Maris Olivas MD Address: Address: [address] [place] [address] FOR RECORDS PERTAINING TO PATIENTS WHO ARE [...] BE BASED ON THE PRIMARY CLINICAL RECORDS. [facility]. provides no warranty or guarantee of the accuracy or completeness of information in this document.
[2025-06-19 16:34] LABS: Free T3 3.00 pg/mL (2.18-3.98); Thyroid Stimulating Hormone 0.156 uIU/mL (0.358-3.740)
== END 2025-06-19 15:28 | disposition home or self-care (01) ==
PROVIDERS: PCP Family Medicine; Visit Provider Family Medicine
DX: E03.9 Hypothyroidism, unspecified (principal)
CPT/HCPCS: 36415; 84436; 84443; 84481